=== PATIENT | female | born 1940 | race Caucasian/White ===

== ENCOUNTER 2020-06-11 00:25 | Emergency (ER) | payer BC, MEDICARE ==
[~2020-06-11] VITALS: Ht 160 cm; Wt 63.5 kg
[~2020-06-11 00:25] MED LIST: ASPIR-LOW81 MG PO; CITALOPRAM HBR20 MG PO; CRESTOR10 MG PO; D3 PO; DIAZEPAM5 MG PO; IRON SUPPLEMEN325 MG PO; LISINOPRIL2.5 MG PO; MIDODRINE HCL2.5 MG PO; PRILOSEC OTC20 MG; PRILOSEC20 MG PO; ULTRACET TABLE1 EACH PO; ULTRAM 50MG50 MG PO; VITAMIN B-121000 MCG PO; VITAMIN D-32000 UNIT PO; b12 SL
[2020-06-11] MEDS ORDERED: VALIUM2 MG PO (00:52)
--- NOTE | 2020-06-11 01:03 | NUR ---
Calls made to both home and cell numbers of daughter María, RUSS left.
[2020-06-11 01:07] VITALS: BP 145/64
--- OUTSIDE RECORDS SUMMARY | 2020-06-11 01:12 | XMS REPORT | Summary of Care ---
Author Author [facility] Organization [facility] Address Unknown Phone Unavailable Encounter AMBERLY Barnett(MICHAEL) [id number] Date(s): 11/24/19 - 11/24/19 [facility] [address] [place] [address]- Encounter Diagnosis Accidental fall (Discharge Diagnosis) - 11/24/19 Closed head injury (Discharge Diagnosis) - 11/24/19 Laceration of scalp (Discharge Diagnosis) - 11/24/19 Discharge Disposition: Home or Self Care Attending Physician: Michael Moser MD Vital Signs 1 2 3 Most recent to oldest [Reference Range]: 162.56 cm (11/24/19 9:18 AM) Height 98.9 DegF (11/24/19 2:32 PM) 98.5 DegF (11/24/19 9:18 AM) Temperature Oral [96.4-99.1 DegF] 109/66 mmHg (11/24/19 2:32 PM) 114/77 mmHg (11/24/19 10:15 AM) 107/66 mmHg (11/24/19 9:18 AM) Blood Pressure [90-140/60-90 mmHg] 15 BRMIN (11/24/19 2:32 PM) 23 BRMIN *HI* (11/24/19 10:40 AM) 19 BRMIN (11/24/19 10:15 AM) Respiratory Rate [14-20 BRMIN] 59 bpm *LOW* (11/24/19 9:18 AM) Peripheral Pulse Rate [60-100 bpm] 73.636 kg (11/24/19 9:18 AM) Weight 27.87 m2 (11/24/19 9:18 AM) Body Mass Index Problem List Condition Effective Dates Status Health Status Informan t Aneurysm, 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) HTN Resolved (hypertension)(Confi rmed) Stroke(Confirmed) Resolved Allergies, Adverse Reactions, Alerts Substance Reaction Severity Status Codeine Active Phosphate-Promethazine HCl Medications acetaminophen 500 mg oral tablet 500 mg = 1 tab, PO, Q6H, PRN Pain, not to exceed 4000 mg/day, X 7 day, # 24 tab, 0 Refill(s) Start Date: 11/24/19 Stop Date: 12/01/19 Status: Ordered Results No data available for this section Immunizations No data available for this section Procedures Procedure Date Related Diagnosis Body Site Status Cardiac catheterization Completed Placement of stent Completed Social History Social History Type Response Smoking Status Never smoker; Exposure to T obacco Smoke None; Cigarette Smoking Last 365 Days No; Reg Smoking Cessation Counseli ng No entered on: 11/24/19 Assessment and Plan No data available for this section
--- OUTSIDE RECORDS SUMMARY | 2020-06-11 01:12 | XMS REPORT | Continuity of Care Document ---
Author Author Leland [employer] 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 Information Exchange Unavailable Un available Problems Problem Status Onset Date Classification Date Reported Comments Source FALL Active 02/26/2020 [facility] CLOSED COMMINUTED INTERTROCHANTERIC FX O Active 02/26/2020 [facility] CLOSED COMMINUTED INTERTROCHANTERIC Active 02/26/2020 [facility] INTERTROCHANTERIC FRACTURE Act katey 02/26/2020 [facility] Unspecified fall, initial encounter 11/24/2019 11/26/2019 [facility] Unspecified injury of head, initial encounter 11/24/2019 11/26/2019 [facility] Laceration without foreign body of scalp , initial encounter 11/24/2019 11/26/2019 [facility] RIGHT HIP FRACTURE Active 04/23/2016 [facility] HIP PAIN Active 04/23/2016 [facility] RIGHT HIP FRACTURE. Active 04/23/2016 [facility] Final: Unspecified fracture of unspecifi ed femur, initial encounter for closed fracture 04/29/2016 [facility] Aortic aneurysm (disorder) Res olved Problem [facility] Coronary arteriosclerosis (disorder) Resolved Problem [facility] Hypertensive disorder, systemic arterial (disorder) Resolved Problem 03/25/2020 [facility] Cerebrovascular accident (disorder) Resolved Problem [facility] Acute urinary tract infection (disorder) Active Problem 03/25/2020 [facility] Anemia following acute postoperative blo od loss (disorder) Active Prob melissa 03/25/2020 [facility] Chronic obstructive lung disease (disorder) Active Problem 03/25/2020 [facility] Closed fracture proximal femur, intertro chanteric, comminuted (disorder) Active Prob melissa 03/25/2020 [facility] Falling injury (finding) Active Problem 03/25/2020 [facility] Finding of functional performance and ac tivity (finding) Active Prob melissa 03/25/2020 [facility] Hip pain (finding) Active Problem 03/25/2020 [facility] Impaired cognition (finding) A ctive Problem [facility] Leukocytosis (disorder) Active Problem 03/25/2020 [facility] Displaced intertrochanteric fracture of right femur, initial encounter for closed fracture 03/25/2020 [facility] UNSP FRACTURE OF UNSP FEMUR, INIT ENCNTR Active [facility] DISPLACED INTERTROCHANTERIC FRACTURE OF Active [facility] DISPLACED INTERTROCHANTERIC FRACTURE OF Active [facility] Medications Medication Details Route Status Patient Instructions Ordering Provider Order Date Source citalopram 10 mg oral tablet 4 0 mg = 4 tab, PO, Daily, # 120 tab, 0 Refill(s), Pharmacy: [facility] [id number] Active 03/23/2020 [facility] Furosemide 20 MG Oral Tablet 2 0 mg = 1 tab, PO, Daily, # 30 tab, 0 Refill(s), Pharmacy: [facility] [id number] Active 03/23/2020 [facility] 24 HR Metoprolol Tartrate 25 MG Extended Release Tablet [Toprol] 25 mg = 1 tab, PO, Daily, # 30 tab, 0 Re fill(s), Pharmacy: [facility] [id number] Active 03/23/2020 [facility] Rosuvastatin calcium 20 MG Oral Tablet [Crestor] 20 mg = 1 tab, PO, Bedtime, # 30 tab, 0 Refill(s), Pharmacy: [facility] [id number] Active 03/23/2020 [facility] tramadol hydrochloride 50 MG Oral Tablet 50 mg = 1 tab, PO, Q4H, PRN Pain Score 1-3, X 3 day, # 10 tab, 0 Refill(s), Pharmacy: [facility] [id number] Active 03/23/2020 [facility] cholecalciferol 1000 intl units oral tablet 1,000 IntlUnit = 1 tab, PO, Daily, 0 Refill(s) Active 03/15/2020 [facility] diazepam 5 mg oral tablet 10 m g = 2 tab, PO, BID, PRN as needed for anxiety, 0 Refill(s) Active 03/15/2020 [facility] Acetaminophen 325 MG Oral Tablet 650 mg = 2 tab, PO, Q4H, PRN Pain Score 1-3, 0 Refill(s) Active 03/15/2020 [facility] bisacodyl 10 mg rectal suppository 10 mg = 1 supp, OR, Bedtime, PRN Constipation, 0 Refill(s) Active 03/15/2020 [facility] Calcium Carbonate 500 MG Chewable Tablet 500 mg = 1 tab, PO, BID, 0 Refill(s) Active 03/15/2020 [facility] Docusate Sodium 100 MG Oral Capsule 100 mg = 1 cap, PO, BID, PRN Constipation, 0 Refill(s) Active 03/15/2020 [facility] enoxaparin 40 mg/0.4 mL subcutaneous solution 40 mg = 0.4 mL, SUB-Q, [id number], 0 Refill(s) No Longer Active 03/15/2020 [facility] Furosemide 20 MG Oral Tablet 2 0 mg = 1 tab, PO, Daily, 0 Refill(s) No Longer Active 03/15/2020 [facility] Ipratropium [place] 0.2 MG/ML Inhalant Solution 0.5 mg = 2.5 mL, NEB, RQID, 0 Refill(s) Active 03/15/2020 [facility] melatonin 3 mg oral tablet 3 m g = 1 tab, PO, Bedtime, PRN Insomnia, 0 Refill(s) Active 03/15/2020 [facility] tramadol hydrochloride 50 MG Oral Tablet 50 mg = 1 tab, PO, Q4H, PRN Pain Score 1-3, 0 Refill(s) No Longer Active 03/15/2020 [facility] Sodium Chloride 0.9% IV 500 mL 500 mL, Rate: 50 ml/hr, Infuse over: 10 hr, Route: IV, Dosing Weight 73.352 kg, Total Volume: 500, Start date: 03/14/20 14:22:00 CDT, Duration: 30 day, Stop date: 04/13/20 14:21:00 CDT, 1.83, m2 Inactive 03/14/2020 [facility] Melatonin 3 mg, Route: PO, Bed time, Dosing Weight 73.352, kg, PRN Sleep, Start date: 03/13/20 14:20:00 CDT, Duration: 30 day, Stop date: 04/12/20 14:19:00 CDT Inactive 03/13/2020 [facility] Potassium Chloride 40 mEq, Rou te: PO, Drug form: ERTAB, ONCE, Dosing Weight 73.352, kg, Start date: 03/13/20 14:19:00 CDT, Stop date: 03/13/20 14:19:00 CDT Inactive 03/13/2020 [facility] tiotropium 0.018 MG/ACTUAT Inhalant Powder [Spiriva] 18 microgram, 1 cap, Route: INHALATION, Daily, Dosing Weight 73.352, kg, Start date: 03/13/20 9:00:00 CDT, Duration: 30 day, Stop date: 04/11/20 9:00:00 CDT No Longer Active 03/13/2020 [facility] ipratropium 0.02% inhalation solution Notes: SEE RT DOCUMENTATION (Same as:Atrovent) No Longer Active 03/13/2020 [facility] Furosemide 20 MG Oral Tablet N otes: (Same as: Lasix) May cause GI upset. Give with food or milk. No Longer Active 03/12/2020 [facility] Albuterol 0.833 MG/ML / Ipratropium Brom ryan 0.167 MG/ML Inhalant Solution [DuoNeb] Notes: (Same as: Duoneb) No Longer Active 03/11/2020 [facility] Diazepam Notes: (Same as: Ancelmo um) No Longer Active 03/08/2020 [facility] Docusate Sodium 100 MG Oral Capsule Notes: (Same as: Colace) (Do Not Crush) No Longer Active 03/07/2020 [facility] Miralax Notes: Dissolve in 8 o z of water or juice. (Same as: Miralax) No Longer Active 03/07/2020 [facility] sennosides, LONG-TERM 8.6 MG Oral Tablet Notes: (Same as: Senokot) No Longer Active 03/07/2020 [facility] tramadol hydrochloride 50 MG Oral Tablet Notes: Not to exceed 400mg/day. (Same As: Ultram) No Longer Active 03/04/2020 [facility] Potassium Chloride Notes: ([facility] e as: K-Dur 20) "Do Not Crush" Give with food and full glass of water For patients unable to swallow tablet, dissolve in one half glass of water. Allow about 2 minutes for the tab lets to disintegrate. Stir before giving to prepare slurry and administer. Please exclude Patients with feeding tube less than 14 American (Dobhoff, J-tube etc) and pediatric and patients. No Longer Active 03/03/2020 [facility] potassium chloride 20 mEq oral tablet, e xtended release (KCL) 20 mEq, 1 tab, Route: PO, Drug form: ERT AB, Q12H, Dosing Weight 72.545, kg, PRN Abnormal Lab Result, Start date: 03/03/20 11:55:00 CDT, Duration: 30 day, Stop date: 04/02/20 11:54:00 CDT, 0 No Longer Active 03/03/2020 [facility] Potassium Chloride Notes: ([facility] e as: K-Dur 20) "Do Not Crush" Give with food and full glass of water For patients unable to swallow tablet, dissolve in one half glass of water. Allow about 2 minutes for the tab lets to disintegrate. Stir before giving to prepare slurry and administer. Please exclude Patients with feeding tube less than 14 American (Dobhoff, J-tube etc) and pediatric and patients. Inactive 03/03/2020 [facility] Cholecalciferol Notes: Same as : Vitamin D3 No Longer Active 03/03/2020 [facility] Celexa 40 mg, 4 tab, Route: PO , Drug form: TAB, Daily, Dosing Weight 72.545, kg, Start date: 03/03/20 9:00:00 CDT, Duration: 30 day, Stop date: 04/01/20 9:00:00 CDT, 0 No Longer Active 03/03/2020 [facility] metoprolol extended release No yesenia: (Same as: Toprol XL) Do Not Crush No Longer Active 03/03/2020 [facility] Saline Flush 0.9% Notes: (Same as: BD Posiflush) No Longer Active 03/03/2020 [facility] Acetaminophen Notes: Do not ex ceed 4 gm/day. (Same as: Tylenol) No Longer Active 03/03/2020 [facility] Acetaminophen 325 MG / Hydrocodone Connor trate 5 MG Oral Tablet Notes: (Same as: [place] 325/5) Do not ex ceed 4gm/day of acetaminophen. No Longer Active 03/03/2020 [facility] Ondansetron Notes: (Same as: Z ofran) No Longer Active 03/03/2020 [facility] Docusate Notes: (Same as: Cola ce) (Do Not Crush) No Longer Active 03/03/2020 [facility] Bisacodyl Notes: (Same As: Dul colax, Bisco-Lax) No Longer Active 03/03/2020 [facility] Melatonin Notes: (Same as: Leigh atonin) No Longer Active 03/03/2020 [facility] Saline Flush 0.9% Notes: (Same as: BD Posiflush) No Longer Active 03/03/2020 [facility] Crestor Notes: Same as Crestor No Longer Active 03/03/2020 [facility] Calcium Carbonate Notes: (Same As: [place]) Calcium Carbonate 500 mg = 200 mg elemental calcium Dose = mg calcium carbonate ( mg elemental calcium) No Longer Active 03/02/2020 [facility] Diazepam Notes: (Same as: Ancelmo um) No Longer Active 03/02/2020 [facility] Protonix Notes: Tablet should not be chewed or crushed. (Same as: Protonix) No Longer Active 03/02/2020 [facility] Lovenox Notes: (Same as: Loven ox) No Longer Active 03/02/2020 [facility] Acetaminophen 325 MG / Hydrocodone Connor trate 10 MG Oral Tablet [[place] 10/325] Notes: Do not exceed 4gm/day of acetamin ophen. (Same as: [place] 325/10) Inactive 03/02/2020 [facility] Anoro Ellipta 62.5 mcg-25 mcg inhalation powder 1 puff, INHALER, Daily, # 1 ea, 3 Refill(s) On Hold 03/02/2020 [facility] 24 HR Metoprolol Tartrate 25 MG Extended Release Tablet [Toprol] 25 mg = 1 tab, PO, Daily, 0 Refill(s) On Hold 03/01/2020 [facility] citalopram 10 mg oral tablet 4 0 mg = 4 tab, PO, BID, 0 Refill(s) On Hold 03/01/2020 [facility] pantoprazole 40 mg oral enteric coated tablet 40 mg = 1 tab, PO, Before Breakfast, 0 Refill(s) On Hold 03/01/2020 [facility] Cholecalciferol Notes: Same as : Vitamin D3 No Longer Active 02/28/2020 [facility] Enoxaparin Notes: (Same as: Lo venox) No Longer Active 02/28/2020 [facility] Lovenox 40 mg, Route: SUB-Q, D rug form: INJ, [id number], Dosing Weight 72.545, kg, Start date: 02/28/20 7:00:00 CDT, Duration: 14 day, Stop date: 03/12/20 7:00:00 CDT No Longer Active 02/28/2020 [facility] Calcium Carbonate Notes: 500mg elemental calcium = 1250mg calcium carbonate. Contains 500mg elemental calcium. (Same As: OsCal 500) No Longer Active 02/27/2020 [facility] dexamethasone (ANES) Route: IV , Drug form: INJ, ONCE, Stop date: 02/27/20 12:14:00 CDT Inactive 02/27/2020 [facility] Fentanyl Notes: (Same as: Subl imaze) Preservative free. No Longer Active 02/27/2020 [facility] Flumazenil Notes: (Same as: Ro mazicon) No Longer Active 02/27/2020 [facility] Naloxone Notes: Same as Narcan No Longer Active 02/27/2020 [facility] Ondansetron Notes: (Same as: Susan singh) MEDICATION WASTE Product Size: 4 mg Product Wasted: ___ mg No Longer Active 02/27/2020 [facility] ondansetron (ANES) Route: IV, Drug form: INJ, ONCE, Stop date: 02/27/20 11:19:00 CDT Inactive 02/27/2020 [facility] ceFAZolin (ANES) Route: IV, Dr ug form: INJ, ONCE, Stop date: 02/27/20 11:09:00 CDT Inactive 02/27/2020 [facility] ePHEDrine (ANES) Route: IV, Dr ug form: INJ, ONCE, Stop date: 02/27/20 10:53:00 CDT Inactive 02/27/2020 [facility] midazolam (ANES) Route: IV, Dr ug form: SOLN, ONCE, Stop date: 02/27/20 10:43:00 CDT Inactive 02/27/2020 [facility] lidocaine (ANES) Route: IV, Dr ug form: INJ, ONCE, Stop date: 02/27/20 10:43:00 CDT Inactive 02/27/2020 [facility] fentaNYL (ANES) Route: IV, Jono g form: INJ, ONCE, Stop date: 02/27/20 10:43:00 CDT Inactive 02/27/2020 [facility] glycopyrrolate (ANES) Route: I V, Drug form: INJ, ONCE, Stop date: 02/27/20 10:43:00 CDT Inactive 02/27/2020 [facility] propofol (ANES) Route: IV, Jono g form: INJ, ONCE, Stop date: 02/27/20 10:39:00 CDT Inactive 02/27/2020 [facility] succinylcholine (ANES) Route: IV, Drug form: INJ, ONCE, Stop date: 02/27/20 10:39:00 CDT Inactive 02/27/2020 [facility] Dilaudid Notes: (Same as: Dila udid) No Longer Active 02/27/2020 [facility] Lactated Ringers Injection IV (ANES) 1000 mL Route: IV, Total Volume: 1,000, Start date: 02/27/20 9:57:00 CDT, Stop date: 02/27/20 10:57:00 CDT Inactive 02/27/2020 [facility] Prevacid 30 mg, Route: PO, QAM , Dosing Weight 72.545, kg, Start date: 02/27/20 9:00:00 CDT, Duration: 30 day, Stop date: 03/27/20 9:00:00 CDT No Longer Active 02/27/2020 [facility] 24 HR Metoprolol Tartrate 25 MG Extended Release Tablet [Toprol] Notes: (Same as: Toprol XL) Do Not Crush No Longer Active 02/27/2020 [facility] Vitamin D3 Notes: Same as [place] min D3 No Longer Active 02/27/2020 [facility] Celexa 40 mg, 4 tab, Route: PO , Drug form: TAB, Daily, Dosing Weight 72.545, kg, Start date: 02/27/20 9:00:00 CDT, Duration: 30 day, Stop date: 03/27/20 9:00:00 CDT, 0 No Longer Active 02/27/2020 [facility] Protonix Notes: Tablet should not be chewed or crushed. (Same as: Protonix) No Longer Active 02/27/2020 [facility] Morphine Notes: (Same as:MORPh ine Sulfate) No Longer Active 02/27/2020 [facility] Diazepam Notes: (Same as: Ancelmo um) No Longer Active 02/27/2020 [facility] Ciprofloxacin Notes: Do not re frigerate No Longer Active 02/27/2020 [facility] Crestor Notes: Same as Crestor No Longer Active 02/27/2020 [facility] Morphine Notes: (Same as:MORPh ine Sulfate) No Longer Active 02/26/2020 [facility] Trazodone Notes: (Same As: Oh yrel) Inactive 02/26/2020 [facility] Ancef + sterile water 20 mL No yesenia: (Same As: Ancef, Kefzol) MEDICATION WASTE Product Size: 1000 mg Product Wasted: ___ mg No Longer Active 02/26/2020 [facility] Dextrose 50% Syringe (D50W) 12 .5 gm, 25 mL, Route: IVP, Drug Form: INJ, Dosing Weight 72.727, kg, PRN, PRN Blood Glucose Results, Start date: 02/26/20 16:01:00 CDT, Duration: 30 day, Stop date: 03/27/20 16:00:00 CDT, 0 No Longer Active 02/26/2020 [facility] Glucagon 1 mg, Route: IM, Drug form: PDR/INJ, PRN, Dosing Weight 72.727, kg, PRN Blood Glucose Results, Start date: 02/26/20 16:01:00 CDT, Duration: 30 day, Stop date: 03/27/20 16:00:00 CDT, 0 No Longer Active 02/26/2020 [facility] Docusate Notes: (Same as: Cola ce) (Do Not Crush) No Longer Active 02/26/2020 [facility] Ondansetron Notes: (Same as: Susan singh) MEDICATION WASTE Product Size: 4 mg Product Wasted: ___ mg No Longer Active 02/26/2020 [facility] Acetaminophen Notes: Do not ex ceed 4 gm/day. (Same as: Tylenol) No Longer Active 02/26/2020 [facility] Dilaudid Notes: (Same as: Dila udid) Inactive 02/26/2020 [facility] Saline Flush 0.9% Notes: (Same as: BD Posiflush) No Longer Active 02/26/2020 [facility] Acetaminophen 500 MG Oral Tablet 500 mg = 1 tab, PO, Q6H, PRN Pain, not to exceed 4000 mg/day, X 7 day, # 24 tab, 0 Refill(s) Active 11/24/2019 [facility] Acetaminophen 300 MG / Codeine Phosphate 60 MG Oral Tablet [Tylenol with Codeine #4] 1 - 2 tab, PO, Q4H, PRN Pain, X 2 day, # 40 tab, 0 Refill(s), given to patient No Longer Active 04/26/2016 [facility] 0.3 ML Enoxaparin sodium 100 MG/ML Prefi lled Syringe [Lovenox] 30 mg, SUB-Q, Q12H, X 14 day, # 28 inj, 0 Refill(s) Active 04/26/2016 [facility] Cephalexin 500 MG Oral Capsule [Keflex] 500 mg = 1 cap, PO, QID, X 10 day, # 40 cap, 0 Refill(s) Active 04/26/2016 [facility] metoprolol 25 mg oral tablet, extended release 25 mg = 1 tab, PO, Daily, # 30 tab, 0 Refill(s) Active 04/26/2016 [facility] Miralax Notes: Dissolve in 8 o z of water or juice. (Same as: Miralax) Inactive 04/26/2016 [facility] Lovenox Notes: (Same as: Loven ox) No Longer Active 04/25/2016 [facility] Ancef + sodium chloride 0.9% INJ 100 mL Notes: (Same As: Ancef, Kefzol) Inactive 04/25/2016 [facility] metoprolol extended release No yesenia: (Same as: Toprol XL) Do Not Crush No Longer Active 04/25/2016 [facility] Prevacid 30 mg, Route: PO, QAM , Dosing Weight 72.727, kg, Start date: 04/25/16 9:00:00 CDT, Duration: 30 day, Stop date: 05/24/16 9:00:00 CDT No Longer Active 04/25/2016 [facility] Aspirin 81 MG Enteric Coated Tablet Notes: Do not crush or chew. (Same As: Ecotrin) No Longer Active 04/25/2016 [facility] Vitamin C Notes: (Same as: Vit sinha C) No Longer Active 04/25/2016 [facility] Protonix Notes: Tablet should not be chewed or crushed. (Same as: Protonix) No Longer Active 04/25/2016 [facility] Crestor 20 mg, Route: PO, Drug form: TAB, Bedtime, Dosing Weight 72.727, kg, Start date: 04/24/16 21:00:00 CDT, Duration: 30 day, Stop date: 05/23/16 21:00:00 CDT Inactive 04/25/2016 [facility] Lipitor Notes: (Same as: Lipit or) No Longer Active 04/25/2016 [facility] ePHEDrine (ANES) Route: IV, Dr ug form: INJ, ONCE, Stop date: 04/24/16 17:33:00 CDT Inactive 04/24/2016 [facility] ondansetron (ANES) Route: IV, Drug form: INJ, ONCE, Stop date: 04/24/16 17:28:00 CDT Inactive 04/24/2016 [facility] acetaminophen (ANES) (ANES) Ro tlingit & haida: IV, Drug form: INJ, Start date: 04/24/16 17:27:00 CDT, Stop date: 04/24/16 18:27:00 CDT Inactive 04/24/2016 [facility] midazolam (ANES) Route: IV, Dr ug form: SOLN, ONCE, Stop date: 04/24/16 17:23:00 CDT Inactive 04/24/2016 [facility] fentaNYL (ANES) Route: IV, Jono g form: INJ, ONCE, Stop date: 04/24/16 17:23:00 CDT Inactive 04/24/2016 [facility] lidocaine (ANES) Route: IV, Dr ug form: INJ, ONCE, Stop date: 04/24/16 17:23:00 CDT Inactive 04/24/2016 [facility] propofol (ANES) Route: IV, Jono g form: INJ, ONCE, Stop date: 04/24/16 17:23:00 CDT Inactive 04/24/2016 [facility] ceFAZolin (ANES) (ANES) Route: IV, Drug form: INJ, Start date: 04/24/16 17:12:00 CDT, Stop date: 04/24/16 18:12:00 CDT Inactive 04/24/2016 [facility] Acetaminophen 325 MG / Hydrocodone Connor trate 7.5 MG Oral Tablet [[place] 7.5/325] Notes: Same as [place] 325-7.5mg Do not exceed 4gm/day of acetaminophen. No Longer Active 04/24/2016 [facility] Acetaminophen 325 MG / Hydrocodone Connor trate 7.5 MG Oral Tablet [[place] 7.5/325] Notes: Same as [place] 325-7.5mg Do not exceed 4gm/day of acetaminophen. No Longer Active 04/24/2016 [facility] Diazepam Notes: (Same as: Ancelmo um) No Longer Active 04/24/2016 [facility] LR 1000 mL INJ (ANES) Route: I V, Total Volume: 1,000, Start date: 04/24/16 16:40:00 CDT, Stop date: 04/24/16 17:40:00 CDT Inactive 04/24/2016 [facility] Aspirin 81 MG Enteric Coated Tablet 81 mg = 1 tab, PO, Daily, # 90 tab, 3 Refill(s) Active 04/24/2016 [facility] Potassium Chloride 10 MEQ Extended Release Tablet 10 mEq = 1 tab, PO, Daily, 0 Refill(s) Active 04/24/2016 [facility] Prevacid 30 mg, PO, QAM, # 15 cap, 0 Refill(s) Active 04/24/2016 [facility] Vitamin C 1000 mg oral tablet 1,000 mg = 1 tab, PO, Daily, 0 Refill(s) Active 04/24/2016 [facility] Rosuvastatin calcium 20 MG Oral Tablet [Crestor] 20 mg = 1 tab, PO, Bedtime, 0 Refill(s) Active 04/24/2016 [facility] Vitamin C 0 Refill(s) Active 04/24/2016 [facility] diazepam 10 mg oral tablet 10 mg = 1 tab, PO, BID, 0 Refill(s) Active 04/24/2016 [facility] Vitamin D3 oral tablet 800 Int lUnit = 2 tab, PO, Daily, 0 Refill(s) Active 04/24/2016 [facility] Ancef Notes: Same as: Ancef No Longer Active 04/24/2016 [facility] Saline Flush 0.9% Notes: (Same as: BD Posiflush) No Longer Active 04/24/2016 [facility] Sodium Chloride 0.154 MEQ/ML Injectable Solution 1,000 mL, Rate: 40 ml/hr, Infuse over: 25 hr, Route: IV, Dosing Weight 72.727 kg, Total Volume: 1,000, Start date: 04/23/16 19:33:00 CDT, Stop date: 05/23/16 19:32:00 CDT No Longer Active 04/24/2016 [facility] Ondansetron 4 mg, Route: IVP, Q6H, Dosing Weight 72.727, kg, PRN Nausea & Vomiting, Start date: 04/23/16 19:33:00 CDT, Duration: 30 day, Stop date: 05/23/16 19:32:00 CDT Inactive 04/24/2016 [facility] Morphine 2 mg, Route: IVP, Q4H , Dosing Weight 72.727, kg, PRN Pain Score 7-10, Start date: 04/23/16 19:33:00 CDT, Duration: 30 day, Stop date: 05/23/16 19:32:00 CDT Inactive 04/24/2016 [facility] Enoxaparin Notes: (Same as: Lo venox) No Longer Active 04/23/2016 [facility] Hydralazine Notes: (Same as: A presoline) Push over 5 minutes No Longer Active 04/23/2016 [facility] sodium chloride 0.9% 1000 ml INJ 1,000 mL 1,000 mL, Rate: 90 ml/hr, Infuse over: 11.1 hr, Route: IV, Dosing Weight 72.727 kg, Total Volume: 1,000, Start date: 04/23/16 17:59:00 CDT, Duration: 30 day, Stop date: 05/23/16 17:58:00 CDT Inactive 04/23/2016 [facility] Morphine Notes: (Same as:MORPh ine Sulfate) No Longer Active 04/23/2016 [facility] Docusate Notes: (Same as: Cola ce) (Do Not Crush) No Longer Active 04/23/2016 [facility] Ondansetron Notes: (Same as: Susan singh) MEDICATION WASTE Product Size: 4 mg Product Wasted: ___ mg No Longer Active 04/23/2016 [facility] Acetaminophen 325 MG / Hydrocodone Connor trate 5 MG Oral Tablet Notes: (Same as: [place] 325/5) Do not ex ceed 4gm/day of acetaminophen. No Longer Active 04/23/2016 [facility] Acetaminophen Notes: Do not ex ceed 4 gm/day. (Same as: Tylenol) No Longer Active 04/23/2016 [facility] Morphine 2 mg, Route: IVP, Jono g form: INJ, ONCE, Dosing Weight 72.727, kg, Priority: STAT, Start date: 04/23/16 16:56:00 CDT, Stop date: 04/23/16 16:56:00 CDT Inactiv e 04/23/2016 [facility] Zofran 4 mg, Route: IVP, Drug form: INJ, ONCE, Dosing Weight 72.727, kg, Priority: STAT, Start date: 04/23/16 15:15:00 CDT, Stop date: 04/23/16 15:15:00 CDT Inactiv e 04/23/2016 [facility] Morphine 4 mg, Route: IVP, Jono g form: INJ, ONCE, Dosing Weight 72.727, kg, Priority: STAT, Start date: 04/23/16 15:14:00 CDT, Stop date: 04/23/16 15:14:00 CDT Inactiv e 04/23/2016 [facility] Allergies, Adverse Reactions, Alerts Substance Category Reaction Severity Reaction type Status Date Reported Comments Source Codeine Phosphate-Promethazine HCl Assertion Drug aller gy Active [facility] Immunizations No Data Provided for This Section Results Order Name Results Value Reference Range Date Interpretation Comments Source CHEM PANEL Glucose Lvl 92 70 - 99 03/19/2020 [facility] CHEM PANEL BUN 8 7 - 22 03/19/2020 [facility] CHEM PANEL Creatinine Lvl 1.12 0.50 - 1.40 03/19/2020 [facility] CHEM PANEL Sodium Lvl 139 135 - 145 03/19/2020 [facility] CHEM PANEL Potassium Lvl 3.8 3.5 - 5.1 03/19/2020 [facility] CHEM PANEL Chloride Lvl 97 95 - 109 03/19/2020 [facility] CHEM PANEL CO2 36 24 - 32 03/19/2020 [facility] CHEM PANEL Calcium Lvl 9.0 8.5 - 10.5 03/19/2020 [facility] CHEM PANEL AGAP 9.8 10.0 - 20.0 03/19/2020 [facility] CHEM PANEL eGFR 47 03/19/2020 Result Comment: The eGFR is calculated using the CKD-EPI formula. In most young, healthy individuals the eGFR will be >90 mL/min/1.73m2. The eGFR declines with age. An eGFR of 60-89 may be normal in some populations, particularly the elderly, for whom the CKD-EPI formula has not been extensively validated. Use of the eGFR is not recommended in the following populations:

Individuals with unstable creatinine concentrations, including patients and those with serious co-morbid conditions.

Patients with extremes in muscle mass or diet.

The data above are obtained from the National Kidney Disease Education Program (NKDEP) which additionally recommends that when the eGFR is used in patients with extremes of body mass index for purposes of drug dosing, the eGFR should be multiplied by the estimated BMI. [facility] WBC 4.8 3.7 - 10.4 03/19/[address] [facility] RBC 3.36 4.20 - 5.40 03/19/2020 [facility] HEMATOLOGY Hgb 10.3 12.0 - 16.0 03/19/[address] [facility] Hct 31.2 36.0 - 48.0 03/19/[address] [facility] MCV 92.8 80.0 - 98.0 03/19/[address] [facility] MCH 30.7 27.0 - 31.0 03/19/[address] [facility] MCHC 33.0 32.0 - 36.0 03/19/[address] [facility] RDW 13.4 11.5 - 14.5 03/19/[address] [facility] Platelet 306 133 - 450 03/19/[address] [facility] MPV 7.0 7.4 - 10.4 03/19/2020 [facility] CHEM PANEL Glucose Lvl 88 70 - 99 03/15/2020 [facility] CHEM PANEL BUN 13 7 - 22 03/15/2020 [facility] CHEM PANEL Creatinine Lvl 1.06 0.50 - 1.40 03/15/2020 [facility] CHEM PANEL Sodium Lvl 131 135 - 145 03/15/2020 [facility] CHEM PANEL Potassium Lvl 4.1 3.5 - 5.1 03/15/2020 [facility] CHEM PANEL Chloride Lvl 97 95 - 109 03/15/2020 [facility] CHEM PANEL CO2 27 24 - 32 03/15/2020 [facility] CHEM PANEL Calcium Lvl 8.6 8.5 - 10.5 03/15/2020 [facility] CHEM PANEL AGAP 11.1 10.0 - 20.0 03/15/2020 [facility] CHEM PANEL eGFR 50 03/15/2020 Result Comment: The eGFR is calculated using the CKD-EPI formula. In most young, healthy individuals the eGFR will be >90 mL/min/1.73m2. The eGFR declines with age. An eGFR of 60-89 may be normal in some populations, particularly the elderly, for whom the CKD-EPI formula has not been extensively validated. Use of the eGFR is not recommended in the following populations:

Individuals with unstable creatinine concentrations, including patients and those with serious co-morbid conditions.

Patients with extremes in muscle mass or diet.

The data above are obtained from the National Kidney Disease Education Program (NKDEP) which additionally recommends that when the eGFR is used in patients with extremes of body mass index for purposes of drug dosing, the eGFR should be multiplied by the estimated BMI. [facility] CHEM PANEL Glucose Lvl 95 70 - 99 03/13/2020 [facility] CHEM PANEL BUN 10 7 - 22 03/13/2020 [facility] CHEM PANEL Creatinine Lvl 1.03 0.50 - 1.40 03/13/2020 [facility] CHEM PANEL Sodium Lvl 137 135 - 145 03/13/2020 [facility] CHEM PANEL Potassium Lvl 3.2 3.5 - 5.1 03/13/2020 [facility] CHEM PANEL Chloride Lvl 101 95 - 109 03/13/2020 [facility] CHEM PANEL CO2 31 24 - 32 03/13/2020 [facility] CHEM PANEL Calcium Lvl 8.8 8.5 - 10.5 03/13/2020 [facility] CHEM PANEL AGAP 8.2 10.0 - 20.0 03/13/2020 [facility] CHEM PANEL eGFR 52 03/13/2020 Result Comment: The eGFR is calculated using the CKD-EPI formula. In most young, healthy individuals the eGFR will be >90 mL/min/1.73m2. The eGFR declines with age. An eGFR of 60-89 may be normal in some populations, particularly the elderly, for whom the CKD-EPI formula has not been extensively validated. Use of the eGFR is not recommended in the following populations:

Individuals with unstable creatinine concentrations, including patients and those with serious co-morbid conditions.

Patients with extremes in muscle mass or diet.

The data above are obtained from the National Kidney Disease Education Program (NKDEP) which additionally recommends that when the eGFR is used in patients with extremes of body mass index for purposes of drug dosing, the eGFR should be multiplied by the estimated BMI. [facility] CARDIAC ENZYMES BNP 279 <=100 pg/mL 03/11/2020 [facility] HEMATOLOGY Segs 56.0 45.0 - 75.0 03/11/2020 [facility] HEMATOLOGY Lymphocytes 24.7 20.0 - 40.0 03/11/2020 [facility] HEMATOLOGY Monocytes 12.4 2.0 - 12.0 03/11/2020 [facility] HEMATOLOGY Eosinophils 6.2 0.0 - 4.0 03/11/2020 [facility] HEMATOLOGY Basophils 0.7 0.0 - 1.0 03/11/2020 [facility] HEMATOLOGY Neutrophils # 3.0 1.5 - 8.1 03/11/2020 [facility] HEMATOLOGY Lymphocytes # 1.3 1.0 - 5.5 03/11/2020 [facility] HEMATOLOGY Monocytes # 0.7 0.0 - 0.8 03/11/2020 [facility] HEMATOLOGY Eosinophils # 0.3 0.0 - 0.5 03/11/2020 [facility] HEMATOLOGY WBC 5.4 3.7 - 10.4 03/11/2020 [facility] HEMATOLOGY RBC 3.07 4.20 - 5.40 03/11/2020 [facility] HEMATOLOGY Hgb 9.7 12.0 - 16.0 03/11/2020 [facility] HEMATOLOGY Hct 28.8 36.0 - 48.0 03/11/2020 [facility] HEMATOLOGY MCV 93.7 80.0 - 98.0 03/11/[address] [facility] MCH 31.6 27.0 - 31.0 03/11/[address] [facility] MCHC 33.8 32.0 - 36.0 03/11/2020 [facility] HEMATOLOGY RDW 13.5 11.5 - 14.5 03/11/2020 [facility] HEMATOLOGY Platelet 345 133 - 450 03/11/2020 [facility] HEMATOLOGY MPV 7.2 7.4 - 10.4 03/11/2020 [facility] HEMATOLOGY WBC 7.4 3.7 - 10.4 03/06/2020 [facility] HEMATOLOGY RBC 3.23 4.20 - 5.40 03/06/[address] [facility] Hgb 10.3 12.0 - 16.0 03/06/2020 [facility] HEMATOLOGY Hct 30.1 36.0 - 48.0 03/06/2020 [facility] HEMATOLOGY MCV 93.3 80.0 - 98.0 03/06/[address] [facility] MCH 31.8 27.0 - 31.0 03/06/[address] [facility] MCHC 34.1 32.0 - 36.0 03/06/2020 [facility] HEMATOLOGY RDW 13.7 11.5 - 14.5 03/06/2020 [facility] HEMATOLOGY Platelet 279 133 - 450 03/06/[address] [facility] MPV 6.9 7.4 - 10.4 03/06/2020 [facility] CHEM PANEL Total Protein 5.1 6.4 - 8.4 03/03/2020 [facility] CHEM PANEL Albumin Lvl 2.1 3.5 - 5.0 03/03/2020 [facility] CHEM PANEL ALT 24 0 - 65 03/03/2020 [facility] CHEM PANEL AST 57 0 - 37 03/03/2020 [facility] CHEM PANEL Alk Phos 63 39 - 136 03/03/2020 [facility] CHEM PANEL Bili Total 1.1 0.2 - 1.3 03/03/2020 [facility] CHEM PANEL B/C Ratio 17 6 - 25 03/03/2020 [facility] CHEM PANEL Globulin 3.0 2.7 - 4.2 03/03/2020 [facility] CHEM PANEL A/G Ratio 0.7 0.7 - 1.6 03/03/2020 [facility] HEMATOLOGY Segs 60.3 45.0 - 75.0 03/03/2020 [facility] HEMATOLOGY Lymphocytes 21.5 20.0 - 40.0 03/03/2020 [facility] HEMATOLOGY Monocytes 11.4 2.0 - 12.0 03/03/2020 [facility] HEMATOLOGY Eosinophils 6.4 0.0 - 4.0 03/03/2020 [facility] HEMATOLOGY Basophils 0.4 0.0 - 1.0 03/03/2020 [facility] HEMATOLOGY Neutrophils # 4.8 1.5 - 8.1 03/03/[address] [facility] Lymphocytes # 1.7 1.0 - 5.5 03/03/[address] [facility] Monocytes # 0.9 0.0 - 0.8 03/03/[address] [facility] Eosinophils # 0.5 0.0 - 0.5 03/03/2020 [facility] BLOOD [facility] RESULTS ABO/Rh O POS 03/02/2020 [facility] BLOOD [facility] RESULTS Antibody Scrn Negative (03/02/20 8:26 AM) 03/02/2020 [facility] BLOOD [facility] RESULTS RBC product Product available 4 (03/02/20 8:08 AM) 03/02/2020 Result Comment: 03/02/2020 1 0:08 [id number]
KLS notified Seema 03/02/2020 10:08 [facility] HEMATOLOGY Hgb 8.2 12.0 - 16.0 03/02/2020 [facility] HEMATOLOGY Hct 24.4 36.0 - 48.0 03/02/2020 [facility] IMMUNOLOGY Coronavirus (COVID-19) NA A Not Detected (03/01/20 4:01 PM) Not Detected 03/01/2020 [facility] CHEM PANEL Glucose Lvl 82 70 - 99 03/01/2020 [facility] CHEM PANEL BUN 16 7 - 22 03/01/2020 [facility] CHEM PANEL Creatinine Lvl 1.00 0.50 - 1.40 03/01/2020 [facility] CHEM PANEL Sodium Lvl 133 135 - 145 03/01/2020 [facility] CHEM PANEL Potassium Lvl 3.5 3.5 - 5.1 03/01/2020 [facility] CHEM PANEL Chloride Lvl 99 95 - 109 03/01/2020 [facility] CHEM PANEL CO2 31 24 - 32 03/01/2020 [facility] CHEM PANEL Calcium Lvl 8.3 8.5 - 10.5 03/01/2020 [facility] CHEM PANEL AGAP 6.5 10.0 - 20.0 03/01/2020 [facility] CHEM PANEL eGFR 54 03/01/2020 Result Comment: The eGFR is calculated using the CKD-EPI formula. In most young, healthy individuals the eGFR will be >90 mL/min/1.73m2. The eGFR declines with age. An eGFR of 60-89 may be normal in some populations, particularly the elderly, for whom the CKD-EPI formula has not been extensively validated. Use of the eGFR is not recommended in the following populations:

Individuals with unstable creatinine concentrations, including patients and those with serious co-morbid conditions.

Patients with extremes in muscle mass or diet.

The data above are obtained from the National Kidney Disease Education Program (NKDEP) which additionally recommends that when the eGFR is used in patients with extremes of body mass index for purposes of drug dosing, the eGFR should be multiplied by the estimated BMI. [facility] HEMATOLOGY Segs 63.5 45.0 - 75.0 03/01/2020 [facility] HEMATOLOGY Lymphocytes 19.9 20.0 - 40.0 03/01/2020 [facility] HEMATOLOGY Monocytes 13.2 2.0 - 12.0 03/01/2020 [facility] HEMATOLOGY Eosinophils 3.2 0.0 - 4.0 03/01/2020 [facility] HEMATOLOGY Basophils 0.2 0.0 - 1.0 03/01/2020 [facility] HEMATOLOGY Neutrophils # 4.9 1.5 - 8.1 03/01/2020 [facility] HEMATOLOGY Lymphocytes # 1.5 1.0 - 5.5 03/01/2020 [facility] HEMATOLOGY Monocytes # 1.0 0.0 - 0.8 03/01/2020 [facility] HEMATOLOGY Eosinophils # 0.2 0.0 - 0.5 03/01/2020 [facility] HEMATOLOGY WBC 7.7 3.7 - 10.4 03/01/2020 [facility] HEMATOLOGY RBC 2.48 4.20 - 5.40 03/01/2020 [facility] HEMATOLOGY Hgb 7.9 12.0 - 16.0 03/01/2020 [facility] HEMATOLOGY Hct 23.0 36.0 - 48.0 03/01/2020 [facility] HEMATOLOGY MCV 92.7 80.0 - 98.0 03/01/2020 [facility] HEMATOLOGY MCH 31.8 27.0 - 31.0 03/01/2020 [facility] HEMATOLOGY MCHC 34.3 32.0 - 36.0 03/01/2020 [facility] HEMATOLOGY RDW 14.0 11.5 - 14.5 03/01/2020 [facility] HEMATOLOGY Platelet 202 133 - 450 03/01/2020 [facility] HEMATOLOGY MPV 7.1 7.4 - 10.4 03/01/2020 [facility] CHEM PANEL Glucose Lvl 99 70 - 99 02/29/2020 [facility] CHEM PANEL BUN 18 7 - 22 02/29/2020 [facility] CHEM PANEL Creatinine Lvl 1.17 0.50 - 1.40 02/29/2020 [facility] CHEM PANEL Sodium Lvl 131 135 - 145 02/29/2020 [facility] CHEM PANEL Potassium Lvl 4.2 3.5 - 5.1 02/29/2020 [facility] CHEM PANEL Chloride Lvl 98 95 - 109 02/29/2020 [facility] CHEM PANEL CO2 31 24 - 32 02/29/2020 [facility] CHEM PANEL AGAP 6.2 10.0 - 20.0 02/29/2020 [facility] CHEM PANEL Calcium Lvl 8.8 8.5 - 10.5 02/29/2020 [facility] CHEM PANEL B/C Ratio 15 6 - 25 02/29/2020 [facility] CHEM PANEL Total Protein 5.9 6.4 - 8.4 02/29/2020 [facility] CHEM PANEL Albumin Lvl 2.6 3.5 - 5.0 02/29/2020 [facility] CHEM PANEL Globulin 3.3 2.7 - 4.2 02/29/2020 [facility] CHEM PANEL A/G Ratio 0.8 0.7 - 1.6 02/29/2020 [facility] CHEM PANEL ALT 12 0 - 65 02/29/2020 [facility] CHEM PANEL AST 34 0 - 37 02/29/2020 [facility] CHEM PANEL Alk Phos 65 39 - 136 02/29/2020 [facility] CHEM PANEL Bili Total 0.4 0.2 - 1.3 02/29/2020 [facility] CHEM PANEL eGFR 44 02/29/2020 Result Comment: The eGFR is calculated using the CKD-EPI formula. In most young, healthy individuals the eGFR will be >90 mL/min/1.73m2. The eGFR declines with age. An eGFR of 60-89 may be normal in some populations, particularly the elderly, for whom the CKD-EPI formula has not been extensively validated. Use of the eGFR is not recommended in the following populations:

Individuals with unstable creatinine concentrations, including patients and those with serious co-morbid conditions.

Patients with extremes in muscle mass or diet.

The data above are obtained from the National Kidney Disease Education Program (NKDEP) which additionally recommends that when the eGFR is used in patients with extremes of body mass index for purposes of drug dosing, the eGFR should be multiplied by the estimated BMI. [facility] HEMATOLOGY WBC 12.1 3.7 - 10.4 02/29/[address] [facility] RBC 2.39 4.20 - 5.40 02/29/[address] [facility] Hgb 7.5 12.0 - 16.0 02/29/[address] [facility] Hct 22.5 36.0 - 48.0 02/29/[address] [facility] MCV 94.1 80.0 - 98.0 02/29/[address] [facility] MCH 31.4 27.0 - 31.0 02/29/[address] [facility] MCHC 33.4 32.0 - 36.0 02/29/[address] [facility] RDW 13.7 11.5 - 14.5 02/29/[address] [facility] Platelet 229 133 - 450 02/29/[address] [facility] MPV 7.2 7.4 - 10.4 02/29/[address] [facility] Segs 75.6 45.0 - 75.0 02/29/[address] [facility] Lymphocytes 12.5 20.0 - 40.0 02/29/[address] [facility] Monocytes 11.2 2.0 - 12.0 02/29/[address] [facility] Eosinophils 0.7 0.0 - 4.0 02/29/2020 [facility] HEMATOLOGY Neutrophils # 9.1 1.5 - 8.1 02/29/2020 [facility] HEMATOLOGY Lymphocytes # 1.5 1.0 - 5.5 02/29/2020 [facility] HEMATOLOGY Monocytes # 1.3 0.0 - 0.8 02/29/2020 [facility] HEMATOLOGY Eosinophils # 0.1 0.0 - 0.5 02/29/2020 [facility] BLOOD BANK RESULTS RBC product Product available 5 (02/28/20 3:02 PM) 02/28/2020 Result Comment: 02/28/2020 1 5:34 [id number]
spoke to Jenifer at 02/28/2020 15:34 [facility] CHEM PANEL Glucose Lvl 131 70 - 99 02/28/2020 [facility] CHEM PANEL BUN 14 7 - 22 02/28/2020 [facility] CHEM PANEL Creatinine Lvl 1.07 0.50 - 1.40 02/28/2020 [facility] CHEM PANEL Sodium Lvl 131 135 - 145 02/28/2020 [facility] CHEM PANEL Potassium Lvl 4.2 3.5 - 5.1 02/28/2020 [facility] CHEM PANEL Chloride Lvl 97 95 - 109 02/28/2020 [facility] CHEM PANEL CO2 29 24 - 32 02/28/2020 [facility] CHEM PANEL Calcium Lvl 8.3 8.5 - 10.5 02/28/2020 [facility] CHEM PANEL Total Protein 5.2 6.4 - 8.4 02/28/2020 [facility] CHEM PANEL Albumin Lvl 2.2 3.5 - 5.0 02/28/2020 [facility] CHEM PANEL ALT 9 0 - 65 02/28/2020 [facility] CHEM PANEL AST 20 0 - 37 02/28/2020 [facility] CHEM PANEL Alk Phos 59 39 - 136 02/28/2020 [facility] CHEM PANEL Bili Total 0.2 0.2 - 1.3 02/28/2020 [facility] CHEM PANEL AGAP 9.2 10.0 - 20.0 02/28/2020 [facility] CHEM PANEL B/C Ratio 13 6 - 25 02/28/2020 [facility] CHEM PANEL Globulin 3.0 2.7 - 4.2 02/28/2020 [facility] CHEM PANEL A/G Ratio 0.7 0.7 - 1.6 02/28/2020 [facility] CHEM PANEL eGFR 49 02/28/2020 Result Comment: The eGFR is calculated using the CKD-EPI formula. In most young, healthy individuals the eGFR will be >90 mL/min/1.73m2. The eGFR declines with age. An eGFR of 60-89 may be normal in some populations, particularly the elderly, for whom the CKD-EPI formula has not been extensively validated. Use of the eGFR is not recommended in the following populations:

Individuals with unstable creatinine concentrations, including patients and those with serious co-morbid conditions.

Patients with extremes in muscle mass or diet.

The data above are obtained from the National Kidney Disease Education Program (NKDEP) which additionally recommends that when the eGFR is used in patients with extremes of body mass index for purposes of drug dosing, the eGFR should be multiplied by the estimated BMI. [facility] HEMATOLOGY Segs 87.6 45.0 - 75.0 02/28/[address] [facility] Lymphocytes 5.6 20.0 - 40.0 02/28/[address] [facility] Monocytes 6.8 2.0 - 12.0 02/28/[address] [facility] Neutrophils # 10.6 1.5 - 8.1 02/28/[address] [facility] Lymphocytes # 0.7 1.0 - 5.5 02/28/[address] [facility] Monocytes # 0.8 0.0 - 0.8 02/28/[address] [facility] WBC 12.2 3.7 - 10.4 02/28/[address] [facility] RBC 2.36 4.20 - 5.40 02/28/[address] [facility] MCV 94.4 80.0 - 98.0 02/28/[address] [facility] MCH 31.7 27.0 - 31.0 02/28/[address] [facility] MCHC 33.5 32.0 - 36.0 02/28/[address] [facility] RDW 13.7 11.5 - 14.5 02/28/[address] [facility] Platelet 198 133 - 450 02/28/[address] [facility] MPV 7.4 7.4 - 10.4 02/28/2020 [facility] CHEM PANEL Total Protein 5.8 6.4 - 8.4 02/27/2020 [facility] CHEM PANEL Albumin Lvl 2.8 3.5 - 5.0 02/27/2020 [facility] CHEM PANEL ALT 13 0 - 65 02/27/2020 [facility] CHEM PANEL AST 22 0 - 37 02/27/2020 [facility] CHEM PANEL Alk Phos 83 39 - 136 02/27/2020 [facility] CHEM PANEL Bili Total 0.4 0.2 - 1.3 02/27/2020 [facility] CHEM PANEL B/C Ratio 9 6 - 25 02/27/2020 [facility] CHEM PANEL Globulin 3.0 2.7 - 4.2 02/27/2020 [facility] CHEM PANEL A/G Ratio 0.9 0.7 - 1.6 02/27/2020 [facility] HEMATOLOGY Eosinophils 1.7 0.0 - 4.0 02/27/2020 [facility] HEMATOLOGY Basophils 0.2 0.0 - 1.0 02/27/2020 [facility] HEMATOLOGY Eosinophils # 0.1 0.0 - 0.5 02/27/2020 [facility] URINE AND STOOL UA Color Yellow *NA* (02/26/20 3:10 PM) Yellow 02/26/2020 [facility] URINE AND STOOL UA Turbidity Slight *ABN* (02/26/20 3:10 PM) Clear 02/26/2020 [facility] URINE AND STOOL UA Spec Grav 1.005 <=1.030 02/26/2020 [facility] URINE AND STOOL UA pH 5.0 5.0 - 8.0 02/26/2020 [facility] URINE AND STOOL UA Protein Negative mg/dL Negative mg/dL 02/26/2020 [facility] URINE AND STOOL UA Glucose Negative mg/dL Negative mg/dL 02/26/[address] [facility] URINE AND STOOL UA Ketones Negative mg/dL Negative mg/dL 02/26/2020 [facility] URINE AND STOOL UA Bili Negative *NA* (02/26/20 3:10 PM) Negative 02/26/2020 [facility] URINE AND STOOL UA Blood Small *ABN* (02/26/20 3:10 PM) Negative 02/26/2020 [facility] URINE AND STOOL UA Nitrite Negative (02/26/20 3:10 PM) Negative 02/26/2020 [facility] URINE AND STOOL UA Leuk Est Large *ABN* (02/26/20 3:10 PM) Negative 02/26/2020 [facility] URINE AND STOOL UA Sq Epi Occasional /LPF Few /LPF 02/26/2020 [facility] URINE AND STOOL UA WBC 33 0 - 5 02/26/2020 [facility] URINE AND STOOL UA RBC 2 0 - 2 02/26/2020 [facility] URINE AND STOOL UA Bacteria Few /HPF None Seen /HPF 02/26/2020 [facility] URINE AND STOOL UA Mucus Few /LPF None Seen /LPF 02/26/2020 [facility] URINE AND STOOL UA Hyal Cast 2 0 - 2 02/26/2020 [facility] URINE AND STOOL UA Urobilinogen <=1.0 mg/dL 0.1 - 1.0 02/26/2020 [facility] BLOOD BANK RESULTS ABO/Rh O POS 02/26/2020 [facility] BLOOD BANK RESULTS Antibody Scrn Negative (02/26/20 2:26 PM) 02/26/2020 [facility] CHEM PANEL Lactic Acid Lvl 1.8 0.5 - 2.2 02/26/2020 [facility] CARDIAC ENZYMES Total CK 31 12 - 191 02/26/2020 [facility] CHEM PANEL Lactic Acid Lvl 2.1 0.5 - 2.2 02/26/2020 [facility] HEMATOLOGY PT 13.2 12.0 - 14.7 02/26/2020 [facility] HEMATOLOGY INR 1.00 0.85 - 1.17 02/26/2020 [facility] HEMATOLOGY PTT 31.7 22.9 - 35.8 02/26/2020 [facility] HEMATOLOGY Basophils 0.2 0.0 - 1.0 02/26/2020 [facility] CHEM PANEL Calcium Lvl 7.7 8.5 - 10.5 04/26/2016 [facility] CHEM PANEL CO2 26 24 - 32 04/26/2016 [facility] CHEM PANEL Chloride Lvl 101 95 - 109 04/26/2016 [facility] CHEM PANEL Potassium Lvl 3.9 3.5 - 5.1 04/26/2016 [facility] CHEM PANEL eGFR 54 04/26/2016 Result Comment: The eGFR is calculated using the CKD-EPI formula. In most young, healthy individuals the eGFR will be >90 mL/min/1.73m2. The eGFR declines with age. An eGFR of 60-89 may be normal in some populations, particularly the elderly, for whom the CKD-EPI formula has not been extensively validated. Use of the eGFR is not recommended in the following populations:

Individuals with unstable creatinine concentrations, including patients and those with serious co-morbid conditions.

Patients with extremes in muscle mass or diet.

The data above are obtained from the National Kidney Disease Education Program (NKDEP) which additionally recommends that when the eGFR is used in patients with extremes of body mass index for purposes of drug dosing, the eGFR should be multiplied by the estimated BMI. [facility] CHEM PANEL Glucose Lvl 105 70 - 99 04/26/2016 [facility] CHEM PANEL Sodium Lvl 136 135 - 145 04/26/2016 [facility] CHEM PANEL Creatinine Lvl 1.02 0.50 - 1.40 04/26/2016 [facility] CHEM PANEL BUN 10 7 - 22 04/26/2016 [facility] CHEM PANEL AGAP 12.9 10.0 - 20.0 04/26/2016 [facility] HEMATOLOGY MPV 7.4 7.4 - 10.4 04/26/2016 [facility] HEMATOLOGY Platelet 145 133 - 450 04/26/2016 [facility] HEMATOLOGY RDW 15.2 11.5 - 14.5 04/26/[address] [facility] MCHC 31.9 32.0 - 36.0 04/26/[address] [facility] RBC 2.99 4.20 - 5.40 04/26/[address] [facility] Hgb 8.5 12.0 - 16.0 04/26/2016 [facility] HEMATOLOGY Hct 26.8 36.0 - 48.0 04/26/2016 [facility] HEMATOLOGY MCV 89.5 80.0 - 98.0 04/26/[address] [facility] MCH 28.6 27.0 - 31.0 04/26/2016 [facility] HEMATOLOGY WBC 5.7 3.7 - 10.4 04/26/2016 [facility] HEMATOLOGY Eosinophils # 0.2 0.0 - 0.5 04/26/2016 [facility] HEMATOLOGY Monocytes # 0.5 0.0 - 0.8 04/26/2016 [facility] HEMATOLOGY Lymphocytes # 0.9 1.0 - 5.5 04/26/2016 [facility] HEMATOLOGY Segs-Bands # 4.1 1.5 - 8.1 04/26/2016 [facility] HEMATOLOGY Basophils 0.6 0.0 - 1.0 04/26/2016 [facility] HEMATOLOGY Eosinophils 2.9 0.0 - 4.0 04/26/2016 [facility] HEMATOLOGY Monocytes 9.0 2.0 - 12.0 04/26/2016 [facility] HEMATOLOGY Lymphocytes 15.9 20.0 - 40.0 04/26/2016 [facility] HEMATOLOGY Segs 71.6 45.0 - 75.0 04/26/2016 [facility] HEMATOLOGY Basophils 0.4 0.0 - 1.0 04/25/2016 [facility] HEMATOLOGY Eosinophils # 0.2 0.0 - 0.5 04/25/2016 [facility] HEMATOLOGY Monocytes # 0.5 0.0 - 0.8 04/25/2016 [facility] HEMATOLOGY Lymphocytes # 0.8 1.0 - 5.5 04/25/2016 [facility] HEMATOLOGY Segs-Bands # 5.7 1.5 - 8.1 04/25/2016 [facility] HEMATOLOGY Eosinophils 2.3 0.0 - 4.0 04/25/2016 [facility] HEMATOLOGY Monocytes 6.3 2.0 - 12.0 04/25/[address] [facility] Lymphocytes 11.0 20.0 - 40.0 04/25/[address] [facility] Segs 80.0 45.0 - 75.0 04/25/[address] [facility] MPV 6.8 7.4 - 10.4 04/25/[address] [facility] Platelet 161 133 - 450 04/25/[address] [facility] RDW 15.3 11.5 - 14.5 04/25/[address] [facility] MCH 28.7 27.0 - 31.0 04/25/[address] [facility] MCV 88.5 80.0 - 98.0 04/25/[address] [facility] Hct 29.0 36.0 - 48.0 04/25/[address] [facility] Hgb 9.4 12.0 - 16.0 04/25/[address] [facility] RBC 3.28 4.20 - 5.40 04/25/[address] [facility] MCHC 32.5 32.0 - 36.0 04/25/[address] [facility] WBC 7.2 3.7 - 10.4 04/25/2016 [facility] CHEM PANEL Magnesium Lvl 2.1 1.8 - 2.4 04/24/2016 [facility] CHEM PANEL Phosphorus 3.6 2.5 - 4.5 04/24/2016 [facility] ELECTROLYTES Potassium Lvl 4.6 3.5 - 5.1 04/24/2016 [facility] ELECTROLYTES Sodium Lvl 135 135 - 145 04/24/2016 [facility] ELECTROLYTES Glucose Lvl 97 70 - 99 04/24/2016 [facility] ELECTROLYTES Creatinine Lvl 1.2 8 0.50 - 1.40 04/24/2016 [facility] ELECTROLYTES BUN 7 7 - 22 04/24/2016 [facility] ELECTROLYTES eGFR 41 04/24/2016 Result Comment: The eGFR is calculated using the CKD-EPI formula. In most young, healthy individuals the eGFR will be >90 mL/min/1.73m2. The eGFR declines with age. An eGFR of 60-89 may be normal in some populations, particularly the elderly, for whom the CKD-EPI formula has not been extensively validated. Use of the eGFR is not recommended in the following populations:

Individuals with unstable creatinine concentrations, including patients and those with serious co-morbid conditions.

Patients with extremes in muscle mass or diet.

The data above are obtained from the National Kidney Disease Education Program (NKDEP) which additionally recommends that when the eGFR is used in patients with extremes of body mass index for purposes of drug dosing, the eGFR should be multiplied by the estimated BMI. [facility] ELECTROLYTES Chloride Lvl 98 95 - 109 04/24/2016 [facility] ELECTROLYTES AGAP 13.6 10.0 - 20.0 04/24/2016 [facility] ELECTROLYTES CO2 28 24 - 32 04/24/2016 [facility] ELECTROLYTES Albumin Lvl 2.7 3.5 - 5.0 04/24/2016 [facility] ELECTROLYTES Total Protein 5.9 6.4 - 8.4 04/24/2016 [facility] ELECTROLYTES A/G Ratio 0.8 0.7 - 1.6 04/24/2016 [facility] ELECTROLYTES Globulin 3.2 2.0 - 4.0 04/24/2016 [facility] ELECTROLYTES B/C Ratio 5 6 - 25 04/24/2016 [facility] ELECTROLYTES ALT 13 0 - 65 04/24/2016 [facility] ELECTROLYTES Bili Total 0.4 0.2 - 1.3 04/24/2016 [facility] ELECTROLYTES Alk Phos 80 39 - 136 04/24/2016 [facility] ELECTROLYTES AST 16 0 - 37 04/24/2016 [facility] ELECTROLYTES Calcium Lvl 8.2 8.5 - 10.5 04/24/2016 [facility] HEMATOLOGY Monocytes # 0.4 0.0 - 0.8 04/24/2016 [facility] HEMATOLOGY Eosinophils # 0.1 0.0 - 0.5 04/24/2016 [facility] HEMATOLOGY Basophils # 0.1 0.0 - 0.2 04/24/2016 [facility] HEMATOLOGY Basophils 0.9 0.0 - 1.0 04/24/2016 [facility] HEMATOLOGY Eosinophils 1.7 0.0 - 4.0 04/24/2016 [facility] HEMATOLOGY Lymphocytes # 0.9 1.0 - 5.5 04/24/2016 [facility] HEMATOLOGY Segs-Bands # 5.0 1.5 - 8.1 04/24/2016 [facility] HEMATOLOGY Lymphocytes 13.2 20.0 - 40.0 04/24/2016 [facility] HEMATOLOGY Monocytes 6.2 2.0 - 12.0 04/24/[address] [facility] Segs 78.0 45.0 - 75.0 04/24/[address] [facility] WBC 6.5 3.7 - 10.4 04/24/[address] [facility] MCHC 32.4 32.0 - 36.0 04/24/[address] [facility] Platelet 198 133 - 450 04/24/[address] [facility] RDW 15.1 11.5 - 14.5 04/24/[address] [facility] MPV 6.8 7.4 - 10.4 04/24/[address] [facility] MCV 88.3 80.0 - 98.0 04/24/[address] [facility] Hgb 11.0 12.0 - 16.0 04/24/[address] [facility] RBC 3.84 4.20 - 5.40 04/24/[address] [facility] Hct 34.0 36.0 - 48.0 04/24/[address] [facility] MCH 28.7 27.0 - 31.0 04/24/2016 [facility] HEMATOLOGY PTT 31.0 22.9 - 35.8 04/24/[address] [facility] INR 1.11 0.85 - 1.17 04/24/[address] [facility] PT 14.6 12.0 - 14.7 04/24/2016 [facility] URINE AND STOOL UA Color Ltyellow 04/23/2016 [facility] URINE AND STOOL UA Urobilinogen <=1.0 mg/dL 0.1 - 1.0 04/23/[address] [facility] [address] URINE AND STOOL UA Protein Negative mg/dL Negative mg/dL 04/23/[address] [facility] [address] URINE AND STOOL UA pH 6.0 5.0 - 8.0 04/23/2016 [facility] URINE AND STOOL UA Bili Negative *NA* (04/23/16 5:56 PM) Negative 04/23/2016 [facility] URINE AND STOOL UA Ketones Negative mg/dL Negative mg/dL 04/23/2016 [facility] URINE AND STOOL UA Glucose Negative mg/dL Negative mg/dL 04/23/2016 [facility] URINE AND STOOL UA Nitrite Negative (04/23/16 5:56 PM) Negative 04/23/2016 [facility] URINE AND STOOL UA Blood Moderate *ABN* (04/23/16 5:56 PM) Negative 04/23/2016 [facility] URINE AND STOOL UA Spec Grav 1.004 <=1.030 04/23/2016 [facility] URINE AND STOOL UA Turbidity Clear (04/23/16 5:56 PM) Clear 04/23/2016 [facility] URINE AND STOOL UA RBC 1 0 - 2 04/23/2016 [facility] URINE AND STOOL UA WBC 1 0 - 5 04/23/2016 [facility] URINE AND STOOL UA Sq Epi Occasional /LPF Few /LPF 04/23/2016 [facility] URINE AND STOOL UA Leuk Est Negative (04/23/16 5:56 PM) Negative 04/23/2016 [facility] CHEM PANEL B/C Ratio 5 6 - 25 04/23/2016 [facility] CHEM PANEL AGAP 11.5 10.0 - 20.0 04/23/2016 [facility] CHEM PANEL Globulin 3.4 2.0 - 4.0 04/23/2016 [facility] CHEM PANEL A/G Ratio 0.9 0.7 - 1.6 04/23/2016 [facility] CHEM PANEL eGFR 44 04/23/2016 Result Comment: The eGFR is calculated using the CKD-EPI formula. In most young, healthy individuals the eGFR will be >90 mL/min/1.73m2. The eGFR declines with age. An eGFR of 60-89 may be normal in some populations, particularly the elderly, for whom the CKD-EPI formula has not been extensively validated. Use of the eGFR is not recommended in the following populations:

Individuals with unstable creatinine concentrations, including patients and those with serious co-morbid conditions.

Patients with extremes in muscle mass or diet.

The data above are obtained from the National Kidney Disease Education Program (NKDEP) which additionally recommends that when the eGFR is used in patients with extremes of body mass index for purposes of drug dosing, the eGFR should be multiplied by the estimated BMI. [facility] CHEM PANEL Alk Phos 86 39 - 136 04/23/2016 [facility] CHEM PANEL Bili Total 0.5 0.2 - 1.3 04/23/2016 [facility] CHEM PANEL AST 15 0 - 37 04/23/2016 [facility] CHEM PANEL ALT 15 0 - 65 04/23/2016 [facility] CHEM PANEL Albumin Lvl 3.1 3.5 - 5.0 04/23/2016 [facility] CHEM PANEL Chloride Lvl 93 95 - 109 04/23/2016 [facility] CHEM PANEL CO2 28 24 - 32 04/23/2016 [facility] CHEM PANEL Potassium Lvl 3.5 3.5 - 5.1 04/23/2016 [facility] CHEM PANEL Sodium Lvl 129 135 - 145 04/23/2016 [facility] CHEM PANEL Creatinine Lvl 1.20 0.50 - 1.40 04/23/2016 [facility] CHEM PANEL BUN 6 7 - 22 04/23/2016 [facility] CHEM PANEL Glucose Lvl 94 70 - 99 04/23/2016 [facility] CHEM PANEL Calcium Lvl 8.5 8.5 - 10.5 04/23/2016 [facility] CHEM PANEL Total Protein 6.5 6.4 - 8.4 04/23/2016 [facility] HEMATOLOGY PT 13.8 12.0 - 14.7 04/23/2016 [facility] HEMATOLOGY INR 1.03 0.85 - 1.17 04/23/2016 [facility] HEMATOLOGY PTT 31.8 22.9 - 35.8 04/23/2016 [facility] Pathology Reports No Data Provided for This Section Diagnostic Reports Report Value Date Source Hip 1 view DX PROCEDURE INFORM ATION: Exam: FL Fluoroscopy, Up to 1 Hour Physician Time Exam date and time: 02/27/2020 10:27 AM Age: 79 years old Clinical indication: Injury or trauma; Fall; Follow-up exam; Fracture of pelvis \\T\\ hip; Left; Traumatic fracture; Additional info: Orif L hip/st 1020; Et 1050; Ft 0:40; Cak 8.72 mgy; Or 10; Oec 4; J elliott TECHNIQUE: Imaging protocol: Fluoroscopy , up to 1 hour physician or other qualified health client care specialist time. This radiologist did not supervise this procedure. Exam supervised by facility personnel. Report for radiation dosage reporting and documentation only. COMPARISON: PELVIS AP DX 02/26/2020 12:44 PM FINDINGS: Procedural imaging: Fluoroscopic assistance was provided. Fluoroscopy time: 39.6 seconds Number of fluoro spot images: 8 Reference Air Kerma: 8.72 mGy. Notes: Fluoroscopy supervised by facility personnel. Radiologist was not present during the procedure. Intraoperative review of these images was performed by the operating physician. Please refer to the procedure report for further details. IMPRESSION: Intraoperative fluoroscopy assistance as above. Eder Cortez MD On 02/27/2020 16:49:12; [id number] 02/27/2020 [facility] Brain wo contrast CT Radiation Dose CTDIVOL = 0 (mGy): DLP = 1025.05 (mGy-cm) PROCEDURE INFORMATION: Exam: CT Head Without Contrast Exam date and time: 02/26/2020 1:40 PM Age: 79 years old Clinical indication: Injury or trauma; Fall; Additional info: /pain post fall. PT fell from toilet, she slipped off and fell onto her buttocks. Fall was @ 0730 this am and was found around 11am. PT C/O L hip pain, shortened and lateral rotation noted. Denied hitting head, no thinners. HX copd bgl 117 fentanyl 100mcg and zofron 4mg TECHNIQUE: Imaging protocol: Computed tomography of the head without contrast. Total DLP: 1025.05 mGy-cm Radiation optimization: All CT scans at this facility use at least one of these dose optimization techniques: automated exposure control; mA and/or kV adjustment per patient size (includes targeted exams where dose is matched to clinical indication); or iterative reconstruction. COMPARISON: BRAIN WO CONTRAST CT 11/24/2019 10:36 AM FINDINGS: Brain: There is mild atrophy. There are mild white matter hypodensities. No acute infarct or intracranial hemorrhage is present. Ventricles: Normal. No ventriculomegaly. Bones/joints: Unremarkable. No acute fracture. Sinuses: There is an air-fluid level in the left sphenoid sinus. Mastoid air cells: Visualized mastoid air cells are well aerated. Soft tissues: Unremarkable. Vasculature: Distal internal carotid arterial calcifications are present. IMPRESSION: 1. No acute intracranial abnormality. 2. Mild atrophy and mild chronic microva scular ischemic changes. 3. Nonspecific left sphenoid sinus air-f luid level. Brock Bradley MD On 02/26/2020 14:29:33; [id number] 02/26/2020 [facility] Spine cervical wo contrast CT Radiation Dose CTDIVOL = 0 (mGy): DLP = 477.4 (mGy-cm) PROCEDURE INFORMATION: Exam: CT Cervical Spine Without Contrast Exam date and time: 02/26/2020 1:40 PM Age: 79 years old Clinical indication: Injury or trauma; Fall; Additional info: /pain post fall. PT fell from toilet, she slipped off and fell onto her buttocks. Fall was @ 0730 this am and was found around 11am. PT C/O L hip pain, shortened and lateral rotation noted. Denied hitting head, no thinners. HX copd bgl 117 fentanyl 100mcg and zofran 4mg TECHNIQUE: Imaging protocol: Computed tomography images of the cervical spine without contrast. Total DLP: 477.4 mGy-cm Radiation optimization: All CT scans at this facility use at least one of these dose optimization techniques: automated exposure control; mA and/or kV adjustment per patient size (includes targeted exams where dose is matched to clinical indication); or iterative reconstruction. COMPARISON: SPINE CERVICAL WO CONTRAST CT (ER) 11/24/2019 10:36 AM FINDINGS: Vertebrae: There is no fracture. No malalignment. Straightening of the cervical spine is present. C2-C3: Left lateral osteophytes result in mild left neural foraminal narrowing. No right neural foraminal narrowing or spinal canal stenosis is present. C3-C4: Moderate left lateral osteophytes are present. There is moderate left neural foraminal narrowing. No right neural foraminal narrowing or spinal canal stenosis. C4-C5: Moderate left lateral osteophytes results in moderate left neural foraminal narrowing. No right neural foraminal narrowing or spinal canal stenosis. C5-C6: Disc space narrowing is present with osteophytes resulting in severe bilateral neural foraminal narrowing and mild spinal canal stenosis. C6-C7: Disc space narrowing and osteophytes are present. There is moderate left and mild right neural foraminal narrowing and mild spinal canal stenosis. C7-T1: No disc herniation. No spinal canal stenosis. No neural foraminal narrowing. Soft tissues: Unremarkable. Vasculature: Previous left carotid endarterectomy is been performed. Mild bilateral carotid bulb calcifications are present. Lungs: Lung apices are normal. IMPRESSION: 1. No fracture or dislocation involving cervical spine. 2. Straightening of cervical spine may b e related to patient positioning or muscle spasm. 3. Severe bilateral neural foraminal jose rowing at C5-C6. 4. Moderate left neural foraminal narrow ing at C3-C4, C4-C5, and C6-C7. Brock Bradley MD On 02/26/2020 14:48:00; [id number] 02/26/2020 [facility] Pelvis AP DX PROCEDURE INFORMA TION: Exam: XR Pelvis Exam date and time: 02/26/2020 12:44 PM Age: 79 years old Clinical indication: Injury or trauma; Fall; Additional info: /pain post fall TECHNIQUE: Imaging protocol: XR pelvis. Views: 1 or 2 view. COMPARISON: None. FINDINGS: Bones/joints: There is comminuted left femur intertrochanteric fracture with secondary coxa vara angulation and mild marginal displacement of fracture fragments. The left femoral head remains well seated in the acetabulum with mild underlying degenerative changes. Status post fixation of right proximal femur with 3 partially cannulated femoral neck screws in place, which appear intact. Mild degenerative changes present in the right hip. The sacroiliac joints and pubic symphysis are unremarkable. Soft tissues: Surgical clips are present overlying the left inguinal region. Vasculature: Bilateral iliac vascular stents partially visualized in the abdomen. Notes: If there is further clinical concern, may consider evaluation with CT or MRI. IMPRESSION: 1. Comminuted left femur intertrochanter ic fracture. 2. Status post fixation of right femoral neck. Eder Cortez MD On 02/26/2020 13:39:25; [id number] 02/26/2020 [facility] Chest 1view DX PROCEDURE INFOR MATION: Exam: XR Chest, 1 View Exam date and time: 02/26/2020 12:42 PM Age: 79 years old Clinical indication: Injury or trauma; Fall; Additional info: /pain post fall TECHNIQUE: Imaging protocol: XR of the chest Views: 1 view. Frontal view COMPARISON: None. FINDINGS: Lungs: Clear without infiltrate or consolidation. Pleural space: No pleural effusion or pneumothorax. Heart/Mediastinum: Within normal limits. Vasculature: Atherosclerotic calcifications are present in the aorta. Bones/joints: No acute osseous abnormality identified. IMPRESSION: No acute radiographic abnormality in the chest. Eder Cortez MD On 02/26/2020 13:37:08; [id number] 02/26/2020 [facility] Brain wo contrast CT Radiation Dose CTDIVOL = 0 (mGy): DLP = 982.82 (mGy-cm) PROCEDURE INFORMATION: Exam: CT Head Without Contrast Exam date and time: 11/24/2019 10:36 AM Age: 79 years old Clinical indication: Injury or trauma; Fall; Initial encounter; Laceration; Without loss of consciousness; Without residual foreign body; Scalp; Injury date: 11/24/2019; Additional info: /fall, head injury TECHNIQUE: Imaging protocol: Computed tomography of the head without contrast. Total DLP: 982.82 mGy-cm Radiation optimization: All CT scans at this facility use at least one of these dose optimization techniques: automated exposure control; mA and/or kV adjustment per patient size (includes targeted exams where dose is matched to clinical indication); or iterative reconstruction. COMPARISON: BRAIN WO CONTRAST CT 04/23/2016 5:12 PM FINDINGS: Brain: There is generalized diffuse atrophy. There are mild periventricular white matter low densities without mass effect. Ventricles: Unremarkable.No ventriculomegaly. Bones/joints: Unremarkable. No acute fracture. Sinuses: Left sphenoid sinus polyps or mucous retention cyst. No fluid levels. Mastoid air cells: Visualized mastoid air cells are well aerated. Soft tissues: Unremarkable. Vasculature: There are vascular atherosclerotic calcifications carotid siphons. IMPRESSION: Chronic changes as described above. No acute intracranial process. Ezequiel Browne MD On 11/24/2019 11:01:23; [id number] 11/24/2019 [facility] Spine cervical wo contrast CT (ER) Radiation Dose CTDIVOL = 0 (mGy): DLP = 656.4 (mGy-cm) PROCEDURE INFORMATION: Exam: CT Cervical Spine Without Contrast Exam date and time: 11/24/2019 10:36 AM Age: 79 years old Clinical indication: Injury or trauma; Fall; Initial encounter; Injury date: 11/24/2019; Additional info: /fall, neck pain TECHNIQUE: Imaging protocol: Computed tomography images of the cervical spine without contrast. Total DLP: 656.4 mGy-cm Radiation optimization: All CT scans at this facility use at least one of these dose optimization techniques: automated exposure control; mA and/or kV adjustment per patient size (includes targeted exams where dose is matched to clinical indication); or iterative reconstruction. COMPARISON: No relevant prior studies available. FINDINGS: Vertebrae: No acute fracture or subluxation. Normal alignment. Discs/Spinal canal/Neural foramina: Mild disc space narrowing with small posterior disc osteophytes at C5-C6 and C6-C7. No significant spinal canal stenosis. Soft tissues: No prevertebral soft tissue swelling. Lungs: The lung apices are clear. IMPRESSION: No acute cervical spine abnormalities. Kellee Avila MD On 11/24/2019 11:07:10; [id number] 11/24/2019 [facility] Hip 2/3 views uni w pelvis DX PROCEDURE INFORMATION: Exam: XR Right Hip with Pelvis when Performed Exam date and time: 11/24/2019 10:12 AM Age: 79 years old Clinical indication: /fall TECHNIQUE: Imaging protocol: XR Right hip with pelvis when performed. Views: 2 or 3 views. AP 1 view pelvis with 2 views hip COMPARISON: CR HIP 2-3 VIEWS UNI DX, RIGHT 04/23/2016 3:47 PM CR PELVIS AP DX 04/23/2016 3:46 PM FINDINGS: Frontal image of the pelvis demonstrates 3 cannulated screws at the right femoral neck. No acute fracture or dislocation is apparent. Mild degenerative changes are demonstrated at each hip. Aortoiliac stent graft noted incidentally. No focal bone lesion. IMPRESSION: No acute finding. Kobe Zapien MD On 11/24/2019 11:11:33; [id number] 11/24/2019 [facility] Chest 1view DX PROCEDURE INFOR MATION: Exam: XR Chest, 1 View Exam date and time: 11/24/2019 10:12 AM Age: 79 years old Clinical indication: /fall TECHNIQUE: Imaging protocol: XR of the chest Views: 1 view. COMPARISON: CR CHEST 1VIEW DX 04/23/2016 3:45 PM FINDINGS: Lungs: Mild decreased lung volumes. No consolidation. Pleural space: Unremarkable. No pleural effusion. No pneumothorax. Heart/Mediastinum: Heart size is within normal limits. Vasculature is unremarkable. Bones/joints: Unremarkable. IMPRESSION: No acute cardiopulmonary findings. Delvin De La Paz MD On 11/24/2019 11:06:57; [id number] 11/24/2019 [facility] Hip 2/3 views uni DX Patient N blanca: MANFRED WALKER : 1940; Age: 75 years y/o Female MR: [id number] Study: 5 spot images of the right hip dated 04/24/2016. Clinical Indication: Right Hip Pinning; 1 minute and 17 seconds fluoro time/14.77 mGy/OEC 9900+ 3/OR 3 Comparison: 04/23/2016 The spot views limit evaluation of bony detail. The spot views show placement of 3 screws across a right subcapital femur fracture. Bones are in near anatomic alignment on the views provided. SL: [id number]- 04/24/2016 [facility] Brain wo contrast CT Study: Br ain wo contrast CT Clinical Indication: Headache status post fall Comparison: None TECHNIQUE: Multiple axial CT images of the brain were acquired without the administration of intravenous contrast. Coronal and sagittal reconstructions were obtained. CT radiation dose DLP: 1278.92 mGy-cm FINDINGS: Age-related involutional changes of the brain parenchyma are seen. Mild chronic microvascular ischemic changes are identified. No acute intracranial hemorrhage, mass effect, midline shift, or hydrocephalus is seen. There are no extra-axial fluid collections. The visualized paranasal sinuses and mastoid air cells are well aerated. IMPRESSION: No acute intracranial abnormality. SL: [id number] 04/23/2016 [facility] Knee series 3 views DX Study: Knee series 3 views DX Age Female 75 years old Clinical Indication: Pain and swelling; Comparison: None FINDINGS: A set of 3 views for the right knee exam show normal alignment without fractures or dislocations. The medial and lateral tibiofemoral compartments and patellofemoral compartment are unremarkable. There is no knee region soft tissue swelling. There are no joint bodies. There is no joint effusion. There are no radiopaque foreign bodies. IMPRESSION: 1. No fractures or dislocation of the ri ght knee. SL: MARCIO- 04/23/2016 [facility] Elbow 2 views DX : ; Age: 75 years y/o Female MR: [id number] Study: Elbow 2 views DX 04/23/2016 3:14 PM CDT Clinical Indication: Pain Post Trauma; Comparison: None TECHNIQUE: 3 Views of the right elbow FINDINGS: No fracture, malalignment, or other acute osseous abnormality is seen. No joint effusion is identified. Posterior elbow soft tissue swelling and laceration is seen. No radio opaque foreign bodies are seen in the soft tissues. IMPRESSION: No acute fracture or malalignment seen. SL: [id number] 04/23/2016 [facility] Pelvis AP DX : 1940; A ge: 75 years y/o Female MR: [id number] Study: Pelvis AP DX, Hip 2/3 views uni DX 04/23/2016 3:13 PM CDT Clinical Indication: Pain, Trauma; Comparison: None TECHNIQUE: AP view of the pelvis. AP and crosstable lateral view of the right hip. FINDINGS: There is foreshortening of the right femoral neck with linear sclerosis along the right mid femoral neck. Right hip joint maintains normal alignment. Bones are diffusely osteopenic. Aortobiiliac stent graft is partially imaged. Vascular calcifications are identified. Bilateral groin surgical purvi are seen. IMPRESSION: Nondisplaced fracture of the right mid femoral neck. SL: [id number] 04/23/2016 [facility] Chest 1view DX : 1940; Age: 75 years y/o Female MR: [id number] Study: Chest 1view DX 04/23/2016 3:15 PM CDT Clinical Indication: Pain Post Trauma; Comparison: Chest x-ray 04/29/2012. FINDINGS: Bilateral lungs are clear. No pneumothorax or pleural effusion is seen. Cardiomediastinal contours are unchanged. Aortic calcifications are identified. Chronic fracture of the right humeral neck is seen. No acute fracture is identified. Part of an aortic stent graft is identified. Abdominal vascular calcifications are noted. IMPRESSION: 1. No acute intrathoracic abnormality. SL: [id number] 04/23/2016 [facility] Hip 2/3 views uni DX : 06/19; Age: 75 years y/o Female MR: [id number] Study: Pelvis AP DX, Hip 2/3 views uni DX 04/23/2016 3:13 PM CDT Clinical Indication: Pain, Trauma; Comparison: None TECHNIQUE: AP view of the pelvis. AP and crosstable lateral view of the right hip. FINDINGS: There is foreshortening of the right femoral neck with linear sclerosis along the right mid femoral neck. Right hip joint maintains normal alignment. Bones are diffusely osteopenic. Aortobiiliac stent graft is partially imaged. Vascular calcifications are identified. Bilateral groin surgical purvi are seen. IMPRESSION: Nondisplaced fracture of the right mid femoral neck. SL: [id number] 04/23/2016 [facility] Consultation Notes No Data Provided for This Section Discharge Summaries No Data Provided for This Section History and Physicals No Data Provided for This Section Vital Signs Vital Sign Value Date Comments Source Temperature Oral (F) 98.4 F 03/23/2020 [facility] Heart Rate 64 03/23/2020 [facility] Respitory Rate 16 03/23/2020 [facility] Systolic (mm Hg) 161 03/23/2020 [facility] Diastolic (mm Hg) 64 03/23/2020 [facility] Respitory Rate 16 03/23/2020 [facility] Temperature Oral (F) 98.4 F 03/23/2020 [facility] Heart Rate 60 03/23/2020 [facility] Respitory Rate 16 03/23/2020 [facility] Systolic (mm Hg) 144 03/23/2020 [facility] Diastolic (mm Hg) 60 03/23/2020 [facility] Systolic (mm Hg) 147 03/22/2020 [facility] Diastolic (mm Hg) 53 03/22/2020 [facility] Temperature Oral (F) 98.1 F 03/22/2020 [facility] Heart Rate 62 03/22/2020 [facility] Height 160.2 cm 03/12/2020 [facility] Weight 73.352 03/12/2020 [facility] BMI Calculated 28.58 03/12/2020 [facility] Height 160.02 cm 03/05/2020 [facility] Weight 71.2 03/05/2020 [facility] BMI Calculated 27.81 03/05/2020 [facility] Height 160.02 cm 03/03/2020 [facility] Weight 72.545 03/03/2020 [facility] BMI Calculated 28.33 03/03/2020 [facility] Respitory Rate 16 03/03/2020 [facility] Temperature Oral (F) 99.0 F 03/03/2020 [facility] Heart Rate 70 03/03/2020 [facility] Respitory Rate 18 03/03/2020 [facility] Systolic (mm Hg) 140 03/03/2020 [facility] Diastolic (mm Hg) 50 03/03/2020 [facility] Temperature Oral (F) 97.7 F 03/02/2020 [facility] Heart Rate 63 03/02/2020 [facility] Respitory Rate 18 03/02/2020 [facility] Systolic (mm Hg) 112 03/02/2020 [facility] Diastolic (mm Hg) 50 03/02/2020 [facility] Temperature Oral (F) 98.5 F 03/02/2020 [facility] Heart Rate 82 03/02/2020 [facility] Systolic (mm Hg) 120 03/02/2020 [facility] Diastolic (mm Hg) 61 03/02/2020 [facility] Height 160.02 cm 02/26/2020 [facility] Weight 72.545 02/26/2020 [facility] BMI Calculated 28.33 02/26/2020 [facility] Height 162.56 cm 02/26/2020 [facility] BMI Calculated 27.52 02/26/2020 [facility] Weight 72.727 02/26/2020 [facility] Systolic (mm Hg) 109 11/24/2019 [facility] Diastolic (mm Hg) 66 11/24/2019 [facility] Respitory Rate 15 11/24/2019 [facility] Temperature Oral (F) 98.9 F 11/24/2019 [facility] Respitory Rate 23 11/24/2019 [facility] Respitory Rate 19 11/24/2019 [facility] Systolic (mm Hg) 114 11/24/2019 [facility] Diastolic (mm Hg) 77 11/24/2019 [facility] Systolic (mm Hg) 107 11/24/2019 [facility] Diastolic (mm Hg) 66 11/24/2019 [facility] Heart Rate 59 11/24/2019 [facility] Temperature Oral (F) 98.5 F 11/24/2019 [facility] Height 162.56 cm 11/24/2019 [facility] BMI Calculated 27.87 11/24/2019 [facility] Weight 73.636 11/24/2019 [facility] Heart Rate 67 04/26/2016 [facility] Temperature Oral (F) 98.3 F 04/26/2016 [facility] Respitory Rate 18 04/26/2016 [facility] Systolic (mm Hg) 118 04/26/2016 [facility] Diastolic (mm Hg) 71 04/26/2016 [facility] Systolic (mm Hg) 116 04/26/2016 [facility] Diastolic (mm Hg) 69 04/26/2016 [facility] Respitory Rate 16 04/26/2016 [facility] Temperature Oral (F) 98.4 F 04/26/2016 [facility] Heart Rate 70 04/26/2016 [facility] Systolic (mm Hg) 101 04/26/2016 [facility] Diastolic (mm Hg) 58 04/26/2016 [facility] Temperature Oral (F) 97.9 F 04/26/2016 [facility] Heart Rate 63 04/26/2016 [facility] Respitory Rate 16 04/26/2016 [facility] Weight 72.727 04/23/2016 [facility] Height 160.02 cm 04/23/2016 [facility] BMI Calculated 28.4 04/23/2016 [facility] Encounters Location Location Details Encounter Type Encounter Number Reason For Visit Attending Provider ADM Date DC Date Status Source [facility] Inpatient [id number] Alejandro Kumar 04/23/2016 04/26/2016 [facility] Emergency [id number] Michael Moser 11/24/2019 11/24/2019 [facility] Inpatient [id number] Vibha Murphy 02/26/2020 03/03/[address] [facility] Rehabilitation Inpatient Rehab [id number] Justo Dallas Jr 03/03/2020 03/23/2020 [facility] Procedures Procedure Code Date Perfomer Comments Source Cardiac catheterization 209109 [facility] Placement of stent [id number] [facility] Assessment and Plan Assessment and Plan Date Source Extracted from:Title: Clinical Document Author: Justo Hollins MD Date: 03/23/20 PATIENT NAME: MANFRED WALKER ATTENDING PHYSICIAN: JUSTO DALLAS DATE OF ADMISSION: 03/02/2020 DATE OF DISCHARGE: *_*_* ADMITTING AND DISCHARGE DIAGNOSES: 1. Acute traumatic left hip intertrocha nteric femur fracture. 2. Status post left hip IM nailing. 3. Acute postoperative left hip pain. 4. Acute postoperative blood loss anemi a. 5. Dementia. 6. Anxiety. 7. Insomnia. 8. Constipation. 9. Altered mobility, ADLs, IADLs, weakn ess. HOSPITAL COURSE: This is a 79-year-old lady who previously lived at home, very sedentary, but able to do bathing, dressing, grooming and basic mobilization. She presented to [facility] after having a mechanical fall at home with an associated acute traumatic left hip intertrochanteric femur fracture. Dr. Hester performed a left hip ORIF. There were no major intraoperative complications. Postoperatively, she had some anemia and some confusion decline in functional mobility and self-care. She was recommended for acute intensive inpatient rehabilitation and is admitted to [facility] rehabilitation unit on 03/02. REHABILITATION HOSPITAL COURSE: She participated in acute intensive inpatient rehabilitation program 3 hours of therapy per day, physical therapy and occupational therapy. She has made fair progress in a reasonable time, goals were to discharge to home. Despite being at a supervision level with her functional mobility she is still requiring approximately min assist with her occupational therapy skills. Family indicated that they would not be able to provide that support and have requested a halfway center. Medically, she has done well during the stay. Her hemodynamics have stabilized. She was initially having some hypotension. She has also had fluctuations in her cognition with fatigue. She is on chronic Valium that was made p.r.n. and she has not really required it. throughout the hospital stay. We will work with ice and positioning, range of motion, and stretching. We have worked with pain control with Tylenol with tramadol for severe breakthrough pain. We have continued Celexa. We will try to work on sl eep/wake cycle optimization. She continues with functional incontinence with decreased initiation. We will try to establish a timed voiding program. Overall, she has met all medical criteria for the next level of care. She is recommended that the functional criteria to discharge to a person assistance level at supervision. Attempt was made to place into SNF, but that was unable to be completed, and in the interim patient is now supervision in all domains. She is recommended to return home. Of note, Patient's daughter has been aloof during the process. 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 Family now agreeing to come and get her. Patient otherwise indicates she feels safe at home. DISCHARGE PHYSICAL EXAMINATION: Vitals and Temp: Vitals Tmp(F) Pulse BP RR SpO2 FIO2 03/23 07:48 98.4 64 161/64 1 6 --- --- 03/23 06:47 ---- --- ----- 1 6 97 --- 03/22 20:05 98.4 60 144/60 1 6 98 --- 03/22 19:09 ---- --- ----- 1 6 100 --- 03/22 15:46 ---- --- 147/53 -- --- --- 24 Hr Tmax: 98.4F (36.89c) at 03/23 07:4 8 Vital Signs are the last 5 in the past 48 hours. GENERAL: A heavy-set, no apparent distress, seen in her room. PSYCHIATRIC: She is alert, cooperative, pleasant. Very superficial thought processes. HEENT: Pupils equal, round, reactive to light. Extraocular muscles intact. Moist mucous membranes. CARDIOVASCULAR: 2+ bilateral upper extremity pulses. Regular rate and rhythm. All extremities warm and well-perfused. PULMONARY: Respirations unlabored. No evidence for dyspnea at the sentence and paragraph level. ABDOMEN: Doughy, nontender, nondistended. GENITOURINARY: No Kirby. SKIN: No other breakdown or rashes. Hip incision clean, dry, intact. NEUROMUSCULOSKELETAL: Cranial nerves II-XII are intact. Strength is 4+/5 in the bilateral upper extremities and bilateral lower extremities. No hypertonicity or clonus. Hip incision is clean, dry and intact. Ambulation is observed to be mildly antalgic somewhat tearful, but does respond to coaxing and cueing to the need for potential. DISCHARGE CONDITION: Fair. DISCHARGE LOCATION: Home with family. DISCHARGE LIMITATIONS: No climbing. No driving, heavy lifting. Weightbearing as tolerated. DISCHARGE MEDICATIONS: See home medication reconciliation sheet. DISCHARGE FOLLOWUP: 1. Primary care provider within [address] Dimitri Hester orthopedic surgery 3 weeks. 3. retirement facility physical th erapy and occupational therapy. Nursing has provided discharge instructions and provided education on the future rehabilitation planning, care, fall risk reduction, and follow up plan as above. Greater than 45 minutes of clinical time was spent in clinical care coordination education, medication reconciliation, followup care, coordination, discussion with all involved team members. Team conference also held on the day of discharge. Extracted from:Title: Clinical Document Author: Justo Hollins MD Date: 03/22/20 PHYSICAL MEDICINE AND REHABILITATION FOLLOWUP CHIEF COMPLAINT AND IDENTIFICATION: A 79-year-old lady being seen for ongoing rehabilitation needs after having an acute traumatic left hip intertrochanteric femur fracture with left hip IM nail. INTERVAL EVENTS AND SUBJECTIVE: All interval events reviewed. Tolerating therapy well. No new fevers, chills, nausea, vomiting, chest pain, palpitations, headaches, or dizziness. No new focal strength or sensation changes. No new bowel or bladder complaints. PHYSICAL EXAMINATION: Vitals and Temp: Vitals Tmp(F) Pulse BP RR SpO2 FIO2 03/22 07:02 97.6 59 110/48 - - 98 --- 03/21 20:38 98.4 59 128/53 - - 98 --- 03/21 18:40 ---- --- ----- 1 6 96 --- 03/21 16:10 98.6 54 127/50 1 6 98 --- 03/21 08:14 ---- --- ----- 1 6 97 --- 24 Hr Tmax: 98.6F (37.00c) at 03/21 16:1 0 Vital Signs are the last 5 in the past 48 hours. GENERAL: Thin lady in no apparent distress, sitting in her room. PSYCHIATRIC: Alert, oriented, appropriate, pleasant and cooperative. HEENT: Pupils equal, round, reactive to light. Extraocular muscles intact. Moist mucous membranes. CARDIOVASCULAR: 2+ bilateral upper extremity pulses. Regular rate and rhythm. All extremities warm and well-perfused. PULMONARY: Respirations unlabored, no dyspnea. ABDOMEN: Doughy, nontender, nondistended. GENITOURINARY: No Kibry. SKIN: No other breakdown or rashes. NEUROMUSCULOSKELETAL: Cranial nerves II-XII are intact. Strength unbreakable in bilateral upper extremities and right lower extremity. Left lower extremity hip flexion 4/5, knee extension 4/5, ankle dorsiflexion, greater toe extension unbreakable. Some pain limitations of the left leg. No hypertonicity or clonus. Labs (Last four charted values) WBC 4.8 (MARCH 19) 5.4 (MARCH 11) 7.4 (MAR 06) 8.0 (MAR 03) Hgb L 10.3 (MARCH 19) L 9.7 (MARCH 11) L 10.3 (MAR 06) L 10.7 (MAR 03) Hct L 31.2 (MARCH 19) L 28.8 (MARCH 11) L 30.1 (MAR 06) L 31.1 (MAR 03) Plt 306 (MARCH 19) 345 (MARCH 11) 279 (MAR 06) 198 (MAR 03) Na 139 (MARCH 19) L 131 (MARCH 15) 137 (MARCH 13) L 132 (MARCH 11) K 3.8 (MARCH 19) 4.1 (MARCH 15) L 3.2 (MARCH 13) 3.7 (MARCH 11) CO2 H 36 (MARCH 19) 27 (MARCH 15) 31 (MARCH 13) 31 (MARCH 11) Cl 97 (MARCH 19) 97 (MARCH 15) 101 (MARCH 13) 96 (MARCH 11) Cr 1.12 (MARCH 19) 1.06 (MARCH 15) 1.03 (MARCH 13) 1.09 (MARCH 11) BUN 8 (MARCH 19) 13 (MARCH 15) 10 (MARCH 13) 14 (MARCH 11) Glucose Random 92 (MARCH 19) 88 (MARCH 15) 95 (MARCH 13) 86 (MARCH 11) Ca 9.0 (MARCH 19) 8.6 (MARCH 15) 8.8 (MARCH 13) 9.3 (MARCH 11) DIAGNOSTIC IMAGING: On 02/27, transthoracic echocardiogram had ejection fraction 60% to 65%, no major valvular abnormalities. ASSESSMENT AND PLAN: A 79-year-old lady with: 1. Acute traumatic left hip intertrocha nteric femur fracture status post left hip intramedullary nailing: Dr. Dimitri Hester operating surgeon. Weightbearing as tolerated. Continue postoperative medical risk reduction. Continue rehabilitation therapies as below. DVT prophylaxis is with the Lovenox. 2. Acute postoperative left hip pain we ll controlled. Work with ice, positioning, range of motion and stretching. Try to minimize the escalation of narcotics. Recommend scheduling Tylenol and making tramadol available for severe breakthrough pain. 3. Acute postoperative blood loss anemi a: She is status post 4 units transfusion during the acute care. H&H is now stable; repeat is stable. No evidence for orthostasis. Continue to monitor hemodynamics. Work on nutrition fluid optimization. 4. Constipation: -Continue program with docusate and nii a. Will also use Miralax. 5. INsomnia: -Counseling provided. Melatonin availab le. -Encouraging sleep hygeine. -Discussed expectation of only 3-4 hours of sustained sleep per night, ok for short nap during daytime. Avoid long periods of time in bed. -Improving. 6. Rehabilitation for deficits in mobi lity, ADLs, IADLs, weakness, incoordination and imbalance to the above: She continues to meet the acute intensive inpatient rehabilitation criteria. Will continue physical therapy and occupational therapy to progress mobility, ADLs, IADLs, identification of adaptive equipment and caregiver training. -All interval therapy notes reviewed. -Tolerating therapy well. -sup to sit SBA, sit to stand SBA,transf ers w/ RW SBA, gait x 200ft with RW SBA. kinetorn x 15 min at 70 cps Patient with SBA performed functional mobility / transfers to regular chair at sink . Patient stood with SBA to wash hair . Assist with hose rinsing . Patient completed dryer with examining chair assembler and combing . -tolerating therapy. -Awaiting SNF as family declines to prov ryan supervision at home. -May no longer even meet criteria for SN F. -Discussed multiple times with case mgmt . -If SNF not approved then will be going home. F/U: SNF ELOS: when SNF found. -Continue PT and OT. -SNF pending. Continue program. Extracted from:Title: Clinical Document Author: Luis Noriega MD Date: 03/03/20 [facility] H&P Note Admit Date: 03.02.20 Reason for admit/diagnosis: deficits in gait, mobility, self-care including ADLs, toileting, grooming due to acute left hip fracture status post left IM nail. Post op anemia Etiological diagnosis: Orthopedic fracture HPI: Patient is a pleasant 79-year-old female living with her daughter and using a rolling walker for ambulation who presents to [facility] with a slip and fall off the toilet. She was found to have acute left hip fracture status post left IM nail with Dr. Hester of orthopedics. She is weightbearing as tolerated with weightbearing restrictions. Postop anemia requiring 2 units of packed red blood cells on 02/28/2020 and 03/02/20. She has tolerated p.o. diet and continent of bowel bladder. Evaluation for acute rehab needs. All rehab notes reviewed: Patient with acute PT and OT needs. Has functional deficits in gait, mobility, transfers, range of motion, toileting and grooming. Significant functional deficits in bathing and ADLs. Patient has no acute cognitive or swallow deficits noted. After discussion with all involved team members, pt was deemed to be an excellent acute intensive inpatient rehabilitation candidate. Pt was continued to be followed, insurance preauthorization was obtained, and was admitted this afternoon after preapproval. A 48 hour preadmission screen has been completed with no interval changes. Premorbid Function: Modified independent with rolling walker use within the home and independent with ADLs. Lives with her daughter. Review of systems: Patient seen and examined with no acute lightheadedness, dizziness or blurry vision. Pt had no chest pain or palpitations. Pt. has no shortness of breath or dyspnea on exertion. Pt. has no fever, night sweats or chills. Pt. has no nausea, vomiting or abdominal pain. PMHx: COPD, hypertension, aortic aneurysm and previous CVA PSurgicalHx: Cardiac catheterization, stent placement Social Hx: Does not drink, smoke or do illegal substances. Lives with her daughter with 1 step to enter the home. Uses a rolling walker and cane for ambulation. Otherwise independent with ADLs. Allergies: Codeine, phosphate, promethazine Family Hx: Reviewed and noncontributory Meds: See EMR, reviewed PE: Vitals Tmp(F) Pulse BP RR SpO2 FIO2 02/27 16:42 98.0 79 141/49 1 8 100 --- 02/27 14:57 ---- --- ----- - - 100 2.0L/m 02/27 11:24 98.1 76 122/50 1 8 99 --- 02/27 08:03 98.5 82 121/88 1 8 99 --- 02/27 07:44 ---- --- ----- 1 8 98 2.0L/m 24 Hr Tmax: 98.5F (36.94c) at 02/27 08:0 3 Vital Signs are the last 5 in the past 48 hours. GENERAL: no apparent distress, awake and appropriate for condition. PSYCHIATRIC: appropriate, normal affect HEENT: Pupils equal, round, reactive to light. Extraocular muscles intact. Moist mucous membranes. CARDIOVASCULAR: 2+ bilateral upper extremity pulses. Regular rate, all extremities, warm, well-perfused PULMONARY: Respirations unlabored without conversational dyspnea at the sentence or the paragraph level, no abnomal breathing noted ABDOMEN: Doughy, nontender, nondistended SKIN: No breakdowns seen in the arms or feet. No other breakdown. Age appropriate skin NEUROMUSCULOSKELETAL: Cranial nerves II-XII are intact. strength and sensation age appropriate to bilateral upper extremities and right lower extremity. Left lower extremity hip flexion, knee extension impaired secondary to acute pain. Surgical site clean dry and intact with dressing in place. Dorsiflexion plantarflexion of the bilateral lower extremities intact with strength and sensation intact. LABS: Labs (Last four charted values) WBC 8.0 (MAR 03) Hgb L 10.7 (MAR 03) Hct L 31.1 (MAR 03) Plt 198 (MAR 03) Na L 131 (MAR 03) K L 3.3 (MAR 03) CO2 29 (MAR 03) Cl 97 (MAR 03) Cr 1.07 (MAR 03) BUN 18 (MAR 03) Glucose Random H 106 (MAR 03) Ca L 8.2 (MAR 03) RADIOLOGY: All radiology imaging reviewed in electronic medical record. Detailed information regarding each image have been already documented in EMR; please see detailed imaging section in EMR for detailed information Imaging Studies (last 36 hours) Hip 1 view DX 02/27/2020 16:49 Impression: Intraoperative fluoroscopy assistance as above. No OT current status documented PT Current Status PT Treatment Recommendations Patient is a 79-year-old female living with her daughter and using a rolling walker for ambulation who presents to [facility] s/p fall off the toilet. She was found to have acute left hip fracture status post left IM nail and is weightbearing as tolerated.On eval, pt presents with L LE post op pain and weakness, fragile skin with multiple abrasions and skin tears, decrease standing balance and decrease functional endurance which limits her ability to perform bed mobility, transfers, wc mobility and gait. Pt is a moderate complexity case considering her personal factors, medical complexity and outcome measures indicating pt is a high risk for falls. Pt will benefit from inpatient rehab to progress independence and reduce the burden of care for safe d/c home w/ family support. Anticipate pt will need intermittent supvn at home. Recommending a RW to safely access her home and the community. Due to significant functional change, anticipate pt will need OP PT once d/c home. Per formed: 03/03/20 13:30 Mobility Functional Abilities Roll Left and Right: Setup or clean-up assist-05 Sit to Lying: Partial/Mod assist-03 Lying to Sitting on Side of Bed: Substantial/Max assist-02 Sit to Stand: Partial/Mod assist-03 Chair,Bed to Chair Transfer: Partial/Mod assist-03 Car Transfer: -Medical/Safety- Walk 10 Feet: Supervision or touching assist-04 Walk 50 Feet with Two Turns: -Medical/- Walk 150 Feet: -Medical/Safety- Walking 10 Feet Uneven Surfaces: -/Safety- 1 Step (Curb): -Medical/Safety Picking Up Object: -Medical/Safety- Patient Use Wheelchair,Scooter: Yes Wheel 50 Feet with Two Turns: Supervision or touching assist-04 Wheel 150 feet: Supervision or touching assist-04 Type Wheelchair,Scooter Use 50ft: Manual wheelchair Type Wheelchair,Scooter Use 150ft: Manual wheelchair No BRASSIERE 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 Postop anemia requiring blood products. PLAN: 1. Rehab Plan- PT/OT to see patient arthur canchola in hospital. irrigation worker, therapeutic case manager and Medical/Rehab/Pain/Consulting team following. -Functional goals to be achieved during intensive rehab program: -Safely mobilize with least restrictive device. -Safely perform ADLs/IADLs with the use of equipment as necessary. Obtain appropriate DME -Be modified independent for cognitive s trategies to advance rehab program, manage medications, and follow recommended medical care. -Status post ORIF of the left hip with l eft IM nail for left hip fracture. Dr. Hester is treating physician. Continue with precautions. Sutures out in 2 weeks. All rehab notes reviewed: Patient with acute PT and OT needs. Has functional deficits in gait, mobility, transfers, range of motion, toileting and grooming. Significant functional deficits in bathing and ADLs No cognitive or swallow deficits needed at this time. No speech/pathology needs - post op anemia requiring 4 units- H/H stable, repeat Friday -low Na and K- replete PRN, stable and r epeat labs Friday 2. Pain- We will continue to use multimo dixie approach to pain management. We will continue to use conservative measures and keep opioid use for severe pain. - First Line- Tylenol 500-1000 milligram s 3 times daily as needed for [id number] pain (1-3)- unless contraindicated. - Ice/Heat PRN - Early mobilization Program - tylenol 3 PRN. 3. Skin- We will monitor for skin breakd own at all pressure points. Will do an initial evaluation and get a wound care consult for any patients who are deemed to have poor wound or skin healing. - encourage PO intake and good nutrition al support - zinc oxide PRN to areas of erythema or early skin breakdown 4. DVT prophylaxis- - SCDs if appropriate - Lovenox subcu 5. F/E/N- encourage PO intake if applica ble, monitor lytes PRN, prealbumin PRN, Zofran PRN. - nutrition to do baseline evaluation as needed. 6. Medical Care- History of COPD, hypertension and cardiac cath with stent placement. Medicine is following and should not interfere with her acute rehab needs. 7. Post Admission Physician Evaluation: Documentation Reviewed: I have reviewed the Preadmission Screen. Functional status documented at preadmission: I agree with the patient's current functional status as documented in the preadmission screening. Risk for complications: I agree with the risk for clinical complications documented in the preadmission screening. Medical conditions: The patient's medical conditions can be managed in the rehab hospital. The plan of treatment is documented above in the history and physical. Patient participation in therapy: The patient can participate in, and will benefit from an intense therapy program at least 3 hours per day / 5 days per week. Therapies/services include: Physical therapy, Occupational therapy, Rehabilitation Nursing, Psychology, Case Management, Pharmacist, and Tank House Supervisor. FUNCTIONAL HISTORY: Modified Independent ADLs, mobility, community ambulation with assistive device. IMPAIRMENTS: Gait abnormality Balance deficits Decreased strength Decreased endurance ACTIVITY LIMITATIONS: Mobility Gait Transfers Self-care/personal hygiene Toileting Bathing Dressing PARTICIPATION RESTRICTIONS: Numerous. Below list is not exhaustive. Patient was able to perform various tasks prior to injury/illness. Now is limited secondary to deficits with regard to performing the following tasks safely: Attendance of episcopal/sikh activities Participation in family activities Participation in recreational activities Unassisted ambulation/mobility Unassisted self-care tasks such as bathing and dressing Medication management referral management liaison Cooking Cleaning REHAB PROGNOSIS: Good ESTIMATED LENGTH OF STAY: 10 days DISPOSITION: Goal is to get this patient home with family support, however availability of support to be investigated at all times. Many suport decisions are made prior to arrival in acute hospital without having full detailed communication with family and friends about functional limitations. Patient may need halfway facility placement prior to discharge home but the goal is always to try and get back to home setting. OTHER MD'S INVOLVED IN CARE: 03/23/2020 [facility] Extracted from:Title: Progress Note Author: Vibha Murphy MD Date: 03/01/20 79-year-old female with significant past medical history of aortic aneurysm, CAD, hypertension, questionable atrial fibrillationlooks like not on blood thinners needs to be clarified presented to the hospital after sustaining a mechanical falland been diagnosed with comminuted left femur intertrochanteric fracture Assessment- -Delirium - tele sitter, improving -positive urinalysis withprobable UTI completed Abx -benign essential hypertension -Leukocytosis likely reactive - probable coronary artery disease -History of aortic aneurysms -Closedcomminuted intertrochanteric fracture of left femur s/p ORIF #3 -Acute anemiawith mild blood losssecondary to fracture and surgerybaseline H&H8.5-9.5 s/p BT improving Plan - -status post 2 units of blood transfusion H&H improving -Discontinued ciprofloxacin and completed course of acute cystitis and UTI -s/p ORIF POD#3 -Dr. Aguilar from orthopedic following the patient -Patient is clinically doing better although there is delirium overnight we will continue to monitor closely -Continue her home medications -Spoke to charge nurseno approval of rehab as of now -Patient might needPM&R placementwill continue to follow-up onPT/OT recommendations. -Dr. Noriega from [facility] evaluated the patient and accepted Dischargetoday if accepted torehabilitation unit. ] DVT prophylaxis- loevnox resumed, f/u H and H closely CODE STATUS-full code d.w daughter plan of care Accidental fall from commode or toilet(W18.11XA) Acute pain of left hip(M25.552) Chronic obstructive pulmonary disease (COPD)(J44.9) Closed comminuted intertrochanteric fracture of left femur(S72.142A) Extracted from:Title: Clinical Document Author: Luis Noriega MD Date: 02/28/20 [facility] Consult Note Referring Physician: Dimitri Hester Consulted Note done by: Luis Noriega MD Reason for consult: deficits in gait, mobility, self-care including ADLs, toileting, grooming due to acute left hip fracture status post left IM nail. Etiological diagnosis: Orthopedic fracture HPI: Patient is a pleasant 79-year-old female living with her daughter and using a rolling walker for ambulation who presents to [facility] with a slip and fall off the toilet. She was found to have acute left hip fracture status post left IM nail with Dr. Hester of orthopedics. She is weightbearing as tolerated with weightbearing restrictions. Postop anemia requiring 2 units of packed red blood cells on 02/28/2020. She has tolerated p.o. diet and continent of bowel bladder. Evaluation for acute rehab needs. All rehab notes reviewed: Patient with acute PT and OT needs. Has functional deficits in gait, mobility, transfers, range of motion, toileting and grooming. Significant functional deficits in bathing and ADLs Patient has no acute cognitive or swallow deficits noted. Premorbid Function: Modified independent with rolling walker use within the home and independent with ADLs. Lives with her daughter. Review of systems: Patient seen and examined with no acute lightheadedness, dizziness or blurry vision. Pt had no chest pain or palpitations. Pt. has no shortness of breath or dyspnea on exertion. Pt. has no fever, night sweats or chills. Pt. has no nausea, vomiting or abdominal pain. PMHx: COPD, hypertension, aortic aneurysm and previous CVA PSurgicalHx: Cardiac catheterization, stent placement Social Hx: Does not drink, smoke or do illegal substances. Lives with her daughter with 1 step to enter the home. Uses a rolling walker and cane for ambulation. Otherwise independent with ADLs. Allergies: Codeine, phosphate, promethazine Family Hx: Reviewed and noncontributory Meds: See EMR, reviewed PE: Vitals Tmp(F) Pulse BP RR SpO2 FIO2 02/27 16:42 98.0 79 141/49 1 8 100 --- 02/27 14:57 ---- --- ----- - - 100 2.0L/m 02/27 11:24 98.1 76 122/50 1 8 99 --- 02/27 08:03 98.5 82 121/88 1 8 99 --- 02/27 07:44 ---- --- ----- 1 8 98 2.0L/m 24 Hr Tmax: 98.5F (36.94c) at 02/27 08:0 3 Vital Signs are the last 5 in the past 48 hours. GENERAL: no apparent distress, awake and appropriate for condition. PSYCHIATRIC: appropriate, normal affect HEENT: Pupils equal, round, reactive to light. Extraocular muscles intact. Moist mucous membranes. CARDIOVASCULAR: 2+ bilateral upper extremity pulses. Regular rate, all extremities, warm, well-perfused PULMONARY: Respirations unlabored without conversational dyspnea at the sentence or the paragraph level, no abnomal breathing noted ABDOMEN: Doughy, nontender, nondistended SKIN: No breakdowns seen in the arms or feet. No other breakdown. Age appropriate skin NEUROMUSCULOSKELETAL: Cranial nerves II-XII are intact. strength and sensation age appropriate to bilateral upper extremities and right lower extremity. Left lower extremity hip flexion, knee extension impaired secondary to acute pain. Surgical site clean dry and intact with dressing in place. Dorsiflexion plantarflexion of the bilateral lower extremities intact with strength and sensation intact. LABS: Labs (Last four charted values) WBC H 12.2 (FEB 27) 8.1 (FEB 26) H 16.9 (FEB 25) Hgb L 7.5 (FEB 27) L 10.2 (FEB 26) L 11.1 (FEB 25) Hct L 22.2 (FEB 27) L 30.9 (FEB 26) L 34.2 (FEB 25) Plt 198 (FEB 27) 234 (FEB 26) 287 (FEB 25) Na L 131 (FEB 27) 135 (FEB 26) 136 (FEB 25) K 4.2 (FEB 27) 4.2 (FEB 26) 3.9 (FEB 25) CO2 29 (FEB 27) 29 (FEB 26) 24 (FEB 25) Cl 97 (FEB 27) 102 (FEB 26) 104 (FEB 25) Cr 1.07 (FEB 27) 1.22 (FEB 26) 1.13 (FEB 25) BUN 14 (FEB 27) 11 (FEB 26) 12 (FEB 25) Glucose Random H 131 (FEB 27) H 108 (FEB 26) H 132 (FEB 25) Ca L 8.3 (FEB 27) 8.8 (FEB 26) 8.6 (FEB 25) PT 13.2 (FEB 25) INR 1.00 (FEB 25) PTT 31.7 (FEB 25) Total CK 31 (FEB 25) RADIOLOGY: All radiology imaging reviewed in electronic medical record. Detailed information regarding each image have been already documented in EMR; please see detailed imaging section in EMR for detailed information Imaging Studies (last 36 hours) Hip 1 view DX 02/27/2020 16:49 Impression: Intraoperative fluoroscopy assistance as above. ASSESSMENT: Functional deficits in gait, ADLs, self-care, grooming and toileting due to acute left hip fracture status post left IM nail. Postop anemia requiring blood products PLAN: 1. Rehab Plan- PT/OT to see patient arthur e in hospital. irrigation worker, therapeutic case manager and Medical/Rehab/Pain/Consulting team following. -Functional goals to be achieved during intensive rehab program: -Safely mobilize with least restrictive device. -Safely perform ADLs/IADLs with the use of equipment as necessary. Obtain appropriate DME -Be modified independent for cognitive s trategies to advance rehab program, manage medications, and follow recommended medical care. -Status post ORIF of the left hip with l eft IM nail for left hip fracture. Dr. Hester is treating physician. Continue with precautions. Sutures out in 2 weeks. All rehab notes reviewed: Patient with acute PT and OT needs. Has functional deficits in gait, mobility, transfers, range of motion, toileting and grooming. Significant functional deficits in bathing and ADLs No cognitive or swallow deficits needed at this time. No speech/pathology needs. 2. Pain- We will continue to use multimo dixie approach to pain management. We will continue to use conservative measures and keep opioid use for severe pain. - First Line- Tylenol 500-1000 milligram s 3 times daily as needed for [id number] pain (1-3)- unless contraindicated. - Ice/Heat PRN - Early mobilization Program 3. Skin- We will monitor for skin breakd own at all pressure points. Will do an initial evaluation and get a wound care consult for any patients who are deemed to have poor wound or skin healing. - encourage PO intake and good nutrition al support - zinc oxide PRN to areas of erythema or early skin breakdown 4. DVT prophylaxis- - SCDs if appropriate -Lovenox subcu 5. F/E/N- encourage PO intake if applica ble, monitor lytes PRN, prealbumin PRN, Zofran PRN. - nutrition to do baseline evaluation as needed. 6. Medical Care- History of COPD, hypertension and cardiac cath with stent placement. Medicine is following and should not interfere with her acute rehab needs. 7. Dispo: Rehabilitation for deficits in mobility, ADLs, IADLs, weakness, incoordination and imbalance secondary to the above deficits: Patient meets all trauma and rehabilitation criteria. Patient has physical therapy and occupational therapy needs. Patient is medically stable but has ongoing complex medical needs as described above. Patient is at high risk for possbile cardiopulmonary decompensation, weakness, skin breakdown, DVTs, PEs, altered wound healing, infections, need for transfusions, hardware failure, etc. Rehabilitation physician will follow for the interdisciplinary care coordination and medical optimization as it pertains to rehabilitation and pain. Trauma service is developing pre and post surgical plan of care in regards to acute traumatic needs. Nursing will perform bowel, bladder and skin care, follow through the rehabilitation plan of care, education, more routine nursing duties. Social work will help to ensure safe and timely discharge to community living environment. Dispo: Recommendation for acute rehab with PT and OT needs. Currently receiving 2 units of packed red blood cells with resolving hypertension. Have made recommendation to case management and social workers with goal to be within the rehab unit in the next 24 to 48 hours. Thanks and will follow. Extracted from:Title: History and Physical Author: Vibha Murphy MD Date: 02/26/20 79-year-old female with significant past medical history of aortic aneurysm, CAD, hypertension, questionable atrial fibrillationlooks like not on blood thinners needs to be clarified presented to the hospital after sustaining a mechanical falland been diagnosed with comminuted left femur intertrochanteric fracture Assessment- -positive urinalysis withprobable UTI -benign essential hypertension -Leukocytosis likely reactive - probable coronary artery disease -History of aortic aneurysms -Closedcomminuted intertrochanteric frac ture of left femur Plan - -We will start on p.o. Keflex -Resume home medications -MonitorH&H and WBC count closely -Cardiology Dr. Lombardo have been consulted and notified about preop cardiac clearance -Due to comorbidities and current issues patient looks like high riskfor current surgery -Plan for or tomorrow morning -N.p.o. after midnight -Dr. Aguilar from orthopedic following the patient -Anesthesiologist gave nerve block -EKG 12-lead showed normal sinus rhythmw ith no significant abnormalities -Patient postoperatively might needPMNR placementwill continue to follow-up onPT/OT recommendations. DVT prophylaxis-SCDs CODE STATUS-full code I will try to get in touch with the daughter to discussplan of care and get more information about patient medical history andany blood thinner usage d/w daugter who confirmed only blood thinner patient takes is aspirin 81 mg daily, no history of atrial fibrillation as per daughter also cardiology consult changed to Dr Miramontes - Inpatient Addendum by Vibha Murphy MD on 02/26/2020 18:56 CDT Patient takesValium 10 mg twice a DAY FOR PANIC ATTACKSsince AND Crystal requested to continue. 03/03/2020 [facility] Plan of Care No Data Provided for This Section Social History Social History Date Source Social History TypeResponse Smoking Status Never smoker; Type: Cigarettes; Exposure to Tobacco Smoke None; Cigarette Smoking Last 365 Days No; Reg Smoking Cessation Counseling No entered on: 03/03/20 03/03/2020 [facility] Family History No Data Provided for This Section Advance Directives No Data Provided for This Section Functional Status No Data Provided for This Section
--- OUTSIDE RECORDS SUMMARY | 2020-06-11 01:12 | XMS REPORT | Summary of Care ---
Author Author [facility] Organization [facility] Address Unknown Phone Unavailable Encounter AMBERLY Barnett(MICHAEL) [id number] Date(s): 03/02/20 - 03/23/20 [facility] [address] [place] [address]- [phone] Encounter Diagnosis Displaced intertrochanteric fracture of right femur, initial encounter for close d fracture (Final) - Discharge Disposition: Home or Self Care Attending Physician: Glynn Hollins MD Admitting Physician: Glynn Hollins MD Vital Signs 1 2 3 Most recent to oldest [Reference Range]: 160.2 cm (03/12/20 6:22 AM) 160.02 cm (03/05/20 6:24 AM) 160.02 cm (03/02/20 11:18 PM) Height 98.4 DegF (03/23/20 7:48 AM) 98.4 DegF (03/22/20 8:05 PM) 98.1 DegF (03/22/20 3:25 PM) Temperature Oral [96.4-99.1 DegF] 161/64 mmHg *HI* (03/23/20 7:48 AM) 144/60 mmHg *HI* (03/22/20 8:05 PM) 147/53 mmHg *HI* (03/22/20 3:46 PM) Blood Pressure [90-140/60-90 mmHg] 16 BRMIN (03/23/20 7:48 AM) 16 BRMIN (03/23/20 6:47 AM) 16 BRMIN (03/22/20 8:05 PM) Respiratory Rate [14-20 BRMIN] 64 bpm (03/23/20 7:48 AM) 60 bpm (03/22/20 8:05 PM) 62 bpm (03/22/20 3:25 PM) Peripheral Pulse Rate [60-100 bpm] 73.352 kg (03/12/20 6:22 AM) 71.2 kg (03/05/20 6:24 AM) 72.545 kg (03/02/20 11:18 PM) Weight 28.58 m2 (03/12/20 6:22 AM) 27.81 m2 (03/05/20 6:24 AM) 28.33 m2 (03/02/20 11:18 PM) Body Mass Index Problem List Condition Effective Dates Status Health Status Informan t Acute UTI(Confirmed) Active Postoperative anemia Active due to acute blood loss(Confirmed) Aneurysm, 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) Chronic obstructive Active pulmonary disease(Confirmed) Closed comminuted Active intertrochanteric fracture of left femur(Confirmed) Fall with Active injury(Confirmed) Impaired mobility Active and activities of daily living(Confirmed) Acute postoperative Active pain of left hip(Confirmed) HTN Resolved (hypertension)(Confi rmed) Cognitive Active deficits(Confirmed) Leukocytosis(Confirm Active ed) Stroke(Confirmed) Resolved Allergies, Adverse Reactions, Alerts Substance Reaction Severity Status Codeine Active Phosphate-Promethazine HCl Medications acetaminophen 650 mg, 2 tab, Route: PO, Drug form: TAB, Q4H, Dosing Weight 72.545, kg, PRN Tameka n Score 1-3, Start date: 03/02/20 23:13:00 CDT, Duration: 30 day, Stop date: 23:12:00 CDT, 0 Notes: Do not exceed 4 gm/day. (Same as: Tylenol) Start Date: 03/02/20 Stop Date: 03/23/20 Status: Discontinued acetaminophen 325 mg oral tablet. 650 mg = 2 tab, PO, Q4H, PRN Pain Score 1-3, 0 Refill(s) Start Date: 03/15/20 Status: Ordered acetaminophen-hydrocodone 325 mg-5 mg oral tablet 1 tab, Route: PO, Drug Form: TAB, Dosing Weight 72.545, kg, Q4H, PRN Pain Score 4-6, Start date: 03/02/20 23:13:00 CDT, Duration: 30 day, Stop date: 04/01/20 23 :12:00 CDT, 0 Notes: (Same as: [place] 325/5) Do not exceed 4gm/day of acetaminophen. Start Date: 03/02/20 Stop Date: 03/03/20 Status: Discontinued acetaminophen-hydrocodone 325 mg-5 mg oral tablet 2 tab, Route: PO, Drug Form: TAB, Dosing Weight 72.545, kg, Q4H, PRN Pain Score 7-10, Start date: 03/02/20 23:13:00 CDT, Duration: 30 day, Stop date: 04/01/20 2 3:12:00 CDT, 0 Notes: (Same as: [place] 325/5) Do not exceed 4gm/day of acetaminophen. Start Date: 03/02/20 Stop Date: 03/03/20 Status: Discontinued bisacodyl 10 mg, 1 supp, Route: RI, Drug form: SUPP, Bedtime, Dosing Weight 72.545, kg, RI N Constipation, Start date: 03/02/20 23:13:00 CDT, Duration: 30 day, Stop date: 04/01/20 23:12:00 CDT, 0 Notes: (Same As: Dulcolax, Bisco-Lax) Start Date: 03/02/20 Stop Date: 03/23/20 Status: Discontinued bisacodyl 10 mg rectal suppository 10 mg = 1 supp, RI, Bedtime, PRN Constipation, 0 Refill(s) Start Date: 03/15/20 Status: Ordered calcium carbonate 500 mg, 1 tab, Route: PO, Drug form: CHEWTAB, BID, Dosing Weight 72.545, kg, Sta rt date: 03/02/20 17:00:00 CDT, Duration: 30 day, Stop date: 04/01/20 9:00:00 CD T, 0 Notes: (Same As: Tums)Calcium Carbonate 500 mg = 200 mg elemental calcium Dose = mg calcium carbonate ( mg elemental calcium) Start Date: 03/02/20 Stop Date: 03/23/20 Status: Discontinued calcium carbonate 500 mg (200 mg elemental calcium) oral tablet 500 mg = 1 tab, PO, BID, 0 Refill(s) Start Date: 03/15/20 Status: Ordered CeleXA 40 mg, 4 tab, Route: PO, Drug form: TAB, Daily, Dosing Weight 72.545, kg, Start date: 03/03/20 9:00:00 CDT, Duration: 30 day, Stop date: 04/01/20 9:00:00 CDT, 0 Start Date: 03/03/20 Stop Date: 03/23/20 Status: Discontinued cholecalciferol 1,000 IntlUnit, 1 tab, Route: PO, Drug form: TAB, Daily, Dosing Weight 72.545, k g, Start date: 03/03/20 9:00:00 CDT, Duration: 30 day, Stop date: 04/01/20 9:00: 00 CDT, 0 Notes: Same as : Vitamin D3 Start Date: 03/03/20 Stop Date: 03/23/20 Status: Discontinued cholecalciferol 1000 intl units oral tablet 1,000 IntlUnit = 1 tab, PO, Daily, 0 Refill(s) Start Date: 03/15/20 Status: Ordered citalopram 10 mg oral tablet 40 mg = 4 tab, PO, Daily, # 120 tab, 0 Refill(s), Pharmacy: [facility] [id number] Start Date: 03/23/20 Stop Date: 04/22/20 Status: Ordered Crestor 20 mg, 1 tab, Route: PO, Drug form: TAB, Bedtime, Dosing Weight 72.545, kg, Star t date: 03/02/20 21:00:00 CDT, Duration: 30 day, Stop date: 03/31/20 21:00:00 CD T, 0 Notes: Same as Crestor Start Date: 03/02/20 Stop Date: 03/23/20 Status: Discontinued Crestor 20 mg oral tablet 20 mg = 1 tab, PO, Bedtime, # 30 tab, 0 Refill(s), Pharmacy: [facility] [id number] Start Date: 03/23/20 Stop Date: 04/22/20 Status: Ordered diazepam 10 mg, 2 tab, Route: PO, Drug form: TAB, BID, Dosing Weight 72.545, kg, Start da te: 03/02/20 17:00:00 CDT, Duration: 30 day, Stop date: 04/01/20 9:00:00 CDT, 0 Notes: (Same as: Valium) Start Date: 03/02/20 Stop Date: 03/08/20 Status: Discontinued diazepam 10 mg, 2 tab, Route: PO, Drug form: TAB, BID, Dosing Weight 72.545, kg, PRN as n eeded for anxiety, Start date: 03/08/20 14:27:00 CDT, Duration: 30 day, Stop keyana e: 04/07/20 14:26:00 CDT, 0 Notes: (Same as: Valium) Start Date: 03/08/20 Stop Date: 03/23/20 Status: Discontinued diazepam 5 mg oral tablet 10 mg = 2 tab, PO, BID, PRN as needed for anxiety, 0 Refill(s) Start Date: 03/15/20 Status: Ordered docusate 100 mg, 1 cap, Route: PO, Drug form: CAP, BID, Dosing Weight 72.545, kg, PRN Con stipation, Start date: 03/02/20 23:13:00 CDT, Duration: 30 day, Stop date: 04/01 23:12:00 CDT, 0 Notes: (Same as: Colace) (Do Not Crush) Start Date: 03/02/20 Stop Date: 03/07/20 Status: Discontinued docusate sodium 100 mg oral capsule 100 mg = 1 cap, PO, BID, PRN Constipation, 0 Refill(s) Start Date: 03/15/20 Status: Ordered docusate sodium 100 mg oral capsule 100 mg, 1 cap, Route: PO, Drug form: CAP, BID, Dosing Weight 71.2, kg, PRN Const ipation, Start date: 03/07/20 14:37:00 CDT, Duration: 30 day, Stop date: 0 14:36:00 CDT, 0 Notes: (Same as: Colace) (Do Not Crush) Start Date: 03/07/20 Stop Date: 03/23/20 Status: Discontinued DuoNeb inhalation solution 3 ml, Route: NEB, Drug Form: SOLN, Dosing Weight 71.2, kg, PRN, PRN Respiratory Pathway, Start date: 03/11/20 16:38:00 CDT, Duration: 30 day, Stop date: 0 16:37:00 CDT, 0 Notes: (Same as: Duoneb) Start Date: 03/11/20 Stop Date: 03/23/20 Status: Discontinued enoxaparin 40 mg/0.4 mL subcutaneous solution 40 mg = 0.4 mL, SUB-Q, [id number], 0 Refill(s) Start Date: 03/15/20 Stop Date: 03/23/20 Status: Discontinued furosemide 20 mg oral tablet 20 mg = 1 tab, PO, Daily, 0 Refill(s) Start Date: 03/15/20 Stop Date: 03/23/20 Status: Deleted furosemide 20 mg oral tablet 20 mg = 1 tab, PO, Daily, # 30 tab, 0 Refill(s), Pharmacy: [facility] [id number] Start Date: 03/23/20 Stop Date: 04/22/20 Status: Ordered furosemide 20 mg oral tablet 20 mg, 1 tab, Route: PO, Drug form: TAB, Daily, Dosing Weight 73.352, kg, Priori ty: NOW, Start date: 03/12/20 15:23:00 CDT, Duration: 30 day, Stop date: 0 9:00:00 CDT, 0 Notes: (Same as: Lasix) May cause GI upset. Give with food or milk. Start Date: 03/12/20 Stop Date: 03/23/20 Status: Discontinued ipratropium 0.02% inhalation solution 0.5 mg = 2.5 mL, NEB, RQID, 0 Refill(s) Start Date: 03/15/20 Status: Ordered ipratropium 0.02% inhalation solution 0.5 mg, 2.5 mL, Route: NEB, Drug form: SOLN, RQID, Start date: 03/13/20 7:00:00 CDT, Duration: 30 day, Stop date: 04/11/20 19:00:00 CDT, 0 Notes: SEE RT DOCUMENTATION(Same as:Atrovent) Start Date: 03/13/20 Stop Date: 03/23/20 Status: Discontinued Lovenox 40 mg, 0.4 mL, Route: SUB-Q, Drug form: INJ, [id number], Dosing Weight 72.545, kg, Start date: 03/02/20 12:00:00 CDT, Duration: 30 day, Stop date: 03/31/20 12:00: 00 CDT, 0 Notes: (Same as: Lovenox) Start Date: 03/02/20 Stop Date: 03/23/20 Status: Discontinued melatonin 3 mg, 1 tab, Route: PO, Drug form: TAB, Bedtime, Dosing Weight 72.545, kg, PRN I nsomnia, Start date: 03/02/20 23:13:00 CDT, Duration: 30 day, Stop date: 0 23:12:00 CDT, 0 Notes: (Same as: Melatonin) Start Date: 03/02/20 Stop Date: 03/23/20 Status: Discontinued melatonin 3 mg, Route: PO, Bedtime, Dosing Weight 73.352, kg, PRN Sleep, Start date: 03/13 14:20:00 CDT, Duration: 30 day, Stop date: 04/12/20 14:19:00 CDT Start Date: 03/13/20 Stop Date: 03/13/20 Status: Deleted melatonin 3 mg oral tablet 3 mg = 1 tab, PO, Bedtime, PRN Insomnia, 0 Refill(s) Start Date: 03/15/20 Status: Ordered metoprolol extended release 25 mg, 1 tab, Route: PO, Drug form: ERTAB, Daily, Start date: 03/03/20 9:00:00 C DT, Duration: 30 day, Stop date: 04/01/20 9:00:00 CDT, 0 Notes: (Same as: Toprol XL) Do Not Crush Start Date: 03/03/20 Stop Date: 03/23/20 Status: Discontinued MiraLax 17 gm, 1 pkt, Route: PO, Drug form: PWDR, BID, Dosing Weight 71.2, kg, PRN Const ipation, Start date: 03/07/20 14:37:00 CDT, Duration: 30 day, Stop date: 0 14:36:00 CDT, 0 Notes: Dissolve in 8 oz of water or juice.(Same as: Miralax) Start Date: 03/07/20 Stop Date: 03/23/20 Status: Discontinued ondansetron 4 mg, 1 tab, Route: PO, Drug form: TAB, Q8H, Dosing Weight 72.545, kg, PRN Nause a & Vomiting, Start date: 03/02/20 23:13:00 CDT, Duration: 30 day, Stop date: 04/01/20 23:12:00 CDT, 0 Notes: (Same as: Jean) Start Date: 03/02/20 Stop Date: 03/23/20 Status: Discontinued potassium chloride 40 mEq, Route: PO, Drug form: ERTAB, ONCE, Dosing Weight 73.352, kg, Start date: 03/13/20 14:19:00 CDT, Stop date: 03/13/20 14:19:00 CDT Start Date: 03/13/20 Stop Date: 03/13/20 Status: Discontinued potassium chloride 40 mEq, 2 tab, Route: PO, Drug form: ERTAB, ONCE, Dosing Weight 72.545, kg, Prio rity: NOW, Start date: 03/03/20 10:23:00 CDT, Stop date: 03/03/20 10:23:00 CDT, 0 Notes: (Same as: K-)"Do Not Crush" Give with food and full glass of water For patients unable to swallow tablet, dissolve in one half glass of water. Allo w about 2 minutes for the tablets to disintegrate. Stir before giving to prepare slurry and administer.Please exclude Patients with feeding tube less than 14 Jamaican (Dobhoff, J-tube etc) and pediatric and patients. Start Date: 03/03/20 Stop Date: 03/03/20 Status: Completed potassium chloride 40 mEq, 2 tab, Route: PO, Drug form: ERTAB, PRN, Dosing Weight 72.545, kg, PRN A bnormal Lab Result, Electrolyte replacement, Start date: 03/03/20 15:20:00 CDT, Duration: 30 day, Stop date: 04/02/20 15:19:00 CDT, 0 Notes: (Same as: K-)"Do Not Crush" Give with food and full glass of water For patients unable to swallow tablet, dissolve in one half glass of water. Allo w about 2 minutes for the tablets to disintegrate. Stir before giving to prepare slurry and administer.Please exclude Patients with feeding tube less than 14 Jamaican (Dobhoff, J-tube etc) and pediatric and patients. Start Date: 03/03/20 Stop Date: 03/23/20 Status: Discontinued potassium chloride 20 mEq oral tablet, extended release (KCL) 20 mEq, 1 tab, Route: PO, Drug form: ERTAB, Q12H, Dosing Weight 72.545, kg, PRN Abnormal Lab Result, Start date: 03/03/20 11:55:00 CDT, Duration: 30 day, Stop d ate: 04/02/20 11:54:00 CDT, 0 Start Date: 03/03/20 Stop Date: 03/23/20 Status: Discontinued Protonix 40 mg, 1 tab, Route: PO, Drug form: ECTAB, Before Dinner, Dosing Weight 72.545, kg, Start date: 03/02/20 16:30:00 CDT, Duration: 30 day, Stop date: 03/31/20 16: 30:00 CDT, 0 Notes: Tablet should not be chewed or crushed.(Same as: Protonix) Start Date: 03/02/20 Stop Date: 03/23/20 Status: Discontinued Saline Flush 0.9% 10 ml, Route: IVP, Drug Form: INJ, Dosing Weight 72.545, kg, Q12H, Start date: 0 03/03/20 9:00:00 CDT, Duration: 30 day, Stop date: 04/01/20 21:00:00 CDT, 0 Notes: (Same as: BD Posiflush) Start Date: 03/03/20 Stop Date: 03/06/20 Status: Discontinued Saline Flush 0.9% 10 ml, Route: IVP, Drug Form: INJ, Dosing Weight 72.545, kg, PRN, PRN Line Flush , Start date: 03/02/20 23:13:00 CDT, Duration: 30 day, Stop date: 04/01/20 23:12 :00 CDT, 0 Notes: (Same as: BD Posiflush) Start Date: 03/02/20 Stop Date: 03/23/20 Status: Discontinued senna 8.6 mg oral tablet 17.2 mg, 2 tab, Route: PO, Drug Form: TAB, Dosing Weight 71.2, kg, Bedtime, PRN Constipation, Start date: 03/07/20 14:37:00 CDT, Duration: 30 day, Stop date: 14:36:00 CDT, 0 Notes: (Same as: Senokot) Start Date: 03/07/20 Stop Date: 03/23/20 Status: Discontinued Sodium Chloride 0.9% IV 500 mL 500 mL, Rate: 50 ml/hr, Infuse over: 10 hr, Route: IV, Dosing Weight 73.352 kg, Total Volume: 500, Start date: 03/14/20 14:22:00 CDT, Duration: 30 day, Stop keyana e: 04/13/20 14:21:00 CDT, 1.83, m2 Start Date: 03/14/20 Stop Date: 03/14/20 Status: Discontinued Spiriva 18 mcg inhalation capsule 18 microgram, 1 cap, Route: INHALATION, Daily, Dosing Weight 73.352, kg, Start d ate: 03/13/20 9:00:00 CDT, Duration: 30 day, Stop date: 04/11/20 9:00:00 CDT Start Date: 03/13/20 Stop Date: 03/12/20 Status: Deleted Toprol-XL 25 mg oral tablet, extended release 25 mg = 1 tab, PO, Daily, # 30 tab, 0 Refill(s), Pharmacy: [facility] [id number] Start Date: 03/23/20 Stop Date: 04/22/20 Status: Ordered tramadol 50 mg oral tablet 50 mg = 1 tab, PO, Q4H, PRN Pain Score 1-3, 0 Refill(s) Start Date: 03/15/20 Stop Date: 03/23/20 Status: Deleted tramadol 50 mg oral tablet 50 mg, 1 tab, Route: PO, Drug form: TAB, Q4H, Dosing Weight 72.545, kg, PRN Pain Score 1-3, Start date: 03/03/20 21:23:00 CDT, Duration: 30 day, Stop date: 03/11 02/27 21:22:00 CDT, 0 Notes: Not to exceed 400mg/day. (Same As: Ultram) Start Date: 03/03/20 Stop Date: 03/23/20 Status: Discontinued tramadol 50 mg oral tablet 50 mg = 1 tab, PO, Q4H, PRN Pain Score 1-3, X 3 day, # 10 tab, 0 Refill(s), Phar mima: [facility] [id number] Start Date: 03/23/20 Stop Date: 03/26/20 Status: Ordered Results 1 2 3 Most recent to oldest [Reference Range]: 3.0 K/CMM (03/11/20 5:31 AM) 4.8 K/CMM (03/03/20 4:23 AM) Neutrophils # [1.5-8.1 K/CMM] 1.3 K/CMM (03/11/20 5:31 AM) 1.7 K/CMM (03/03/20 4:23 AM) Lymphocytes # [1.0-5.5 K/CMM] 0.7 K/CMM (03/11/20 5:31 AM) 0.9 K/CMM *HI* (03/03/20 4:23 AM) Monocytes # [0.0-0.8 K/CMM] 0.3 K/CMM (03/11/20 5:31 AM) 0.5 K/CMM (03/03/20 4:23 AM) Eosinophils # [0.0-0.5 K/CMM] 279 pg/mL *HI* (03/11/20 6:30 AM) BNP [<=100 pg/mL] 47 mL/min/1.73m2 1 *NA* (03/19/20 4:19 AM) 50 mL/min/1.73m2 2 *NA* (03/15/20 5:11 AM) 52 mL/min/1.73m2 3 *NA* (03/13/20 6:34 AM) eGFR 0.7 (03/03/20 4:23 AM) A/G Ratio [0.7-1.6] 2.1 g/dL *LOW* (03/03/20 4:23 AM) Albumin Lvl [3.5-5.0 g/dL] 63 unit/L (03/03/20 4:23 AM) Alk Phos [39-136 unit/L] 24 unit/L (03/03/20 4:23 AM) ALT [0-65 unit/L] 9.8 mEq/L *LOW* (03/19/20 4:19 AM) 11.1 mEq/L (03/15/20 5:11 AM) 8.2 mEq/L *LOW* (03/13/20 6:34 AM) AGAP [10.0-20.0 mEq/L] 57 unit/L *HI* (03/03/20 4:23 AM) AST [0-37 unit/L] 17 (03/03/20 4:23 AM) B/C Ratio [6-25] 0.7 % (03/11/20 5:31 AM) 0.4 % (03/03/20 4:23 AM) Basophils [0.0-1.0 %] 8 mg/dL (03/19/20 4:19 AM) 13 mg/dL (03/15/20 5:11 AM) 10 mg/dL (03/13/20 6:34 AM) BUN [7-22 mg/dL] 9.0 mg/dL (03/19/20 4:19 AM) 8.6 mg/dL (03/15/20 5:11 AM) 8.8 mg/dL (03/13/20 6:34 AM) Calcium Lvl [8.5-10.5 mg/dL] 97 mEq/L (03/19/20 4:19 AM) 97 mEq/L (03/15/20 5:11 AM) 101 mEq/L (03/13/20 6:34 AM) Chloride Lvl [95-109 mEq/L] 36 mEq/L *HI* (03/19/20 4:19 AM) 27 mEq/L (03/15/20 5:11 AM) 31 mEq/L (03/13/20 6:34 AM) CO2 [24-32 mEq/L] 1.12 mg/dL (03/19/20 4:19 AM) 1.06 mg/dL (03/15/20 5:11 AM) 1.03 mg/dL (03/13/20 6:34 AM) Creatinine Lvl [0.50-1.40 mg/dL] 6.2 % *HI* (03/11/20 5:31 AM) 6.4 % *HI* (03/03/20 4:23 AM) Eosinophils [0.0-4.0 %] 3.0 g/dL (03/03/20 4:23 AM) Globulin [2.7-4.2 g/dL] 92 mg/dL (03/19/20 4:19 AM) 88 mg/dL (03/15/20 5:11 AM) 95 mg/dL (03/13/20 6:34 AM) Glucose Lvl [70-99 mg/dL] 31.2 % *LOW* (03/19/20 4:19 AM) 28.8 % *LOW* (03/11/20:31 AM) 30.1 % *LOW* (03/06/20 5:09 AM) Hct [36.0-48.0 %] 10.3 g/dL *LOW* (03/19/20:19 AM) 9.7 g/dL *LOW* (03/11/20: AM) 10.3 g/dL *LOW* (03/06/20 5:09 AM) Hgb [12.0-16.0 g/dL] 3.8 mEq/L (03/19/20:19 AM) 4.1 mEq/L (03/15/20 5:11 AM) 3.2 mEq/L *LOW* (03/13/20 6:34 AM) Potassium Lvl [3.5-5.1 mEq/L] 24.7 % (03/11/20: AM) 21.5 % (03/03/20 4:23 AM) Lymphocytes [20.0-40.0 %] 30.7 pg (03/19/20:19 AM) 31.6 pg *HI* (03/11/20: AM) 31.8 pg *HI* (03/06/20 5:09 AM) MCH [27.0-31.0 pg] 33.0 g/dL (03/19/20:19 AM) 33.8 g/dL (03/11/20:31 AM) 34.1 g/dL (03/06/20 5:09 AM) MCHC [32.0-36.0 g/dL] 92.8 fL (03/19/20:19 AM) 93.7 fL (03/11/20:31 AM) 93.3 fL (03/06/20 5:09 AM) MCV [80.0-98.0 fL] 12.4 % *HI* (03/11/20: AM) 11.4 % (03/03/20 4:23 AM) Monocytes [2.0-12.0 %] 7.0 fL *LOW* (03/19/20:19 AM) 7.2 fL *LOW* (03/11/20 5:31 AM) 6.9 fL *LOW* (03/06/20 5:09 AM) MPV [7.4-10.4 fL] 139 mEq/L (03/19/20 4:19 AM) 131 mEq/L *LOW* (03/15/20 5:11 AM) 137 mEq/L (03/13/20 6:34 AM) Sodium Lvl [135-145 mEq/L] 306 K/CMM (03/19/20 4:19 AM) 345 K/CMM (03/11/20 5:31 AM) 279 K/CMM (03/06/20 5:09 AM) Platelet [133-450 K/CMM] 56.0 % (03/11/20 5:31 AM) 60.3 % (03/03/20 4:23 AM) Segs [45.0-75.0 %] 5.1 g/dL *LOW* (03/03/20 4:23 AM) Total Protein [6.4-8.4 g/dL] 3.36 M/CMM *LOW* (03/19/20:19 AM) 3.07 M/CMM *LOW* (03/11/20 5:31 AM) 3.23 M/CMM *LOW* (03/06/20 5:09 AM) RBC [4.20-5.40 M/CMM] 13.4 % (03/19/20 4:19 AM) 13.5 % (03/11/20 5:31 AM) 13.7 % (03/06/20 5:09 AM) RDW [11.5-14.5 %] 1.1 mg/dL (03/03/20 4:23 AM) Bili Total [0.2-1.3 mg/dL] 4.8 K/CMM (03/19/20 4:19 AM) 5.4 K/CMM (03/11/20 5:31 AM) 7.4 K/CMM (03/06/20 5:09 AM) WBC [3.7-10.4 K/CMM] 1Result Comment: The eGFR is calculated using the [...] from the National Kidney Disease Education Program ( NKDEP) which additionally recommends that when the eGFR is used in patients with extremes of body mass index for purposes of drug dosing, the eGFR should be mul tiplied by the estimated BMI. 2Result Comment: The eGFR is calculated using the [...] from the National Kidney Disease Education Program ( NKDEP) which additionally recommends that when the eGFR is used in patients with extremes of body mass index for purposes of drug dosing, the eGFR should be mul tiplied by the estimated BMI. 3Result Comment: The eGFR is calculated using the [...] from the National Kidney Disease Education Program ( NKDEP) which additionally recommends that when the eGFR is used in patients with extremes of body mass index for purposes of drug dosing, the eGFR should be mul tiplied by the estimated BMI. Immunizations No data available for this section Procedures Procedure Date Related Diagnosis Body Site Status Cardiac catheterization Completed Placement of stent Completed Social History Social History Type Response Smoking Status Never smoker; Type: Cigaret yesenia; Exposure to Tobacco Smoke None; Cigarette Smoking Last 365 Days No; Reg Smoking C essation Counseling No entered on: 03/03/20 Assessment and Plan Extracted from: Title: Clinical Document Author: Glynn Hollins MD Date: 03/23/20 PATIENT NAME: MANFRED WALKER ATTENDING PHYSICIAN: GLYNN DALLAS DATE OF ADMISSION: 03/02/2020 DATE OF [...] grooming and basic mobilization. She presented to [facility] after having a mechanical fall at home with an associated acute traumatic left hip intertrochanteric femur fracture. Dr. Hester performed a left hip ORIF. There were no major intraoperative complications. Postoperatively, she had some anemia and some confusion decline in functional mobility and self-care. She was recommended for acute intensive inpatient rehabilitation and is admitted to [facility] rehabilitation unit on 03/02. REHABILITATION HOSPITAL COURSE: [...] provide that support and have requested a care home center. Medically, she has done well during [...] Celexa. We will try to work on sleep/wake cycle optimization. She continues with functional incontinence [...] would happen if she did not come orange picker the patient. Family now agreeing to come and get her. Patient otherwise indicates she feels safe at home. DISCHARGE PHYSICAL EXAMINATION: Vitals and Temp: VitalsTmp(F)[id number] 03/23 07:[id number]------ 03/23 06:47 1697--- 03/22 20:[id number]--- 03/22 19:09 53723--- 03/22 15:46-------147/53-------- 24 Hr Tmax: 98.4F (36.89c) at 03/23 07:4 8Vital Signs are the last 5 in the [...] Dimitri Hester orthopedic surgery 3 weeks. 3. [facility] facility physical th erapy and occupational therapy. [...] held on the day of discharge. Extracted from: Title: Clinical Document Author: Glynn Hollins MD Date: 03/22/20 PHYSICAL MEDICINE AND [...] bladder complaints. PHYSICAL EXAMINATION: Vitals and Temp: VitalsTmp(F)[id number] 03/22 07:[id number]/48--98--- 03/21 20:[id number]/53--98--- 03/21 18:40 1696--- 03/21 16:[id number]--- 03/21 08:14 1697--- 24 Hr Tmax: 98.6F (37.00c) at 03/21 16:1 0Vital Signs are the last 5 in the [...] dyspnea. ABDOMEN: Doughy, nontender, nondistended. GENITOURINARY: No Kirby. SKIN: No other breakdown or rashes. NEUROMUSCULOSKELETAL: Cranial nerves II-XII are intact. Strength unbreakable in bilateral upper extremities and right lower extremity. Left lower extremity hip flexion 4/5, knee extension 4/5, ankle dorsiflexion, greater toe extension unbreakable. Some pain limitations of the left leg. No hypertonicity or clonus. Labs (Last four charted values) WBC 4.8(MARCH 19)5.4(MARCH 11)7.4(MAR 06)8.0(MAR 03) Hgb L 10.3(MARCH 19)L 9.7(MARCH 11)L 10.3(MAR 06)L 10.7(MAR 03) Hct L 31.2(MARCH 19)L 28.8(MARCH 11)L 30.1(MAR 06)L 31.1(MAR 03) Plt 306(MARCH 19)345(MARCH 11)279(MAR 06)198(MAR 03) Na 139(MARCH 19)L 131(MARCH 15)137(MARCH 13)L 132(MARCH 11) K 3.8(MARCH 19)4.1(MARCH 15)L 3.2(MARCH 13)3.7(MARCH 11) CO2 H 36(MARCH 19)27(MARCH 15)31(MARCH 13)31(MARCH 11) Cl 97(MARCH 19)97(MARCH 15)101(MARCH 13)96(MARCH 11) Cr 1.12(MARCH 19)1.06(MARCH 15)1.03(MARCH 13)1.09(MARCH 11) BUN 8(MARCH 19)13(MARCH 15)10(MARCH 13)14(MARCH 11) Glucose Random 92(MARCH 19)88(MARCH 15)95(MARCH 13)86(MARCH 11) Ca 9.0(MARCH 19)8.6(MARCH 15)8.8(MARCH 13)9.3(MARCH 11) DIAGNOSTIC IMAGING: On 02/27, transthoracic echocardiogram [...] hose rinsing . Patient completed dryer with english division chair and combing . -tolerating therapy. -Awaiting SNF as family declines to prov ryan supervision at home. -May no longer even meet criteria for SN F. -Discussed multiple times with case mgmt . -If SNF not approved then will be going home. F/U: SNF ELOS: when SNF found. -Continue PT and OT. -SNF pending. Continue program. Extracted from: Title: Clinical Document Author: Luis Noriega MD ate: 03/03/20 PM&R H&P Note Admit Date: 03.02.20 Reason for admit/diagnosis: deficits in gait, mobility, self-care including ADLs, toileting, grooming due to acute left hip fracture status post left IM nail. Post op anemia Etiological diagnosis: Orthopedic fracture HPI: Patient is a pleasant 79-year-old female living with her daughter and using a rolling walker for ambulation who presents to [facility] with a slip and fall off the [...] and noncontributory Meds: See EMR, reviewed PE: VitalsTmp(F)[id number] 02/27 [id number]--- 02/27 14:57 100 2.0L/m 02/27 11:[id number]--- 02/27 08:[id number]--- 02/27 07:44 1898 2.0L/m 24 Hr Tmax: 98.5F (36.94c) at 02/27 08:0 3Vital Signs are the last 5 in the [...] LABS: Labs (Last four charted values) WBC 8.0(MAR 03) Hgb L 10.7(MAR 03) Hct L 31.1(MAR 03) Plt 198(MAR 03) Na L 131(MAR 03) K L 3.3(MAR 03) CO2 29(MAR 03) Cl 97(MAR 03) Cr 1.07(MAR 03) BUN 18(MAR 03) Glucose Random H 106(MAR 03) Ca L 8.2(MAR 03) RADIOLOGY: All radiology imaging reviewed in [...] rolling walker for ambulation who presents to [facility] s/p fall off the toilet. She was [...] to Chair Transfer: Partial/Mod assist-03 Car Transfer: NA-Medical/Safety- Walk 10 Feet: Supervision or touching assist-04 Walk 50 Feet with Two Turns: NA-Medical/Safety- Walk 150 Feet: -Medical/Safety-88 Walking 10 Feet Uneven Surfaces: NA-Medical/Safety- 1 Step (Curb): -Medical/Safety-88 Picking Up Object: [facility] Patient Use Wheelchair,Scooter: Yes Wheel 50 Feet with Two Turns: Supervision or touching assist-04 Wheel 150 feet: Supervision or touching assist-04 Type Wheelchair,Scooter Use 50ft: Manual wheelchair Type Wheelchair,Scooter Use 150ft: Manual wheelchair No 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 Postop anemia requiring blood products. PLAN: 1. Rehab Plan- PT/OT to see patient arthur canchola in hospital. 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 -Functional goals to [...] s 3 times daily as needed for [id number] pain (1-3)- unless contraindicated. - Ice/Heat PRN [...] Rehabilitation Nursing, Psychology, Case Management, Pharmacist, and Sales Development Specialist. FUNCTIONAL HISTORY: Modified Independent ADLs, mobility, community [...] performing the following tasks safely: Attendance of latter day/orthodoxy activities Participation in family activities Participation in recreational activities Unassisted ambulation/mobility Unassisted self-care tasks such as bathing and dressing Medication management medical management trainer Cooking Cleaning REHAB PROGNOSIS: Good ESTIMATED LENGTH OF STAY: 10 days DISPOSITION: Goal is to get this patient home with family support, however availability of support to be investigated at all times. Many suport decisions are made prior to arrival in acute hospital without having full detailed communication with family and friends about functional limitations. Patient may need care home facility placement prior to discharge home but the goal is always to try and get back to home setting. OTHER MD'S INVOLVED IN CARE: GLEN
--- OUTSIDE RECORDS SUMMARY | 2020-06-11 01:12 | XMS REPORT | Summary of Care ---
Author Author [facility] Organization [facility] Address Unknown Phone Unavailable Encounter AMBERLY Barnett(MICHAEL) [id number] Date(s): 02/26/20 - 03/02/20 [facility] [address] [place] [address]- [phone] Discharge Disposition: DC/DISC TO REHAB Attending Physician: Vibha Murphy MD Admitting Physician: Vibha Murphy MD Vital Signs 1 2 3 Most recent to oldest [Reference Range]: 160.02 cm (02/26/20 4:56 PM) 162.56 cm (02/26/20 12:15 PM) Height 99.0 DegF (03/02/20 8:15 PM) 97.7 DegF (03/02/20 11:33 AM) 98.5 DegF (03/02/20 7:39 AM) Temperature Oral [96.4-99.1 DegF] 140/50 mmHg (03/02/20 8:15 PM) 112/50 mmHg (03/02/20 11:33 AM) 120/61 mmHg (03/02/20 7:39 AM) Blood Pressure [90-140/60-90 mmHg] 16 BRMIN (03/02/20 8:58 PM) 18 BRMIN (03/02/20 8:15 PM) 18 BRMIN (03/02/20 11:33 AM) Respiratory Rate [14-20 BRMIN] 70 bpm (03/02/20 8:15 PM) 63 bpm (03/02/20 11:33 AM) 82 bpm (03/02/20 7:39 AM) Peripheral Pulse Rate [60-100 bpm] 72.545 kg (02/26/20 4:56 PM) 72.727 kg (02/26/20 12:15 PM) Weight 28.33 m2 (02/26/20 4:56 PM) 27.52 m2 (02/26/20 12:15 PM) Body Mass Index Problem List Condition [...] 2 tab, Route: PO, Drug form: TAB, Q6H, Dosing Weight 72.727, kg, PRN Tameka n 1-3/Temp > 100.4 F, Start date: 02/26/20 16:01:00 CDT, Duration: 30 day, Stop date: 03/27/20 16:00:00 CDT, 0 Notes: Do not exceed 4 gm/day. (Same as: Tylenol) Start Date: 02/26/20 Stop Date: 03/02/20 Status: Discontinued Ancef + sterile water 20 mL 2 gm, Route: IV, [id number], Dosing Weight 72.727, kg, Priority: NOW, Start date: 16:51:00 CDT, Stop date: 02/28/20 17:00:00 CDT, ABX Indication: Surgical Prophylaxis, 0 Notes: (Same As: Ancef, Kefzol) MEDICATION WASTE Product Size: 1000 mgP roduct Wasted: ___ mg Start Date: 02/26/20 Stop Date: 02/28/20 Status: Completed ANES fentaNYL 25 microgram, 0.5 mL, Route: IVP, Drug form: INJ, Q5Min, Dosing Weight 72.545, k g, PRN Pain Score 4-6, Priority: Routine, Start date: 02/27/20 11:30:00 CDT, Dur ation: 4 doses or times, Stop date: 02/28/20 0:00:00 CDT, 0 Notes: (Same as: Sublimaze) Preservative free. Start Date: 02/27/20 Stop Date: 02/28/20 Status: Completed ANES flumazenil 0.2 mg, 2 mL, Route: IVP, Drug form: INJ, PRN, Dosing Weight 72.545, kg, PRN Kiel zodiazepine Reversal, Initial dose, Start date: 02/27/20 11:30:00 CDT, Stop date : 02/28/20 0:00:00 CDT, 0 Notes: (Same as: Romazicon) Start Date: 02/27/20 Stop Date: 02/28/20 Status: Completed ANES naloxone 0.4 mg, 1 mL, Route: IVP, Drug form: INJ, Q2MIN, Dosing Weight 72.545, kg, PRN N arcotic Reversal, Start date: 02/27/20 11:30:00 CDT, Duration: 8 doses or times, Stop date: 02/28/20 0:00:00 CDT, 0 Notes: Same as Narcan Start Date: 02/27/20 Stop Date: 02/28/20 Status: Completed ANES ondansetron 4 mg, 2 mL, Route: IVP, Drug form: INJ, ONCE, Dosing Weight 72.545, kg, PRN Naus ea & Vomiting, Start date: 02/27/20 11:30:00 CDT, 0 Notes: (Same as: Zofran) MEDICATION WASTE Product Size: 4 mgProduct Was navneet: ___ mg Start Date: 02/27/20 Stop Date: 03/02/20 Status: Discontinued Anoro Ellipta 62.5 mcg-25 mcg inhalation powder 1 puff, INHALER, Daily, # 1 ea, 3 Refill(s) Start Date: 03/02/20 Status: Suspended calcium carbonate 500 mg, 1 tab, Route: PO, Drug form: TAB, BID, Dosing Weight 72.545, kg, Start d ate: 02/27/20 17:00:00 CDT, Duration: 30 day, Stop date: 03/28/20 9:00:00 CDT, 0 Notes: 500mg elemental calcium = 1250mg calcium carbonate. Contains 500mg eleme ntal calcium. (Same As: OsCal 500) Start Date: 02/27/20 Stop Date: 03/02/20 Status: Discontinued ceFAZolin (ANES) Route: IV, Drug form: INJ, ONCE, Stop date: 02/27/20 11:09:00 CDT Start Date: 02/27/20 Stop Date: 02/27/20 Status: Completed CeleXA 40 mg, 4 tab, Route: PO, Drug form: TAB, Daily, Dosing Weight 72.545, kg, Start date: 02/27/20 9:00:00 CDT, Duration: 30 day, Stop date: 03/27/20 9:00:00 CDT, 0 Start Date: 02/27/20 Stop Date: 03/02/20 Status: Discontinued cholecalciferol 1,000 IntlUnit, 1 tab, Route: PO, Drug form: TAB, Daily, Dosing Weight 72.545, k g, Start date: 02/28/20 9:00:00 CDT, Duration: 30 day, Stop date: 03/28/20 9:00: 00 CDT, 0 Notes: Same as : Vitamin D3 Start Date: 02/28/20 Stop Date: 03/02/20 Status: Discontinued ciprofloxacin 400 mg, 200 mL, Route: IVPB, Drug form: INJ, [id number], Dosing Weight 72.545, kg, Start date: 02/26/20 22:00:00 CDT, Duration: 5 day, Stop date: 03/02/20 22:00:00 CDT, ABX Indication: Urinary Tract Infection, 0 Notes: Do not refrigerate Start Date: 02/26/20 Stop Date: 03/01/20 Status: Discontinued citalopram 10 mg oral tablet 40 mg = 4 tab, PO, BID, 0 Refill(s) Start Date: 03/01/20 Status: Suspended Crestor 20 mg, 1 tab, Route: PO, Drug form: TAB, Bedtime, Dosing Weight 72.545, kg, Star t date: 02/26/20 21:00:00 CDT, Duration: 30 day, Stop date: 03/26/20 21:00:00 CD T, 0 Notes: Same as Crestor Start Date: 02/26/20 Stop Date: 03/02/20 Status: Discontinued dexamethasone (ANES) Route: IV, Drug form: INJ, ONCE, Stop date: 02/27/20 12:14:00 CDT Start Date: 02/27/20 Stop Date: 02/27/20 Status: Completed Dextrose 50% Syringe (D50W) 12.5 gm, 25 mL, Route: IVP, Drug Form: INJ, Dosing Weight 72.727, kg, PRN, PRN B lood Glucose Results, Start date: 02/26/20 16:01:00 CDT, Duration: 30 day, Stop date: 03/27/20 16:00:00 CDT, 0 Start Date: 02/26/20 Stop Date: 03/02/20 Status: Discontinued Dextrose 50% Syringe (D50W) 25 gm, 50 mL, Route: IVP, Drug Form: INJ, Dosing Weight 72.727, kg, PRN, PRN Blo od Glucose Results, Start date: 02/26/20 16:01:00 CDT, Duration: 30 day, Stop da te: 03/27/20 16:00:00 CDT, 0 Start Date: 02/26/20 Stop Date: 03/02/20 Status: Discontinued diazepam 10 mg, 2 tab, Route: PO, Drug form: TAB, BID, Dosing Weight 72.545, kg, Priority : NOW, Start date: 02/27/20 0:48:00 CDT, Duration: 30 day, Stop date: 03/27/20 1 7:00:00 CDT, 0 Notes: (Same as: Valium) Start Date: 02/27/20 Stop Date: 03/02/20 Status: Discontinued Dilaudid 1 mg, 1 mL, Route: IVP, Drug form: SOLN, Q4H, Dosing Weight 72.545, kg, PRN Pain Score 7-10, Start date: 02/27/20 10:05:00 CDT, Duration: 30 day, Stop date: 10:04:00 CDT, 0 Notes: (Same as: Dilaudid) Start Date: 02/27/20 Stop Date: 03/02/20 Status: Discontinued Dilaudid 0.5 mg, 0.5 mL, Route: IVP, Drug form: SOLN, ONCE, Dosing Weight 72.727, kg, Ave ority: STAT, Start date: 02/26/20 12:43:00 CDT, Stop date: 02/26/20 12:43:00 CDT , 0 Notes: (Same as: Dilaudid) Start Date: 02/26/20 Stop Date: 02/26/20 Status: Completed docusate 100 mg, 1 cap, Route: PO, Drug form: CAP, BID, Dosing Weight 72.727, kg, PRN as needed for constipation, Start date: 02/26/20 16:01:00 CDT, Duration: 30 day, St op date: 03/27/20 16:00:00 CDT, 0 Notes: (Same as: Colace) (Do Not Crush) Start Date: 02/26/20 Stop Date: 03/02/20 Status: Discontinued enoxaparin 40 mg, 0.4 mL, Route: SUB-Q, Drug form: INJ, [id number], Dosing Weight 72.545, kg, Start date: 02/28/20 7:00:00 CDT, Duration: 30 day, Stop date: 03/28/20 13:00:00 CDT, 0 Notes: (Same as: Lovenox) Start Date: 02/28/20 Stop Date: 03/02/20 Status: Discontinued ePHEDrine (ANES) Route: IV, Drug form: INJ, ONCE, Stop date: 02/27/20 10:53:00 CDT Start Date: 02/27/20 Stop Date: 02/27/20 Status: Completed fentaNYL (ANES) Route: IV, Drug form: INJ, ONCE, Stop date: 02/27/20 10:43:00 CDT Start Date: 02/27/20 Stop Date: 02/27/20 Status: Completed glucagon 1 mg, Route: IM, Drug form: PDR/INJ, PRN, Dosing Weight 72.727, kg, PRN Blood Gl ucose Results, Start date: 02/26/20 16:01:00 CDT, Duration: 30 day, Stop date: 0 03/27/20 16:00:00 CDT, 0 Start Date: 02/26/20 Stop Date: 03/02/20 Status: Discontinued glycopyrrolate (ANES) Route: IV, Drug form: INJ, ONCE, Stop date: 02/27/20 10:43:00 CDT Start Date: 02/27/20 Stop Date: 02/27/20 Status: Completed Lactated Ringers Injection IV (ANES) 1000 mL Route: IV, Total Volume: 1,000, Start date: 02/27/20 9:57:00 CDT, Stop date: 10:57:00 CDT Start Date: 02/27/20 Stop Date: 02/27/20 Status: Completed lidocaine (ANES) Route: IV, Drug form: INJ, ONCE, Stop date: 02/27/20 10:43:00 CDT Start Date: 02/27/20 Stop Date: 02/27/20 Status: Completed Lovenox 40 mg, Route: SUB-Q, Drug form: INJ, [id number], Dosing Weight 72.545, kg, Start d ate: 02/28/20 7:00:00 CDT, Duration: 14 day, Stop date: 03/12/20 7:00:00 CDT Start Date: 02/28/20 Stop Date: 02/27/20 Status: Deleted midazolam (ANES) Route: IV, Drug form: SOLN, ONCE, Stop date: 02/27/20 10:43:00 CDT Start Date: 02/27/20 Stop Date: 02/27/20 Status: Completed morphine Sulfate 2 mg, 1 mL, Route: IVP, Drug form: INJ, Q4H, Dosing Weight 72.545, kg, PRN Pain Score 7-10, Start date: 02/27/20 2:09:00 CDT, Duration: 30 day, Stop date: 03/28 2:08:00 CDT, 0 Notes: (Same as:MORPhine Sulfate) Start Date: 02/27/20 Stop Date: 03/01/20 Status: Discontinued morphine Sulfate 0.5 mg, 0.25 mL, Route: IVP, Drug form: INJ, Q4H, Dosing Weight 72.545, kg, PRN Pain Score 7-10, Start date: 02/26/20 18:55:00 CDT, Duration: 7 day, Stop date: 03/04/20 18:54:00 CDT, 0 Notes: (Same as:MORPhine Sulfate) Start Date: 02/26/20 Stop Date: 02/27/20 Status: Discontinued [place] 10/325 oral tablet 1 tab, Route: PO, Drug Form: TAB, Dosing Weight 72.545, kg, Q4H, PRN Pain Score 1-3, Start date: 03/02/20 9:31:00 CDT, Duration: 30 day, Stop date: 04/01/20 9:3 0:00 CDT, 0 Notes: Do not exceed 4gm/day of acetaminophen. (Same as: [place] 325/10) Start Date: 03/02/20 Stop Date: 03/02/20 Status: Discontinued [place] 10/325 oral tablet 2 tab, Route: PO, Drug Form: TAB, Dosing Weight 72.545, kg, Q4H, PRN Pain Score 4-6, Start date: 03/02/20 9:31:00 CDT, Duration: 30 day, Stop date: 04/01/20 9:3 0:00 CDT, 0 Notes: Do not exceed 4gm/day of acetaminophen. (Same as: [place] 325/10) Start Date: 03/02/20 Stop Date: 03/02/20 Status: Discontinued ondansetron 4 mg, 2 mL, Route: IVP, Drug form: INJ, Q8H, Dosing Weight 72.727, kg, PRN Nause a & Vomiting, Start date: 02/26/20 16:01:00 CDT, Duration: 30 day, Stop date: 03/27/20 16:00:00 CDT, 0 Notes: (Same as: Jean) MEDICATION WASTE Product Size: 4 mgProduct Was navneet: ___ mg Start Date: 02/26/20 Stop Date: 03/02/20 Status: Discontinued ondansetron (ANES) Route: IV, Drug form: INJ, ONCE, Stop date: 02/27/20 11:19:00 CDT Start Date: 02/27/20 Stop Date: 02/27/20 Status: Completed pantoprazole 40 mg oral enteric coated tablet 40 mg = 1 tab, PO, Before Breakfast, 0 Refill(s) Start Date: 03/01/20 Status: Suspended Prevacid 30 mg, Route: PO, QAM, Dosing Weight 72.545, kg, Start date: 02/27/20 9:00:00 CD T, Duration: 30 day, Stop date: 03/27/20 9:00:00 CDT Start Date: 02/27/20 Stop Date: 02/26/20 Status: Deleted propofol (ANES) Route: IV, Drug form: INJ, ONCE, Stop date: 02/27/20 10:39:00 CDT Start Date: 02/27/20 Stop Date: 02/27/20 Status: Completed Protonix 40 mg, 1 tab, Route: PO, Drug form: ECTAB, Before Breakfast, Start date: 0 7:30:00 CDT, Duration: 30 day, Stop date: 03/27/20 7:30:00 CDT, 0 Notes: Tablet should not be chewed or crushed.(Same as: Protonix) Start Date: 02/27/20 Stop Date: 03/02/20 Status: Discontinued Saline Flush 0.9% 10 mL, Route: IVP, Drug Form: INJ, Dosing Weight 72.727, kg, PRN, PRN Line Flush , Start date: 02/26/20 12:30:00 CDT, Duration: 30 day, Stop date: 03/27/20 12:29 :00 CDT, 0 Notes: (Same as: BD Posiflush) Start Date: 02/26/20 Stop Date: 03/02/20 Status: Discontinued succinylcholine (ANES) Route: IV, Drug form: INJ, ONCE, Stop date: 02/27/20 10:39:00 CDT Start Date: 02/27/20 Stop Date: 02/27/20 Status: Completed Toprol-XL 25 mg oral tablet, extended release 25 mg, 1 tab, Route: PO, Drug form: ERTAB, Daily, Start date: 02/27/20 9:00:00 C DT, Duration: 30 day, Stop date: 03/27/20 9:00:00 CDT, 0 Notes: (Same as: Toprol XL) Do Not Crush Start Date: 02/27/20 Stop Date: 03/02/20 Status: Discontinued Toprol-XL 25 mg oral tablet, extended release 25 mg = 1 tab, PO, Daily, 0 Refill(s) Start Date: 03/01/20 Status: Suspended trazodone 25 mg, 0.5 tab, Route: PO, Drug form: TAB, Bedtime, Dosing Weight 72.545, kg, FL N Sleep, Start date: 02/26/20 18:35:00 CDT, Duration: 30 day, Stop date: 0 18:34:00 CDT, .., 0 Notes: (Same As: Naren) Start Date: 02/26/20 Stop Date: 02/26/20 Status: Discontinued Vitamin D3 800 IntlUnit, 2 tab, Route: PO, Drug form: TAB, Daily, Dosing Weight 72.545, kg, Start date: 02/27/20 9:00:00 CDT, Duration: 30 day, Stop date: 03/27/20 9:00:00 CDT, 0 Notes: Same as Vitamin D3 Start Date: 02/27/20 Stop Date: 02/28/20 Status: Discontinued Results 1 2 3 Most recent to oldest [Reference Range]: 4.9 K/CMM (03/01/20 4:01 AM) 9.1 K/CMM *HI* (02/29/20 4:04 AM) 10.6 K/CMM *HI* (02/28/20 5:40 AM) Neutrophils # [1.5-8.1 K/CMM] 1.5 K/CMM (03/01/20 4:01 AM) 1.5 K/CMM (02/29/20 4:04 AM) 0.7 K/CMM *LOW* (02/28/20 5:40 AM) Lymphocytes # [1.0-5.5 K/CMM] 1.0 K/CMM *HI* (03/01/20 4:01 AM) 1.3 K/CMM *HI* (02/29/20 4:04 AM) 0.8 K/CMM (02/28/20 5:40 AM) Monocytes # [0.0-0.8 K/CMM] 0.2 K/CMM (03/01/20 4:01 AM) 0.1 K/CMM (02/29/20 4:04 AM) 0.1 K/CMM (02/27/20 5:47 AM) Eosinophils # [0.0-0.5 K/CMM] 54 mL/min/1.73m2 1 *NA* (03/01/20 4:01 AM) 44 mL/min/1.73m2 2 *NA* (02/29/20 4:04 AM) 49 mL/min/1.73m2 3 *NA* (02/28/20 5:40 AM) eGFR Product available 4 (03/02/20 8:08 AM) Product available 5 (02/28/20 3:02 PM) RBC product O POS *Unknown* (03/02/20 8:26 AM) O POS *Unknown* (02/26/20 2:26 PM) ABO/Rh 0.8 (02/29/20 4:04 AM) 0.7 (02/28/20 5:40 AM) 0.9 (02/27/20 5:47 AM) A/G Ratio [0.7-1.6] Negative (03/02/20 8:26 AM) Negative (02/26/20 2:26 PM) Antibody Scrn 2.6 g/dL *LOW* (02/29/20 4:04 AM) 2.2 g/dL *LOW* (02/28/20 5:40 AM) 2.8 g/dL *LOW* (02/27/20 5:47 AM) Albumin Lvl [3.5-5.0 g/dL] 65 unit/L (02/29/20 4:04 AM) 59 unit/L (02/28/20 5:40 AM) 83 unit/L (02/27/20 5:47 AM) Alk Phos [39-136 unit/L] 12 unit/L (02/29/20 4:04 AM) 9 unit/L (02/28/20 5:40 AM) 13 unit/L (02/27/20 5:47 AM) ALT [0-65 unit/L] 6.5 mEq/L *LOW* (03/01/20 4:01 AM) 6.2 mEq/L *LOW* (02/29/20 4:04 AM) 9.2 mEq/L *LOW* (02/28/20 5:40 AM) AGAP [10.0-20.0 mEq/L] 34 unit/L (02/29/20 4:04 AM) 20 unit/L (02/28/20 5:40 AM) 22 unit/L (02/27/20 5:47 AM) AST [0-37 unit/L] 15 (02/29/20 4:04 AM) 13 (02/28/20 5:40 AM) 9 (02/27/20 5:47 AM) B/C Ratio [6-25] 0.2 % (03/01/20 4:01 AM) 0.2 % (02/27/20 5:47 AM) 0.2 % (02/26/20 12:39 PM) Basophils [0.0-1.0 %] 16 mg/dL (03/01/20 4:01 AM) 18 mg/dL (02/29/20 4:04 AM) 14 mg/dL (02/28/20 5:40 AM) BUN [7-22 mg/dL] 8.3 mg/dL *LOW* (03/01/20 4:01 AM) 8.8 mg/dL (02/29/20 4:04 AM) 8.3 mg/dL *LOW* (02/28/20 5:40 AM) Calcium Lvl [8.5-10.5 mg/dL] 31 unit/L (02/26/20 12:39 PM) Total CK [12-191 unit/L] 99 mEq/L (03/01/20 4:01 AM) 98 mEq/L (02/29/20 4:04 AM) 97 mEq/L (02/28/20 5:40 AM) Chloride Lvl [95-109 mEq/L] 31 mEq/L (03/01/20 4:01 AM) 31 mEq/L (02/29/20 4:04 AM) 29 mEq/L (02/28/20 5:40 AM) CO2 [24-32 mEq/L] 1.00 mg/dL (03/01/20 4:01 AM) 1.17 mg/dL (02/29/20 4:04 AM) 1.07 mg/dL (02/28/20 5:40 AM) Creatinine Lvl [0.50-1.40 mg/dL] 3.2 % (03/01/20 4:01 AM) 0.7 % (02/29/20 4:04 AM) 1.7 % (02/27/20 5:47 AM) Eosinophils [0.0-4.0 %] 3.3 g/dL (02/29/20 4:04 AM) 3.0 g/dL (02/28/20 5:40 AM) 3.0 g/dL (02/27/20 5:47 AM) Globulin [2.7-4.2 g/dL] 82 mg/dL (03/01/20 4:01 AM) 99 mg/dL (02/29/20 4:04 AM) 131 mg/dL *HI* (02/28/20 5:40 AM) Glucose Lvl [70-99 mg/dL] 24.4 % *LOW* (03/02/20 4:42 AM) 23.0 % *LOW* (03/01/20 4:01 AM) 22.5 % *LOW* (02/29/20 4:04 AM) Hct [36.0-48.0 %] 8.2 g/dL *LOW* (03/02/20 4:42 AM) 7.9 g/dL *LOW* (03/01/20 4:01 AM) 7.5 g/dL *LOW* (02/29/20 4:04 AM) Hgb [12.0-16.0 g/dL] 1.00 (02/26/20 12:39 PM) INR [0.85-1.17] 3.5 mEq/L (03/01/20 4:01 AM) 4.2 mEq/L (02/29/20 4:04 AM) 4.2 mEq/L (02/28/20 5:40 AM) Potassium Lvl [3.5-5.1 mEq/L] 1.8 mMol/L (02/26/20 1:12 PM) 2.1 mMol/L (02/26/20 12:39 PM) Lactic Acid Lvl [0.5-2.2 mMol/L] 19.9 % *LOW* (03/01/20 4:01 AM) 12.5 % *LOW* (02/29/20 4:04 AM) 5.6 % *LOW* (02/28/20 5:40 AM) Lymphocytes [20.0-40.0 %] 31.8 pg *HI* (03/01/20 4:01 AM) 31.4 pg *HI* (02/29/20 4:04 AM) 31.7 pg *HI* (02/28/20 5:40 AM) MCH [27.0-31.0 pg] 34.3 g/dL (03/01/20 4:01 AM) 33.4 g/dL (02/29/20 4:04 AM) 33.5 g/dL (02/28/20 5:40 AM) MCHC [32.0-36.0 g/dL] 92.7 fL (03/01/20 4:01 AM) 94.1 fL (02/29/20 4:04 AM) 94.4 fL (02/28/20 5:40 AM) MCV [80.0-98.0 fL] 13.2 % *HI* (03/01/20 4:01 AM) 11.2 % (02/29/20 4:04 AM) 6.8 % (02/28/20 5:40 AM) Monocytes [2.0-12.0 %] 7.1 fL *LOW* (03/01/20 4:01 AM) 7.2 fL *LOW* (02/29/20 4:04 AM) 7.4 fL (02/28/20 5:40 AM) MPV [7.4-10.4 fL] 133 mEq/L *LOW* (03/01/20 4:01 AM) 131 mEq/L *LOW* (02/29/20 4:04 AM) 131 mEq/L *LOW* (02/28/20 5:40 AM) Sodium Lvl [135-145 mEq/L] 202 K/CMM (03/01/20 4:01 AM) 229 K/CMM (02/29/20 4:04 AM) 198 K/CMM (02/28/20 5:40 AM) Platelet [133-450 K/CMM] 63.5 % (03/01/20 4:01 AM) 75.6 % *HI* (02/29/20 4:04 AM) 87.6 % *HI* (02/28/20 5:40 AM) Segs [45.0-75.0 %] 5.9 g/dL *LOW* (02/29/20 4:04 AM) 5.2 g/dL *LOW* (02/28/20 5:40 AM) 5.8 g/dL *LOW* (02/27/20 5:47 AM) Total Protein [6.4-8.4 g/dL] 13.2 seconds (02/26/20 12:39 PM) PT [12.0-14.7 seconds] 31.7 seconds (02/26/20 12:39 PM) PTT [22.9-35.8 seconds] Not Detected (03/01/20 4:01 PM) Coronavirus (COVID-19) JADIEL [Not Detected] 2.48 M/CMM *LOW* (03/01/20 4:01 AM) 2.39 M/CMM *LOW* (02/29/20 4:04 AM) 2.36 M/CMM *LOW* (02/28/20 5:40 AM) RBC [4.20-5.40 M/CMM] 14.0 % (03/01/20 4:01 AM) 13.7 % (02/29/20 4:04 AM) 13.7 % (02/28/20 5:40 AM) RDW [11.5-14.5 %] 0.4 mg/dL (02/29/20 4:04 AM) 0.2 mg/dL (02/28/20 5:40 AM) 0.4 mg/dL (02/27/20 5:47 AM) Bili Total [0.2-1.3 mg/dL] Few /HPF *NA* (02/26/20 3:10 PM) UA Bacteria [None Seen /HPF] Negative *NA* (02/26/20 3:10 PM) UA Bili [Negative] Small *ABN* (02/26/20 3:10 PM) UA Blood [Negative] Yellow *NA* (02/26/20 3:10 PM) UA Color [Yellow] Negative mg/dL *NA* (02/26/20 3:10 PM) UA Glucose [Negative mg/dL] 2 /LPF (02/26/20 3:10 PM) UA Hyal Cast [0-2 /LPF] Negative mg/dL *NA* (02/26/20 3:10 PM) UA Ketones [Negative mg/dL] Large *ABN* (02/26/20 3:10 PM) UA Leuk Est [Negative] Few /LPF *NA* (02/26/20 3:10 PM) UA Mucus [None Seen /LPF] Negative (02/26/20 3:10 PM) UA Nitrite [Negative] 5.0 (02/26/20 3:10 PM) UA pH [5.0-8.0] Negative mg/dL (02/26/20 3:10 PM) UA Protein [Negative mg/dL] 2 /HPF (02/26/20 3:10 PM) UA RBC [0-2 /HPF] 1.005 (02/26/20 3:10 PM) UA Spec Grav [<=1.030] Occasional /LPF *NA* (02/26/20 3:10 PM) UA Sq Epi [Few /LPF] Slight *ABN* (02/26/20 3:10 PM) UA Turbidity [Clear] <=1.0 mg/dL *NA* (02/26/20 3:10 PM) UA Urobilinogen [0.1-1.0 mg/dL] 33 /HPF *HI* (02/26/20 3:10 PM) UA WBC [0-5 /HPF] 7.7 K/CMM (03/01/20 4:01 AM) 12.1 K/CMM *HI* (02/29/20 4:04 AM) 12.2 K/CMM *HI* (02/28/20 5:40 AM) WBC [3.7-10.4 K/CMM] 1Result Comment: The [...] be mul tiplied by the estimated BMI. 4Result Comment: 03/02/2020 10:08 [id number] [facility] notified Seema 03/02/2020 10:08 5Result Comment: 02/28/2020 15:34 [id number] spoke to Jenifer at 02/28/2020 15:34 Immunizations No data available for this section Procedures Procedure Date Related Diagnosis Body Site Status Cardiac catheterization Completed Placement of stent Completed Social History Social History Type Response Smoking Status Never smoker; Type: Cigaret yesenia; Exposure to Tobacco Smoke None; Cigarette Smoking Last 365 Days No; Reg Smoking C essation Counseling No entered on: 03/03/20 Assessment and Plan Extracted from: Title: Progress Note Author: Vibha Murphy MD Date: 03/01/20 79-year-old female with signific ant past medical history of aortic aneurysm, CAD, [...] comminuted intertrochanteric fracture of left femur(S72.142A) Extracted from: Title: Clinical Document Author: Luis Noriega MD ate: 02/28/20 PM&R Consult Note Referring Physician: Dimitri [...] and noncontributory Meds: See EMR, reviewed PE: VitalsTmp(F)[id number] 02/27 16:[id number]--- 02/27 14:57 100 2.0L/m 02/27 11:[id number]--- 02/27 08:[id number]--- 02/27 07:44 1898 2.0L/m 24 Hr Tmax: [...] Labs (Last four charted values) WBC H 12.2(FEB 27)8.1(FEB 26)H 16.9(FEB 25) Hgb L 7.5(FEB 27)L 10.2(FEB 26)L 11.1(FEB 25) Hct L 22.2(FEB 27)L 30.9(FEB 26)L 34.2(FEB 25) Plt 198(FEB 27)234(FEB 26)287(FEB 25) Na L 131(FEB 27)135(FEB 26)136(FEB 25) K 4.2(FEB 27)4.2(FEB 26)3.9(FEB 25) CO2 29(FEB 27)29(FEB 26)24(FEB 25) Cl 97(FEB 27)102(FEB 26)104(FEB 25) Cr 1.07(FEB 27)1.22(FEB 26)1.13(FEB 25) BUN 14(FEB 27)11(FEB 26)12(FEB 25) Glucose Random H 131(FEB 27)H 108(FEB 26)H 132(FEB 25) Ca L 8.3(FEB 27)8.8(FEB 26)8.6(FEB 25) PT 13.2(FEB 25) INR 1.00(FEB 25) PTT 31.7(FEB 25) Total CK 31(FEB 25) RADIOLOGY: All radiology imaging reviewed in [...] to see patient arthur canchola in hospital. 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 -Functional goals to [...] s 3 times daily as needed for cnzo-ae-crytvxfu pain (1-3)- unless contraindicated. - Ice/Heat PRN [...] 48 hours. Thanks and will follow. Extracted from: Title: History and Physical Author: Vibha Murphy MD [...] disease -History of aortic aneurysms -Closedcomminuted intertrochanteric fr acture of left femur Plan - -We will [...] nerve block -EKG 12-lead showed normal sinus rhythm with no significant abnormalities -Patient postoperatively might needPMN R placementwill continue to follow-up onPT/OT recommendations. DVT [...] to Dr Miramontes - Inpatient Addendum by Patient takesValium 10 mg twice a DAY FOR PANIC ATTACKSsince AND Katherine Rojas requested to Vibha garcia MD on 02/26/2020 18:56 CDT
--- OUTSIDE RECORDS SUMMARY | 2020-06-11 01:13 | XMS REPORT | Continuity of Care Document ---
Author Author [facility] Organization [facility] Address 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 Name Role Phone Brock Tirado Jr Attphys Vibha Murphy Attphys Marleny Moser Attphys Eric Kumar Attphys Brock Tirado Jr Admphys Vibha Murphy Admphys Eric Kumar Admphys Problems Condition Name Condition Details Condition Category Status Onset Date Resolution Date Last Treatment Date Treating Clinician Comments Source FALL FALL Active 02/26/2020 [facility] Diagnosis Active 2020-02-26 00:00:00 2020-02-26 14:43:00 Leland Prado CLOSED COMMINUTED INTERTROCHANTERIC FX O CLOSED COMMINUTED INTERTROCHANTERIC FX O Active 02/26/2020 [facility] Diagnosis Active 2020-02-26 00:00:00 2020-03-07 21:51:00 Leland Prado CLOSED COMMINUTED INTERTROCHANTERIC CLOSED COMMINUTED INTERTROCHANTERIC Active 02/26/2020 [facility] Diagnosis Ac tive 2020-02-26 00:00:00 2020-03-02 13:00:00 M emosherlyal Johna INTERTROCHANTERIC FRACTURE INT ERTROCHANTERIC FRACTURE Active 02/26/2020 [facility] Diagnosis Active 2020-02-26 00:00:00 2020-03-30 21:49:00 Leland Prado RIGHT HIP FRACTURE RIGH T HIP FRACTURE Active 04/23/2016 [facility] Diagnosis Active 2016-04-23 00:00:00 2016-04-26 09:59:00 Leland Prado HIP PAIN HIP PAIN Active 04/23/2016 [facility] Active 2016-04-23 00:00:00 2016-04-23 18:14:00 Leland Prado Final: Unspecified fracture of unspecifi ed femur, initial encounter for closed fracture Final: Unspecifi ed fracture of unspecified femur, initial encounter for closed fracture 04/29/2016 [facility] Problem 2016-04-29 01:44:25 Leland Prado Displaced intertrochanteric fracture of right femur, initial encounter for closed fracture Displaced intert rochanteric fracture of right femur, initial encounter for closed fracture 03/25/2020 [facility] Problem 2020-03-25 21:48:42 Leland Prado Aortic aneurysm (disorder) Aor tic aneurysm (disorder) Resolved Problem 03/25/2020 [facility] Resolved 2020-03-25 21:48:42 Leland Prado Coronary arteriosclerosis (disorder) Coronary arteriosclerosis (disorder) Resolved Problem 03/25/2020 [facility] Resolved 2020-03-25 21:48:42 Clare Prado Hypertensive disorder, systemic arterial (disorder) Hypertensive disorder, systemic arterial (disorder) Resolved Problem 03/25/2020 [facility] Resolved 2020-03-25 21:48:42 Leland Prado Cerebrovascular accident (disorder) Cerebrovascular accident (disorder) Resolved Problem 03/25/2020 [facility] Resolved 2020-03-25 21:48:42 Leland Prado Acute urinary tract infection (disorder) Acute urinary tract infection (disorder) Active Problem 03/25/2020 [facility] Active 2020-03-25 21:48:42 Leland Prado Anemia following acute postoperative blood loss (disor alberto) Anemia following acute postoperative blood loss (disorder) Active Problem 03/25/2020 [facility] Active 2020-03-25 21:48:42 Leland Prado Chronic obstructive lung disease (disorder) Chronic obstructive lung disease (disorder) Active Problem 03/25/2020 [facility] Active 2020-03-25 21:48:42 Leland Prado Closed fracture proximal femur, intertrochanteric, com minuted (disorder) Closed fracture proximal femur, intertrochanteric, comminuted (disorder) Active Problem 03/25/2020 [facility] Active 2020-03-25 21:48:42 Leland Prado Falling injury (finding) Fall ing injury (finding) Active Problem 03/25/2020 [facility] Active 2020-03-25 21:48:4 2 Leland Prado Finding of functional performance and activity (findin g) Finding of functional performance and activity (finding) Active Problem 03/25/2020 [facility] Active 2020-03-25 21:48:42 Leland Prado Hip pain (finding) Hip pain (finding) Active Problem 03/25/2020 [facility] Active 2020-03-25 21:48:42 Leland Prado Impaired cognition (finding) I mpaired cognition (finding) Active Problem 03/25/2020 [facility] Active 2020-03-25 21:48:42 Leland Prado Leukocytosis (disorder) Leuk ocytosis (disorder) Active Problem 03/25/2020 [facility] Active 2020-03-25 21:48:4 2 Leland Prado UNSP FRACTURE OF UNSP FEMUR, INIT ENCNTR UNSP FRACTURE OF UNSP FEMUR, INIT ENCNTR Active [facility] Active 2016-04-26 09:59:00 Leland Prado DISPLACED INTERTROCHANTERIC FRACTURE OF DISPLACED INTERTROCHANTERIC FRACTURE OF Active [facility] Active 2020-03-30 21:49:00 Leland Prado Unspecified fall, initial encounter Unspecified fall, initial encounter 11/24/2019 11/26/2019 [facility] Problem 2019-11-24 18:00:00 2019-11-26 23:01:45 2019-11-26 23:01:45 M emocarlos eduardo Prado Unspecified injury of head, initial encounter Unspecified injury of head, initial encounter 11/24/2019 11/26/2019 [facility] Problem 2019-11-24 18:00:00 2019-11-26 23:01:45 2019-11-26 23:01:45 Leland Prado Laceration without foreign body of scalp, initial enco unter Laceration without foreign body of scalp, initial encounter 11/24/2019 11/26/2019 [facility] Problem 2019-11-24 18:00:00 2019-11-26 23:01:4 5 2019-11-26 23:01:45 Leland Prado Allergies, Adverse Reactions, Alerts Allergy Name Allergy Type Status Severity Reaction(s) Onset Date Inacti ve Date Treating Clinician Comments Source Codeine Phosphate-Promethazine HCl Codeine Phosphate-Promethazine H Cl Active Leland Doherty n Social History Smoking Status Start Date Stop Date Source Social History Leland Prado Medications Ordered Medication Name Filled Medication Name Start Date Stop Da te Current Medication? Ordering Clinician Indication Dosage Frequency Signature (SIG) Comments Components Source citalopram 10 mg oral tablet 2020-03-23 14:16:00 Yes 40 mg = 4 tab, PO, Daily, # 120 tab, 0 Refill(s), Pharmacy: [address] Furosemide 20 MG Oral Tablet 2020-03-23 14:16:00 Yes 20 mg = 1 tab, PO, Daily, # 30 tab, 0 Refill(s), Pharmacy: [address] 24 HR Metoprolol Tartrate 25 MG Extended Release Tablet [Top rol] 2020-03-23 14:16:00 Yes 25 mg = 1 tab, PO, Daily, # 30 tab, 0 Refill(s), Pharmacy: [address] Rosuvastatin calcium 20 MG Oral Tablet [Crestor] 2020-03-23 14:16:00 Yes 20 mg = 1 tab, PO, B edtime, # 30 tab, 0 Refill(s), Pharmacy: [address] tramadol hydrochloride 50 MG Oral Tablet 2020-03-23 14:16:00 Yes 50 mg = 1 tab, PO, Q4H, PRN Pain Score 1-3, X 3 day, # 10 tab, 0 Refill(s), Pharmacy: [address] cholecalciferol 1000 intl units oral tablet 2020-03-15 16:02:00 Yes 1,000 IntlUnit = 1 tab, PO, Daily, 0 Refill(s) [facility] diazepam 5 mg oral tablet 2020-03-15 16:02:00 Yes 10 mg = 2 tab, PO, BID, PRN as needed for anxiety, 0 Refill(s) [facility] Acetaminophen 325 MG Oral Tablet 2020-03-15 16:02:00 Yes 650 mg = 2 tab, PO, Q4H, PRN Pain Score 1-3, 0 Refill(s) [facility] bisacodyl 10 mg rectal suppository 2020-03-15 16:02:00 Yes 10 mg = 1 supp, [place], Bedtime, PRN Constipation, 0 Refill(s) [facility] Calcium Carbonate 500 MG Chewable Tablet 2020-03-15 16:02:00 Yes 500 mg = 1 tab, PO, BID, 0 Refill(s) Memori al Johan Docusate Sodium 100 MG Oral Capsule 2020-03-15 16:02:00 Yes 100 mg = 1 cap, PO, BID, PRN Constipation, 0 Refill(s) Leland Prado enoxaparin 40 mg/0.4 mL subcutaneous solution 2020-03-15 16:02:0 0 No 40 mg = 0.4 mL, SUB-Q, [id number], 0 Refill(s) Leland Prado Furosemide 20 MG Oral Tablet 2020-03-15 16:02:00 No 20 mg = 1 tab, PO, Daily, 0 Refill(s) Leland Prado Ipratropium Brinnon 0.2 MG/ML Inhalant Solution 2020-03-15 16:02 :00 Yes 0.5 mg = 2.5 mL, NEB, RQID, 0 Refill(s) eLland Prado melatonin 3 mg oral tablet 2020-03-15 16:02:00 Yes 3 mg = 1 tab, PO, Bedtime, PRN Insomnia, 0 Refill(s) Jose Prado tramadol hydrochloride 50 MG Oral Tablet 2020-03-15 16:02:00 No 50 mg = 1 tab, PO, Q4H, PRN Pain Score 1-3, 0 Refill(s) Leland Prado Sodium Chloride 0.9% IV 500 mL 2020-03-14 19:22:00 No 500 mL, Rate: 50 ml/hr, Infuse over: 10 hr, Route: IV, Dosing Weight 73.352 kg, Total Volume: 500, Start date: 03/14/20 14:22:00 CDT, Duration: 30 day, Stop date: 04/13/20 14:21:00 CDT, 1.83, m2 [facility] Melatonin 2020-03-13 19:20:00 No 3 mg, Route: PO, Bedtime, Dosing Weight 73.352, kg, PRN Sleep, Start date: 03/13/20 14:20:00 CDT, Duration: 30 day, Stop date: 04/12/20 14:19:00 CDT Nm melissa Prado Potassium Chloride 2020-03-13 19:19:00 No 40 mEq, Route: PO, Drug form: ERTAB, ONCE, Dosing Weight 73.352, kg, Start date: 03/13/20 14:19:00 CDT, Stop date: 03/13/20 14:19:00 CDT More Prado tiotropium 0.018 MG/ACTUAT Inhalant Powder [Spiriva] 03-13 14:00:00 No 18 microgram, 1 cap, Route: INHALATION, Daily, Dosing Weight 73.352, kg, Start date: 03/13/20 9:00:00 CDT, Duration: 30 day, Stop date: 04/11/20 9:00:00 CDT Leland Maguireann ipratropium 0.02% inhalation solution 2020-03-13 12:00:00 N o Notes: SEE RT DOCUMENTATION (Same as:Atrovent) Leland Maguireann Furosemide 20 MG Oral Tablet 2020-03-12 20:23:00 No Notes: (Same as: Lasix) May cause GI upset. Give with food or milk. Leland Prado Albuterol 0.833 MG/ML / Ipratropium Brom ryan 0.167 MG/ML Inhalant Solution [DuoNeb] 2020-03-11 21:38:00 No Notes: (S blanca as: Duoneb) Leland Johan Diazepam 2020-03-08 19:27:00 No Notes: (Aidan e as: Valium) [facility] Docusate Sodium 100 MG Oral Capsule 2020-03-07 19:37:00 No Notes: (Same as: Colace) (Do Not Crush) More Prado Miralax 2020-03-07 19:37:00 No Notes: Dissolve in 8 oz of water or juice. (Same as: Miralax) Leland Delia nn sennosides, MCFP 8.6 MG Oral Tablet 2020-03-07 19:37:00 No Notes: (Same as: Senokot) [facility] tramadol hydrochloride 50 MG Oral Tablet 2020-03-04 02:23:00 No Notes: Not to exceed 400mg/day. (Same As: Ultram) [facility] Potassium Chloride 2020-03-03 20:20:00 No Notes: (Same as: K-Dur 20) "Do Not Crush" Give with food and full glass of water For patients unable to swallow tablet, dissolve in one half glass of water. Allow about 2 minutes for the tablets to disintegrate. Stir before giving to prepare slurry and administer. Please exclude Patient s with feeding tube less than 14 [place] (Magda, J-tube etc) and pediatric and patients. [facility] potassium chloride 20 mEq oral tablet, extended release (KCL ) 2020-03-03 16:55:00 No 20 mEq, 1 tab, Route: PO, Drug form: ERTAB, Q12H, Dosing Weight 72.545, kg, PRN Abnormal Lab Result, Start date: 03/03/20 11:55:00 CDT, Duration: 30 day, Stop date: 04/02/20 11:54:00 CDT, 0 [facility] Potassium Chloride 2020-03-03 15:23:00 No Notes: (Same as: K-Dur 20) "Do Not Crush" Give with food and full glass of water For patients unable to swallow tablet, dissolve in one half glass of water. Allow about 2 minutes for the tablets to disintegrate. Stir before giving to prepare slurry and administer. Please exclude Patient s with feeding tube less than 14 [place] (Dobhoff, J-tube etc) and pediatric and patients. [facility] Cholecalciferol 2020-03-03 14:00:00 No Notes: Same as : Vitamin D3 [facility] Celexa 2020-03-03 14:00:00 No 40 mg, 4 tab, Route: PO, Drug form: TAB, Daily, Dosing Weight 72.545, kg, Start date: 03/03/20 9:00:00 CDT, Duration: 30 day, Stop date: 04/01/20 9:00:00 CDT, 0 [facility] metoprolol extended release 2020-03-03 14:00:00 No Notes: (Same as: Toprol XL) Do Not Crush [facility] Saline Flush 0.9% 2020-03-03 14:00:00 No Notes: (Same as: BD Posiflush) [facility] Acetaminophen 2020-03-03 04:13:00 No Notes: Do not exceed 4 gm/day. (Same as: Tylenol) [facility] Acetaminophen 325 MG / Hydrocodone Bitartrate 5 MG Oral Tabl et 2020-03-03 04:13:00 No Notes: (Sa me as: [place] 325/5) Do not exceed 4gm/day of acetaminophen. [facility] Ondansetron 2020-03-03 04:13:00 No Notes: ( Same as: Zofran) [facility] Docusate 2020-03-03 04:13:00 No Notes: (Same as: Colace) (Do Not Crush) [facility] Bisacodyl 2020-03-03 04:13:00 No Notes: (Same As: Dulcolax, Bisco-Lax) [facility] Melatonin 2020-03-03 04:13:00 No Notes: (Sa me as: Melatonin) [facility] Saline Flush 0.9% 2020-03-03 04:13:00 No Notes: (Same as: BD Posiflush) [facility] Crestor 2020-03-03 02:00:00 No Notes: Same as Crestor [facility] Calcium Carbonate 2020-03-02 22:00:00 No Notes: (Same As: Tums) Calcium Carbonate 500 mg = 200 mg elemental calcium Dose = mg calcium carbonate ( mg elemental calcium) [facility] Diazepam 2020-03-02 22:00:00 No Notes: (Aidan e as: Valium) [facility] Protonix 2020-03-02 21:30:00 No Notes: Tablet should not be chewed or crushed. (Same as: Protonix) [facility] Lovenox 2020-03-02 17:00:00 No Notes: (Same as: Lovenox) [facility] Acetaminophen 325 MG / Hydrocodone Bitartrate 10 MG Or al Tablet [[place] 10/325] 2020-03-02 14:31:00 No Note s: Do not exceed 4gm/day of acetaminophen. (Same as: [place] 325/10) [facility] Anoro Ellipta 62.5 mcg-25 mcg inhalation powder 2020-03-02 05:05 :00 Yes 1 puff, INHALER, Daily, # 1 ea, 3 Refill(s) [facility] 24 HR Metoprolol Tartrate 25 MG Extended Release Tablet [Top rol] 2020-03-01 19:18:00 Yes 25 mg = 1 tab, PO, Daily, 0 R efill(s) [facility] citalopram 10 mg oral tablet 2020-03-01 19:18:00 Yes 40 mg = 4 tab, PO, BID, 0 Refill(s) [facility] pantoprazole 40 mg oral enteric coated tablet 2020-03-01 19:18:0 0 Yes 40 mg = 1 tab, PO, Before Breakfast, 0 Refill(s) [facility] Cholecalciferol 2020-02-28 14:00:00 No Notes: Same as : Vitamin D3 [facility] Enoxaparin 2020-02-28 12:00:00 No Notes: (S blanca as: Lovenox) [facility] Lovenox 2020-02-28 12:00:00 No 40 mg, Route: SUB-Q, Drug form: INJ, [id number], Dosing Weight 72.545, kg, Start date: 02/28/20 7:00:00 CDT, Duration: 14 day, Stop date: 03/12/20 7:00:00 CDT [facility] Calcium Carbonate 2020-02-27 22:00:00 No Notes: 500mg elemental calcium = 1250mg calcium carbonate. Contains 500mg elemental calcium. (Same As: OsCal 500) [facility] dexamethasone (BABATUNDES) 2020-02-27 17:14:00 No Route: IV, Drug form: INJ, ONCE, Stop date: 02/27/20 12:14:00 CDT [facility] Fentanyl 2020-02-27 16:30:00 No Notes: (Same as: Sublimaze) Preservative free. [facility] Flumazenil 2020-02-27 16:30:00 No Notes: (S blanca as: Romazicon) [facility] Naloxone 2020-02-27 16:30:00 No Notes: Same as Narcan [facility] Ondansetron 2020-02-27 16:30:00 No Notes: (Same as: Zofran) MEDICATION WASTE Product Size: 4 mg Product Wasted: ___ mg [facility] ondansetron (BABATUNDES) 2020-02-27 16:19:00 No Route: IV, Drug form: INJ, ONCE, Stop date: 02/27/20 11:19:00 CDT [facility] ceFAZolin (BABATUNDES) 2020-02-27 16:09:00 No Route: IV, Drug form: INJ, ONCE, Stop date: 02/27/20 11:09:00 CDT conor Johan ePHEDrine (BABATUNDES) 2020-02-27 15:53:00 No Route: IV, Drug form: INJ, ONCE, Stop date: 02/27/20 10:53:00 CDT [facility] midazolam ([facility]) 2020-02-27 15:43:00 No Route: IV, Drug form: SOLN, ONCE, Stop date: 02/27/20 10:43:00 CDT [facility] lidocaine ([facility]) 2020-02-27 15:43:00 No Route: IV, Drug form: INJ, ONCE, Stop date: 02/27/20 10:43:00 CDT [facility] fentaNYL ([facility]) 2020-02-27 15:43:00 No Route: IV, Drug form: INJ, ONCE, Stop date: 02/27/20 10:43:00 CDT [facility] glycopyrrolate ([facility]) 2020-02-27 15:43:00 No Route: IV, Drug form: INJ, ONCE, Stop date: 02/27/20 10:43:00 CDT [facility] propofol ([facility]) 2020-02-27 15:39:00 No Route: IV, Drug form: INJ, ONCE, Stop date: 02/27/20 10:39:00 CDT [facility] succinylcholine ([facility]) 2020-02-27 15:39:00 No Route: IV, Drug form: INJ, ONCE, Stop date: 02/27/20 10:39:00 CDT [facility] Dilaudid 2020-02-27 15:05:00 No Notes: (Aidan e as: Dilaudid) [facility] Lactated Ringers Injection IV ([facility]) 1000 mL 2020-02-27 14:57:00 No Route: IV, Total Volume: 1,000, Start date: 02/27/20 9:57:00 CDT, Stop date: 02/27/20 10:57:00 CDT [facility] Prevacid 2020-02-27 14:00:00 No 30 mg, Route: PO, QAM, Dosing Weight 72.545, kg, Start date: 02/27/20 9:00:00 CDT, Duration: 30 day, Stop date: 03/27/20 9:00:00 CDT [facility] 24 HR Metoprolol Tartrate 25 MG Extended Release Tablet [Top rol] 2020-02-27 14:00:00 No Notes: (Same as: Toprol XL) D o Not Crush [facility] Vitamin D3 2020-02-27 14:00:00 No Notes: Sa me as Vitamin D3 [facility] Celexa 2020-02-27 14:00:00 No 40 mg, 4 tab, Route: PO, Drug form: TAB, Daily, Dosing Weight 72.545, kg, Start date: 02/27/20 9:00:00 CDT, Duration: 30 day, Stop date: 03/27/20 9:00:00 CDT, 0 [facility] Protonix 2020-02-27 12:30:00 No Notes: Tablet should not be chewed or crushed. (Same as: Protonix) [facility] Morphine 2020-02-27 07:09:00 No Not es: (Same as:MORPhine Sulfate) [facility] Diazepam 2020-02-27 05:48:00 No Notes: (Aidan e as: Valium) [facility] Ciprofloxacin 2020-02-27 03:00:00 No Notes: Do not refrigerate [facility] Crestor 2020-02-27 02:00:00 No Notes: Same as Crestor [facility] Morphine 2020-02-26 23:55:00 No Not es: (Same as:MORPhine Sulfate) [facility] Trazodone 2020-02-26 23:35:00 No Notes: ( me As: Desyrel) [facility] Ancef + sterile water 20 mL 2020-02-26 21:51:00 No Notes: (Same As: Ancef, Kefzol) MEDICATION WASTE Product Size: 1000 mg Product Wasted: ___ mg [facility] Dextrose 50% Syringe (D50W) 2020-02-26 21:01:00 No 12.5 gm, 25 mL, Route: IVP, Drug Form: INJ, Dosing Weight 72.727, kg, PRN, PRN Blood Glucose Results, Start date: 02/26/20 16:01:00 CDT, Duration: 30 day, Stop date: 03/27/20 16:00:00 CDT, 0 [facility] n Glucagon 2020-02-26 21:01:00 No 1 mg, Route: IM, Drug form: PDR/INJ, PRN, Dosing Weight 72.727, kg, PRN Blood Glucose Results, Start date: 02/26/20 16:01:00 CDT, Duration: 30 day, Stop date: 03/27/20 16:00:00 CDT, 0 Leland Johan Docusate 2020-02-26 21:01:00 No Notes: (Same as: Colace) (Do Not Crush) Leland Prado Ondansetron 2020-02-26 21:01:00 No Notes: (Same as: Zofran) MEDICATION WASTE Product Size: 4 mg Product Wasted: ___ mg Leland Prado Acetaminophen 2020-02-26 21:01:00 No Notes: Do not exceed 4 gm/day. (Same as: Tylenol) Leland Prado Dilaudid 2020-02-26 17:43:00 No Notes: (Aidan e as: Dilaudid) Leland Prado Saline Flush 0.9% 2020-02-26 17:30:00 No Notes: (Same as: BD Posiflush) Leland Prado Acetaminophen 500 MG Oral Tablet 2019-11-24 17:36:00 Yes 500 mg = 1 tab, PO, Q6H, PRN Pain, not to exceed 4000 mg/day, X 7 day, # 24 tab, 0 Refill(s) Leland Prado Acetaminophen 300 MG / Codeine Phosphate 60 MG Oral Tablet [Tylenol with Codeine #4] 2016-04-26 18:45:00 No 1 - 2 tab, PO, Q4H, PRN Pain, X 2 day, # 40 tab, 0 Refill(s), given to patient Me melissa Prado 0.3 ML Enoxaparin sodium 100 MG/ML Prefilled Syringe [Loveno x] 2016-04-26 17:47:00 Yes 30 mg, SUB-Q, Q12H, X 14 day, # 28 inj, 0 Refill(s) Leland Prado Cephalexin 500 MG Oral Capsule [Keflex] 2016-04-26 17:47:00 Yes 500 mg = 1 cap, PO, QID, X 10 day, # 40 cap, 0 Refill(s) Leland Prado metoprolol 25 mg oral tablet, extended release 2016-04-26 17:42: 00 Yes 25 mg = 1 tab, PO, Daily, # 30 tab, 0 Refill(s) Leland Prado Miralax 2016-04-26 16:39:00 No Notes: Dissolve in 8 oz of water or juice. (Same as: Miralax) Leland Lin nn Lovenox 2016-04-25 21:00:00 No Notes: (Same as: Lovenox) Leland Prado Ancef + sodium chloride 0.9% INJ 100 mL 2016-04-25 17:00:00 No Notes: (Same As: Ancef, Kefzol) Leland Prado metoprolol extended release 2016-04-25 14:00:00 No Notes: (Same as: Toprol XL) Do Not Crush Leland Prado Prevacid 2016-04-25 14:00:00 No 30 mg, Route: PO, QAM, Dosing Weight 72.727, kg, Start date: 04/25/16 9:00:00 CDT, Duration: 30 day, Stop date: 05/24/16 9:00:00 CDT Leland Prado Aspirin 81 MG Enteric Coated Tablet 2016-04-25 14:00:00 No Notes: Do not crush or chew. (Same As: Ecotrin) Wendy mitchellmafalguni Prado Vitamin C 2016-04-25 14:00:00 No Notes: (Sa me as: Vitamin C) Leland Prado Protonix 2016-04-25 14:00:00 No Notes: Tablet should not be chewed or crushed. (Same as: Protonix) Leland Prado Crestor 2016-04-25 02:00:00 No 20 mg, Route: PO, Drug form: TAB, Bedtime, Dosing Weight 72.727, kg, Start date: 04/24/16 21:00:00 CDT, Duration: 30 day, Stop date: 05/23/16 21:00:00 CDT [facility] Lipitor 2016-04-25 02:00:00 No Notes: (Same as: Lipitor) Leland Prado ePHEDrine (ANES) 2016-04-24 22:33:00 No Route: IV, Drug form: INJ, ONCE, Stop date: 04/24/16 17:33:00 CDT Wendy Prado ondansetron (ANES) 2016-04-24 22:28:00 No Route: IV, Drug form: INJ, ONCE, Stop date: 04/24/16 17:28:00 CDT [facility] acetaminophen (ANES) (ANES) 2016-04-24 22:27:00 No Route: IV, Drug form: INJ, Start date: 04/24/16 17:27:00 CDT, Stop date: 04/24/16 18:27:00 CDT [facility] midazolam (ANES) 2016-04-24 22:23:00 No Route: IV, Drug form: SOLN, ONCE, Stop date: 04/24/16 17:23:00 [facility]entaNYL (ANES) 2016-04-24 22:23:00 No Route: IV, Drug form: INJ, ONCE, Stop date: 04/24/16 17:23:00 CDT [facility] ([facility] 2016-04-24 22:23:00 No Route: IV, Drug form: INJ, ONCE, Stop date: 04/24/16 17:23:00 CDT [facility] propofol (ANES) 2016-04-24 22:23:00 No Route: IV, Drug form: INJ, ONCE, Stop date: 04/24/16 17:23:00 CDT [facility] ceFAZolin ([facility]) (ANES) 2016-04-24 22:12:00 No Route: IV, Drug form: INJ, Start date: 04/24/16 17:12:00 CDT, Stop date: 04/24/16 18:12:00 CDT [facility] Acetaminophen 325 MG / Hydrocodone Connor trate 7.5 MG Oral Tablet [[place] 7.5/325] 2016-04-24 22:11:00 No Notes: Same as [place] 325-7.5mg Do not exceed 4gm/day of acetaminophen. Memoria l Johan Acetaminophen 325 MG / Hydrocodone Connor trate 7.5 MG Oral Tablet [[place] 7.5/325] 2016-04-24 22:10:00 No Notes: Same as [place] 325-7.5mg Do not exceed 4gm/day of acetaminophen. Memoria l [place] Diazepam 2016-04-24 22:00:00 No Notes: (Aidan e as: Valium) [facility] LR 1000 mL INJ (ANES) 2016-04-24 21:40:00 No Route: IV, Total Volume: 1,000, Start date: 04/24/16 16:40:00 CDT, Stop date: 04/24/16 17:40:00 CDT Leland Maguireann Aspirin 81 MG Enteric Coated Tablet 2016-04-24 02:32:00 Yes 81 mg = 1 tab, PO, Daily, # 90 tab, 3 Refill(s) Leland Maguireann Potassium Chloride 10 MEQ Extended Release Tablet 2016-04-24 02:32:00 Yes 10 mEq = 1 tab, PO, Daily, 0 Refill(s) Leland Prado Prevacid 2016-04-24 02:32:00 Yes 30 mg, PO, QAM, # 15 cap, 0 Refill(s) [facility] Maguireann Vitamin C 1000 mg oral tablet 2016-04-24 02:32:00 Yes 1,000 mg = 1 tab, PO, Daily, 0 Refill(s) Leland mabry Rosuvastatin calcium 20 MG Oral Tablet [Crestor] 2016-04-24 02:32:00 Yes 20 mg = 1 tab, PO, Bedtime, 0 Refill(s) [facility] Vitamin C 2016-04-24 02:32:00 Yes 0 Refill(s ) Leland Maguireann diazepam 10 mg oral tablet 2016-04-24 02:32:00 Yes 10 mg = 1 tab, PO, BID, 0 Refill(s) [facility] Vitamin D3 oral tablet 2016-04-24 02:32:00 Yes 800 IntlUnit = 2 tab, PO, Daily, 0 Refill(s) Leland Prado Ancef 2016-04-24 02:00:00 No Notes: Same as : Madiha [facility] Saline Flush 0.9% 2016-04-24 00:33:00 No Notes: (Same as: BD Posiflush) [facility] Sodium Chloride 0.154 MEQ/ML Injectable Solution 2016-04-24 00:3 3:00 No 1,000 mL, Rate: 40 ml/hr, In fuse over: 25 hr, Route: IV, Dosing Weight 72.727 kg, Total Volume: 1,000, Start date: 04/23/16 19:33:00 CDT, Stop date: 05/23/16 19:32:00 CDT Leland Johan Ondansetron 2016-04-24 00:33:00 No 4 mg, Route: IVP, Q6H, Dosing Weight 72.727, kg, PRN Nausea & Vomiting, Start date: 04/23/16 19:33:00 CDT, Duration: 30 day, Stop date: 05/23/16 19:32:00 CDT [facility] Morphine 2016-04-24 00:33:00 No 2 mg, Route: IVP, Q4H, Dosing Weight 72.727, kg, PRN Pain Score 7-10, Start date: 04/23/16 19:33:00 CDT, Duration: 30 day, Stop date: 05/23/16 19:32:00 CDT [facility] Enoxaparin 2016-04-23 23:00:00 No Notes: (S blanca as: Lovenox) [facility] Hydralazine 2016-04-23 22:59:00 No Notes: (Same as: Apresoline) Push over 5 minutes [facility] sodium chloride 0.9% 1000 ml INJ 1,000 mL 2016-04-23 22:59:00 No 1,000 mL, Rate: 90 ml/hr, Infuse over: 11.1 hr, Route: IV, Dosing Weight 72.727 kg, Total Volume: 1,000, Start date: 04/23/16 17:59:00 CDT, Duration: 30 day, Stop date: 05/23/16 17:58:00 CDT [facility] Morphine 2016-04-23 22:58:00 No Not es: (Same as:MORPhine Sulfate) [facility] Docusate 2016-04-23 22:58:00 No Notes: (Same as: Colace) (Do Not Crush) [facility] Ondansetron 2016-04-23 22:58:00 No Notes: (Same as: Zofran) MEDICATION WASTE Product Size: 4 mg Product Wasted: ___ mg [facility] Acetaminophen 325 MG / Hydrocodone Bitartrate 5 MG Oral Tabl et 2016-04-23 22:58:00 No Notes: (Sa me as: [place] 325/5) Do not exceed 4gm/day of acetaminophen. [facility] Acetaminophen 2016-04-23 22:58:00 No Notes: Do not exceed 4 gm/day. (Same as: Tylenol) [facility] Morphine 2016-04-23 21:56:00 No 2 mg, Route: IVP, Drug form: INJ, ONCE, Dosing Weight 72.727, kg, Priority: STAT, Start date: 04/23/16 16:56:00 CDT, Stop date: 04/23/16 16:56:00 CDT Me melissa Mendezfran 2016-04-23 20:15:00 No 4 mg, Route: IVP, Drug form: INJ, ONCE, Dosing Weight 72.727, kg, Priority: STAT, Start date: 04/23/16 15:15:00 CDT, Stop date: 04/23/16 15:15:00 CDT Nm melissa Prado Morphine 2016-04-23 20:14:00 No 4 mg, Route: IVP, Drug form: INJ, ONCE, Dosing Weight 72.727, kg, Priority: STAT, Start date: 04/23/16 15:14:00 CDT, Stop date: 04/23/16 15:14:00 CDT Me melissa Prado Vital Signs Vital Name Observation Time Observation Value Comments Source Temperature Oral (F) 2020-03-23 12:48:00 98.4 F [facility] Heart Rate 2020-03-23 12:48:00 [facility] Respitory Rate 2020-03-23 12:48:00 [facility] Systolic (mm Hg) 2020-03-23 12:48:00 [facility] Diastolic (mm Hg) 2020-03-23 12:48:00 [facility] [place] Respitory Rate 2020-03-23 11:47:00 [facility] Temperature Oral (F) 2020-03-23 01:05:00 98.4 F [facility] Heart Rate 2020-03-23 01:05:00 [facility] Respitory Rate 2020-03-23 01:05:00 [facility] Systolic (mm Hg) 2020-03-23 01:05:00 [facility] [place] Diastolic (mm Hg) 2020-03-23 01:05:00 [facility] [place] Systolic (mm Hg) 2020-03-22 20:46:00 [facility] [place] Diastolic (mm Hg) 2020-03-22 20:46:00 [facility] Temperature Oral (F) 2020-03-22 20:25:00 98.1 F [facility] Heart Rate 2020-03-22 20:25:00 [facility] Height 2020-03-12 11:22:00 160.2 cm [facility] Weight 2020-03-12 11:22:00 [facility] BMI Calculated 2020-03-12 11:22:00 [facility] Height 2020-03-05 11:24:00 160.02 cm [facility] Weight 2020-03-05 11:24:00 [facility] BMI Calculated 2020-03-05 11:24:00 [facility] Height 2020-03-03 04:18:00 160.02 cm [facility] Weight 2020-03-03 04:18:00 [facility] BMI Calculated 2020-03-03 04:18:00 [facility] Respitory Rate 2020-03-03 01:58:00 [facility] Temperature Oral (F) 2020-03-03 01:15:00 99.0 F [facility] Heart Rate 2020-03-03 01:15:00 [facility] Respitory Rate 2020-03-03 01:15:00 [facility] Systolic (mm Hg) 2020-03-03 01:15:00 [facility] Diastolic (mm Hg) 2020-03-03 01:15:00 [facility] [place] Temperature Oral (F) 2020-03-02 16:33:00 97.7 F [facility] Heart Rate 2020-03-02 16:33:00 [facility] Respitory Rate 2020-03-02 16:33:00 [facility] Systolic (mm Hg) 2020-03-02 16:33:00 [facility] [place] Diastolic (mm Hg) 2020-03-02 16:33:00 [facility] [place] Temperature Oral (F) 2020-03-02 12:39:00 98.5 F [facility] Heart Rate 2020-03-02 12:39:00 [facility] Systolic (mm Hg) 2020-03-02 12:39:00 [facility] [place] Diastolic (mm Hg) 2020-03-02 12:39:00 [facility] [place] Height 2020-02-26 21:56:00 160.02 cm [facility] Weight 2020-02-26 21:56:00 [facility] BMI Calculated 2020-02-26 21:56:00 [facility] Height 2020-02-26 17:15:00 162.56 cm [facility] BMI Calculated 2020-02-26 17:15:00 [facility] Weight 2020-02-26 17:15:00 [facility] Systolic (mm Hg) 2019-11-24 20:32:00 [facility] [place] Diastolic (mm Hg) 2019-11-24 20:32:00 [facility] [place] Respitory Rate 2019-11-24 20:32:00 [facility] Temperature Oral (F) 2019-11-24 20:32:00 98.9 F [facility] Respitory Rate 2019-11-24 16:40:00 [facility] Respitory Rate 2019-11-24 16:15:00 [facility] Systolic (mm Hg) 2019-11-24 16:15:00 [facility] [place] Diastolic (mm Hg) 2019-11-24 16:15:00 [facility] Systolic (mm Hg) 2019-11-24 15:18:00 [facility] [place] Diastolic (mm Hg) 2019-11-24 15:18:00 [facility] Heart Rate 2019-11-24 15:18:00 [facility] Temperature Oral (F) 2019-11-24 15:18:00 98.5 F [facility] Height 2019-11-24 15:18:00 162.56 cm [facility] BMI Calculated 2019-11-24 15:18:00 [facility] Weight 2019-11-24 15:18:00 [facility] Heart Rate 2016-04-26 17:00:00 [facility] Temperature Oral (F) 2016-04-26 17:00:00 98.3 F [facility] Respitory Rate 2016-04-26 17:00:00 [facility] Systolic (mm Hg) 2016-04-26 17:00:00 [facility] [place] Diastolic (mm Hg) 2016-04-26 17:00:00 [facility] Systolic (mm Hg) 2016-04-26 13:00:00 [facility] [place] Diastolic (mm Hg) 2016-04-26 13:00:00 [facility] [place] Respitory Rate 2016-04-26 13:00:00 [facility] Temperature Oral (F) 2016-04-26 13:00:00 98.4 F [facility] Heart Rate 2016-04-26 13:00:00 [facility] Systolic (mm Hg) 2016-04-26 09:49:00 Jose carlos eduardo [facility] Diastolic (mm Hg) 2016-04-26 09:49:00 [facility] [place] Temperature Oral (F) 2016-04-26 09:49:00 97.9 F [facility] Heart Rate 2016-04-26 09:49:00 [facility] Respitory Rate 2016-04-26 09:49:00 [facility] Weight 2016-04-23 19:38:00 [facility] Height 2016-04-23 19:38:00 160.02 cm [facility] BMI Calculated 2016-04-23 19:38:00 [facility] Procedures Procedure Date / Time Performed Performing Clinician Sour e Cardiac catheterization [facility] Placement of stent [facility] En[facility] Start Date/Time End Date/Time Encounter Type Admission Type [facility] Care Department Encounter ID Source 2020-03-02 22:06:00 Inpatient [facility] MED [id number] 2020-03-02 22:06:00 2020-03-23 14:40:00 Outpatient Glynn Tirado [facility] [id number] 2020-02-26 12:14:09 2020-03-02 21:47:00 Outpatient Vibha Orellana [facility] [id number] 2020-02-26 15:51:00 2020-02-26 12:14:00 Inpatient E [facility] MED [id number] 2019-11-24 09:16:39 2019-11-24 14:37:00 Outpatient Kanwal Moser MH[facility] [id number] 2019-11-24 09:16:00 2019-11-24 09:16:00 Emergency E [id number] 2016-04-23 14:34:00 2016-04-26 15:30:00 Outpatient Alejandro Kumar [facility] [id number] Results Test Description Test Time Test Comments Results Result Comments Source CHEM PANEL 2020-03-19 09:19:00 92 [facility] CHEM PANEL 2020-03-19 09:19:00 8 [facility] CHEM PANEL 2020-03-19 09:19:00 1.12 [facility] CHEM PANEL 2020-03-19 09:19:00 139 [facility] CHEM PANEL 2020-03-19 09:19:00 3.8 [facility] CHEM PANEL 2020-03-19 09:19:00 97 [facility] CHEM PANEL 2020-03-19 09:19:00 36 [facility] CHEM PANEL 2020-03-19 09:19:00 9.0 [facility] CHEM PANEL 2020-03-19 09:19:00 9.8 [facility] CHEM PANEL 2020-03-19 09:19:00 47 [facility] HEMATOLOGY 2020-03-19 09:19:00 4.8 [facility] HEMATOLOGY 2020-03-19 09:19:00 3.36 [facility] HEMATOLOGY 2020-03-19 09:19:00 10.3 [facility] HEMATOLOGY 2020-03-19 09:19:00 31.2 [facility] HEMATOLOGY 2020-03-19 09:19:00 92.8 [facility] HEMATOLOGY 2020-03-19 09:19:00 Test Item MCH (test code = MCH) 30.7 pg 27.0-31.0 [facility] CmuafwbBZDCZHTHWK3551-99-32 09:19:0033.0[facility]annHEMATOLOGY 2020-03-19 09:19:0013.4[facility] ItagiciUJPGWBHQSN4447-62-93 09:19:37995Rlsnvwga QfhadpzNJZOEVSAEH2786-84-14 09:19:007.0[facility] HermannCHEM LLQRA1569-25-25 10:11:0088[facility]annCHEM FIAPK9431-13-02 10:11:0013[facility] HermannCHEM XVEUX0253-48-50 10:11:001.06[facility] HermannCHEM FBFAV3031-27-64 10:11:26567 [facility]annCHE[facility] AMIQP7401-73-86 10:11:004.1[facility] HermannCHEM PANEL 2020-03-15 10:11:0097[facility]annCHEM KTSFL6150-22-80 10:11:0027[facility]annCHEM YEFMN3264-18-25 10:11:008.6[facility] HermannCHEM ITPNO2966-95-19 10:11:0011.1[facility] HermannCHEM NJDXG6490-54-99 10:11:0050[facility] HermannCHEM KKJKZ1953-75-07 11:34:0095[facility]annCHEM DKXWF5053-92-02 11:34:0010 [facility]annCHEM XANHD2225-86-50 11:34:001.03[facility] HermannCHEM PANEL 2020-03-13 11:34:65587Plonbldi HermannCHEM SGMNB3313-47-59 11:34:003.2[facility] HermannCHEM MIKYY7095-85-24 11:34:59429Dfslthuj HermannCHEM FMSSQ7372-13-22 11:34:0031[facility]annCHEM ZXSFN3680-52-59 11:34:008.8[facility] HermannCHEM TMEPY1436-23-55 11:34:008.2[facility] HermannCHEM KYPBC6033-48-91 11:34:0052 [facility] HermannCARDIAC XKKPSYI1713-55-14 11:30:83554Anmlhlke HermannHEMATOLOGY 2020-03-11 10:31:0056.0[facility] SrnzevmOPBZPBQLDD0646-38-70 10:31:0024.7[facility] WpzmovzELCJSQMOQY6157-78-58 10:31:0012.4[facility] OpyujdvORAFTPMSNR1264-14-64 10:31:006.2[facility] VphfasiWZJADUIYOL8719-95-19 10:31:000.7[facility] WWHOTGHNLH0343-38-80 10:31:003.0[facility] GejgbziDOVDQCWSKV4820-75-09 10:31:001.3 [facility] VgabeazZORCNPXEKL4906-71-94 10:31:000.7[facility] HermannHEMATOLOGY 2020-03-11 10:31:000.3[facility] YpcxqahWDPHHCBVAY6059-79-82 10:31:005.4[facility] WtwmyobDXUSXYCFMV5134-76-74 10:31:003.07[facility] KxsoewqEBLQUGKUKX0880-26-16 10:31:009.7[facility] EvpsfxdSYJMIGLRVU2201-38-80 10:31:0028.8[facility] XQNWECRRVM6408-85-00 10:31:0093.7[facility] KjsgzyxUKYLCPEOTV2844-97-03 10:31:00* Test Item Value Reference Range Interpretation Comments MCH (test code = MCH) 31.6 pg 27.0-31.0 [facility] RkkjwkgASTIHADSLB8804-53-32 10:31:0033.8[facility] HermannHEMATOLOGY 2020-03-11 10:31:0013.5[facility] DpromrkLHYRPCOINQ7152-34-16 10:31:47324Kjbfyjcm JxdsahcHWSORABIKT3639-76-77 10:31:007.2[facility] LdaqtwnVRAWSDRTAR6934-05-61 10:09:007.4[facility] KupfvzoGAPDJYQJUX0272-88-55 10:09:003.23[facility] ZOROMPAPVL7150-82-67 10:09:0010.3[facility] SasbxzdNIVGSXYROW3248-45-47 10:09:00 30.1[facility] IukmikwYWRJMNTAST3853-73-23 10:09:0093.3[facility] HermannHEMATOLOGY 2020-03-06 10:09:00* Test Item Value Reference Range Interpretation Comments MCH (test code = MCH) 31.8 pg 27.0-31.0 [facility] PxzonigRNGMMOYTTK2085-31-47 10:09:0034.1[facility] HermannHEMATOLOGY 2020-03-06 10:09:0013.7[facility] ErvyrwzMMBCEZZQZO5923-05-13 10:09:43886Eylprgja GhefrhwGOWNHUBRXW3406-00-02 10:09:006.9[facility] HermannCHEM SMFCC0613-10-62 09:23:005.1[facility]annCHEM YNHBF2358-06-26 09:23:002.1[facility] HermannCHEM ANWJV8801-70-80 09:23:0024[facility]annCHEM YCBPY2593-06-92 09:23:0057 [facility]annCHEM CNDRV3784-43-53 09:23:0063[facility]annCHEM PANEL 2020-03-03 09:23:001.1[facility]annCHEM VPCST0894-93-46 09:23:00* Test Item Value Reference Range Interpretation Comments B/C Ratio (test code = B/C Ratio) 17 1 6-25 [facility]annCHEM TTQYX3511-40-57 09:23:003.0[facility] HermannCHEM PANEL 2020-03-03 09:23:00* Test Item Value Reference Range Interpretation Comments A/G Ratio (test code = A/G Ratio) 0.7 1 0.7-1.6 [facility] TkfbmtgEGIVRPIDVQ0193-78-59 09:23:0060.3[facility] HermannHEMATOLOGY 2020-03-03 09:23:0021.5[facility] CfgxygzIQRCMYGOYK7727-05-29 09:23:0011.4[facility] NwpudzaGGBVQLOQND2822-90-63 09:23:006.4[facility] CsxvcebLMBAJSYFQG5496-73-51 09:23:000.4[facility] DvjnqstFSJJKWUPGO6546-05-36 09:23:004.8[facility] LKLNKPIZMN2669-31-87 09:23:001.7[facility] TlagmrcKEGKORDSCR9340-61-32 09:23:000.9 [facility] VtwrwqwRRVRLITROB8870-72-31 09:23:000.5[facility] HermannBLOOD BANK HOAIBKX8519-21-67 13:26:00Negative (03/02/20 8:26 AM)[facility]annBL[facility]OD BANK NGHDSEZ3450-68-72 13:08:00Product available 4(03/02/20 8:08 AM)[facility] NNAUJDGOJI4742-43-89 09:42:008.2[facility] OkxjstsWIYXGOTEMJ0036-86-15 09:42:00 24.4[facility] XvrtzhzZYYAJHPTTI1414-34-26 21:01:00Not Detected (03/01/20 4:01 PM) [facility]annCHEM LKBOW0352-27-73 09:01:0082[facility]annCHEM PANEL 2020-03-01 09:01:0016[facility] HermannCHEM WHXII1247-87-61 09:01:001.00[facility]annCHEM CUSTV7802-09-32 09:01:04094Vsxuemtc HermannCHEM XYWEG2337-08-63 09:01:003.5[facility] HermannCHEM VHSFC3281-06-82 09:01:0099[facility] HermannCHEM LAMEI3770-23-24 09:01:0031[facility]annCHEM CDGSI7032-92-15 09:01:008.3 [facility]annCHEM LAHJO3844-53-52 09:01:006.5[facility]annCHEM PANEL 2020-03-01 09:01:0054[facility] FcilbjoQYAJQAUEGI8081-07-50 09:01:0063.5[facility] LmsqbgiRXMTUTQUYL0281-77-48 09:01:0019.9[facility] NbferzaMIUNLJOTMX9274-13-05 09:01:0013.2[facility] RkpudvlYMOUSPKWZM4136-08-84 09:01:003.2[facility] SJFNOOETHU0938-64-52 09:01:000.2[facility] IkjhtuzBSAHKLGIFK8151-89-46 09:01:004.9 [facility] NukksljGCHTBPIYSF7604-99-39 09:01:001.5[facility] HermannHEMATOLOGY 2020-03-01 09:01:001.0[facility] FfvsynvDJUTTRAUUA7501-22-16 09:01:000.2[facility] OgngsbbYQZGAXAIIW2229-16-19 09:01:007.7[facility] UzawrqyDYXYJCRBHG5325-39-80 09:01:002.48[facility] GbguwujBXDGOZPJYQ6381-36-49 09:01:007.9[facility] UKAHQWSXUN2279-11-52 09:01:0023.0[facility] KpgpjzcCISDLTTJRO5517-50-61 09:01:00 92.7[facility] HiemubzBQQWKPKHAZ9763-67-99 09:01:00* Test Item Value Reference Range Interpretation Comments MCH (test code = MCH) 31.8 pg 27.0-31.0 [facility] EgmmpyyWYIEAPFDHH1061-99-66 09:01:0034.3[facility] HermannHEMATOLOGY 2020-03-01 09:01:0014.0[facility] BqantlmRKAHJQUQCL5298-62-47 09:01:65033Ublidqkj XzjkdnsIGWZVTIILQ0663-63-26 09:01:007.1[facility] HermannCHEM CFGND8698-12-15 09:04:0099[facility] HermannCHEM BXZRI9003-90-70 09:04:0018[facility] HermannCHEM WZOBC4134-20-81 09:04:001.17[facility] HermannCHEM BZYDF5640-80-99 09:04:25034 [facility]annCHEM OHQCU6007-51-66 09:04:004.2[facility] HermannCHEM PANEL 2020-02-29 09:04:0098[facility] HermannCHEM XLAGI4494-05-57 09:04:0031[facility] HermannCHEM LUZHV6468-22-72 09:04:006.2[facility] HermannCHEM INDWA7978-35-53 09:04:008.8[facility] HermannCHEM QQERY1901-04-08 09:04:00* Test Item Value Reference Range Interpretation Comments B/C Ratio (test code = B/C Ratio) 15 1 6-25 [facility]annCHEM BKKDC4091-12-92 09:04:005.9[facility] HermannCHEM PANEL 2020-02-29 09:04:002.6[facility] HermannCHEM HOYUI8180-64-44 09:04:003.3[facility]annCHEM KBKME0228-47-01 09:04:00* Test Item Value Reference Range Interpretation Comments A/G Ratio (test code = A/G Ratio) 0.8 1 0.7-1.6 [facility]annCHEM EUZZX8247-90-30 09:04:0012[facility] HermannCHEM PANEL 2020-02-29 09:04:0034[facility] HermannCHEM SUYVM3008-06-27 09:04:0065[facility]annCHEM UHHFF9199-99-88 09:04:000.4[facility]annCHEM MCXJQ8370-19-25 09:04:0044[facility] VkyzpdhJBKCDSMVFL3484-75-96 09:04:0012.1[facility] UMFHNTIRUU3615-99-31 09:04:002.39[facility] JtvkegnAKVZILWTVK2239-96-89 09:04:00 7.5[facility] XkmqnmdADSFXEWRKD5264-29-08 09:04:0022.5[facility] HermannHEMATOLOGY 2020-02-29 09:04:0094.1[facility] VpyfsfpJMBVJOLFVK8996-90-61 09:04:00* Test Item Value Reference Range Interpretation Comments MCH (test code = MCH) 31.4 pg 27.0-31.0 [facility] OoagtwyMFPWTRSHCG5162-51-78 09:04:0033.4[facility] HermannHEMATOLOGY 2020-02-29 09:04:0013.7[facility] RstnvwlMFGRTXLDOR6188-67-17 09:04:54702Txgblffw UdtikjgJPTWCNAKBF4452-79-06 09:04:007.2[facility] KhxxknrXMHUWNBAAH0507-00-79 09:04:0075.6[facility] GpgsfusHNPKXMHNVZ5660-21-57 09:04:0012.5[facility] FNYOUZOIHW2261-45-85 09:04:0011.2[facility] DfktesnMYQGWYZCKL2521-81-62 09:04:00 0.7[facility] FukfooqWCCTKUWXFX6383-79-48 09:04:009.1[facility] HermannHEMATOLOGY 2020-02-29 09:04:001.5[facility] XjkepiiBONQPHESMI6149-88-08 09:04:001.3[facility] JvjwfueWZULGNCZRW3250-85-73 09:04:000.1[facility]annBLOOD BANK RESULTS 2020-02-28 20:02:00Product available 5(02/28/20 3:02 PM)[facility]annCHEM WYXWG7027-11-00 10:40:84423Corhbomt HermannCHEM VBNZY1932-73-93 10:40:0014 [facility]annCHEM INHFF1745-57-22 10:40:001.07[facility] HermannCHEM PANEL 2020-02-28 10:40:69296Lkdqslkl HermannCHEM CRZYU4220-66-85 10:40:004.2[facility] HermannCHEM VDNNC3536-35-93 10:40:0097[facility]annCHEM PUFCO0995-77-60 10:40:0029[facility]annCHEM GHGVI1880-01-04 10:40:008.3[facility]annCHEM TRLYQ3775-34-02 10:40:005.2[facility]annCHEM SFTMX5819-40-72 10:40:002.2 [facility]annCHEM LLVOE6294-42-81 10:40:009[facility]annCHEM PANEL 2020-02-28 10:40:0020[facility] HermannCHEM URLKC8725-83-51 10:40:0059[facility]annCHEM YJZFZ5474-11-31 10:40:000.2[facility]annCHEM LZKXJ4130-26-40 10:40:009.2[facility]annCHEM TMDRW6590-30-23 10:40:00* Test Item Value Reference Range Interpretation Comments B/C Ratio (test code = B/C Ratio) 13 1 6-25 [facility]annCHEM TMJHL3058-95-24 10:40:003.0[facility] HermannCHEM PANEL 2020-02-28 10:40:00* Test Item Value Reference Range Interpretation Comments A/G Ratio (test code = A/G Ratio) 0.7 1 0.7-1.6 [facility]annCHEM HEPNX3892-90-04 10:40:0049[facility] HermannHEMATOLOGY 2020-02-28 10:40:0087.6[facility] EitorvhVTNYKDHULS0123-62-86 10:40:005.6[facility] AyuolkgVFHIDJWLTW8605-21-84 10:40:006.8[facility] AfwmytaBKRJOENFTM6427-60-14 10:40:0010.6[facility] JtasxppLMSAYZPFLP5111-49-44 10:40:000.7[facility] XGLVAVLHCF3437-88-75 10:40:000.8[facility] IcayeleXRUSYFTACR5343-84-53 10:40:00 12.2[facility] AabhfzkJXGJVZEVZK3043-70-76 10:40:002.36[facility] HermannHEMATOLOGY 2020-02-28 10:40:0094.4[facility] JuwqsqsENAASDRCGC3734-94-36 10:40:00* Test Item Value Reference Range Interpretation Comments MCH (test code = MCH) 31.7 pg 27.0-31.0 [facility] CouccfvJZRYZFQCWM1877-07-20 10:40:0033.5[facility] HermannHEMATOLOGY 2020-02-28 10:40:0013.7[facility] VuvxwboGTLYSCWEJM4064-41-45 10:40:15949Hpbyemkc SwczwdmDDOPQTPAUR6871-23-81 10:40:007.4[facility] HermannCHEM ILWHI6986-54-89 10:47:005.8[facility] HermannCHEM YQJDC7846-95-83 10:47:002.8[facility] HermannCHEM CSQKC2827-22-20 10:47:0013[facility] HermannCHEM KRVWM0383-44-73 10:47:0022 [facility]annCHEM ERIST1197-44-11 10:47:0083[facility] HermannCHEM PANEL 2020-02-27 10:47:000.4[facility] HermannCHEM GWYQU2157-58-86 10:47:00* Test Item Value Reference Range Interpretation Comments B/C Ratio (test code = B/C Ratio) 9 1 6-25 [facility]annCHEM XOWXE3799-48-86 10:47:003.0[facility] HermannCHEM PANEL 2020-02-27 10:47:00* Test Item Value Reference Range Interpretation Comments A/G Ratio (test code = A/G Ratio) 0.9 1 0.7-1.6 [facility] CcbnaybSYEKJVVSFQ6424-67-99 10:47:001.7[facility]annHEMATOLOGY 2020-02-27 10:47:000.2[facility] NidoewnSWWFBBLRRE1591-24-71 10:47:000.1[facility]UR[facility] AND CXNTT0930-83-81 20:10:00Yellow *NA*(02/26/20 3:10 PM)[facility] KZKZN1488-48-55 20:10:00Slight *ABN*(02/26/20 3:10 PM)[facility] VIPXH9116-03-11 20:10:00* Test Item Value Reference Range Interpretation Comments UA Spec Grav (test code = UA Spec Grav) 1.005 1 [facility] [id number] 20:10:00* Test Item Value Reference Range Interpretation Comments UA pH (test code = UA pH) 5.0 1 5.0-8.0 [facility] [id number] 20:10:00Negative *NA*(02/26/20 3:10 PM) [facility] GZFCJ3556-36-03 20:10:00Small *ABN*(02/26/20 3:10 PM) [facility] MKTFB9017-54-89 20:10:00Negative (02/26/20 3:10 PM) [facility] EFXEF0528-44-44 20:10:00Large *ABN*(02/26/20 3:10 PM) [facility] TLTXE9799-98-36 20:10:0033[facility] FPXMX3451-05-03 20:10:002[facility] CJFDC6691-63-85 20:10:002 [facility]annBLOOD BANK XKGYOQO5333-48-63 19:26:00Negative (02/26/20 2:26 PM) [facility]annCHEM BIMXD5905-56-50 18:12:001.8[facility]annCARDIAC ENZYMES 2020-02-26 17:39:0031[facility]annCHEM KXOLS1142-29-30 17:39:002.1[facility] TbnhtmrFKYPZMLULT6244-81-25 17:39:00* Test Item Value Reference Range Interpretation Comments PT (test code = PT) 13.2 s 12.0-14.7 [facility] ZjjadtaOAUHTOIJNQ4102-46-95 17:39:00* Test Item Value Reference Range Interpretation Comments INR (test code = INR) 1.00 1 0.85-1.17 [facility] VcaonwhEMYDHQTPTW4331-51-31 17:39:00* Test Item Value Reference Range Interpretation Comments PTT (test code = PTT) 31.7 s 22.9-35.8 [facility] NurtidnUFVXRPGLHS6635-24-67 17:39:000.2[facility] HermannCHEM PANEL 2016-04-26 10:17:007.7[facility]annCHEM ZJALF9641-84-76 10:17:0026[facility]annCHEM JUQFE2733-08-64 10:17:94042Bshtjtzx HermannCHEM PKYCB3807-80-98 10:17:003.9[facility]annCHEM DWQPK0448-21-78 10:17:0054[facility]annCHEM WXAUP9747-09-81 10:17:59154Qeyxnrms HermannCHEM CLOUJ2941-75-63 10:17:31058 [facility]annCHE[facility] ZSGCD2724-13-89 10:17:001.02[facility]annCHEM PANEL 2016-04-26 10:17:0010[facility]annCHEM OBETQ6069-44-99 10:17:0012.9[facility] QymvahkOGUNCAVGCG0306-03-00 10:17:007.4[facility] QnjsqkfXFZSIVDNUK9621-50-62 10:17:22002Zhdnsoeb FovjskzVEELXBZWHY8769-31-47 10:17:0015.2[facility] SDHFSKPAZI4422-85-63 10:17:0031.9[facility] XsltaunOUZXPNIPOO7325-64-23 10:17:00 2.99[facility] LbqrfukFBWIZNAPOD5601-05-77 10:17:008.5[facility]annHEMATOLOGY 2016-04-26 10:17:0026.8[facility] WcodzjnMXWNFNPWPQ2792-27-98 10:17:0089.5[facility] DjhwbpyCUJTBELCKH5228-58-61 10:17:00* Test Item Value Reference Range Interpretation Comments MCH (test code = MCH) 28.6 pg 27.0-31.0 [facility] VaeodleXBRQPXATVJ7424-68-65 10:17:005.7[facility]annHEMATOLOGY 2016-04-26 10:17:000.2[facility] PsnpkrtTYTSTWIFDW5132-24-73 10:17:000.5[facility] OjwmzhoKBPBSZZSZO8450-60-79 10:17:000.9[facility] NmziyakRWRWFUKFRU3613-81-45 10:17:004.1[facility] DeurfhdSKVRYGZITW9288-55-91 10:17:000.6[facility] QUNDXYIWZV7477-88-25 10:17:002.9[facility] PnvxmedDQBTCSTZKO3213-46-16 10:17:009.0 [facility] YjuunblLWCZQITGQU2468-49-07 10:17:0015.9[facility]annHEMATOLOGY 2016-04-26 10:17:0071.6[facility] IbgpdpxEEBNRMYKLW8039-54-94 11:52:000.4[facility] XbvpeoiTFRLOZPRCO9326-81-39 11:52:000.2[facility] BmvnahvPLHSZBJRGK4270-96-60 11:52:000.5[facility] IpzjbdeYYAPQVILSQ6854-00-06 11:52:000.8[facility] PNLJNNVUXO4938-39-90 11:52:005.7[facility] RcczzneCRUCTSMYSG6693-06-93 11:52:002.3 [facility] OlxcgnsPHRCGTHUPE5424-27-78 11:52:006.3[facility]annHEMATOLOGY 2016-04-25 11:52:0011.0[facility] LqsgnuiDFIXOEMQWM9598-98-01 11:52:0080.0[facility] GdlaalfSOZMXLOGRH8058-66-04 11:52:006.8[facility] XwzpobuDVICJAAKYO6100-62-38 11:52:92452Xdzjjnwo HrcdbqpCJJGJVXWLW4958-86-96 11:52:0015.3[facility] WJKSTAPWJJ9012-10-71 11:52:00* Test Item Value Reference Range Interpretation Comments MCH (test code = MCH) 28.7 pg 27.0-31.0 [facility] PenfznxIELMDKSHSM9072-92-59 11:52:0088.5[facility]annHEMATOLOGY 2016-04-25 11:52:0029.0[facility] ZkqtoiwUTGKRDDRDR3763-62-39 11:52:009.4[facility] XqbdhggNFDRLRMSTN1231-96-01 11:52:003.28[facility] GxrgdwxDJXPOKZDJL2421-37-45 11:52:0032.5[facility] NhcnpouYOQHZPRFJJ5958-58-42 11:52:007.2[facility] HermannCHEM DBDWD0886-86-06 12:00:002.1[facility] HermannCHEM YFBRT8741-02-36 12:00:003.6 [facility] HogwiqoRPOLMCVMESOU8830-09-19 12:00:004.6[facility] HermannELECTROLYTES 2016-04-24 12:00:40809Oitocrwm CmbugxwJPDEVSRDZTYS7339-52-23 12:00:0097[facility] IeowdusFBLGRPBBVOLW9009-34-84 12:00:001.28[facility] LktzcueXLGUGBNAYOOG3200-35-58 12:00:007[facility] QugqmjxBQFLYDBPWQMP2769-09-44 12:00:0041[facility] JMFKXMJTMQOT3707-59-41 12:00:0098[facility] LnnyydeNBTKGPIPQRVL7768-97-63 12:00:00 13.6[facility] UgkgqroDFMMXVWCKZJE4753-01-70 12:00:0028[facility] WSSYCOZYHEDS7818-54-84 12:00:002.7[facility] GspwamqOVMCANTECREW4023-01-58 12:00:005.9[facility] WefodhfWJGSGNRLOMMY7381-48-32 12:00:000.8[facility] ZQMHKAJGUDQE7648-16-05 12:00:003.2[facility] PuxwkeuSVOESGJQZUCM9535-60-52 12:00:005[facility] PvbufzfBPOMUKZOOHAN8282-81-04 12:00:0013[facility] OSHXZGLAMCON6829-05-14 12:00:000.4[facility] NyditvtRRBDPIRUYERZ2004-95-74 12:00:0080[facility] KaekckcVKJCNIEPEIFN5867-99-18 12:00:0016[facility] SUNHQGRGOYXC8007-43-30 12:00:008.2[facility] WhsazxbZGGQGVQWAR8389-89-51 12:00:00 0.4[facility] TmdopnpBSWTLFTPRF0439-96-55 12:00:000.1[facility] HermannHEMATOLOGY 2016-04-24 12:00:000.1[facility] EsshmrgZSGUQHNRME8051-72-71 12:00:000.9[facility] LvavqcsBGVWYONOBW1983-93-05 12:00:001.7[facility] ZnhftecFIPNAWPIQT7866-59-63 12:00:000.9[facility] TyemcaqNMYLKIXEZI2823-25-52 12:00:005.0[facility] HZPTMUDMCU5369-82-93 12:00:0013.2[facility] CbfqjguAOZTQNFUYO8851-11-95 12:00:00 6.2[facility] YytpevjHANWCWJBHF6097-44-80 12:00:0078.0[facility] HermannHEMATOLOGY 2016-04-24 12:00:006.5[facility] GpreejcALLFNKFCPP5884-57-50 12:00:0032.4[facility] FgtthalOHZEXTRKHA4705-75-25 12:00:27907Gzghflrc RjakmbiHPVAPZLUTR8109-89-48 12:00:0015.1[facility] XvaylpoPYVCXZDCIN0135-58-15 12:00:006.8[facility] XGWWNOQBEQ6015-95-39 12:00:0088.3[facility] GktuqqsLSSOJOXJIX6524-53-48 12:00:00 11.0[facility] QarsnswGSKQBPLQGD6774-36-76 12:00:003.84[facility] HermannHEMATOLOGY 2016-04-24 12:00:0034.0[facility] IwbnurjRAALGYZNWA8339-50-56 12:00:00* Test Item Value Reference Range Interpretation Comments MCH (test code = MCH) 28.7 pg 27.0-31.0 [facility] XetxfdzBKMTAPFBDD1381-97-25 12:00:00* Test Item Value Reference Range Interpretation Comments PTT (test code = PTT) 31.0 s 22.9-35.8 [facility] KiueaakMUPPCXOBIO0638-16-06 12:00:001.11[facility] HermannHEMATOLOGY 2016-04-24 12:00:00* Test Item Value Reference Range Interpretation Comments PT (test code = PT) 14.6 s 12.0-14.7 [facility]UR[facility] AND BTICD5649-48-78 22:56:006.0[facility] AND PEQGU9125-41-14 22:56:00Negative *NA*(04/23/16 5:56 PM)[facility] QKXLQ4844-14-49 22:56:00Negative (04/23/16 5:56 PM)[facility] IDJBV2885-10-43 22:56:00Moderate *ABN*(04/23/16 5:56 PM)[facility] RQZEY0212-01-06 22:56:001.004[facility] AND LGFQZ7767-92-19 22:56:00 Clear (04/23/16 5:56 PM)[facility] GFUFT1141-73-87 22:56:001 [facility] AND EQTKR9069-07-50 22:56:001[facility] AND NELYH1623-65-10 22:56:00Negative (04/23/16 5:56 PM)[facility]annCHEM PANEL 2016-04-23 20:36:005[facility] HermannCHEM CZNQT3108-40-60 20:36:0011.5[facility] HermannCHEM KUNXA5114-80-62 20:36:003.4[facility] HermannCHEM PYZEY5408-41-93 20:36:000.9[facility] HermannCHEM TWHDQ1331-41-26 20:36:0044[facility] HermannCHEM HRGVD3541-85-86 20:36:0086[facility]annCHEM TFJYR2823-48-61 20:36:000.5 [facility]annCHEM PJQYI4982-74-92 20:36:0015[facility] HermannCHEM PANEL 2016-04-23 20:36:0015[facility] HermannCHEM XVQQX5313-01-65 20:36:003.1[facility]annCHEM IKBZQ0754-12-52 20:36:0093[facility] HermannCHEM MDYVV4280-28-08 20:36:0028[facility] HermannCHEM VFCVQ8541-22-92 20:36:003.5[facility] HermannCHEM QOJYR6074-27-44 20:36:71508Qxpdksqj HermannCHEM SBUFA4389-59-50 20:36:001.20 [facility] HermannCHEM XQOKW1684-02-72 20:36:006[facility] HermannCHEM PANEL 2016-04-23 20:36:0094[facility] HermannCHEM SLWMM4262-19-19 20:36:008.5[facility] HermannCHE[facility] UMUSJ7717-04-18 20:36:006.5[facility]WswglatYPNOYKOXQF9195-23-08 20:36:00* Test Item Value Reference Range Interpretation Comments PT (test code = PT) 13.8 s 12.0-14.7 [facility]MT3906[facility]-02 [facility]001.03[facility] 2016-04-23 20:36:00* Test Item Value Reference Range Interpretation Comments PTT (test code = PTT) 31.8 s 22.9-35.8 [facility]
--- OUTSIDE RECORDS SUMMARY | 2020-06-11 01:13 | XMS REPORT | Summary of Care ---
Author Author [facility] Organization [facility] Address Unknown Phone Unavailable Encounter AMBERLY Barnett(MICHAEL) [id number] Date(s): 04/23/16 - 04/26/16 [facility] [address] [place] [address]- [phone] Final: Unspecified fracture of unspecified femur, initial encounter for closed f racture Discharge Disposition: Halfway Facility Attending Physician: Alejandro Kumar DO Admitting Physician: Alejandro Kumar DO Vital Signs 1 2 3 Most recent to oldest [Reference Range]: 160.02 cm (04/23/16 2:38 PM) Height 98.3 DegF (04/26/16 12:00 PM) 98.4 DegF (04/26/16 8:00 AM) 97.9 DegF (04/26/16 4:49 AM) Temperature Oral [96.4-99.1 DegF] 118/71 mmHg (04/26/16 12:00 PM) 116/69 mmHg (04/26/16 8:00 AM) 101/58 mmHg (04/26/16 4:49 AM) Blood Pressure [90-140/60-90 mmHg] 18 BRMIN (04/26/16 12:00 PM) 16 BRMIN (04/26/16 8:00 AM) 16 BRMIN (04/26/16 4:49 AM) Respiratory Rate [14-20 BRMIN] 67 bpm (04/26/16 12:00 PM) 70 bpm (04/26/16 8:00 AM) 63 bpm (04/26/16 4:49 AM) Peripheral Pulse Rate [60-100 bpm] 72.727 kg (04/23/16 2:38 PM) Weight 28.4 m2 (04/23/16 2:38 PM) Body Mass Index Problem List Condition Effective Dates Status Health Status Informan t Aneurysm, 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 (Same as: Tylenol) Start Date: 04/23/16 Stop Date: 04/26/16 Status: Discontinued acetaminophen (ANES) (ANES) Route: IV, Drug form: INJ, Start date: 04/24/16 17:27:00 CDT, Stop date: 6 18:27:00 CDT Start Date: 04/24/16 Stop Date: 04/24/16 Status: Completed acetaminophen-hydrocodone 325 mg-5 mg oral tablet 1 tab, Route: PO, Drug Form: TAB, Dosing Weight 72.727, kg, Q4H, PRN Pain Score 4-6, Start date: 04/23/16 17:58:00 CDT, Duration: 30 day, Stop date: 05/23/16 17 :57:00 CDT Notes: (Same as: [place] 325/5) Do not exceed 4gm/day of acetaminophen. Start Date: 04/23/16 Stop Date: 04/26/16 Status: Discontinued Ancef 2 gm, 100 mL, Route: IVPB, Drug form: INJ, ABXQ8H, Dosing Weight 72.727, kg, Sta rt date: 04/23/16 21:00:00 CDT, Duration: 1 day, Stop date: 04/24/16 13:00:00 CD T Notes: Same as: Ancef Start Date: 04/23/16 Stop Date: 04/24/16 Status: Completed Ancef + sodium chloride 0.9% INJ 100 mL 1.5 gm, Route: IV, ABXQ8H, Dosing Weight 72.727, kg, Start date: 04/25/16 12:00: 00 CDT, Duration: 1 doses or times, Stop date: 04/25/16 12:00:00 CDT Notes: (Same As: Ken Cleary) Start Date: 04/25/16 Stop Date: 04/25/16 Status: Completed aspirin 81 mg tablet, enteric coated 81 mg = 1 tab, PO, Daily, # 90 tab, 3 Refill(s) Start Date: 04/23/16 Status: Ordered aspirin 81 mg tablet, enteric coated 81 mg, 1 tab, Route: PO, Drug form: ECTAB, Daily, Dosing Weight 72.727, kg, Star t date: 04/25/16 9:00:00 CDT, Duration: 30 day, Stop date: 05/24/16 9:00:00 CDT Notes: Do not crush or chew.(Same As: Ecotrin) Start Date: 04/25/16 Stop Date: 04/26/16 Status: Discontinued ceFAZolin (ANES) (ANES) Route: IV, Drug form: INJ, Start date: 04/24/16 17:12:00 CDT, Stop date: 6 18:12:00 CDT Start Date: 04/24/16 Stop Date: 04/24/16 Status: Completed Crestor 20 mg, Route: PO, Drug form: TAB, Bedtime, Dosing Weight 72.727, kg, Start date: 04/24/16 21:00:00 CDT, Duration: 30 day, Stop date: 05/23/16 21:00:00 CDT Start Date: 04/24/16 Stop Date: 04/24/16 Status: Deleted Crestor 20 mg oral tablet 20 mg = 1 tab, PO, Bedtime, 0 Refill(s) Start Date: 04/23/16 Status: Ordered diazepam 10 mg, 2 tab, Route: PO, Drug form: TAB, BID, Dosing Weight 72.727, kg, Start da te: 04/24/16 17:00:00 CDT, Duration: 30 day, Stop date: 05/24/16 9:00:00 CDT Notes: (Same as: Valium) Start Date: 04/24/16 Stop Date: 04/26/16 Status: Discontinued diazepam 10 mg oral tablet 10 mg = 1 tab, PO, BID, 0 Refill(s) Start Date: 04/23/16 Status: Ordered docusate 100 mg, 1 cap, Route: PO, Drug form: CAP, BID, Dosing Weight 72.727, kg, PRN Con stipation, Start date: 04/23/16 17:58:00 CDT, Duration: 30 day, Stop date: 05/23 17:57:00 CDT Notes: (Same as: Colace) (Do Not Crush) Start Date: 04/23/16 Stop Date: 04/26/16 Status: Discontinued enoxaparin 40 mg, 0.4 mL, Route: SUB-Q, Drug form: INJ, [id number], Dosing Weight 72.727, kg, Start date: 04/23/16 18:00:00 CDT, Duration: 30 day, Stop date: 05/22/16 18:00: 00 CDT Notes: (Same as: Lovenox) Start Date: 04/23/16 Stop Date: 04/26/16 Status: Discontinued ePHEDrine (ANES) Route: IV, Drug form: INJ, ONCE, Stop date: 04/24/16 17:33:00 CDT Start Date: 04/24/16 Stop Date: 04/24/16 Status: Completed fentaNYL (ANES) Route: IV, Drug form: INJ, ONCE, Stop date: 04/24/16 17:23:00 CDT Start Date: 04/24/16 Stop Date: 04/24/16 Status: Completed hydrALAZINE 10 mg, 0.5 mL, Route: IV, Drug form: INJ, Q6H, Dosing Weight 72.727, kg, PRN Harini vated BP, Start date: 04/23/16 17:59:00 CDT, Duration: 30 day, Stop date: 17:58:00 CDT Notes: (Same as: Apresoline)Push over 5 minutes Start Date: 04/23/16 Stop Date: 04/26/16 Status: Discontinued Keflex 500 mg oral capsule 500 mg = 1 cap, PO, QID, X 10 day, # 40 cap, 0 Refill(s) Start Date: 04/26/16 Stop Date: 05/06/16 Status: Ordered lidocaine (ANES) Route: IV, Drug form: INJ, ONCE, Stop date: 04/24/16 17:23:00 CDT Start Date: 04/24/16 Stop Date: 04/24/16 Status: Completed Lipitor 40 mg, 1 tab, Route: PO, Drug form: TAB, Bedtime, Start date: 04/24/16 21:00:00 CDT, Duration: 30 day, Stop date: 05/23/16 21:00:00 CDT Notes: (Same as: Lipitor) Start Date: 04/24/16 Stop Date: 04/26/16 Status: Discontinued Lovenox 40 mg, 0.4 mL, Route: SUB-Q, Drug form: INJ, [id number], Dosing Weight 72.727, kg, Start date: 04/25/16 16:00:00 CDT, Duration: 30 day, Stop date: 05/24/16 16:00: 00 CDT Notes: (Same as: Lovenox) Start Date: 04/25/16 Stop Date: 04/26/16 Status: Discontinued Lovenox 30 mg/0.3 mL subcutaneous solution 30 mg, SUB-Q, Q12H, X 14 day, # 28 inj, 0 Refill(s) Start Date: 04/26/16 Stop Date: 05/10/16 Status: Ordered LR 1000 mL INJ (ANES) Route: IV, Total Volume: 1,000, Start date: 04/24/16 16:40:00 CDT, Stop date: 17:40:00 CDT Start Date: 04/24/16 Stop Date: 04/24/16 Status: Completed metoprolol 25 mg oral tablet, extended release 25 mg = 1 tab, PO, Daily, # 30 tab, 0 Refill(s) Start Date: 04/26/16 Status: Ordered metoprolol extended release 25 mg, 1 tab, Route: PO, Drug form: ERTAB, Daily, Start date: 04/25/16 9:00:00 C DT, Duration: 30 day, Stop date: 05/24/16 9:00:00 CDT Notes: (Same as: Toprol XL) Do Not Crush Start Date: 04/25/16 Stop Date: 04/26/16 Status: Discontinued midazolam (ANES) Route: IV, Drug form: SOLN, ONCE, Stop date: 04/24/16 17:23:00 CDT Start Date: 04/24/16 Stop Date: 04/24/16 Status: Completed MiraLax 17 gm, 1 pkt, Route: PO, Drug form: PWDR, ONCE, Dosing Weight 72.727, kg, Start date: 04/26/16 11:39:00 CDT, Duration: 1 doses or times, Stop date: 04/26/16 11: 39:00 CDT Notes: Dissolve in 8 oz of water or juice.(Same as: Miralax) Start Date: 04/26/16 Stop Date: 04/26/16 Status: Completed morphine Sulfate 2 mg, 1 mL, Route: IVP, Drug form: INJ, Q4H, Dosing Weight 72.727, kg, PRN Pain Score 7-10, Start date: 04/23/16 17:58:00 CDT, Duration: 30 day, Stop date: 05/10 02/23 17:57:00 CDT Notes: (Same as:MORPhine Sulfate) Start Date: 04/23/16 Stop Date: 04/26/16 Status: Discontinued morphine Sulfate 2 mg, Route: IVP, Drug form: INJ, ONCE, Dosing Weight 72.727, kg, Priority: STAT , Start date: 04/23/16 16:56:00 CDT, Stop date: 04/23/16 16:56:00 CDT Start Date: 04/23/16 Stop Date: 04/23/16 Status: Completed morphine Sulfate 4 mg, Route: IVP, Drug form: INJ, ONCE, Dosing Weight 72.727, kg, Priority: STAT , Start date: 04/23/16 15:14:00 CDT, Stop date: 04/23/16 15:14:00 CDT Start Date: 04/23/16 Stop Date: 04/23/16 Status: Completed morphine Sulfate 2 mg, Route: IVP, Q4H, Dosing Weight 72.727, kg, PRN Pain Score 7-10, Start date : 04/23/16 19:33:00 CDT, Duration: 30 day, Stop date: 05/23/16 19:32:00 CDT Start Date: 04/23/16 Stop Date: 04/23/16 Status: Deleted [place] 7.5/325 oral tablet 2 tab, Route: PO, Drug Form: TAB, Dosing Weight 72.727, kg, Q4H, PRN Pain Score 7-10, Start date: 04/24/16 17:11:00 CDT, Duration: 2 day, Stop date: 04/26/16 17 :10:00 CDT Notes: Same as [place] 325-7.5mg Do not exceed 4gm/day of acetaminophen. Start Date: 04/24/16 Stop Date: 04/26/16 Status: Completed [place] 7.5/325 oral tablet 1 tab, Route: PO, Drug Form: TAB, Dosing Weight 72.727, kg, Q4H, PRN Pain Score 4-6, Start date: 04/24/16 17:10:00 CDT, Duration: 2 day, Stop date: 04/26/16 17: 09:00 CDT Notes: Same as [place] 325-7.5mg Do not exceed 4gm/day of acetaminophen. Start Date: 04/24/16 Stop Date: 04/26/16 Status: Completed ondansetron 4 mg, 2 mL, Route: IVP, Drug form: INJ, Q6H, Dosing Weight 72.727, kg, PRN Nause a & Vomiting, Start date: 04/23/16 17:58:00 CDT, Duration: 30 day, Stop date: 05/23/16 17:57:00 CDT Notes: (Same as: Jean) MEDICATION WASTE Product Size: 4 mgProduct Was navneet: ___ mg Start Date: 04/23/16 Stop Date: 04/26/16 Status: Discontinued ondansetron 4 mg, Route: IVP, Q6H, Dosing Weight 72.727, kg, PRN Nausea & Vomiting, Start date: 04/23/16 19:33:00 CDT, Duration: 30 day, Stop date: 05/23/16 19:32:00 CDT Start Date: 04/23/16 Stop Date: 04/23/16 Status: Deleted ondansetron (ANES) Route: IV, Drug form: INJ, ONCE, Stop date: 04/24/16 17:28:00 CDT Start Date: 04/24/16 Stop Date: 04/24/16 Status: Completed potassium chloride 10 mEq oral tablet, extended release 10 mEq = 1 tab, PO, Daily, 0 Refill(s) Start Date: 04/23/16 Status: Ordered Prevacid 30 mg, Route: PO, QAM, Dosing Weight 72.727, kg, Start date: 04/25/16 9:00:00 CD T, Duration: 30 day, Stop date: 05/24/16 9:00:00 CDT Start Date: 04/25/16 Stop Date: 04/24/16 Status: Deleted Prevacid 30 mg, PO, QAM, # 15 cap, 0 Refill(s) Start Date: 04/23/16 Stop Date: 05/08/16 Status: Ordered propofol (ANES) Route: IV, Drug form: INJ, ONCE, Stop date: 04/24/16 17:23:00 CDT Start Date: 04/24/16 Stop Date: 04/24/16 Status: Completed Protonix 40 mg, 1 tab, Route: PO, Drug form: ECTAB, Daily, Start date: 04/25/16 9:00:00 C DT, Duration: 30 day, Stop date: 05/24/16 9:00:00 CDT Notes: Tablet should not be chewed or crushed.(Same as: Protonix) Start Date: 04/25/16 Stop Date: 04/26/16 Status: Discontinued Saline Flush 0.9% 10 ml, Route: IVP, Drug Form: INJ, Dosing Weight 72.727, kg, PRN, PRN Line Flush , Start date: 04/23/16 19:33:00 CDT, Duration: 30 day, Stop date: 05/23/16 19:32 :00 CDT Notes: (Same as: BD Posiflush) Start Date: 04/23/16 Stop Date: 04/26/16 Status: Discontinued sodium chloride 0.9% 1000 ml INJ 1,000 mL 1,000 mL, Rate: 90 ml/hr, Infuse over: 11.1 hr, Route: IV, Dosing Weight 72.727 kg, Total Volume: 1,000, Start date: 04/23/16 17:59:00 CDT, Duration: 30 day, St op date: 05/23/16 17:58:00 CDT Start Date: 04/23/16 Stop Date: 04/23/16 Status: Discontinued sodium chloride 0.9% 1000 ml INJ 1,000 mL 1,000 mL, Rate: 40 ml/hr, Infuse over: 25 hr, Route: IV, Dosing Weight 72.727 kg , Total Volume: 1,000, Start date: 04/23/16 19:33:00 CDT, Stop date: 05/23/16 19 :32:00 CDT Start Date: 04/23/16 Stop Date: 04/26/16 Status: Discontinued Tylenol with Codeine #4 oral tablet 1 - 2 tab, PO, Q4H, PRN Pain, X 2 day, # 40 tab, 0 Refill(s), given to patient Start Date: 04/26/16 Stop Date: 04/28/16 Status: Completed Vitamin C 1,000 mg, 2 tab, Route: PO, Drug form: TAB, Daily, Dosing Weight 72.727, kg, Sta rt date: 04/25/16 9:00:00 CDT, Duration: 30 day, Stop date: 05/24/16 9:00:00 CDT Notes: (Same as: Vitamin C) Start Date: 04/25/16 Stop Date: 04/26/16 Status: Discontinued Vitamin C 0 Refill(s) Start Date: 04/23/16 Status: Ordered Vitamin C 1000 mg oral tablet 1,000 mg = 1 tab, PO, Daily, 0 Refill(s) Start Date: 04/23/16 Status: Ordered Vitamin D3 oral tablet 800 IntlUnit = 2 tab, PO, Daily, 0 Refill(s) Start Date: 04/23/16 Status: Ordered Zofran 4 mg, Route: IVP, Drug form: INJ, ONCE, Dosing Weight 72.727, kg, Priority: STAT , Start date: 04/23/16 15:15:00 CDT, Stop date: 04/23/16 15:15:00 CDT Start Date: 04/23/16 Stop Date: 04/23/16 Status: Completed Results ELECTROLYTES 1 2 3 Most recent to oldest [Reference Range]: 136 mEq/L (04/26/16 5:17 AM) 135 mEq/L (04/24/16 7:00 AM) 129 mEq/L *LOW* (04/23/16 3:36 PM) Sodium Lvl [135-145 mEq/L] 3.9 mEq/L (04/26/16 5:17 AM) 4.6 mEq/L (04/24/16 7:00 AM) 3.5 mEq/L (04/23/16 3:36 PM) Potassium Lvl [3.5-5.1 mEq/L] 101 mEq/L (04/26/16 5:17 AM) 98 mEq/L (04/24/16 7:00 AM) 93 mEq/L *LOW* (04/23/16 3:36 PM) Chloride Lvl [95-109 mEq/L] 26 mEq/L (04/26/16 5:17 AM) 28 mEq/L (04/24/16 7:00 AM) 28 mEq/L (04/23/16 3:36 PM) CO2 [24-32 mEq/L] 12.9 mEq/L (04/26/16 5:17 AM) 13.6 mEq/L (04/24/16 7:00 AM) 11.5 mEq/L (04/23/16 3:36 PM) AGAP [10.0-20.0 mEq/L] CHEM PANEL 1 2 3 Most recent to oldest [Reference Range]: 1.02 mg/dL (04/26/16 5:17 AM) 1.28 mg/dL (04/24/16 7:00 AM) 1.20 mg/dL (04/23/16 3:36 PM) Creatinine Lvl [0.50-1.40 mg/dL] 54 mL/min/1.73m2 1 *NA* (04/26/16 5:17 AM) 41 mL/min/1.73m2 2 *NA* (04/24/16 7:00 AM) 44 mL/min/1.73m2 3 *NA* (04/23/16 3:36 PM) eGFR 10 mg/dL (04/26/16 5:17 AM) 7 mg/dL (04/24/16 7:00 AM) 6 mg/dL *LOW* (04/23/16 3:36 PM) BUN [7-22 mg/dL] 5 *LOW* (04/24/16 7:00 AM) 5 *LOW* (04/23/16 3:36 PM) B/C Ratio [6-25] 105 mg/dL *HI* (04/26/16 5:17 AM) 97 mg/dL (04/24/16 7:00 AM) 94 mg/dL (04/23/16 3:36 PM) Glucose Lvl [70-99 mg/dL] 5.9 g/dL *LOW* (04/24/16 7:00 AM) 6.5 g/dL (04/23/16 3:36 PM) Total Protein [6.4-8.4 g/dL] 2.7 g/dL *LOW* (04/24/16 7:00 AM) 3.1 g/dL *LOW* (04/23/16 3:36 PM) Albumin Lvl [3.5-5.0 g/dL] 3.2 g/dL (04/24/16 7:00 AM) 3.4 g/dL (04/23/16 3:36 PM) Globulin [2.0-4.0 g/dL] 0.8 (04/24/16 7:00 AM) 0.9 (04/23/16 3:36 PM) A/G Ratio [0.7-1.6] 7.7 mg/dL *LOW* (04/26/16 5:17 AM) 8.2 mg/dL *LOW* (04/24/16 7:00 AM) 8.5 mg/dL (04/23/16 3:36 PM) Calcium Lvl [8.5-10.5 mg/dL] 3.6 mg/dL (04/24/16 7:00 AM) Phosphorus [2.5-4.5 mg/dL] 2.1 mg/dL (04/24/16 7:00 AM) Magnesium Lvl [1.8-2.4 mg/dL] 13 unit/L (04/24/16 7:00 AM) 15 unit/L (04/23/16 3:36 PM) ALT [0-65 unit/L] 16 unit/L (04/24/16 7:00 AM) 15 unit/L (04/23/16 3:36 PM) AST [0-37 unit/L] 80 unit/L (04/24/16 7:00 AM) 86 unit/L (04/23/16 3:36 PM) Alk Phos [39-136 unit/L] 0.4 mg/dL (04/24/16 7:00 AM) 0.5 mg/dL (04/23/16 3:36 PM) Bili Total [0.2-1.3 mg/dL] 1Result Comment: The eGFR is calculated using [...] be mul tiplied by the estimated BMI. URINE AND STOOL 1 2 3 Most recent to oldest [Reference Range]: Clear (04/23/16 5:56 PM) UA Turbidity [Clear] Ltyellow *NA* (04/23/16 5:56 PM) UA Color 6.0 (04/23/16 5:56 PM) UA pH [5.0-8.0] 1.004 (04/23/16 5:56 PM) UA Spec Grav [<=1.030] Negative mg/dL *NA* (04/23/16 5:56 PM) UA Glucose [Negative mg/dL] Moderate *ABN* (04/23/16 5:56 PM) UA Blood [Negative] Negative mg/dL *NA* (04/23/16 5:56 PM) UA Ketones [Negative mg/dL] Negative mg/dL (04/23/16 5:56 PM) UA Protein [Negative mg/dL] <=1.0 mg/dL *NA* (04/23/16 5:56 PM) UA Urobilinogen [0.1-1.0 mg/dL] Negative *NA* (04/23/16 5:56 PM) UA Bili [Negative] Negative (04/23/16 5:56 PM) UA Leuk Est [Negative] Negative (04/23/16 5:56 PM) UA Nitrite [Negative] 1 /HPF (04/23/16 5:56 PM) UA WBC [0-5 /HPF] 1 /HPF (04/23/16 5:56 PM) UA RBC [0-2 /HPF] Occasional /LPF *NA* (04/23/16 5:56 PM) UA Sq Epi [Few /LPF] HEMATOLOGY 1 2 3 Most recent to oldest [Reference Range]: 5.7 K/CMM (04/26/16 5:17 AM) 7.2 K/CMM (04/25/16 6:52 AM) 6.5 K/CMM (04/24/16 7:00 AM) WBC [3.7-10.4 K/CMM] 2.99 M/CMM *LOW* (04/26/16 5:17 AM) 3.28 M/CMM *LOW* (04/25/16 6:52 AM) 3.84 M/CMM *LOW* (04/24/16 7:00 AM) RBC [4.20-5.40 M/CMM] 8.5 g/dL *LOW* (04/26/16 5:17 AM) 9.4 g/dL *LOW* (04/25/16 6:52 AM) 11.0 g/dL *LOW* (04/24/16 7:00 AM) Hgb [12.0-16.0 g/dL] 26.8 % *LOW* (04/26/16 5:17 AM) 29.0 % *LOW* (04/25/16 6:52 AM) 34.0 % *LOW* (04/24/16 7:00 AM) Hct [36.0-48.0 %] 89.5 fL (04/26/16 5:17 AM) 88.5 fL (04/25/16 6:52 AM) 88.3 fL (04/24/16 7:00 AM) MCV [80.0-98.0 fL] 28.6 pg (04/26/16 5:17 AM) 28.7 pg (04/25/16 6:52 AM) 28.7 pg (04/24/16 7:00 AM) MCH [27.0-31.0 pg] 31.9 g/dL *LOW* (04/26/16 5:17 AM) 32.5 g/dL (04/25/16 6:52 AM) 32.4 g/dL (04/24/16 7:00 AM) MCHC [32.0-36.0 g/dL] 15.2 % *HI* (04/26/16 5:17 AM) 15.3 % *HI* (04/25/16 6:52 AM) 15.1 % *HI* (04/24/16 7:00 AM) RDW [11.5-14.5 %] 145 K/CMM (04/26/16 5:17 AM) 161 K/CMM (04/25/16 6:52 AM) 198 K/CMM (04/24/16 7:00 AM) Platelet [133-450 K/CMM] 7.4 fL (04/26/16 5:17 AM) 6.8 fL *LOW* (04/25/16 6:52 AM) 6.8 fL *LOW* (04/24/16 7:00 AM) MPV [7.4-10.4 fL] 71.6 % (04/26/16 5:17 AM) 80.0 % *HI* (04/25/16 6:52 AM) 78.0 % *HI* (04/24/16 7:00 AM) Segs [45.0-75.0 %] 15.9 % *LOW* (04/26/16 5:17 AM) 11.0 % *LOW* (04/25/16 6:52 AM) 13.2 % *LOW* (04/24/16 7:00 AM) Lymphocytes [20.0-40.0 %] 9.0 % (04/26/16 5:17 AM) 6.3 % (04/25/16 6:52 AM) 6.2 % (04/24/16 7:00 AM) Monocytes [2.0-12.0 %] 2.9 % (04/26/16 5:17 AM) 2.3 % (04/25/16 6:52 AM) 1.7 % (04/24/16 7:00 AM) Eosinophils [0.0-4.0 %] 0.6 % (04/26/16 5:17 AM) 0.4 % (04/25/16 6:52 AM) 0.9 % (04/24/16 7:00 AM) Basophils [0.0-1.0 %] 4.1 K/CMM (04/26/16 5:17 AM) 5.7 K/CMM (04/25/16 6:52 AM) 5.0 K/CMM (04/24/16 7:00 AM) Segs-Bands # [1.5-8.1 K/CMM] 0.9 K/CMM *LOW* (04/26/16 5:17 AM) 0.8 K/CMM *LOW* (04/25/16 6:52 AM) 0.9 K/CMM *LOW* (6/15/16 7:00 AM) Lymphocytes # [1.0-5.5 K/CMM] 0.5 K/CMM (04/26/16 5:17 AM) 0.5 K/CMM (04/25/16 6:52 AM) 0.4 K/CMM (04/24/16 7:00 AM) Monocytes # [0.0-0.8 K/CMM] 0.2 K/CMM (04/26/16 5:17 AM) 0.2 K/CMM (04/25/16 6:52 AM) 0.1 K/CMM (04/24/16 7:00 AM) Eosinophils # [0.0-0.5 K/CMM] 0.1 K/CMM (04/24/16 7:00 AM) Basophils # [0.0-0.2 K/CMM] 14.6 seconds (04/24/16 7:00 AM) 13.8 seconds (04/23/16 3:36 PM) PT [12.0-14.7 seconds] 1.11 (04/24/16 7:00 AM) 1.03 (04/23/16 3:36 PM) INR [0.85-1.17] 31.0 seconds (04/24/16 7:00 AM) 31.8 seconds (04/23/16 3:36 PM) PTT [22.9-35.8 seconds] Immunizations No data available for this section Procedures Procedure Date Related Diagnosis Body Site Cardiac catheterization Placement of stent Social History Social History Type Response Smoking Status Never smoker; Type: Cigaret yesenia; Exposure to Tobacco Smoke None; Cigarette Smoking Last 365 Days No; Reg Smoking C essation Counseling No Assessment and Plan No data available for this section
--- NOTE | 2020-06-11 01:23 | NUR ---
[facility] called to transport pt to home. Pt verbalized understanding. Prescription given for valium. Voicemail left for daughter.
--- NOTE | 2020-06-11 01:31 | Emergency Department Note ---
History of Present Illnes History of Present Illness Chief Complaint: Back Pain History of Present Illness This is a 79 year old female arrived to the ED requesting valium after her pills ran out, states she has chronic back pain with no trauma and has been on valium since 1986. 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 Any updates have been documented here. Past Medical History Recent Fever: No Clinical Suspicion of Infectio: No New/Unexplained Change in Ment: No Other Medical History: Hyperlipidemia Depression GERD Anxiety Past Surgical History: Hip Replacement Other Surgery: L. CEA, stent in aorta s/p AA. R. HIP Social History Smoking Cessation: Never Smoker Counseling Performed: Yes Alcohol Use: None Any Illegal Drug Use: No Physically hurt or threatened: No Other Last Tetanus: UTD Any Pre-Existing Lines (PICC,: No Review of Systems Review of Systems Constitutional: Reports no symptoms EENTM: Reports no symptoms Cardiovascular: Reports no symptoms Respiratory: Reports no symptoms Gastrointestinal: Reports no symptoms Genitourinary: Reports no symptoms Musculoskeletal: Reports as per HPI, Reports back pain Integumentary: Reports no symptoms Neurological: Reports no symptoms Psychological: Reports no symptoms Endocrine: Reports no symptoms Hematological/Lymphatic: Reports no symptoms Physical Exam Related Data Allergies: Coded Allergies: codeine (Verified Allergy, Unknown, Hypotension, 09/10/16) Triage Vital Signs Vital Signs Date Time Temp Pulse Resp B/P (MAP) Pulse Ox O2 Delivery O2 Flow Rate FiO2 06/11/20 00:34 98.8 74 18 157/63 98 Room Air Vital signs reviewed: Yes Physical Exam CONSTITUTIONAL Constitutional: Present well-developed, Present well-nourished HENT HENT: Present normocephalic, Present atraumatic, Present oropharynx clear/moist, Present nose normal HENT L/R: Present left ext ear normal, Present right ext ear normal EYES Eyes: Reports PERRL, Reports conjunctivae normal NECK Neck: Present ROM normal PULMONARY Pulmonary: Present effort normal, Present breath sounds normal CARDIOVASCULAR Cardiovascular: Present regular rhythm, Present heart sounds normal, Present capillary refill normal, Present normal rate GASTROINTESTINAL Abdominal: Present soft, Present nontender, Present bowel sounds normal GENITOURINARY Genitourinary: Present exam deferred SKIN Skin: Present warm, Present dry MUSCULOSKELETAL Musculoskeletal: Present ROM normal NEUROLOGICAL Neurological: Present alert, Present oriented x 3, Present no gross motor or sensory deficits PSYCHOLOGICAL Psychological: Present mood/affect normal, Present judgement normal Assessment & Plan Medical Decision Making MDM 79-year-old female arrived to the ED with chronic back pain. Patient requesting Valium prescription. Patient discharged home with Valium and instructed to follow up with outpatient PCP. Assessment & Plan Final Impression: (1) Back pain Depart Disposition: HOME, SELF-CARE Last Vital Signs Date Time Temp Pulse Resp B/P (MAP) Pulse Ox O2 Delivery O2 Flow Rate FiO2 06/11/20 00:34 98.8 74 18 157/63 98 Room Air Home Meds Active Scripts Diazepam (VALIUM) 2 Mg Tablet, 2 MG PO Q6H PRN for MUSCLE SPASMS, #20 0 Refills Prov:ANGEL HOUSTON, DO 06/11/20 Reported Medications Ferrous Sulfate (IRON SUPPLEMENT) 325 Mg Tablet, 28 MG PO 04/23/17 [D3] No Conflict Check, 2000 U PO 04/23/17 [b12] No Conflict Check, 3000 MCG SL 04/23/17 Omeprazole Magnesium (PRILOSEC OTC) 20 Mg Tablet.dr, DAILY 04/23/17 Midodrine Hcl (MIDODRINE HCL) 2.5 Mg Tablet, 10 MG PO TID, TAB 09/10/16 Tramadol Hcl/Acetaminophen (ULTRACET TABLET) 1 Each Tablet, 1 TAB PO Q4HR PRN for PAIN 07/09/16 Tramadol Hcl* (ULTRAM 50MG*) 50 Mg Tab, 50 MG PO Q6H PRN for PAIN, TAB 07/06/16 Aspirin (ASPIR-LOW) 81 Mg Tablet.dr, 81 MG PO DAILY 07/06/16 Cholecalciferol (Vitamin D3) (VITAMIN D-3) 2,000 Unit Capsule, 2000 INTLU PO DAILY 07/06/16 Cyanocobalamin (VITAMIN B-12) 1,000 Mcg Tab, 1000 MCG PO DAILY, TAB 07/06/16 Rosuvastatin Calcium (CRESTOR) 10 Mg Tab, 20 MG PO DAILY THERAPEUTICALLY SUBSTITUTED WITH SIMVASTATIN 40MG 07/06/16 Citalopram Hydrobromide (CITALOPRAM HBR) 20 Mg Tablet, 40 MG PO DAILY, TAB 07/06/16 Diazepam (DIAZEPAM) 5 Mg Tablet, 10 MG PO TID PRN for ANXIETY, #30 TAB 07/06/16 ANGEL HOUSTON DO Jun 11, 2020 01:31
--- NOTE | 2020-06-11 02:32 | NUR ---
ELISEO Archer notified of multiple attempts to contact patient's daughter. [facility] still onroute to transport pt to home.
--- NOTE | 2020-06-11 03:35 | NUR ---
Recieved call from Myrna with [facility] to report that patient's daughter reported to them that pt was needing to be admitted to the hospital for psychiatric evaluation and has been bedbound. Pt ambulated to restroom with RN with walker during ER visit without difficulty. Pt did not exhibit any signs of psychiatric issues during ER visit. Called back to pt's home and daughter answered, but hung on this RN. Patient did report that daughter was taking her valium.
== END 2020-06-11 02:44 | disposition home or self-care (01) ==
LOC: ER 00:32
DX: M54.5 Low back pain (principal); G89.29 Other chronic pain; E78.5 Hyperlipidemia, unspecified; F41.9 Anxiety disorder, unspecified; K21.9 Gastro-esophageal reflux disease without esophagitis
CPT/HCPCS: 99283

== ENCOUNTER 2020-06-18 17:18 | Inpatient (IN) | payer MEDICARE, OTHER ==
[~2020-06-18] VITALS: Ht 162.6 cm; Wt 72.2 kg
[~2020-06-18 17:18] MED LIST changes: +VALIUM2 MG PO
--- OUTSIDE RECORDS SUMMARY | 2020-06-18 17:35 | XMS REPORT | Continuity of Care Document ---
Author Author Leland NoblivityMANFRED [employer] Address Unknown Phone Unavailable Care Team Providers Care Inspector Timers Name Role Phone [employer] Unavailable Un available Problems Problem Status Onset Date Classification Date Reported Comments Source FALL Active 02/26/2020 [facility] CLOSED COMMINUTED INTERTROCHANTERIC FX O Active 02/26/2020 [facility] CLOSED COMMINUTED INTERTROCHANTERIC Active 02/26/2020 [facility] INTERTROCHANTERIC FRACTURE Act katey 02/26/2020 [facility] Unspecified fall, initial encounter 11/24/2019 11/26/2019 [facility] Unspecified injury of head, initial encounter 11/24/2019 11/26/2019 [facility] Laceration without foreign body of scalp , initial encounter 11/24/2019 11/26/2019 [facility] RIGHT HIP FRACTURE Active 04/23/2016 [facility] HIP PAIN Active 04/23/2016 [facility] RIGHT HIP FRACTURE. Active 04/23/2016 [facility] Final: Unspecified fracture of unspecifi ed femur, initial encounter for closed fracture 04/29/2016 [facility] Aortic aneurysm (disorder) Res olved Problem [facility] Coronary arteriosclerosis (disorder) Resolved Problem [facility] Hypertensive disorder, systemic arterial (disorder) Resolved Problem 03/25/2020 [facility] Cerebrovascular accident (disorder) Resolved Problem [facility] Acute urinary tract infection (disorder) Active Problem 03/25/2020 [facility] Anemia following acute postoperative blo od loss (disorder) Active Prob melissa 03/25/2020 [facility] Chronic obstructive lung disease (disorder) Active Problem 03/25/2020 [facility] Closed fracture proximal femur, intertro chanteric, comminuted (disorder) Active Prob melissa 03/25/2020 [facility] Falling injury (finding) Active Problem 03/25/2020 [facility] Finding of functional performance and ac tivity (finding) Active Prob melissa 03/25/2020 [facility] Hip pain (finding) Active Problem 03/25/2020 [facility] Impaired cognition (finding) A ctive Problem [facility] Leukocytosis (disorder) Active Problem 03/25/2020 [facility] Displaced intertrochanteric fracture of right femur, initial encounter for closed fracture 03/25/2020 [facility] UNSP FRACTURE OF UNSP FEMUR, INIT ENCNTR Active [facility] DISPLACED INTERTROCHANTERIC FRACTURE OF Active [facility] DISPLACED INTERTROCHANTERIC FRACTURE OF Active [facility] Medications Medication Details Route Status Patient Instructions Ordering Provider Order Date Source citalopram 10 mg oral tablet 4 0 mg = 4 tab, PO, Daily, # 120 tab, 0 Refill(s), Pharmacy: [facility] [facility] [id number] Active 03/23/2020 [facility] Furosemide 20 MG Oral Tablet 2 0 mg = 1 tab, PO, Daily, # 30 tab, 0 Refill(s), Pharmacy: [place] [id number] Active 03/23/2020 [facility] 24 HR Metoprolol Tartrate 25 MG Extended Release Tablet [Toprol] 25 mg = 1 tab, PO, Daily, # 30 tab, 0 Re fill(s), Pharmacy: [place] [id number] Active 03/23/2020 [facility] Rosuvastatin calcium 20 MG Oral Tablet [Crestor] 20 mg = 1 tab, PO, Bedtime, # 30 tab, 0 Refill(s), Pharmacy: [place] [address] Active 03/23/2020 [facility] tramadol hydrochloride 50 MG Oral Tablet 50 mg = 1 tab, PO, Q4H, PRN Pain Score 1-3, X 3 day, # 10 tab, 0 Refill(s), Pharmacy: [place] [address] Active 03/23/2020 [facility] cholecalciferol 1000 intl units oral tablet 1,000 IntlUnit = 1 tab, PO, Daily, 0 Refill(s) Active 03/15/2020 [facility] diazepam 5 mg oral tablet 10 m g = 2 tab, PO, BID, PRN as needed for anxiety, 0 Refill(s) Active 03/15/2020 [facility] Acetaminophen 325 MG Oral Tablet 650 mg = 2 tab, PO, Q4H, PRN Pain Score 1-3, 0 Refill(s) Active 03/15/2020 [facility] bisacodyl 10 mg rectal suppository 10 mg = 1 supp, SD, Bedtime, PRN Constipation, 0 Refill(s) Active 03/15/2020 [facility] Calcium Carbonate 500 MG Chewable Tablet 500 mg = 1 tab, PO, BID, 0 Refill(s) Active 03/15/2020 [facility] Docusate Sodium 100 MG Oral Capsule 100 mg = 1 cap, PO, BID, PRN Constipation, 0 Refill(s) Active 03/15/2020 [facility] enoxaparin 40 mg/0.4 mL subcutaneous solution 40 mg = 0.4 mL, SUB-Q, [id number], 0 Refill(s) No Longer Active 03/15/2020 [facility] Furosemide 20 MG Oral Tablet 2 0 mg = 1 tab, PO, Daily, 0 Refill(s) No Longer Active 03/15/2020 [facility] Ipratropium [place] 0.2 MG/ML Inhalant Solution 0.5 mg = 2.5 mL, NEB, RQID, 0 Refill(s) Active 03/15/2020 [facility] melatonin 3 mg oral tablet 3 m g = 1 tab, PO, Bedtime, PRN Insomnia, 0 Refill(s) Active 03/15/2020 [facility] tramadol hydrochloride 50 MG Oral Tablet 50 mg = 1 tab, PO, Q4H, PRN Pain Score 1-3, 0 Refill(s) No Longer Active 03/15/2020 [facility] Sodium Chloride 0.9% IV 500 mL 500 mL, Rate: 50 ml/hr, Infuse over: 10 hr, Route: IV, Dosing Weight 73.352 kg, Total Volume: 500, Start date: 03/14/20 14:22:00 CDT, Duration: 30 day, Stop date: 04/13/20 14:21:00 CDT, 1.83, m2 Inactive 03/14/2020 [facility] Melatonin 3 mg, Route: PO, Bed time, Dosing Weight 73.352, kg, PRN Sleep, Start date: 03/13/20 14:20:00 CDT, Duration: 30 day, Stop date: 04/12/20 14:19:00 CDT Inactive 03/13/2020 [facility] Potassium Chloride 40 mEq, Rou te: PO, Drug form: ERTAB, ONCE, Dosing Weight 73.352, kg, Start date: 03/13/20 14:19:00 CDT, Stop date: 03/13/20 14:19:00 CDT Inactive 03/13/2020 [facility] tiotropium 0.018 MG/ACTUAT Inhalant Powder [Spiriva] 18 microgram, 1 cap, Route: INHALATION, Daily, Dosing Weight 73.352, kg, Start date: 03/13/20 9:00:00 CDT, Duration: 30 day, Stop date: 04/11/20 9:00:00 CDT No Longer Active 03/13/2020 [facility] ipratropium 0.02% inhalation solution Notes: SEE RT DOCUMENTATION (Same as:Atrovent) No Longer Active 03/13/2020 [facility] Furosemide 20 MG Oral Tablet N otes: (Same as: Lasix) May cause GI upset. Give with food or milk. No Longer Active 03/12/2020 [facility] Albuterol 0.833 MG/ML / Ipratropium Brom ryan 0.167 MG/ML Inhalant Solution [DuoNeb] Notes: (Same as: Duoneb) No Longer Active 03/11/2020 [facility] Diazepam Notes: (Same as: Ancelmo um) No Longer Active 03/08/2020 [facility] Docusate Sodium 100 MG Oral Capsule Notes: (Same as: Colace) (Do Not Crush) No Longer Active 03/07/2020 [facility] Miralax Notes: Dissolve in 8 o z of water or juice. (Same as: Miralax) No Longer Active 03/07/2020 [facility] sennosides, MCFP 8.6 MG Oral Tablet Notes: (Same as: Senokot) No Longer Active 03/07/2020 [facility] tramadol hydrochloride 50 MG Oral Tablet Notes: Not to exceed 400mg/day. (Same As: Ultram) No Longer Active 03/04/2020 [facility] Potassium Chloride Notes: ([facility] e as: K-Dur 20) "Do Not Crush" Give with food and full glass of water For patients unable to swallow tablet, dissolve in one half glass of water. Allow about 2 minutes for the tab lets to disintegrate. Stir before giving to prepare slurry and administer. Please exclude Patients with feeding tube less than 14 [address] (Dobhoff, J-tube etc) and pediatric and patients. No Longer Active 03/03/2020 [facility] potassium chloride 20 mEq oral tablet, e xtended release (KCL) 20 mEq, 1 tab, Route: PO, Drug form: ERT AB, Q12H, Dosing Weight 72.545, kg, PRN Abnormal Lab Result, Start date: 03/03/20 11:55:00 CDT, Duration: 30 day, Stop date: 04/02/20 11:54:00 CDT, 0 No Longer Active 03/03/2020 [facility] Potassium Chloride Notes: ([facility] e as: K-Dur 20) "Do Not Crush" Give with food and full glass of water For patients unable to swallow tablet, dissolve in one half glass of water. Allow about 2 minutes for the tab lets to disintegrate. Stir before giving to prepare slurry and administer. Please exclude Patients with feeding tube less than 14 [place] (Dobhoff, J-tube etc) and pediatric and patients. Inactive 03/03/2020 [facility] Cholecalciferol Notes: Same as : Vitamin D3 No Longer Active 03/03/2020 [facility] Celexa 40 mg, 4 tab, Route: PO , Drug form: TAB, Daily, Dosing Weight 72.545, kg, Start date: 03/03/20 9:00:00 CDT, Duration: 30 day, Stop date: 04/01/20 9:00:00 CDT, 0 No Longer Active 03/03/2020 [facility] metoprolol extended release No yesenia: (Same as: Toprol XL) Do Not Crush No Longer Active 03/03/2020 [facility] Saline Flush 0.9% Notes: (Same as: BD Posiflush) No Longer Active 03/03/2020 [facility] Acetaminophen Notes: Do not ex ceed 4 gm/day. (Same as: Tylenol) No Longer Active 03/03/2020 [facility] Acetaminophen 325 MG / Hydrocodone Connor trate 5 MG Oral Tablet Notes: (Same as: [place] 325/5) Do not ex ceed 4gm/day of acetaminophen. No Longer Active 03/03/2020 [facility] Ondansetron Notes: (Same as: Z ofran) No Longer Active 03/03/2020 [facility] Docusate Notes: (Same as: Cola ce) (Do Not Crush) No Longer Active 03/03/2020 [facility] Bisacodyl Notes: (Same As: Dul colax, Bisco-Lax) No Longer Active 03/03/2020 [facility] Melatonin Notes: (Same as: Leigh atonin) No Longer Active 03/03/2020 [facility] Saline Flush 0.9% Notes: (Same as: BD Posiflush) No Longer Active 03/03/2020 [facility] Crestor Notes: Same as Crestor No Longer Active 03/03/2020 [facility] Calcium Carbonate Notes: (Same As: Tumj[place]is) Calcium Carbonate 500 mg = 200 mg elemental calcium Dose = mg calcium carbonate ( mg elemental calcium) No Longer Active 03/02/2020 [facility] Diazepam Notes: (Same as: Ancelmo um) No Longer Active 03/02/2020 [facility] Protonix Notes: Tablet should not be chewed or crushed. (Same as: Protonix) No Longer Active 03/02/2020 [facility] Lovenox Notes: (Same as: Loven ox) No Longer Active 03/02/2020 [facility] Acetaminophen 325 MG / Hydrocodone Connor trate 10 MG Oral Tablet [[place] 10/325] Notes: Do not exceed 4gm/day of acetamin ophen. (Same as: [place] 325/10) Inactive 03/02/2020 [facility] Anoro Ellipta 62.5 mcg-25 mcg inhalation powder 1 puff, INHALER, Daily, # 1 ea, 3 Refill(s) On Hold 03/02/2020 [facility] 24 HR Metoprolol Tartrate 25 MG Extended Release Tablet [Toprol] 25 mg = 1 tab, PO, Daily, 0 Refill(s) On Hold 03/01/2020 [facility] citalopram 10 mg oral tablet 4 0 mg = 4 tab, PO, BID, 0 Refill(s) On Hold 03/01/2020 [facility] pantoprazole 40 mg oral enteric coated tablet 40 mg = 1 tab, PO, Before Breakfast, 0 Refill(s) On Hold 03/01/2020 [facility] Cholecalciferol Notes: Same as : Vitamin D3 No Longer Active 02/28/2020 [facility] Enoxaparin Notes: (Same as: Lo venox) No Longer Active 02/28/2020 [facility] Lovenox 40 mg, Route: SUB-Q, D rug form: INJ, [id number], Dosing Weight 72.545, kg, Start date: 02/28/20 7:00:00 CDT, Duration: 14 day, Stop date: 03/12/20 7:00:00 CDT No Longer Active 02/28/2020 [facility] Calcium Carbonate Notes: 500mg elemental calcium = 1250mg calcium carbonate. Contains 500mg elemental calcium. (Same As: OsCal 500) No Longer Active 02/27/2020 [facility] dexamethasone (ANES) Route: IV , Drug form: INJ, ONCE, Stop date: 02/27/20 12:14:00 CDT Inactive 02/27/2020 [facility] Fentanyl Notes: (Same as: Subl imaze) Preservative free. No Longer Active 02/27/2020 [facility] Flumazenil Notes: (Same as: Ro mazicon) No Longer Active 02/27/2020 [facility] Naloxone Notes: Same as Narcan No Longer Active 02/27/2020 [facility] Ondansetron Notes: (Same as: Susan singh) MEDICATION WASTE Product Size: 4 mg Product Wasted: ___ mg No Longer Active 02/27/2020 [facility] ondansetron (ANES) Route: IV, Drug form: INJ, ONCE, Stop date: 02/27/20 11:19:00 CDT Inactive 02/27/2020 [facility] ceFAZolin (ANES) Route: IV, Dr ug form: INJ, ONCE, Stop date: 02/27/20 11:09:00 CDT Inactive 02/27/2020 [facility] ePHEDrine (ANES) Route: IV, Dr ug form: INJ, ONCE, Stop date: 02/27/20 10:53:00 CDT Inactive 02/27/2020 [facility] midazolam (ANES) Route: IV, Dr ug form: SOLN, ONCE, Stop date: 02/27/20 10:43:00 CDT Inactive 02/27/2020 [facility] lidocaine (ANES) Route: IV, Dr ug form: INJ, ONCE, Stop date: 02/27/20 10:43:00 CDT Inactive 02/27/2020 [facility] fentaNYL (ANES) Route: IV, Jono g form: INJ, ONCE, Stop date: 02/27/20 10:43:00 CDT Inactive 02/27/2020 [facility] glycopyrrolate (ANES) Route: I V, Drug form: INJ, ONCE, Stop date: 02/27/20 10:43:00 CDT Inactive 02/27/2020 [facility] propofol (ANES) Route: IV, Jono g form: INJ, ONCE, Stop date: 02/27/20 10:39:00 CDT Inactive 02/27/2020 [facility] succinylcholine (ANES) Route: IV, Drug form: INJ, ONCE, Stop date: 02/27/20 10:39:00 CDT Inactive 02/27/2020 [facility] Dilaudid Notes: (Same as: Dila udid) No Longer Active 02/27/2020 [facility] Lactated Ringers Injection IV (ANES) 1000 mL Route: IV, Total Volume: 1,000, Start date: 02/27/20 9:57:00 CDT, Stop date: 02/27/20 10:57:00 CDT Inactive 02/27/2020 [facility] Prevacid 30 mg, Route: PO, QAM , Dosing Weight 72.545, kg, Start date: 02/27/20 9:00:00 CDT, Duration: 30 day, Stop date: 03/27/20 9:00:00 CDT No Longer Active 02/27/2020 [facility] 24 HR Metoprolol Tartrate 25 MG Extended Release Tablet [Toprol] Notes: (Same as: Toprol XL) Do Not Crush No Longer Active 02/27/2020 [facility] Vitamin D3 Notes: Same as [place] min D3 No Longer Active 02/27/2020 [facility] Celexa 40 mg, 4 tab, Route: PO , Drug form: TAB, Daily, Dosing Weight 72.545, kg, Start date: 02/27/20 9:00:00 CDT, Duration: 30 day, Stop date: 03/27/20 9:00:00 CDT, 0 No Longer Active 02/27/2020 [facility] Protonix Notes: Tablet should not be chewed or crushed. (Same as: Protonix) No Longer Active 02/27/2020 [facility] Morphine Notes: (Same as:MORPh ine Sulfate) No Longer Active 02/27/2020 [facility] Diazepam Notes: (Same as: Ancelmo um) No Longer Active 02/27/2020 [facility] Ciprofloxacin Notes: Do not re frigerate No Longer Active 02/27/2020 [facility] Crestor Notes: Same as Crestor No Longer Active 02/27/2020 [facility] Morphine Notes: (Same as:MORPh ine Sulfate) No Longer Active 02/26/2020 [facility] Trazodone Notes: (Same As: Oh yrel) Inactive 02/26/2020 [facility] Ancef + sterile water 20 mL No yesenia: (Same As: Ancef, Kefzol) MEDICATION WASTE Product Size: 1000 mg Product Wasted: ___ mg No Longer Active 02/26/2020 [facility] Dextrose 50% Syringe (D50W) 12 .5 gm, 25 mL, Route: IVP, Drug Form: INJ, Dosing Weight 72.727, kg, PRN, PRN Blood Glucose Results, Start date: 02/26/20 16:01:00 CDT, Duration: 30 day, Stop date: 03/27/20 16:00:00 CDT, 0 No Longer Active 02/26/2020 [facility] Glucagon 1 mg, Route: IM, Drug form: PDR/INJ, PRN, Dosing Weight 72.727, kg, PRN Blood Glucose Results, Start date: 02/26/20 16:01:00 CDT, Duration: 30 day, Stop date: 03/27/20 16:00:00 CDT, 0 No Longer Active 02/26/2020 [facility] Docusate Notes: (Same as: Cola ce) (Do Not Crush) No Longer Active 02/26/2020 [facility] Ondansetron Notes: (Same as: Susan singh) MEDICATION WASTE Product Size: 4 mg Product Wasted: ___ mg No Longer Active 02/26/2020 [facility] Acetaminophen Notes: Do not ex ceed 4 gm/day. (Same as: Tylenol) No Longer Active 02/26/2020 [facility] Dilaudid Notes: (Same as: Dila udid) Inactive 02/26/2020 [facility] Saline Flush 0.9% Notes: (Same as: BD Posiflush) No Longer Active 02/26/2020 [facility] Acetaminophen 500 MG Oral Tablet 500 mg = 1 tab, PO, Q6H, PRN Pain, not to exceed 4000 mg/day, X 7 day, # 24 tab, 0 Refill(s) Active 11/24/2019 [facility] Acetaminophen 300 MG / Codeine Phosphate 60 MG Oral Tablet [Tylenol with Codeine #4] 1 - 2 tab, PO, Q4H, PRN Pain, X 2 day, # 40 tab, 0 Refill(s), given to patient No Longer Active 04/26/2016 [facility] 0.3 ML Enoxaparin sodium 100 MG/ML Prefi lled Syringe [Lovenox] 30 mg, SUB-Q, Q12H, X 14 day, # 28 inj, 0 Refill(s) Active 04/26/2016 [facility] Cephalexin 500 MG Oral Capsule [Keflex] 500 mg = 1 cap, PO, QID, X 10 day, # 40 cap, 0 Refill(s) Active 04/26/2016 [facility] metoprolol 25 mg oral tablet, extended release 25 mg = 1 tab, PO, Daily, # 30 tab, 0 Refill(s) Active 04/26/2016 [facility] Miralax Notes: Dissolve in 8 o z of water or juice. (Same as: Miralax) Inactive 04/26/2016 [facility] Lovenox Notes: (Same as: Loven ox) No Longer Active 04/25/2016 [facility] Ancef + sodium chloride 0.9% INJ 100 mL Notes: (Same As: Ancef, Kefzol) Inactive 04/25/2016 [facility] metoprolol extended release No yesenia: (Same as: Toprol XL) Do Not Crush No Longer Active 04/25/2016 [facility] Prevacid 30 mg, Route: PO, QAM , Dosing Weight 72.727, kg, Start date: 04/25/16 9:00:00 CDT, Duration: 30 day, Stop date: 05/24/16 9:00:00 CDT No Longer Active 04/25/2016 [facility] Aspirin 81 MG Enteric Coated Tablet Notes: Do not crush or chew. (Same As: Ecotrin) No Longer Active 04/25/2016 [facility] Vitamin C Notes: (Same as: Vit sinha C) No Longer Active 04/25/2016 [facility] Protonix Notes: Tablet should not be chewed or crushed. (Same as: Protonix) No Longer Active 04/25/2016 [facility] Crestor 20 mg, Route: PO, Drug form: TAB, Bedtime, Dosing Weight 72.727, kg, Start date: 04/24/16 21:00:00 CDT, Duration: 30 day, Stop date: 05/23/16 21:00:00 CDT Inactive 04/25/2016 [facility] Lipitor Notes: (Same as: Lipit or) No Longer Active 04/25/2016 [facility] ePHEDrine (ANES) Route: IV, Dr ug form: INJ, ONCE, Stop date: 04/24/16 17:33:00 CDT Inactive 04/24/2016 [facility] ondansetron (ANES) Route: IV, Drug form: INJ, ONCE, Stop date: 04/24/16 17:28:00 CDT Inactive 04/24/2016 [facility] acetaminophen (ANES) (ANES) [place]: IV, Drug form: INJ, Start date: 04/24/16 17:27:00 CDT, Stop date: 04/24/16 18:27:00 CDT Inactive 04/24/2016 [facility] midazolam (ANES) Route: IV, Dr ug form: SOLN, ONCE, Stop date: 04/24/16 17:23:00 CDT Inactive 04/24/2016 [facility] fentaNYL (ANES) Route: IV, Jono g form: INJ, ONCE, Stop date: 04/24/16 17:23:00 CDT Inactive 04/24/2016 [facility] lidocaine (ANES) Route: IV, Dr ug form: INJ, ONCE, Stop date: 04/24/16 17:23:00 CDT Inactive 04/24/2016 [facility] propofol (ANES) Route: IV, Jono g form: INJ, ONCE, Stop date: 04/24/16 17:23:00 CDT Inactive 04/24/2016 [facility] ceFAZolin (ANES) (ANES) Route: IV, Drug form: INJ, Start date: 04/24/16 17:12:00 CDT, Stop date: 04/24/16 18:12:00 CDT Inactive 04/24/2016 [facility] Acetaminophen 325 MG / Hydrocodone Connor trate 7.5 MG Oral Tablet [[place] 7.5/325] Notes: Same as [place] 325-7.5mg Do not exceed 4gm/day of acetaminophen. No Longer Active 04/24/2016 [facility] Acetaminophen 325 MG / Hydrocodone Connor trate 7.5 MG Oral Tablet [[place] 7.5/325] Notes: Same as [place] 325-7.5mg Do not exceed 4gm/day of acetaminophen. No Longer Active 04/24/2016 [facility] Diazepam Notes: (Same as: Ancelmo um) No Longer Active 04/24/2016 [facility] LR 1000 mL INJ (ANES) Route: I V, Total Volume: 1,000, Start date: 04/24/16 16:40:00 CDT, Stop date: 04/24/16 17:40:00 CDT Inactive 04/24/2016 [facility] Aspirin 81 MG Enteric Coated Tablet 81 mg = 1 tab, PO, Daily, # 90 tab, 3 Refill(s) Active 04/24/2016 [facility] Potassium Chloride 10 MEQ Extended Release Tablet 10 mEq = 1 tab, PO, Daily, 0 Refill(s) Active 04/24/2016 [facility] Prevacid 30 mg, PO, QAM, # 15 cap, 0 Refill(s) Active 04/24/2016 [facility] Vitamin C 1000 mg oral tablet 1,000 mg = 1 tab, PO, Daily, 0 Refill(s) Active 04/24/2016 [facility] Rosuvastatin calcium 20 MG Oral Tablet [Crestor] 20 mg = 1 tab, PO, Bedtime, 0 Refill(s) Active 04/24/2016 [facility] Vitamin C 0 Refill(s) Active 04/24/2016 [facility] diazepam 10 mg oral tablet 10 mg = 1 tab, PO, BID, 0 Refill(s) Active 04/24/2016 [facility] Vitamin D3 oral tablet 800 Int lUnit = 2 tab, PO, Daily, 0 Refill(s) Active 04/24/2016 [facility] Ancef Notes: Same as: Ancef No Longer Active 04/24/2016 [facility] Saline Flush 0.9% Notes: (Same as: BD Posiflush) No Longer Active 04/24/2016 [facility] Sodium Chloride 0.154 MEQ/ML Injectable Solution 1,000 mL, Rate: 40 ml/hr, Infuse over: 25 hr, Route: IV, Dosing Weight 72.727 kg, Total Volume: 1,000, Start date: 04/23/16 19:33:00 CDT, Stop date: 05/23/16 19:32:00 CDT No Longer Active 04/24/2016 [facility] Ondansetron 4 mg, Route: IVP, Q6H, Dosing Weight 72.727, kg, PRN Nausea & Vomiting, Start date: 04/23/16 19:33:00 CDT, Duration: 30 day, Stop date: 05/23/16 19:32:00 CDT Inactive 04/24/2016 [facility] Morphine 2 mg, Route: IVP, Q4H , Dosing Weight 72.727, kg, PRN Pain Score 7-10, Start date: 04/23/16 19:33:00 CDT, Duration: 30 day, Stop date: 05/23/16 19:32:00 CDT Inactive 04/24/2016 [facility] Enoxaparin Notes: (Same as: Lo venox) No Longer Active 04/23/2016 [facility] Hydralazine Notes: (Same as: A presoline) Push over 5 minutes No Longer Active 04/23/2016 [facility] sodium chloride 0.9% 1000 ml INJ 1,000 mL 1,000 mL, Rate: 90 ml/hr, Infuse over: 11.1 hr, Route: IV, Dosing Weight 72.727 kg, Total Volume: 1,000, Start date: 04/23/16 17:59:00 CDT, Duration: 30 day, Stop date: 05/23/16 17:58:00 CDT Inactive 04/23/2016 [facility] Morphine Notes: (Same as:MORPh ine Sulfate) No Longer Active 04/23/2016 [facility] Docusate Notes: (Same as: Cola ce) (Do Not Crush) No Longer Active 04/23/2016 [facility] Ondansetron Notes: (Same as: Susan singh) MEDICATION WASTE Product Size: 4 mg Product Wasted: ___ mg No Longer Active 04/23/2016 [facility] Acetaminophen 325 MG / Hydrocodone Connor trate 5 MG Oral Tablet Notes: (Same as: Banning 325/5) Do not ex ceed 4gm/day of acetaminophen. No Longer Active 04/23/2016 [facility] Acetaminophen Notes: Do not ex ceed 4 gm/day. (Same as: Tylenol) No Longer Active 04/23/2016 [facility] Morphine 2 mg, Route: IVP, Jono g form: INJ, ONCE, Dosing Weight 72.727, kg, Priority: STAT, Start date: 04/23/16 16:56:00 CDT, Stop date: 04/23/16 16:56:00 CDT Inactiv e 04/23/2016 [facility] Zofran 4 mg, Route: IVP, Drug form: INJ, ONCE, Dosing Weight 72.727, kg, Priority: STAT, Start date: 04/23/16 15:15:00 CDT, Stop date: 04/23/16 15:15:00 CDT Inactiv e 04/23/2016 [facility] Morphine 4 mg, Route: IVP, Jono g form: INJ, ONCE, Dosing Weight 72.727, kg, Priority: STAT, Start date: 04/23/16 15:14:00 CDT, Stop date: 04/23/16 15:14:00 CDT Inactiv e 04/23/2016 [facility] Allergies, Adverse Reactions, Alerts Substance Category Reaction Severity Reaction type Status Date Reported Comments Source Codeine Phosphate-Promethazine HCl Assertion Drug aller gy Active [facility] Immunizations No Data Provided for This Section Results Order Name Results Value Reference Range Date Interpretation Comments Source CHEM PANEL Glucose Lvl 92 70 - 99 03/19/2020 [facility] CHEM PANEL BUN 8 7 - 22 03/19/2020 [facility] CHEM PANEL Creatinine Lvl 1.12 0.50 - 1.40 03/19/2020 [facility] CHEM PANEL Sodium Lvl 139 135 - 145 03/19/2020 [facility] CHEM PANEL Potassium Lvl 3.8 3.5 - 5.1 03/19/2020 [facility] CHEM PANEL Chloride Lvl 97 95 - 109 03/19/2020 [facility] CHEM PANEL CO2 36 24 - 32 03/19/2020 [facility] CHEM PANEL Calcium Lvl 9.0 8.5 - 10.5 03/19/2020 [facility] [facility] CHEM PANEL AGAP 9.8 10.0 - 20.0 03/19/2020 [facility] CHEM PANEL eGFR 47 03/19/2020 Result [...] should be multiplied by the estimated BMI. [facility] WBC 4.8 3.7 - 10.4 03/19/2020 [facility] RBC 3.36 4.20 - 5.40 03/19/2020 [facility] HEMATOLOGY Hgb 10.3 12.0 - 16.0 03/19/2020 [facility] Hct 31.2 36.0 - 48.0 03/19/2020 [facility] MCV 92.8 80.0 - 98.0 03/19/2020 [facility] MCH 30.7 27.0 - 31.0 03/19/2020 [facility] MCHC 33.0 32.0 - 36.0 03/19/2020 [facility] RDW 13.4 11.5 - 14.5 03/19/2020 [facility] Platelet 306 133 - 450 03/19/2020 [facility] MPV 7.0 7.4 - 10.4 03/19/2020 [facility] CHEM PANEL Glucose Lvl 88 70 - 99 03/15/2020 [facility] CHEM PANEL BUN 13 7 - 22 03/15/2020 [facility] CHEM PANEL Creatinine Lvl 1.06 0.50 - 1.40 03/15/2020 [facility] CHEM PANEL Sodium Lvl 131 135 - 145 03/15/2020 [facility] CHEM PANEL Potassium Lvl 4.1 3.5 - 5.1 03/15/2020 [facility] CHEM PANEL Chloride Lvl 97 95 - 109 03/15/2020 [facility] CHEM PANEL CO2 27 24 - 32 03/15/2020 [facility] CHEM PANEL Calcium Lvl 8.6 8.5 - 10.5 03/15/2020 [facility] CHEM PANEL AGAP 11.1 10.0 - 20.0 03/15/2020 [facility] CHEM PANEL eGFR 50 03/15/2020 Result [...] should be multiplied by the estimated BMI. [facility] CHEM PANEL Glucose Lvl 95 70 - 99 03/13/2020 [facility] CHEM PANEL BUN 10 7 - 22 03/13/2020 [facility] CHEM PANEL Creatinine Lvl 1.03 0.50 - 1.40 03/13/2020 [facility] CHEM PANEL Sodium Lvl 137 135 - 145 03/13/2020 [facility] CHEM PANEL Potassium Lvl 3.2 3.5 - 5.1 03/13/2020 [facility] CHEM PANEL Chloride Lvl 101 95 - 109 03/13/2020 [facility] CHEM PANEL CO2 31 24 - 32 03/13/2020 [facility] CHEM PANEL Calcium Lvl 8.8 8.5 - 10.5 03/13/2020 [facility] CHEM PANEL AGAP 8.2 10.0 - 20.0 03/13/2020 [facility] CHEM PANEL eGFR 52 03/13/2020 Result [...] should be multiplied by the estimated BMI. [facility] CARDIAC ENZYMES BNP 279 <=100 pg/mL 03/11/2020 [facility] HEMATOLOGY Segs 56.0 45.0 - 75.0 03/11/2020 [facility] HEMATOLOGY Lymphocytes 24.7 20.0 - 40.0 03/11/2020 [facility] HEMATOLOGY Monocytes 12.4 2.0 - 12.0 03/11/2020 [facility] HEMATOLOGY Eosinophils 6.2 0.0 - 4.0 03/11/2020 [facility] HEMATOLOGY Basophils 0.7 0.0 - 1.0 03/11/2020 [facility] HEMATOLOGY Neutrophils # 3.0 1.5 - 8.1 03/11/2020 [facility] HEMATOLOGY Lymphocytes # 1.3 1.0 - 5.5 03/11/2020 [facility] HEMATOLOGY Monocytes # 0.7 0.0 - 0.8 03/11/2020 [facility] HEMATOLOGY Eosinophils # 0.3 0.0 - 0.5 03/11/2020 [facility] HEMATOLOGY WBC 5.4 3.7 - 10.4 03/11/2020 [facility] HEMATOLOGY RBC 3.07 4.20 - 5.40 03/11/2020 [facility] HEMATOLOGY Hgb 9.7 12.0 - 16.0 03/11/2020 [facility] HEMATOLOGY Hct 28.8 36.0 - 48.0 03/11/2020 [facility] HEMATOLOGY MCV 93.7 80.0 - 98.0 03/11/2020 [facility] MCH 31.6 27.0 - 31.0 03/11/2020 [facility] MCHC 33.8 32.0 - 36.0 03/11/2020 [facility] HEMATOLOGY RDW 13.5 11.5 - 14.5 03/11/2020 [facility] HEMATOLOGY Platelet 345 133 - 450 03/11/2020 [facility] HEMATOLOGY MPV 7.2 7.4 - 10.4 03/11/2020 [facility] HEMATOLOGY WBC 7.4 3.7 - 10.4 03/06/2020 [facility] HEMATOLOGY RBC 3.23 4.20 - 5.40 03/06/2020 [facility] Hgb 10.3 12.0 - 16.0 03/06/2020 [facility] HEMATOLOGY Hct 30.1 36.0 - 48.0 03/06/2020 [facility] HEMATOLOGY MCV 93.3 80.0 - 98.0 03/06/2020 [facility] MCH 31.8 27.0 - 31.0 03/06/2020 [facility] MCHC 34.1 32.0 - 36.0 03/06/2020 [facility] HEMATOLOGY RDW 13.7 11.5 - 14.5 03/06/2020 [facility] HEMATOLOGY Platelet 279 133 - 450 03/06/2020 [facility] MPV 6.9 7.4 - 10.4 03/06/2020 [facility] CHEM PANEL Total Protein 5.1 6.4 - 8.4 03/03/2020 [facility] CHEM PANEL Albumin Lvl 2.1 3.5 - 5.0 03/03/2020 [facility] CHEM PANEL ALT 24 0 - 65 03/03/2020 [facility] CHEM PANEL AST 57 0 - 37 03/03/2020 [facility] CHEM PANEL Alk Phos 63 39 - 136 03/03/2020 [facility] CHEM PANEL Bili Total 1.1 0.2 - 1.3 03/03/2020 [facility] CHEM PANEL B/C Ratio 17 6 - 25 03/03/2020 [facility] CHEM PANEL Globulin 3.0 2.7 - 4.2 03/03/2020 [facility] CHEM PANEL A/G Ratio 0.7 0.7 - 1.6 03/03/2020 [facility] HEMATOLOGY Segs 60.3 45.0 - 75.0 03/03/2020 [facility] HEMATOLOGY Lymphocytes 21.5 20.0 - 40.0 03/03/2020 [facility] HEMATOLOGY Monocytes 11.4 2.0 - 12.0 03/03/2020 [facility] HEMATOLOGY Eosinophils 6.4 0.0 - 4.0 03/03/2020 [facility] HEMATOLOGY Basophils 0.4 0.0 - 1.0 03/03/2020 [facility] HEMATOLOGY Neutrophils # 4.8 1.5 - 8.1 03/03/2020 [facility] Lymphocytes # 1.7 1.0 - 5.5 03/03/2020 [facility] Monocytes # 0.9 0.0 - 0.8 03/03/2020 [facility] Eosinophils # 0.5 0.0 - 0.5 03/03/2020 [facility] BLOOD [facility] RESULTS ABO/Rh O POS 03/02/2020 [facility] BLOOD [facility] RESULTS Antibody Scrn Negative (03/02/20 8:26 AM) 03/02/2020 [facility] BLOOD [facility] RESULTS RBC product Product available 4 (03/02/20 8:08 AM) 03/02/2020 Result Comment: 03/02/2020 1 0:08 [id number]
KLS notified Seema 03/02/2020 10:08 [facility] HEMATOLOGY Hgb 8.2 12.0 - 16.0 03/02/2020 [facility] HEMATOLOGY Hct 24.4 36.0 - 48.0 03/02/2020 [facility] IMMUNOLOGY Coronavirus (COVID-19) NA A Not Detected (03/01/20 4:01 PM) Not Detected 03/01/2020 [facility] CHEM PANEL Glucose Lvl 82 70 - 99 03/01/2020 [facility] CHEM PANEL BUN 16 7 - 22 03/01/2020 [facility] CHEM PANEL Creatinine Lvl 1.00 0.50 - 1.40 03/01/2020 [facility] CHEM PANEL Sodium Lvl 133 135 - 145 03/01/2020 [facility] CHEM PANEL Potassium Lvl 3.5 3.5 - 5.1 03/01/2020 [facility] CHEM PANEL Chloride Lvl 99 95 - 109 03/01/2020 [facility] CHEM PANEL CO2 31 24 - 32 03/01/2020 [facility] CHEM PANEL Calcium Lvl 8.3 8.5 - 10.5 03/01/2020 [facility] CHEM PANEL AGAP 6.5 10.0 - 20.0 03/01/2020 [facility] CHEM PANEL eGFR 54 03/01/2020 Result [...] should be multiplied by the estimated BMI. [facility] HEMATOLOGY Segs 63.5 45.0 - 75.0 03/01/2020 [facility] HEMATOLOGY Lymphocytes 19.9 20.0 - 40.0 03/01/2020 [facility] HEMATOLOGY Monocytes 13.2 2.0 - 12.0 03/01/2020 [facility] HEMATOLOGY Eosinophils 3.2 0.0 - 4.0 03/01/2020 [facility] HEMATOLOGY Basophils 0.2 0.0 - 1.0 03/01/2020 [facility] HEMATOLOGY Neutrophils # 4.9 1.5 - 8.1 03/01/2020 [facility] HEMATOLOGY Lymphocytes # 1.5 1.0 - 5.5 03/01/2020 [facility] HEMATOLOGY Monocytes # 1.0 0.0 - 0.8 03/01/2020 [facility] HEMATOLOGY Eosinophils # 0.2 0.0 - 0.5 03/01/2020 [facility] HEMATOLOGY WBC 7.7 3.7 - 10.4 03/01/2020 [facility] HEMATOLOGY RBC 2.48 4.20 - 5.40 03/01/2020 [facility] HEMATOLOGY Hgb 7.9 12.0 - 16.0 03/01/2020 [facility] HEMATOLOGY Hct 23.0 36.0 - 48.0 03/01/2020 [facility] HEMATOLOGY MCV 92.7 80.0 - 98.0 03/01/2020 [facility] HEMATOLOGY MCH 31.8 27.0 - 31.0 03/01/2020 [facility] HEMATOLOGY MCHC 34.3 32.0 - 36.0 03/01/2020 [facility] HEMATOLOGY RDW 14.0 11.5 - 14.5 03/01/2020 [facility] HEMATOLOGY Platelet 202 133 - 450 03/01/2020 [facility] HEMATOLOGY MPV 7.1 7.4 - 10.4 [...] PANEL AST 34 0 - 37 02/29/2020 [facility] CHEM PANEL Alk Phos 65 39 - 136 02/29/2020 [facility] CHEM PANEL Bili Total 0.4 0.2 - 1.3 02/29/2020 [facility] CHEM PANEL eGFR 44 02/29/2020 Result [...] should be multiplied by the estimated BMI. [facility] HEMATOLOGY WBC 12.1 3.7 - 10.4 02/29/2020 [facility] RBC 2.39 4.20 - 5.40 02/29/2020 [facility] Hgb 7.5 12.0 - 16.0 02/29/2020 [facility] Hct 22.5 36.0 - 48.0 02/29/2020 [facility] MCV 94.1 80.0 - 98.0 02/29/2020 [facility] MCH 31.4 27.0 - 31.0 02/29/2020 [facility] MCHC 33.4 32.0 - 36.0 02/29/2020 [facility] RDW 13.7 11.5 - 14.5 02/29/2020 [facility] Platelet 229 133 - 450 02/29/2020 [facility] MPV 7.2 7.4 - 10.4 02/29/2020 [facility] Segs 75.6 45.0 - 75.0 02/29/2020 [facility] Lymphocytes 12.5 20.0 - 40.0 02/29/2020 [facility] Monocytes 11.2 2.0 - 12.0 02/29/2020 [facility] Eosinophils 0.7 0.0 - 4.0 02/29/2020 [facility] HEMATOLOGY Neutrophils # 9.1 1.5 - 8.1 02/29/2020 [facility] HEMATOLOGY Lymphocytes # 1.5 1.0 - 5.5 02/29/2020 [facility] HEMATOLOGY Monocytes # 1.3 0.0 - 0.8 02/29/2020 [facility] HEMATOLOGY Eosinophils # 0.1 0.0 - 0.5 02/29/2020 [facility] BLOOD BANK RESULTS RBC product Product available 5 (02/28/20 3:02 PM) 02/28/2020 Result Comment: 02/28/2020 1 5:34 [id number]
spoke to Jenifer at 02/28/2020 15:34 [facility] CHEM PANEL Glucose Lvl 131 70 - 99 02/28/2020 [facility] CHEM PANEL BUN 14 7 - 22 02/28/2020 [facility] CHEM PANEL Creatinine Lvl 1.07 0.50 - 1.40 02/28/2020 [facility] CHEM PANEL Sodium Lvl 131 135 - 145 02/28/2020 [facility] CHEM PANEL Potassium Lvl 4.2 3.5 - 5.1 02/28/2020 [facility] CHEM PANEL Chloride Lvl 97 95 - 109 02/28/2020 [facility] CHEM PANEL CO2 29 24 - 32 02/28/2020 [facility] CHEM PANEL Calcium Lvl 8.3 8.5 - 10.5 02/28/2020 [facility] CHEM PANEL Total Protein 5.2 6.4 - 8.4 02/28/2020 [facility] CHEM PANEL Albumin Lvl 2.2 3.5 - 5.0 02/28/2020 [facility] CHEM PANEL ALT 9 0 - 65 02/28/2020 [facility] CHEM PANEL AST 20 0 - 37 02/28/2020 [facility] CHEM PANEL Alk Phos 59 39 - 136 02/28/2020 [facility] CHEM PANEL Bili Total 0.2 0.2 - 1.3 02/28/2020 [facility] CHEM PANEL AGAP 9.2 10.0 - 20.0 02/28/2020 [facility] CHEM PANEL B/C Ratio 13 6 - 25 02/28/2020 [facility] CHEM PANEL Globulin 3.0 2.7 - 4.2 02/28/2020 [facility] CHEM PANEL A/G Ratio 0.7 0.7 - 1.6 02/28/2020 [facility] CHEM PANEL eGFR 49 02/28/2020 Result [...] should be multiplied by the estimated BMI. [facility] HEMATOLOGY Segs 87.6 45.0 - 75.0 02/28/2020 [facility] Lymphocytes 5.6 20.0 - 40.0 02/28/2020 [facility] Monocytes 6.8 2.0 - 12.0 02/28/2020 [facility] Neutrophils # 10.6 1.5 - 8.1 02/28/2020 [facility] Lymphocytes # 0.7 1.0 - 5.5 02/28/2020 [facility] Monocytes # 0.8 0.0 - 0.8 02/28/2020 [facility] WBC 12.2 3.7 - 10.4 02/28/2020 [facility] RBC 2.36 4.20 - 5.40 02/28/2020 [facility] MCV 94.4 80.0 - 98.0 02/28/2020 [facility] MCH 31.7 27.0 - 31.0 02/28/2020 [facility] MCHC 33.5 32.0 - 36.0 02/28/2020 [facility] RDW 13.7 11.5 - 14.5 02/28/2020 [facility] Platelet 198 133 - 450 02/28/2020 [facility] MPV 7.4 7.4 - 10.4 02/28/2020 [facility] CHEM PANEL Total Protein 5.8 6.4 - 8.4 02/27/2020 [facility] CHEM PANEL Albumin Lvl 2.8 3.5 - 5.0 02/27/2020 [facility] CHEM PANEL ALT 13 0 - 65 02/27/2020 [facility] CHEM PANEL AST 22 0 - 37 02/27/2020 [facility] CHEM PANEL Alk Phos 83 39 - 136 02/27/2020 [facility] CHEM PANEL Bili Total 0.4 0.2 - 1.3 02/27/2020 [facility] CHEM PANEL B/C Ratio 9 6 - 25 02/27/2020 [facility] CHEM PANEL Globulin 3.0 2.7 - 4.2 02/27/2020 [facility] CHEM PANEL A/G Ratio 0.9 0.7 - 1.6 02/27/2020 [facility] HEMATOLOGY Eosinophils 1.7 0.0 - 4.0 02/27/2020 [facility] HEMATOLOGY Basophils 0.2 0.0 - 1.0 02/27/2020 [facility] HEMATOLOGY Eosinophils # 0.1 0.0 - 0.5 02/27/2020 [facility] URINE AND STOOL UA Color Yellow *NA* (02/26/20 3:10 PM) Yellow 02/26/2020 [facility] URINE AND STOOL UA Turbidity Slight *ABN* (02/26/20 3:10 PM) Clear 02/26/2020 [facility] URINE AND STOOL UA Spec Grav 1.005 <=1.030 02/26/2020 [facility] URINE AND STOOL UA pH 5.0 5.0 - 8.0 02/26/2020 [facility] URINE AND STOOL UA Protein Negative mg/dL Negative mg/dL 02/26/2020 [facility] URINE AND STOOL UA Glucose Negative mg/dL Negative mg/dL 02/26/[address] [facility] [address] URINE AND STOOL UA Ketones Negative mg/dL Negative mg/dL 02/26/2020 [facility] URINE AND STOOL UA Bili Negative *NA* (02/26/20 3:10 PM) Negative 02/26/2020 [facility] URINE AND STOOL UA Blood Small *ABN* (02/26/20 3:10 PM) Negative 02/26/2020 [facility] URINE AND STOOL UA Nitrite Negative (02/26/20 3:10 PM) Negative 02/26/2020 [facility] URINE AND STOOL UA Leuk Est Large *ABN* (02/26/20 3:10 PM) Negative 02/26/2020 [facility] URINE AND STOOL UA Sq Epi Occasional /LPF Few /LPF 02/26/2020 [facility] URINE AND STOOL UA WBC 33 0 - 5 02/26/2020 [facility] URINE AND STOOL UA RBC 2 0 - 2 02/26/2020 [facility] URINE AND STOOL UA Bacteria Few /HPF None Seen /HPF 02/26/2020 [facility] URINE AND STOOL UA Mucus Few /LPF None Seen /LPF 02/26/2020 [facility] URINE AND STOOL UA Hyal Cast 2 0 - 2 02/26/2020 [facility] URINE AND STOOL UA Urobilinogen <=1.0 mg/dL 0.1 - 1.0 02/26/2020 [facility] BLOOD BANK RESULTS ABO/Rh O POS 02/26/2020 [facility] BLOOD BANK RESULTS Antibody Scrn Negative (02/26/20 2:26 PM) 02/26/2020 [facility] CHEM PANEL Lactic Acid Lvl 1.8 0.5 - 2.2 02/26/2020 [facility] CARDIAC ENZYMES Total CK 31 12 - 191 02/26/2020 [facility] CHEM PANEL Lactic Acid Lvl 2.1 0.5 - 2.2 02/26/2020 [facility] HEMATOLOGY PT 13.2 12.0 - 14.7 02/26/2020 [facility] HEMATOLOGY INR 1.00 0.85 - 1.17 02/26/2020 [facility] HEMATOLOGY PTT 31.7 22.9 - 35.8 02/26/2020 [facility] HEMATOLOGY Basophils 0.2 0.0 - 1.0 02/26/2020 [facility] CHEM PANEL Calcium Lvl 7.7 8.5 - 10.5 04/26/2016 [facility] CHEM PANEL CO2 26 24 - 32 04/26/2016 [facility] CHEM PANEL Chloride Lvl 101 95 - 109 04/26/2016 [facility] CHEM PANEL Potassium Lvl 3.9 3.5 - 5.1 04/26/2016 [facility] CHEM PANEL eGFR 54 04/26/2016 Result [...] should be multiplied by the estimated BMI. [facility] CHEM PANEL Glucose Lvl 105 70 - 99 04/26/2016 [facility] CHEM PANEL Sodium Lvl 136 135 - 145 04/26/2016 [facility] CHEM PANEL Creatinine Lvl 1.02 0.50 - 1.40 04/26/2016 [facility] CHEM PANEL BUN 10 7 - 22 04/26/2016 [facility] CHEM PANEL AGAP 12.9 10.0 - 20.0 04/26/2016 [facility] HEMATOLOGY MPV 7.4 7.4 - 10.4 04/26/2016 [facility] HEMATOLOGY Platelet 145 133 - 450 04/26/2016 [facility] HEMATOLOGY RDW 15.2 11.5 - 14.5 04/26/2016 [facility] MCHC 31.9 32.0 - 36.0 04/26/2016 [facility] RBC 2.99 4.20 - 5.40 04/26/2016 [facility] Hgb 8.5 12.0 - 16.0 04/26/2016 [facility] HEMATOLOGY Hct 26.8 36.0 - 48.0 04/26/2016 [facility] HEMATOLOGY MCV 89.5 80.0 - 98.0 04/26/2016 [facility] MCH 28.6 27.0 - 31.0 04/26/2016 [facility] HEMATOLOGY WBC 5.7 3.7 - 10.4 04/26/2016 [facility] HEMATOLOGY Eosinophils # 0.2 0.0 - 0.5 04/26/2016 [facility] HEMATOLOGY Monocytes # 0.5 0.0 - 0.8 04/26/2016 [facility] HEMATOLOGY Lymphocytes # 0.9 1.0 - 5.5 04/26/2016 [facility] HEMATOLOGY Segs-Bands # 4.1 1.5 - 8.1 04/26/2016 [facility] HEMATOLOGY Basophils 0.6 0.0 - 1.0 04/26/2016 [facility] HEMATOLOGY Eosinophils 2.9 0.0 - 4.0 04/26/2016 [facility] HEMATOLOGY Monocytes 9.0 2.0 - 12.0 04/26/2016 [facility] HEMATOLOGY Lymphocytes 15.9 20.0 - 40.0 04/26/2016 [facility] HEMATOLOGY Segs 71.6 45.0 - 75.0 04/26/2016 [facility] HEMATOLOGY Basophils 0.4 0.0 - 1.0 04/25/2016 [facility] HEMATOLOGY Eosinophils # 0.2 0.0 - 0.5 04/25/2016 [facility] HEMATOLOGY Monocytes # 0.5 0.0 - 0.8 04/25/2016 [facility] HEMATOLOGY Lymphocytes # 0.8 1.0 - 5.5 04/25/2016 [facility] HEMATOLOGY Segs-Bands # 5.7 1.5 - 8.1 04/25/2016 [facility] HEMATOLOGY Eosinophils 2.3 0.0 - 4.0 04/25/2016 [facility] HEMATOLOGY Monocytes 6.3 2.0 - 12.0 04/25/2016 [facility] Lymphocytes 11.0 20.0 - 40.0 04/25/2016 [facility] Segs 80.0 45.0 - 75.0 04/25/2016 [facility] MPV 6.8 7.4 - 10.4 04/25/2016 [facility] Platelet 161 133 - 450 04/25/2016 [facility] RDW 15.3 11.5 - 14.5 04/25/2016 [facility] MCH 28.7 27.0 - 31.0 04/25/2016 [facility] MCV 88.5 80.0 - 98.0 04/25/2016 [facility] Hct 29.0 36.0 - 48.0 04/25/2016 [facility] Hgb 9.4 12.0 - 16.0 04/25/2016 [facility] RBC 3.28 4.20 - 5.40 04/25/2016 [facility] MCHC 32.5 32.0 - 36.0 04/25/2016 [facility] WBC 7.2 3.7 - 10.4 04/25/2016 [facility] CHEM PANEL Magnesium Lvl 2.1 1.8 - 2.4 04/24/2016 [facility] CHEM PANEL Phosphorus 3.6 2.5 - 4.5 04/24/2016 [facility] ELECTROLYTES Potassium Lvl 4.6 3.5 - 5.1 04/24/2016 [facility] ELECTROLYTES Sodium Lvl 135 135 - 145 04/24/2016 [facility] ELECTROLYTES Glucose Lvl 97 70 - 99 04/24/2016 [facility] ELECTROLYTES Creatinine Lvl 1.2 8 0.50 - 1.40 04/24/2016 [facility] ELECTROLYTES BUN 7 7 - 22 04/24/2016 [facility] ELECTROLYTES eGFR 41 04/24/2016 Result Comment: [...] should be multiplied by the estimated BMI. [facility] ELECTROLYTES Chloride Lvl 98 95 - 109 04/24/2016 [facility] ELECTROLYTES AGAP 13.6 10.0 - 20.0 04/24/2016 [facility] ELECTROLYTES CO2 28 24 - 32 04/24/2016 [facility] ELECTROLYTES Albumin Lvl 2.7 3.5 - 5.0 04/24/2016 [facility] ELECTROLYTES Total Protein 5.9 6.4 - 8.4 04/24/2016 [facility] ELECTROLYTES A/G Ratio 0.8 0.7 - 1.6 04/24/2016 [facility] ELECTROLYTES Globulin 3.2 2.0 - 4.0 04/24/2016 [facility] ELECTROLYTES B/C Ratio 5 6 - 25 04/24/2016 [facility] ELECTROLYTES ALT 13 0 - 65 04/24/2016 [facility] ELECTROLYTES Bili Total 0.4 0.2 - 1.3 04/24/2016 [facility] ELECTROLYTES Alk Phos 80 39 - 136 04/24/2016 [facility] ELECTROLYTES AST 16 0 - 37 04/24/2016 [facility] ELECTROLYTES Calcium Lvl 8.2 8.5 - 10.5 04/24/2016 [facility] HEMATOLOGY Monocytes # 0.4 0.0 - 0.8 04/24/2016 [facility] HEMATOLOGY Eosinophils # 0.1 0.0 - 0.5 04/24/2016 [facility] HEMATOLOGY Basophils # 0.1 0.0 - 0.2 04/24/2016 [facility] HEMATOLOGY Basophils 0.9 0.0 - 1.0 04/24/2016 [facility] HEMATOLOGY Eosinophils 1.7 0.0 - 4.0 04/24/2016 [facility] HEMATOLOGY Lymphocytes # 0.9 1.0 - 5.5 04/24/2016 [facility] HEMATOLOGY Segs-Bands # 5.0 1.5 - 8.1 04/24/2016 [facility] HEMATOLOGY Lymphocytes 13.2 20.0 - 40.0 04/24/2016 [facility] HEMATOLOGY Monocytes 6.2 2.0 - 12.0 04/24/2016 [facility] Segs 78.0 45.0 - 75.0 04/24/2016 [facility] WBC 6.5 3.7 - 10.4 04/24/2016 [facility] MCHC 32.4 32.0 - 36.0 04/24/2016 [facility] Platelet 198 133 - 450 04/24/2016 [facility] RDW 15.1 11.5 - 14.5 04/24/2016 [facility] MPV 6.8 7.4 - 10.4 04/24/2016 [facility] MCV 88.3 80.0 - 98.0 04/24/2016 [facility] Hgb 11.0 12.0 - 16.0 04/24/2016 [facility] RBC 3.84 4.20 - 5.40 04/24/2016 [facility] Hct 34.0 36.0 - 48.0 04/24/2016 [facility] MCH 28.7 27.0 - 31.0 04/24/2016 [facility] HEMATOLOGY PTT 31.0 22.9 - 35.8 04/24/2016 [facility] INR 1.11 0.85 - 1.17 04/24/2016 [facility] PT 14.6 12.0 - 14.7 04/24/2016 [facility] URINE AND STOOL UA Color Ltyellow 04/23/2016 [facility] URINE AND STOOL UA Urobilinogen <=1.0 mg/dL 0.1 - 1.0 04/23/[address] [facility] [address] URINE AND STOOL UA Protein Negative mg/dL Negative mg/dL 04/23/[address] [facility] [address] URINE AND STOOL UA pH 6.0 5.0 - 8.0 04/23/2016 [facility] URINE AND STOOL UA Bili Negative *NA* (04/23/16 5:56 PM) Negative 04/23/2016 [facility] URINE AND STOOL UA Ketones Negative mg/dL Negative mg/dL 04/23/2016 [facility] URINE AND STOOL UA Glucose Negative mg/dL Negative mg/dL 04/23/2016 [facility] URINE AND STOOL UA Nitrite Negative (04/23/16 5:56 PM) Negative 04/23/2016 [facility] URINE AND STOOL UA Blood Moderate *ABN* (04/23/16 5:56 PM) Negative 04/23/2016 [facility] URINE AND STOOL UA Spec Grav 1.004 <=1.030 04/23/2016 [facility] URINE AND STOOL UA Turbidity Clear (04/23/16 5:56 PM) Clear 04/23/2016 [facility] URINE AND STOOL UA RBC 1 0 - 2 04/23/2016 [facility] URINE AND STOOL UA WBC 1 0 - 5 04/23/2016 [facility] URINE AND STOOL UA Sq Epi Occasional /LPF Few /LPF 04/23/2016 [facility] URINE AND STOOL UA Leuk Est Negative (04/23/16 5:56 PM) Negative 04/23/2016 [facility] CHEM PANEL B/C Ratio 5 6 - 25 04/23/2016 [facility] CHEM PANEL AGAP 11.5 10.0 - 20.0 04/23/2016 [facility] CHEM PANEL Globulin 3.4 2.0 - 4.0 04/23/2016 [facility] CHEM PANEL A/G Ratio 0.9 0.7 - 1.6 04/23/2016 [facility] CHEM PANEL eGFR 44 04/23/2016 Result [...] should be multiplied by the estimated BMI. [facility] CHEM PANEL Alk Phos 86 39 - 136 04/23/2016 [facility] CHEM PANEL Bili Total 0.5 0.2 - 1.3 04/23/2016 [facility] CHEM PANEL AST 15 0 - 37 04/23/2016 [facility] CHEM PANEL ALT 15 0 - 65 04/23/2016 [facility] CHEM PANEL Albumin Lvl 3.1 3.5 - 5.0 04/23/2016 [facility] CHEM PANEL Chloride Lvl 93 95 - 109 04/23/2016 [facility] CHEM PANEL CO2 28 24 - 32 04/23/2016 [facility] CHEM PANEL Potassium Lvl 3.5 3.5 - 5.1 04/23/2016 [facility] CHEM PANEL Sodium Lvl 129 135 - 145 04/23/2016 [facility] CHEM PANEL Creatinine Lvl 1.20 0.50 - 1.40 04/23/2016 [facility] CHEM PANEL BUN 6 7 - 22 04/23/2016 [facility] CHEM PANEL Glucose Lvl 94 70 - 99 04/23/2016 [facility] CHEM PANEL Calcium Lvl 8.5 8.5 - 10.5 04/23/2016 [facility] CHEM PANEL Total Protein 6.5 6.4 - 8.4 04/23/2016 [facility] HEMATOLOGY PT 13.8 12.0 - 14.7 04/23/2016 [facility] HEMATOLOGY INR 1.03 0.85 - 1.17 04/23/2016 [facility] HEMATOLOGY PTT 31.8 22.9 - 35.8 04/23/2016 [facility] Pathology Reports No Data Provided for [...] 1 hour physician or 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 This radiologist did not supervise this [...] above. Eder Cortez MD On 02/27/2020 16:49:12; [id number] 02/27/2020 [facility] Brain wo contrast CT Radiation Dose [...] level. Brock Bradley MD On 02/26/2020 14:29:33; [id number] 02/26/2020 [facility] Spine cervical wo contrast CT Radiation [...] C6-C7. Brock Bradley MD On 02/26/2020 14:48:00; [id number] 02/26/2020 [facility] Pelvis AP DX PROCEDURE INFORMA TION: [...] neck. Eder Cortez MD On 02/26/2020 13:39:25; [id number] 02/26/2020 [facility] Chest 1view DX PROCEDURE INFOR MATION: [...] chest. Eder Cortez MD On 02/26/2020 13:37:08; [id number] 02/26/2020 [facility] Brain wo contrast CT Radiation Dose [...] process. Ezequiel Browne MD On 11/24/2019 11:01:23; [id number] 11/24/2019 [facility] Spine cervical wo contrast CT (ER) [...] Avila MD On 11/24/2019 11:07:10; [id number] 11/24/2019 [facility] Hip 2/3 views uni w pelvis [...] finding. Kobe Zapien MD On 11/24/2019 11:11:33; [id number] 11/24/2019 [facility] Chest 1view DX PROCEDURE INFOR MATION: [...] Paz MD On 11/24/2019 11:06:57; [id number] 11/24/2019 [facility] Hip 2/3 views uni DX Patient N blanca: MANFRED WALKER : 1940; Age: 75 years y/o Female MR: [id number] Study: 5 spot images of the right hip dated 04/24/2016. Clinical Indication: Right Hip Pinning; 1 minute and 17 seconds fluoro time/14.77 mGy/OEC 9900+ 3/OR 3 Comparison: 04/23/2016 The spot views limit evaluation of bony detail. The spot views show placement of 3 screws across a right subcapital femur fracture. Bones are in near anatomic alignment on the views provided. SL: CSODERSKARY- 04/24/2016 [facility] Brain wo contrast CT Study: Br [...] aerated. IMPRESSION: No acute intracranial abnormality. SL: [id number] 04/23/2016 [facility] Knee series 3 views DX Study: [...] the ri ght knee. SL: MARCIO- 04/23/2016 [facility] Elbow 2 views DX : ; Age: 75 years y/o Female MR: [id number] Study: Elbow 2 views DX 04/23/2016 3:14 [...] No acute fracture or malalignment seen. SL: [id number] 04/23/2016 [facility] Pelvis AP DX : 1940; A ge: 75 years y/o Female MR: [id number] Study: Pelvis AP DX, Hip 2/3 views [...] of the right mid femoral neck. SL: [id number] 04/23/2016 [facility] Chest 1view DX : 1940; Age: 75 years y/o Female MR: [id number] Study: Chest 1view DX 04/23/2016 3:15 PM [...] IMPRESSION: 1. No acute intrathoracic abnormality. SL: [id number] 04/23/2016 [facility] Hip 2/3 views uni DX : 06/19; Age: 75 years y/o Female MR: [id number] Study: Pelvis AP DX, Hip 2/3 views [...] of the right mid femoral neck. SL: [id number] 04/23/2016 [facility] Consultation Notes No Data Provided for [...] 03/22/2020 [facility] Diastolic (mm Hg) 53 03/22/2020 [facility] Temperature Oral (F) 98.1 F 03/22/2020 [facility] Heart Rate 62 03/22/2020 [facility] Height 160.2 cm 03/12/2020 [facility] Weight 73.352 03/12/2020 [facility] BMI Calculated 28.58 03/12/2020 [facility] Height 160.02 cm 03/05/2020 [facility] Weight 71.2 03/05/2020 [facility] BMI Calculated 27.81 03/05/2020 [facility] Height 160.02 cm 03/03/2020 [facility] Weight 72.545 03/03/2020 [facility] BMI Calculated 28.33 03/03/2020 [facility] Respitory Rate 16 03/03/2020 [facility] Temperature Oral (F) 99.0 F 03/03/2020 [facility] Heart Rate 70 03/03/2020 [facility] Respitory Rate 18 03/03/2020 [facility] Systolic (mm Hg) 140 03/03/2020 [facility] Diastolic (mm Hg) 50 03/03/2020 [facility] Temperature Oral (F) 97.7 F 03/02/2020 [...] 66 11/24/2019 [facility] Respitory Rate 15 11/24/2019 [facility] Temperature Oral (F) 98.9 F 11/24/2019 [facility] Respitory Rate 23 11/24/2019 [facility] Respitory Rate 19 11/24/2019 [facility] Systolic (mm Hg) 114 11/24/2019 [facility] Diastolic (mm Hg) 77 11/24/2019 [facility] Systolic (mm Hg) 107 11/24/2019 [facility] Diastolic (mm Hg) 66 11/24/2019 [facility] Heart Rate 59 11/24/2019 [facility] Temperature Oral (F) 98.5 F 11/24/2019 [facility] Height 162.56 cm 11/24/2019 [facility] BMI Calculated 27.87 11/24/2019 [facility] Weight 73.636 11/24/2019 [facility] Heart Rate 67 04/26/2016 [facility] Temperature Oral (F) 98.3 F 04/26/2016 [facility] Respitory Rate 18 04/26/2016 [facility] Systolic (mm Hg) 118 04/26/2016 [facility] Diastolic (mm Hg) 71 04/26/2016 [facility] Systolic (mm Hg) 116 04/26/2016 [facility] Diastolic (mm Hg) 69 04/26/2016 [facility] Respitory Rate 16 04/26/2016 [facility] Temperature Oral (F) 98.4 F 04/26/2016 [facility] Heart Rate 70 04/26/2016 [facility] Systolic (mm Hg) 101 04/26/2016 [facility] Diastolic (mm Hg) 58 04/26/2016 [facility] Temperature Oral (F) 97.9 F 04/26/2016 [facility] Heart Rate 63 04/26/2016 [facility] Respitory Rate 16 04/26/2016 [facility] Weight 72.727 04/23/2016 [facility] Height 160.02 cm 04/23/2016 [facility] BMI Calculated 28.4 04/23/2016 [facility] Encounters Location Location Details Encounter Type Encounter Number Reason For Visit Attending Provider ADM Date DC Date Status Source [facility] Inpatient [id number] Alejandro Kumar 04/23/2016 04/26/2016 [facility] Emergency [id number] Michael Moser 11/24/2019 11/24/2019 [facility] Inpatient [id number] Vibha Murphy 02/26/2020 03/03/2020 [facility] [id number] Justo Dallas Jr 03/03/2020 03/23/2020 [facility] Procedures Procedure Code Date Perfomer Comments Source Cardiac catheterization [id number] [facility] Placement of stent [id number] [facility] Assessment and Plan Assessment and Plan [...] grooming and basic mobilization. She presented to [facility] after having a mechanical fall at home with an associated acute traumatic left hip intertrochanteric femur fracture. Dr. Hester performed a left hip ORIF. There were no major intraoperative complications. Postoperatively, she had some anemia and some confusion decline in functional mobility and self-care. She was recommended for acute intensive inpatient rehabilitation and is admitted to [facility] rehabilitation unit on 03/02. REHABILITATION HOSPITAL COURSE: [...] provide that support and have requested a [facility] center. 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 Family now agreeing to come [...] Dimitri Hester orthopedic surgery 3 weeks. 3. [facility] facility physical th erapy and occupational therapy. [...] hose rinsing . Patient completed dryer with chair trimmer and combing . -tolerating therapy. -Awaiting SNF [...] rolling walker for ambulation who presents to [facility] with a slip and fall off the [...] rolling walker for ambulation who presents to [facility] s/p fall off the toilet. 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 Postop anemia requiring blood products. PLAN: 1. Rehab Plan- PT/OT to see patient arthur canchola in hospital. garnett room worker, returned case inspector and Medical/Rehab/Pain/Consulting team following. -Functional goals to [...] s 3 times daily as needed for bocu-kt-floyhbkg pain (1-3)- unless contraindicated. - Ice/Heat PRN [...] Rehabilitation Nursing, Psychology, Case Management, Pharmacist, and Plumbing Inspector. FUNCTIONAL HISTORY: Modified Independent ADLs, mobility, community [...] performing the following tasks safely: Attendance of pentecostal/latter-day activities Participation in family activities Participation in recreational activities Unassisted ambulation/mobility Unassisted self-care tasks such as bathing and dressing Medication management director records management Cooking Cleaning REHAB PROGNOSIS: Good ESTIMATED LENGTH OF STAY: 10 days DISPOSITION: Goal is to get this patient home with family support, however availability of support to be investigated at all times. Many suport decisions are made prior to arrival in acute hospital without having full detailed communication with family and friends about functional limitations. Patient may need mcc facility placement prior to discharge home but the goal is always to try and get back to home setting. OTHER MD'S INVOLVED IN CARE: 03/23/2020 [facility] Extracted from:Title: Progress Note Author: Vibha [...] rolling walker for ambulation who presents to [facility] with a slip and fall off the [...] to see patient arthur e in hospital. garnett room worker, returned case inspector and Medical/Rehab/Pain/Consulting team following. -Functional goals to [...] s 3 times daily as needed for kdgi-aj-umjebegf pain (1-3)- unless contraindicated. - Ice/Heat PRN [...] ATTACKSsince AND Crystal requested to continue. 03/03/2020 [facility] Plan of Care No Data Provided for This Section Social History Social History Date Source Social History TypeResponse Smoking Status Never smoker; Type: Cigarettes; Exposure to Tobacco Smoke None; Cigarette Smoking Last 365 Days No; Reg Smoking Cessation Counseling No entered on: 03/03/20 03/03/2020 [facility] Family History No Data Provided for This Section Advance Directives No Data Provided for This Section Functional Status No Data Provided for This Section
--- OUTSIDE RECORDS SUMMARY | 2020-06-18 17:36 | XMS REPORT | Continuity of Care Document ---
Author Author [facility] Organization [facility] Address [address] [place] [address] Phone Unavailable Care Team Providers Care Manager Athletics Name Role Phone Brock Tirado Jr Attphys Vibha Murphy Attphys Marleny Moser Attphys Eric Kumar Attphys Brock Tirado Jr Admphys Vibha Murphy Admphys Eric Kumar Admphys Problems Condition Name Condition Details Condition Category Status Onset Date Resolution Date Last Treatment Date Treating Clinician Comments Source FALL FALL Active 02/26/2020 [facility] Diagnosis Active 2020-02-26 00:00:00 2020-02-26 14:43:00 Leland Prado CLOSED COMMINUTED INTERTROCHANTERIC FX O CLOSED COMMINUTED INTERTROCHANTERIC FX O Active 02/26/2020 [facility] Diagnosis Active 2020-02-26 00:00:00 2020-03-07 21:51:00 Leland Prado CLOSED COMMINUTED INTERTROCHANTERIC CLOSED COMMINUTED INTERTROCHANTERIC Active 02/26/2020 [facility] Diagnosis Ac tive 2020-02-26 00:00:00 2020-03-02 13:00:00 M emosherlyal Johan INTERTROCHANTERIC FRACTURE INT ERTROCHANTERIC FRACTURE Active 02/26/2020 [facility] Diagnosis Active 2020-02-26 00:00:00 2020-03-30 21:49:00 Leland Prado RIGHT HIP FRACTURE RIGH T HIP FRACTURE Active 04/23/2016 [facility] Diagnosis Active 2016-04-23 00:00:00 2016-04-26 09:59:00 Leland [...] HCl Codeine Phosphate-Promethazine H Cl Active Leland Dohrety n Social History Smoking Status Start Date Stop Date Source Social History Leland Prado Medications Ordered Medication Name Filled Medication Name Start Date Stop Da te Current Medication? Ordering Clinician Indication Dosage Frequency Signature (SIG) Comments Components Source citalopram 10 mg oral tablet 2020-03-23 14:16:00 Yes 40 mg = 4 tab, PO, Daily, # 120 tab, 0 Refill(s), Pharmacy: [address] Furosemide 20 MG Oral Tablet 2020-03-23 14:16:00 Yes 20 mg = 1 tab, PO, Daily, # 30 tab, 0 Refill(s), Pharmacy: [address] 24 HR Metoprolol Tartrate 25 MG Extended Release Tablet [Top rol] 2020-03-23 14:16:00 Yes 25 mg = 1 tab, PO, Daily, # 30 tab, 0 Refill(s), Pharmacy: [address] Rosuvastatin calcium 20 MG Oral Tablet [Crestor] 2020-03-23 14:16:00 Yes 20 mg = 1 tab, PO, B edtime, # 30 tab, 0 Refill(s), Pharmacy: [address] tramadol hydrochloride 50 MG Oral Tablet 2020-03-23 14:16:00 Yes 50 mg = 1 tab, PO, Q4H, PRN Pain Score 1-3, X 3 day, # 10 tab, 0 Refill(s), Pharmacy: [address] cholecalciferol 1000 intl units oral tablet 2020-03-15 16:02:00 Yes 1,000 IntlUnit = 1 tab, PO, Daily, 0 Refill(s) [facility] diazepam 5 mg oral tablet 2020-03-15 16:02:00 Yes 10 mg = 2 tab, PO, BID, PRN as needed for anxiety, 0 Refill(s) [facility] Acetaminophen 325 MG Oral Tablet 2020-03-15 16:02:00 Yes 650 mg = 2 tab, PO, Q4H, PRN Pain Score 1-3, 0 Refill(s) [facility] bisacodyl 10 mg rectal suppository 2020-03-15 16:02:00 Yes 10 mg = 1 supp, TX, Bedtime, PRN Constipation, 0 Refill(s) [facility] Calcium Carbonate 500 MG Chewable Tablet 2020-03-15 16:02:00 Yes 500 mg = 1 tab, PO, BID, 0 Refill(s) [facility] Docusate Sodium 100 MG Oral Capsule 2020-03-15 16:02:00 Yes 100 mg = 1 cap, PO, BID, PRN Constipation, 0 Refill(s) Leland Prado enoxaparin 40 mg/0.4 mL subcutaneous solution 2020-03-15 16:02:0 0 No 40 mg = 0.4 mL, SUB-Q, [id number], 0 Refill(s) Leland Prado Furosemide 20 MG Oral Tablet 2020-03-15 16:02:00 No 20 mg = 1 tab, PO, Daily, 0 Refill(s) Leland Prado Ipratropium [place] 0.2 MG/ML Inhalant Solution 2020-03-15 16:02 :00 Yes 0.5 mg = 2.5 mL, NEB, RQID, 0 Refill(s) Leland Prado melatonin 3 mg oral tablet 2020-03-15 [...] Stop date: 04/13/20 14:21:00 CDT, 1.83, m2 [facility] Melatonin 2020-03-13 19:20:00 No 3 mg, Route: PO, Bedtime, Dosing Weight 73.352, kg, PRN Sleep, Start date: 03/13/20 14:20:00 CDT, Duration: 30 day, Stop date: 04/12/20 14:19:00 CDT Ut melissa Prado Potassium Chloride 2020-03-13 19:19:00 No [...] 19:27:00 No Notes: (Aidan e as: Valium) [facility] Docusate Sodium 100 MG Oral Capsule 2020-03-07 19:37:00 No Notes: (Same as: Colace) (Do Not Crush) More Prado Miralax 2020-03-07 19:37:00 No Notes: Dissolve in 8 oz of water or juice. (Same as: Miralax) Leland Delia nn sennosides, DETENTION 8.6 MG Oral Tablet 2020-03-07 19:37:00 No Notes: (Same as: Senokot) [facility] tramadol hydrochloride 50 MG Oral Tablet 2020-03-04 02:23:00 No Notes: Not to exceed 400mg/day. (Same As: Ultram) [facility] Potassium Chloride 2020-03-03 20:20:00 No Notes: (Same as: K-Dur 20) "Do Not Crush" Give with food and full glass of water For patients unable to swallow tablet, dissolve in one half glass of water. Allow about 2 minutes for the tablets to disintegrate. Stir before giving to prepare slurry and administer. Please exclude Patient s with feeding tube less than 14 [place] (Magda, J-tube etc) and pediatric and patients. [facility] potassium chloride 20 mEq oral tablet, extended release (KCL ) 2020-03-03 16:55:00 No 20 mEq, 1 tab, Route: PO, Drug form: ERTAB, Q12H, Dosing Weight 72.545, kg, PRN Abnormal Lab Result, Start date: 03/03/20 11:55:00 CDT, Duration: 30 day, Stop date: 04/02/20 11:54:00 CDT, 0 [facility] Potassium Chloride 2020-03-03 15:23:00 No Notes: (Same as: K-Dur 20) "Do Not Crush" Give with food and full glass of water For patients unable to swallow tablet, dissolve in one half glass of water. Allow about 2 minutes for the tablets to disintegrate. Stir before giving to prepare slurry and administer. Please exclude Patient s with feeding tube less than 14 [place] ([place], J-tube etc) and pediatric and patients. [facility] Cholecalciferol 2020-03-03 14:00:00 No Notes: Same as : Vitamin D3 [facility] Celexa 2020-03-03 14:00:00 No 40 mg, 4 tab, Route: PO, Drug form: TAB, Daily, Dosing Weight 72.545, kg, Start date: 03/03/20 9:00:00 CDT, Duration: 30 day, Stop date: 04/01/20 9:00:00 CDT, 0 [facility] metoprolol extended release 2020-03-03 14:00:00 No Notes: (Same as: Toprol XL) Do Not Crush [facility] Saline Flush 0.9% 2020-03-03 14:00:00 No Notes: (Same as: BD Posiflush) [facility] Acetaminophen 2020-03-03 04:13:00 No Notes: Do not exceed 4 gm/day. (Same as: Tylenol) [facility] Acetaminophen 325 MG / Hydrocodone Bitartrate 5 MG Oral Tabl et 2020-03-03 04:13:00 No Notes: (Sa me as: [place] 325/5) Do not exceed 4gm/day of acetaminophen. [facility] Ondansetron 2020-03-03 04:13:00 No Notes: ( Same as: Zofran) [facility] Docusate 2020-03-03 04:13:00 No Notes: (Same as: Colace) (Do Not Crush) [facility] Bisacodyl 2020-03-03 04:13:00 No Notes: (Same As: Dulcolax, Bisco-Lax) [facility] Melatonin 2020-03-03 04:13:00 No Notes: (Sa me as: Melatonin) [facility] Saline Flush 0.9% 2020-03-03 04:13:00 No Notes: (Same as: BD Posiflush) [facility] Crestor 2020-03-03 02:00:00 No Notes: Same as Crestor [facility] Calcium Carbonate 2020-03-02 22:00:00 No Notes: (Same As: Tums) Calcium Carbonate 500 mg = 200 mg elemental calcium Dose = mg calcium carbonate ( mg elemental calcium) [facility] Diazepam 2020-03-02 22:00:00 No Notes: (Aidan e as: Valium) [facility] Protonix 2020-03-02 21:30:00 No Notes: Tablet should not be chewed or crushed. (Same as: Protonix) [facility] Lovenox 2020-03-02 17:00:00 No Notes: (Same as: Lovenox) [facility] Acetaminophen 325 MG / Hydrocodone Bitartrate 10 MG Or al Tablet [[place] 10/325] 2020-03-02 14:31:00 No Note s: Do not exceed 4gm/day of acetaminophen. (Same as: [place] 325/10) [facility] Anoro Ellipta 62.5 mcg-25 mcg inhalation powder 2020-03-02 05:05 :00 Yes 1 puff, INHALER, Daily, # 1 ea, 3 Refill(s) [facility] 24 HR Metoprolol Tartrate 25 MG Extended Release Tablet [Top rol] 2020-03-01 19:18:00 Yes 25 mg = 1 tab, PO, Daily, 0 R efill(s) [facility] citalopram 10 mg oral tablet 2020-03-01 19:18:00 Yes 40 mg = 4 tab, PO, BID, 0 Refill(s) [facility] pantoprazole 40 mg oral enteric coated tablet 2020-03-01 19:18:0 0 Yes 40 mg = 1 tab, PO, Before Breakfast, 0 Refill(s) [facility] Cholecalciferol 2020-02-28 14:00:00 No Notes: Same as : Vitamin D3 [facility] Enoxaparin 2020-02-28 12:00:00 No Notes: (S blanca as: Lovenox) [facility] Lovenox 2020-02-28 12:00:00 No 40 mg, Route: SUB-Q, Drug form: INJ, [id number], Dosing Weight 72.545, kg, Start date: 02/28/20 7:00:00 CDT, Duration: 14 day, Stop date: 03/12/20 7:00:00 CDT [facility] Calcium Carbonate 2020-02-27 22:00:00 No Notes: 500mg elemental calcium = 1250mg calcium carbonate. Contains 500mg elemental calcium. (Same As: OsCal 500) [facility] dexamethasone (BABATUNDES) 2020-02-27 17:14:00 No Route: IV, Drug form: INJ, ONCE, Stop date: 02/27/20 12:14:[address] [facility] Fentanyl 2020-02-27 16:30:00 No Notes: (Same as: Sublimaze) Preservative free. [facility] Flumazenil 2020-02-27 16:30:00 No Notes: (S blanca as: Romazicon) [facility] Naloxone 2020-02-27 16:30:00 No Notes: Same as Narcan [facility] Ondansetron 2020-02-27 16:30:00 No Notes: (Same as: Zofran) MEDICATION WASTE Product Size: 4 mg Product Wasted: ___ mg [facility] ondansetron (BABATUNDES) 2020-02-27 16:19:00 No Route: IV, Drug form: INJ, ONCE, Stop date: 02/27/20 11:19:[address] [facility] ceFAZolin (BABATUNDES) 2020-02-27 16:09:00 No Route: IV, Drug form: INJ, ONCE, Stop date: 02/27/20 11:09:00 CDT conor Johan ePHEDrine (BABATUNDES) 2020-02-27 15:53:00 No Route: IV, Drug form: INJ, ONCE, Stop date: 02/27/20 10:53:00 CDT [facility] midazolam ([facility]) 2020-02-27 15:43:00 No Route: IV, Drug form: SOLN, ONCE, Stop date: 02/27/20 10:43:00 CDT [facility] lidocaine ([facility]) 2020-02-27 15:43:00 No Route: IV, Drug form: INJ, ONCE, Stop date: 02/27/20 10:43:00 CDT [facility] fentaNYL ([facility]) 2020-02-27 15:43:00 No Route: IV, Drug form: INJ, ONCE, Stop date: 02/27/20 10:43:00 CDT [facility] glycopyrrolate ([facility]) 2020-02-27 15:43:00 No Route: IV, Drug form: INJ, ONCE, Stop date: 02/27/20 10:43:00 CDT [facility] propofol ([facility]) 2020-02-27 15:39:00 No Route: IV, Drug form: INJ, ONCE, Stop date: 02/27/20 10:39:00 CDT [facility] succinylcholine ([facility]) 2020-02-27 15:39:00 No Route: IV, Drug form: INJ, ONCE, Stop date: 02/27/20 10:39:00 CDT [facility] Dilaudid 2020-02-27 15:05:00 No Notes: (Aidan e as: Dilaudid) [facility] Lactated Ringers Injection IV ([facility]) 1000 mL 2020-02-27 14:57:00 No Route: IV, Total Volume: 1,000, Start date: 02/27/20 9:57:00 CDT, Stop date: 02/27/20 10:57:00 CDT [facility] Prevacid 2020-02-27 14:00:00 No 30 mg, Route: PO, QAM, Dosing Weight 72.545, kg, Start date: 02/27/20 9:00:00 CDT, Duration: 30 day, Stop date: 03/27/20 9:00:00 CDT [facility] 24 HR Metoprolol Tartrate 25 MG Extended Release Tablet [Top rol] 2020-02-27 14:00:00 No Notes: (Same as: Toprol XL) D o Not Crush [facility] Vitamin D3 2020-02-27 14:00:00 No Notes: Sa me as Vitamin D3 [facility] Celexa 2020-02-27 14:00:00 No 40 mg, 4 tab, Route: PO, Drug form: TAB, Daily, Dosing Weight 72.545, kg, Start date: 02/27/20 9:00:00 CDT, Duration: 30 day, Stop date: 03/27/20 9:00:00 CDT, [address] [facility] Protonix 2020-02-27 12:30:00 No Notes: Tablet should not be chewed or crushed. (Same as: Protonix) [facility] Morphine 2020-02-27 07:09:00 No Not es: (Same as:MORPhine Sulfate) [facility] Diazepam 2020-02-27 05:48:00 No Notes: (Aidan e as: Valium) [facility] Ciprofloxacin 2020-02-27 03:00:00 No Notes: Do not refrigerate [facility] Crestor 2020-02-27 02:00:00 No Notes: Same as Crestor [facility] Morphine 2020-02-26 23:55:00 No Not es: (Same as:MORPhine Sulfate) [facility] Trazodone 2020-02-26 23:35:00 No Notes: ( me As: Desyrel) [facility] Ancef + sterile water 20 mL 2020-02-26 21:51:00 No Notes: (Same As: Ancef, Kefzol) MEDICATION WASTE Product Size: 1000 mg Product Wasted: ___ mg [facility] Dextrose 50% Syringe (D50W) 2020-02-26 21:01:00 No 12.5 gm, 25 mL, Route: IVP, Drug Form: INJ, Dosing Weight 72.727, kg, PRN, PRN Blood Glucose Results, Start date: 02/26/20 16:01:00 CDT, Duration: 30 day, Stop date: 03/27/20 16:00:00 CDT, 0 [facility] Glucagon 2020-02-26 21:01:00 No 1 [...] crush or chew. (Same As: Ecotrin) Wendy mitchellohfalguni Prado Vitamin C 2016-04-25 14:00:00 No Notes: (Sa me as: Vitamin C) Leland Prado Protonix 2016-04-25 14:00:00 No Notes: Tablet should not be chewed or crushed. (Same as: Protonix) Leland Prado Crestor 2016-04-25 02:00:00 No 20 mg, Route: PO, Drug form: TAB, Bedtime, Dosing Weight 72.727, kg, Start date: 04/24/16 21:00:00 CDT, Duration: 30 day, Stop date: 05/23/16 21:00:[address] [facility] Lipitor 2016-04-25 02:00:00 No Notes: (Same as: Lipitor) Leland Prado ePHEDrine (ANES) 2016-04-24 22:33:00 No Route: IV, Drug form: INJ, ONCE, Stop date: 04/24/16 17:33:00 CDT Wendy Prado ondansetron (ANES) 2016-04-24 22:28:00 No Route: IV, Drug form: INJ, ONCE, Stop date: 04/24/16 17:28:00 CDT [facility] acetaminophen (ANES) (ANES) 2016-04-24 22:27:00 No Route: IV, Drug form: INJ, Start date: 04/24/16 17:27:00 CDT, Stop date: 04/24/16 18:27:00 CDT [facility] midazolam (ANES) 2016-04-24 22:23:00 No Route: IV, Drug form: SOLN, ONCE, Stop date: 04/24/16 17:23:00 [facility] fentaNYL (ANES) 2016-04-24 22:23:00 No Route: IV, Drug form: INJ, ONCE, Stop date: 04/24/16 17:23:00 [facility] ([facility] 2016-04-24 22:23:00 No Route: IV, Drug form: INJ, ONCE, Stop date: 04/24/16 17:23:00 CDT [facility] propofol (ANES) 2016-04-24 22:23:00 No Route: IV, Drug form: INJ, ONCE, Stop date: 04/24/16 17:23:00 CDT [facility] ceFAZolin ([facility]) (ANES) 2016-04-24 22:12:00 No Route: IV, Drug form: INJ, Start date: 04/24/16 17:12:00 CDT, Stop date: 04/24/16 18:12:00 CDT [facility] Acetaminophen 325 MG / Hydrocodone Connor trate 7.5 MG Oral Tablet [[place] 7.5/325] 2016-04-24 22:11:00 No Notes: Same as [place] 325-7.5mg Do not exceed 4gm/day of acetaminophen. Memoria l [facility] Acetaminophen 325 MG / Hydrocodone Connor trate 7.5 MG Oral Tablet [[place] 7.5/325] 2016-04-24 22:10:00 No Notes: Same as [place] 325-7.5mg Do not exceed 4gm/day of acetaminophen. [facility] Diazepam 2016-04-24 22:00:00 No Notes: (Aidan e as: Valium) [facility] LR 1000 mL INJ (ANES) 2016-04-24 21:40:00 [...] = 1 tab, PO, Bedtime, 0 Refill(s) [facility] Vitamin C 2016-04-24 02:32:00 Yes 0 Refill(s ) Leland Maguireann diazepam 10 mg oral tablet 2016-04-24 02:32:00 Yes 10 mg = 1 tab, PO, BID, 0 Refill(s) [facility] Vitamin D3 oral tablet 2016-04-24 02:32:00 Yes 800 IntlUnit = 2 tab, PO, Daily, 0 Refill(s) Leland Prado Ancef 2016-04-24 02:00:00 No Notes: Same as : Madiha [facility] Saline Flush 0.9% 2016-04-24 00:33:00 No Notes: (Same as: BD Posiflush) [facility] Sodium Chloride 0.154 MEQ/ML Injectable Solution [...] 30 day, Stop date: 05/23/16 19:32:00 CDT [facility] Morphine 2016-04-24 00:33:00 No 2 mg, Route: IVP, Q4H, Dosing Weight 72.727, kg, PRN Pain Score 7-10, Start date: 04/23/16 19:33:00 CDT, Duration: 30 day, Stop date: 05/23/16 19:32:00 CDT [facility] Enoxaparin 2016-04-23 23:00:00 No Notes: (S blanca as: Lovenox) [facility] Hydralazine 2016-04-23 22:59:00 No Notes: (Same as: Apresoline) Push over 5 minutes [facility] sodium chloride 0.9% 1000 ml INJ 1,000 mL 2016-04-23 22:59:00 No 1,000 mL, Rate: 90 ml/hr, Infuse over: 11.1 hr, Route: IV, Dosing Weight 72.727 kg, Total Volume: 1,000, Start date: 04/23/16 17:59:00 CDT, Duration: 30 day, Stop date: 05/23/16 17:58:00 CDT [facility] l [facility] Morphine 2016-04-23 22:58:00 No Not es: (Same as:MORPhine Sulfate) [facility] Docusate 2016-04-23 22:58:00 No Notes: (Same as: Colace) (Do Not Crush) [facility] Ondansetron 2016-04-23 22:58:00 No Notes: (Same as: Zofran) MEDICATION WASTE Product Size: 4 mg Product Wasted: ___ mg [facility] Acetaminophen 325 MG / Hydrocodone Bitartrate 5 MG Oral Tabl et 2016-04-23 22:58:00 No Notes: (Sa me as: [place] 325/5) Do not exceed 4gm/day of acetaminophen. [facility] Acetaminophen 2016-04-23 22:58:00 No Notes: Do not exceed 4 gm/day. (Same as: Tylenol) [facility] Morphine 2016-04-23 21:56:00 No 2 mg, Route: IVP, Drug form: INJ, ONCE, Dosing Weight 72.727, kg, Priority: STAT, Start date: 04/23/16 16:56:00 CDT, Stop date: 04/23/16 16:56:00 CDT Me melissa Mendezfran 2016-04-23 20:15:00 No 4 mg, Route: IVP, Drug form: INJ, ONCE, Dosing Weight 72.727, kg, Priority: STAT, Start date: 04/23/16 15:15:00 CDT, Stop date: 04/23/16 15:15:00 CDT Ut melissa Prado Morphine 2016-04-23 20:14:00 No 4 mg, Route: IVP, Drug form: INJ, ONCE, Dosing Weight 72.727, kg, Priority: STAT, Start date: 04/23/16 15:14:00 CDT, Stop date: 04/23/16 15:14:00 CDT Me melissa Prado Vital Signs Vital Name Observation Time Observation Value Comments Source Temperature Oral (F) 2020-03-23 12:48:00 98.4 F [facility] Heart Rate 2020-03-23 12:48:00 [facility] Respitory Rate 2020-03-23 12:48:00 [facility] Systolic (mm Hg) 2020-03-23 12:48:00 Jose rial [facility] Diastolic (mm Hg) 2020-03-23 12:48:00 Mem o[facility] Respitory Rate 2020-03-23 11:47:00 [facility] Temperature Oral (F) 2020-03-23 01:05:00 98.4 F [facility] Heart Rate 2020-03-23 01:05:00 [facility] Respitory Rate 2020-03-23 01:05:00 [facility] Systolic (mm Hg) 2020-03-23 01:05:00 Jose rial [facility] Diastolic (mm Hg) 2020-03-23 01:05:00 Mem o[facility] Systolic (mm Hg) 2020-03-22 20:46:00 Jose rial [facility] Diastolic (mm Hg) 2020-03-22 20:46:00 Mem orial [facility]an Temperature Oral (F) 2020-03-22 20:25:00 98.1 F [facility] Heart Rate 2020-03-22 20:25:00 [facility] Height 2020-03-12 11:22:00 160.2 cm [facility] Weight 2020-03-12 11:22:00 [facility] BMI Calculated 2020-03-12 11:22:00 [facility] Height 2020-03-05 11:24:00 160.02 cm [facility] Weight 2020-03-05 11:24:00 [facility] BMI Calculated 2020-03-05 11:24:00 [facility] Height 2020-03-03 04:18:00 160.02 cm [facility] Weight 2020-03-03 04:18:00 [facility] BMI Calculated 2020-03-03 04:18:00 [facility] Respitory Rate 2020-03-03 01:58:00 [facility] Temperature Oral (F) 2020-03-03 01:15:00 99.0 F [facility] Heart Rate 2020-03-03 01:15:00 [facility] Respitory Rate 2020-03-03 01:15:00 [facility] Systolic (mm Hg) 2020-03-03 01:15:00 Jose rial Johan Diastolic (mm Hg) 2020-03-03 01:15:00 Mem o[facility] Temperature Oral (F) 2020-03-02 16:33:00 97.7 F [facility] Heart Rate 2020-03-02 16:33:00 [facility] Respitory Rate 2020-03-02 16:33:00 [facility] Systolic (mm Hg) 2020-03-02 16:33:00 Jose rial [facility] Diastolic (mm Hg) 2020-03-02 16:33:00 Mem o[facility] Temperature Oral (F) 2020-03-02 12:39:00 98.5 F [facility] Heart Rate 2020-03-02 12:39:00 [facility] Systolic (mm Hg) 2020-03-02 12:39:00 Jose rial [facility] Diastolic (mm Hg) 2020-03-02 12:39:00 Mem [facility] Height 2020-02-26 21:56:00 160.02 cm [facility] Weight 2020-02-26 21:56:00 [facility] BMI Calculated 2020-02-26 21:56:00 [facility] Height 2020-02-26 17:15:00 162.56 cm [facility] BMI Calculated 2020-02-26 17:15:00 [facility] Weight 2020-02-26 17:15:00 [facility] Systolic (mm Hg) 2019-11-24 20:32:00 Jose rial [facility] Diastolic (mm Hg) 2019-11-24 20:32:00 Mem o[facility] Respitory Rate 2019-11-24 20:32:00 [facility] Temperature Oral (F) 2019-11-24 20:32:00 98.9 F [facility] Respitory Rate 2019-11-24 16:40:00 [facility] Respitory Rate 2019-11-24 16:15:00 [facility] Systolic (mm Hg) 2019-11-24 16:15:00 Jose rial [facility] Diastolic (mm Hg) 2019-11-24 16:15:00 Mem orial [facility] Systolic (mm Hg) 2019-11-24 15:18:00 Jose rial [facility] Diastolic (mm Hg) 2019-11-24 15:18:00 Mem orial [facility] Heart Rate 2019-11-24 15:18:00 [facility] Temperature Oral (F) 2019-11-24 15:18:00 98.5 F [facility] Height 2019-11-24 15:18:00 162.56 cm [facility] BMI Calculated 2019-11-24 15:18:00 [facility] Weight 2019-11-24 15:18:00 [facility] Heart Rate 2016-04-26 17:00:00 [facility] Temperature Oral (F) 2016-04-26 17:00:00 98.3 F [facility] Respitory Rate 2016-04-26 17:00:00 [facility] Systolic (mm Hg) 2016-04-26 17:00:00 Jose rial [facility] Diastolic (mm Hg) 2016-04-26 17:00:00 Mem orial [facility] Systolic (mm Hg) 2016-04-26 13:00:00 Jose rial [facility] Diastolic (mm Hg) 2016-04-26 13:00:00 Mem o[facility] Respitory Rate 2016-04-26 13:00:00 [facility] Temperature Oral (F) 2016-04-26 13:00:00 98.4 F [facility] Heart Rate 2016-04-26 13:00:00 [facility] Systolic (mm Hg) 2016-04-26 09:49:00 Jose carlos eduardo Johan Diastolic (mm Hg) 2016-04-26 09:49:00 Mem orial [facility] Temperature Oral (F) 2016-04-26 09:49:00 97.9 F [facility] Heart Rate 2016-04-26 09:49:00 [facility] Respitory Rate 2016-04-26 09:49:00 [facility] Weight 2016-04-23 19:38:00 [facility] Height 2016-04-23 19:38:00 160.02 cm [facility] BMI Calculated 2016-04-23 19:38:00 [facility] Procedures Procedure Date / Time Performed Performing Clinician Sour e Cardiac catheterization [facility] Placement of stent [facility] Encounters Start Date/Time End Date/Time Encounter Type Admission Type [facility] Care Department Encounter ID Source 2020-03-02 22:06:00 Inpatient MHSE MED [id number] [facility] 2020-03-02 22:06:00 2020-03-23 14:40:00 Outpatient Glynn Tirado MHSE MHSE [id number] 2020-02-26 12:14:09 2020-03-02 21:47:00 Outpatient Vibha Orellana MHSE MHSE [id number] 2020-02-26 15:51:00 2020-02-26 12:14:00 Inpatient E MHSE MED [id number] [facility] 2019-11-24 09:16:39 2019-11-24 14:37:00 Outpatient Kanwal Moser MHSE MHSE [id number] 2019-11-24 09:16:00 2019-11-24 09:16:00 Emergency E MHSE MHSE [id number] [facility] 2016-04-23 14:34:00 2016-04-26 15:30:00 Outpatient Alejandro Kumar MHSE MHSE [id number] Results Test Description Test Time Test Comments Results Result Comments Source CHEM PANEL 2020-03-19 09:19:00 92 [facility] 2020-03-19 09:19:00 8 [facility] PANEL 2020-03-19 09:19:00 1.12 [facility]M PANEL 2020-03-19 09:19:00 139 [facility]M PANEL 2020-03-19 09:19:00 3.8 [facility]M PANEL 2020-03-19 09:19:00 97 [facility] CHEM PANEL 2020-03-19 09:19:00 36 [facility] CHEM PANEL 2020-03-19 09:19:00 9.0 [facility]M PANEL 2020-03-19 09:19:00 9.8 [facility] CHEM PANEL 2020-03-19 09:19:00 47 [facility] HEMATOLOGY 2020-03-19 09:19:00 4.8 [facility] HEMATOLOGY 2020-03-19 09:19:00 3.36 [facility] HEMATOLOGY 2020-03-19 09:19:00 10.3 [facility] HEMATOLOGY 2020-03-19 09:19:00 31.2 [facility] HEMATOLOGY 2020-03-19 09:19:00 92.8 [facility] HEMATOLOGY 2020-03-19 09:19:00 Test Item MCH (test code = MCH) 30.7 pg 27.0-31.0 [facility] LlhxjnvFUUGQULPMX6018-55-59 09:19:0033.0[facility] 2020-03-19 09:19:0013.4[facility] QuidhfwIANJFLNIOE6190-17-06 09:19:50878Lllpchaf PhpfefmIEIXXWZYUM2585-29-06 09:19:007.0[facility]annCHEM QJUDS2233-52-95 10:11:0088[facility]annCHE[facility] JQECF1347-94-49 10:11:0013[facility]annCHE[facility] PTCHE9106-93-56 10:11:001.06[facility]annCHE[facility] NLUSU7516-32-66 10:11:00686 [facility] FGXJB2967-50-62 10:11:004.1[facility]annCHEM PANEL 2020-03-15 10:11:0097[facility]annCHE[facility] HGVCS1592-28-36 10:11:0027[facility]annCHE[facility] QHLKK6546-77-94 10:11:008.6[facility]annCHE[facility] YKITV6783-57-37 10:11:0011.1[facility]annCHEM AGPVM5651-39-82 10:11:0050[facility]annCHE[facility] WMFEJ3483-22-92 11:34:0095[facility]annCHE[facility] FGAOL1074-38-75 11:34:0010 [facility]annCHE[facility] ASPZB1571-74-06 11:34:001.03[facility]annCHEM PANEL 2020-03-13 11:34:31668Ibazmwzc HermannCHEM IBDVU9268-35-96 11:34:003.2[facility]annCHEM TRZUN3310-17-55 11:34:28292Sxkswghs HermannCHEM ZDKIF5566-52-09 11:34:0031[facility]annCHEM CTIKS4703-04-26 11:34:008.8[facility]annCHEM BSGKV0076-35-80 11:34:008.2[facility]annCHEM CAFPB8153-04-08 11:34:0052 [facility]annCARDIAC AAPIGQI7007-25-01 11:30:74471Urwtlbia HermannHEMATOLOGY 2020-03-11 10:31:0056.0[facility] XksxwvaNNDRSPOFFT1795-78-06 10:31:0024.7[facility] MkjgkkvGBYOBZGULI7078-26-48 10:31:0012.4[facility] QipeivxCRVEMHVYQG9517-37-26 10:31:006.2[facility] BnknuicJEUUMHNNQD1616-28-09 10:31:000.7[facility] OWWCZUJNFG7184-90-74 10:31:003.0[facility] SsdqtcvUXFLJBFJZX8473-47-04 10:31:001.3 [facility] HkfidovBZHXMPNPWO4333-97-83 10:31:000.7[facility]annHEMATOLOGY 2020-03-11 10:31:000.3[facility] BhkkwchVFJKNBKYNR2740-10-78 10:31:005.4[facility] JslqkstBETPFXLNQE8412-88-77 10:31:003.07[facility] MkotlfpSSAYZOXSFI1699-79-63 10:31:009.7[facility] RqihbztXTDNGPNEHY2913-59-54 10:31:0028.8[facility] TPCWTZUYFU8115-21-70 10:31:0093.7[facility] TxflafeFZWKBNTHMC1728-32-71 10:31:00* Test Item Value Reference Range Interpretation Comments MCH (test code = MCH) 31.6 pg 27.0-31.0 [facility] ScrvcwnSSWCZJILIK3289-29-37 10:31:0033.8[facility]annHEMATOLOGY 2020-03-11 10:31:0013.5[facility] WvgbugpEEWDPEXLSQ3144-00-65 10:31:94470Dwooeuvj VmcozriXJRYPOBMNW0646-43-45 10:31:007.2[facility] WmrotjlHRXZYXEAFR8539-32-58 10:09:007.4[facility] AlojlzsNNAFZCXRLH4822-53-94 10:09:003.23[facility] UKJEXSGBFA5105-73-55 10:09:0010.3[facility] EscwdgkTQMPEONYNH5761-75-66 10:09:00 30.1[facility] AonnudnYUZBGAGZXH0368-37-26 10:09:0093.3[facility]annHEMATOLOGY 2020-03-06 10:09:00* Test Item Value Reference Range Interpretation Comments MCH (test code = MCH) 31.8 pg 27.0-31.0 [facility] ZnpnmtkEWIDZSVCKZ3416-36-70 10:09:0034.1[facility]annHEMATOLOGY 2020-03-06 10:09:0013.7[facility] ThjndyjHCZCEYRGII0957-04-83 10:09:26844Odtxkkwn EtmvguiUPTAXGCXBF0714-74-87 10:09:006.9[facility]annCHEM QEWPK3088-69-11 09:23:005.1[facility]annCHEM XXXXF2904-68-45 09:23:002.1[facility]annCHEM KCVKC0499-67-84 09:23:0024[facility]annCHEM WVDZD3086-14-02 09:23:0057 [facility]annCHEM HULXR9382-77-37 09:23:0063[facility]annCHEM PANEL 2020-03-03 09:23:001.1[facility]annCHEM KHZVQ7379-01-91 09:23:00* Test Item Value Reference Range Interpretation Comments B/C Ratio (test code = B/C Ratio) 17 1 6-25 [facility]annCHE[facility] PXSYD1763-67-17 09:23:003.0[facility]annCHEM PANEL 2020-03-03 09:23:00* Test Item Value Reference Range Interpretation Comments A/G Ratio (test code = A/G Ratio) 0.7 1 0.7-1.6 [facility] SeqxiwnWQAERZLCHY6427-49-40 09:23:0060.3[facility] HermannHEMATOLOGY 2020-03-03 09:23:0021.5[facility] BdzvxnjRYQHZRBLYF1424-80-29 09:23:0011.4[facility] EfckmqzESNFQAQBEQ9973-14-05 09:23:006.4[facility] SavsgduHICIPHOWYW8488-98-32 09:23:000.4[facility] ByykwkwGBIQQNUJFK4970-85-62 09:23:004.8[facility] LEBJQTPYBY3974-95-43 09:23:001.7[facility] UusnxnqBJRPVVKWIY1572-96-69 09:23:000.9 [facility] NhzbspiAVXYYMHMWG0408-52-67 09:23:000.5[facility]annBLOOD BANK ASYESNR9647-54-83 13:26:00Negative (03/02/20 8:26 AM)[facility] JOHISHA3877-51-63 13:08:00Product available 4(03/02/20 8:08 AM)[facility] NMBVKSNKLV4340-05-36 09:42:008.2[facility] QwgaumgMJXJWBAGMN7798-75-65 09:42:00 24.4[facility] GzvajupRPYJDKYQMA2425-70-16 21:01:00Not Detected (03/01/20 4:01 PM) [facility]annCHEM VYYEX7299-80-55 09:01:0082[facility]annCHEM PANEL 2020-03-01 09:01:0016[facility]annCHEM XCWVV7962-73-79 09:01:001.00[facility]annCHEM TBWDL7838-24-04 09:01:57315Cgctpdkp HermannCHEM PEKCC4996-84-93 09:01:003.5[facility]annCHEM DYBTK2196-73-33 09:01:0099[facility]annCHEM FUYKW5828-14-95 09:01:0031[facility]annCHEM ZJFDW3000-91-84 09:01:008.3 [facility]annCHEM TWVNY8844-90-47 09:01:006.5[facility]annCHEM PANEL 2020-03-01 09:01:0054[facility] NbemslvYYSXAGFNDM8366-62-46 09:01:0063.5[facility] YuuwfyyPTDMNEDSKC0028-41-08 09:01:0019.9[facility] UmqhwudKLMQMQXXWO9655-48-30 09:01:0013.2[facility] FqoideoLYYRYYEGVJ9989-18-04 09:01:003.2[facility] TPABCUSAYE4023-80-95 09:01:000.2[facility] AaxxfpmGTDKAHVMEM6007-01-86 09:01:004.9 [facility] YikehzxQOHLYVIBNW5939-49-46 09:01:001.5[facility] HermannHEMATOLOGY 2020-03-01 09:01:001.0[facility] AjblqsoKBJPXOJWFB4029-97-71 09:01:000.2[facility] JopcxuvPEGUXOSXKU9324-01-71 09:01:007.7[facility] AooyoxvEJFJVESXGP9514-72-42 09:01:002.48[facility] InvlnivYPZNEDDNUM2114-07-87 09:01:007.9[facility] QAMSCNLKVO0793-96-06 09:01:0023.0[facility] GbzhehaUQNRFIIFVZ1807-01-35 09:01:00 92.7[facility] JphxmdjRDFTBKJFEB9841-80-14 09:01:00* Test Item Value Reference Range Interpretation Comments MCH (test code = MCH) 31.8 pg 27.0-31.0 [facility] UtsbpuqVYINDACYAP7013-64-23 09:01:0034.3[facility] HermannHEMATOLOGY 2020-03-01 09:01:0014.0[facility] LrxuxitZXZONFXOJS4681-05-52 09:01:67530Yvjtwlde VktxumdOZNZYBASML5625-22-33 09:01:007.1[facility]annCHEM WXXDT0703-81-66 09:04:0099[facility]annCHEM NKDLC4891-19-84 09:04:0018[facility]annCHEM VHUTW1249-13-25 09:04:001.17[facility]annCHEM ICUIQ4221-93-05 09:04:11674 [facility]annCHEM ORILA1876-36-62 09:04:004.2[facility]annCHEM PANEL 2020-02-29 09:04:0098[facility] HermannCHEM LOUAV9342-57-08 09:04:0031[facility]annCHEM SAJPI8090-35-57 09:04:006.2[facility]annCHEM EPQES5048-77-88 09:04:008.8[facility] HermannCHEM VAJFN6395-65-32 09:04:00* Test Item Value Reference Range Interpretation Comments B/C Ratio (test code = B/C Ratio) 15 1 6-25 [facility]annCHEM BTUBT5945-87-12 09:04:005.9[facility]annCHEM PANEL 2020-02-29 09:04:002.6[facility]annCHEM ITQWJ9297-93-19 09:04:003.3[facility]annCHEM OSFQX9842-14-04 09:04:00* Test Item Value Reference Range Interpretation Comments A/G Ratio (test code = A/G Ratio) 0.8 1 0.7-1.6 [facility]annCHEM PQCNS4020-74-73 09:04:0012[facility] HermannCHEM PANEL 2020-02-29 09:04:0034[facility]annCHEM SCTJT1237-78-29 09:04:0065[facility]annCHEM MMFYW9313-06-11 09:04:000.4[facility]annCHEM FJFHO9769-16-46 09:04:0044[facility] EaofnheRYRYDNKYVF2274-89-73 09:04:0012.1[facility] XAWVPAAAJK0846-26-90 09:04:002.39[facility] PmiivyuRCZJQZPVUB3498-65-59 09:04:00 7.5[facility] JddjwskGEBFCUGCBT6165-47-60 09:04:0022.5[facility]annHEMATOLOGY 2020-02-29 09:04:0094.1[facility] ZitkcyyNNYCMWKVSG2077-85-30 09:04:00* Test Item Value Reference Range Interpretation Comments MCH (test code = MCH) 31.4 pg 27.0-31.0 [facility] WvdojlmXEWTCBNQKF9678-77-48 09:04:0033.4[facility] HermannHEMATOLOGY 2020-02-29 09:04:0013.7[facility] JibpboxHUDQNRLJUN3400-73-97 09:04:54383Aigyubdw XeowbroPPKMDPYGQX4241-00-41 09:04:007.2[facility] GznfskoGJADSGGZOX2544-61-39 09:04:0075.6[facility] FoafxaiDKONTDGKPB4414-47-87 09:04:0012.5[facility] OPETBRJFLH7783-05-16 09:04:0011.2[facility] QdimkznIXNIFRPYEZ2861-25-73 09:04:00 0.7[facility] BunsgcbNKHWAKBIKE1190-73-38 09:04:009.1[facility]annHEMATOLOGY 2020-02-29 09:04:001.5[facility] EkukwidKHZABXXCDJ8959-11-36 09:04:001.3[facility] NugvpskYYZUSILQLT8268-61-04 09:04:000.1[facility]annBLOOD BANK RESULTS 2020-02-28 20:02:00Product available 5(02/28/20 3:02 PM)[facility]annCHEM ITCBU4479-89-60 10:40:78534Kghrqsal HermannCHEM HYNQP5547-15-05 10:40:0014 [facility]annCHE[facility] GYXNM2201-58-62 10:40:001.07[facility]annCHEM PANEL 2020-02-28 10:40:79129Qkzcfzvg HermannCHEM TGWFK3373-62-26 10:40:004.2[facility]annCHEM HTTIK9884-28-73 10:40:0097[facility]annCHEM EMDVE5204-43-76 10:40:0029[facility]annCHEM UHEWF4067-59-39 10:40:008.3[facility]annCHEM RYWPH6317-90-31 10:40:005.2[facility]annCHEM TIXHA6936-26-17 10:40:002.2 [facility]annCHEM VTVAU8282-09-90 10:40:009[facility]annCHEM PANEL 2020-02-28 10:40:0020[facility]annCHEM QQQCY4182-77-20 10:40:0059[facility]annCHEM KBBTA2572-20-96 10:40:000.2[facility]annCHEM OIUNM9377-59-79 10:40:009.2[facility]annCHEM BXCPO5449-58-59 10:40:00* Test Item Value Reference Range Interpretation Comments B/C Ratio (test code = B/C Ratio) 13 1 6-25 [facility]annCHE[facility] CTRDD2444-89-16 10:40:003.0[facility]annCHEM PANEL 2020-02-28 10:40:00* Test Item Value Reference Range Interpretation Comments A/G Ratio (test code = A/G Ratio) 0.7 1 0.7-1.6 [facility]CHE[facility] GTXRZ2759-03-50 10:40:0049[facility]annHEMATOLOGY 2020-02-28 10:40:0087.6[facility] TzmhkdwFANYTESKMK7466-02-21 10:40:005.6[facility] GuzkqudIBZWSDYAYH5236-67-64 10:40:006.8[facility] SlxzizrLEQUDDPTTE9025-40-27 10:40:0010.6[facility] MfhrzdvDITIUGCHSR5436-28-76 10:40:000.7[facility] IVIDNFBUHQ1514-41-62 10:40:000.8[facility] IadkhpfWCVLJSTJGR6598-26-36 10:40:00 12.2[facility] BmoudekLXFAYQLUUB5768-70-00 10:40:002.36[facility]annHEMATOLOGY 2020-02-28 10:40:0094.4[facility] ZtzrzueVGVXKDUGOE0174-86-71 10:40:00* Test Item Value Reference Range Interpretation Comments MCH (test code = MCH) 31.7 pg 27.0-31.0 [facility] DjrxgehFNQHIPAWJH2321-93-65 10:40:0033.5[facility]annHEMATOLOGY 2020-02-28 10:40:0013.7[facility] IbfscpqPAIAZPGFYD7866-70-62 10:40:31132Vkxghqzn GbfjqqxIAEOEIZKBF9822-44-48 10:40:007.4[facility]annCHEM GNVHX4757-70-58 10:47:005.8[facility]annCHEM SEDFQ5314-39-71 10:47:002.8[facility]annCHEM SPMEN2808-56-52 10:47:0013[facility]annCHEM XYLOE7755-43-90 10:47:0022 [facility]annCHE[facility] AGBGW2780-87-21 10:47:0083[facility]annCHEM PANEL 2020-02-27 10:47:000.4[facility]annCHEM YXXMM3081-50-63 10:47:00* Test Item Value Reference Range Interpretation Comments B/C Ratio (test code = B/C Ratio) 9 1 6-25 [facility]CHE[facility] VHRNQ0430-12-32 10:47:003.0[facility]annCHEM PANEL 2020-02-27 10:47:00* Test Item Value Reference Range Interpretation Comments A/G Ratio (test code = A/G Ratio) 0.9 1 0.7-1.6 [facility] BdswqbnOJOHBDBIBH1219-97-41 10:47:001.7[facility]annHEMATOLOGY 2020-02-27 10:47:000.2[facility] BttvzhhNLQRIDOIEC5929-65-91 10:47:000.1[facility]annURINE AND TOCRW4155-73-66 20:10:00Yellow *NA*(02/26/20 3:10 PM)[facility] MWZEQ3636-58-36 20:10:00Slight *ABN*(02/26/20 3:10 PM)[facility] JAFOO1932-87-68 20:10:00* Test Item Value Reference Range Interpretation Comments UA Spec Grav (test code = UA Spec Grav) 1.005 1 [facility] EEYWZ6555-08-20 20:10:00* Test Item Value Reference Range Interpretation Comments UA pH (test code = UA pH) 5.0 1 5.0-8.0 [facility] ZNWLA4629-66-81 20:10:00Negative *NA*(02/26/20 3:10 PM) [facility] WKEIC7796-23-66 20:10:00Small *ABN*(02/26/20 3:10 PM) [facility] MECIT4403-76-31 20:10:00Negative (02/26/20 3:10 PM) [facility] PNPYE5551-17-63 20:10:00Large *ABN*(02/26/20 3:10 PM) [facility] GXGIA8512-90-01 20:10:0033[facility] UDVVJ8190-47-53 20:10:002[facility] IIEFB0321-33-44 20:10:002 [facility]BLOOD BANK OLKASQS3761-76-32 19:26:00Negative (02/26/20 2:26 PM) [facility]annCHEM BKZQF8694-88-02 18:12:001.8[facility] HermannCARDIAC ENZYMES 2020-02-26 17:39:0031[facility]annCHEM OZQJZ3780-35-08 17:39:002.1[facility] KbcbvsrMRVMKJHEQW2257-00-92 17:39:00* Test Item Value Reference Range Interpretation Comments PT (test code = PT) 13.2 s 12.0-14.7 [facility] HrfvmkbZNHBVIHTCS1229-82-07 17:39:00* Test Item Value Reference Range Interpretation Comments INR (test code = INR) 1.00 1 0.85-1.17 [facility] YltmfvgODRAXACWTJ1586-81-84 17:39:00* Test Item Value Reference Range Interpretation Comments PTT (test code = PTT) 31.7 s 22.9-35.8 [facility] SbqhveeIINQXYONVM9623-09-02 17:39:000.2[facility] HermannCHEM PANEL 2016-04-26 10:17:007.7[facility]annCHEM TAPOM9690-40-69 10:17:0026[facility]annCHEM ITTQP5327-99-80 10:17:73755Aryymopn HermannCHEM EJPPL4840-86-66 10:17:003.9[facility]annCHEM UGSEM0573-61-04 10:17:0054[facility]annCHEM QCNTJ7298-14-80 10:17:14459Sllvlnhv HermannCHEM XMRFT8203-64-73 10:17:73160 [facility]annCHE[facility] RBGLL1219-29-11 10:17:001.02[facility]annCHEM PANEL 2016-04-26 10:17:0010[facility]annCHEM PEDEG3810-68-94 10:17:0012.9[facility] QkjepkwLICVBCBULD8728-97-90 10:17:007.4[facility] QnfgytdKPLTVJFSWW0789-47-43 10:17:44494Wwcgikov UyiqbkbZMUPHAPCTR3015-37-08 10:17:0015.2[facility] XRIMHQBXQD3357-66-05 10:17:0031.9[facility] IzoyqofVECWNNOKIS0726-33-39 10:17:00 2.99[facility] SchrjpcVPYBORUQQN8171-07-83 10:17:008.5[facility]annHEMATOLOGY 2016-04-26 10:17:0026.8[facility] VavndfcEPGCUXFSUN6005-66-16 10:17:0089.5[facility] IowatcvJMFKATZKVU1363-44-37 10:17:00* Test Item Value Reference Range Interpretation Comments MCH (test code = MCH) 28.6 pg 27.0-31.0 [facility] JwgskxjQNCOHUVGTA8038-49-41 10:17:005.7[facility]annHEMATOLOGY 2016-04-26 10:17:000.2[facility] BqlajqnFCTTYTTYEM8264-71-82 10:17:000.5[facility] JlflylmFRQMRFULQB0091-72-89 10:17:000.9[facility] NclpahqPGGNOTUDWU0482-13-97 10:17:004.1[facility] EzqzqtyDMNCBHJLYY0642-30-02 10:17:000.6[facility] QWLOVQNTZV5596-73-56 10:17:002.9[facility] BmvwrasKDGSYZKYPI1167-80-43 10:17:009.0 [facility] TvjwnqgPUSWECBNSU9535-81-54 10:17:0015.9[facility]annHEMATOLOGY 2016-04-26 10:17:0071.6[facility] JunxqogHJMNHFONGO9454-11-02 11:52:000.4[facility] ZutyeceQUVLIVIHED6840-69-53 11:52:000.2[facility] LdmfajbPSZWPAMXFB5713-90-09 11:52:000.5[facility] KwtulkcRQJUOQHRMY0176-04-11 11:52:000.8[facility] CYATBHQMLC2860-59-31 11:52:005.7[facility] JsgowfvEIKFYNGRWI1498-62-35 11:52:002.3 [facility] VctenenCZUNOJKKIP2130-17-73 11:52:006.3[facility]annHEMATOLOGY 2016-04-25 11:52:0011.0[facility] AgcqnmxCWWLRZAPOI0177-93-02 11:52:0080.0[facility] MkmynunTXVCSCQKPU7159-81-45 11:52:006.8[facility] BjwwjtpJYXDFXURSB3993-65-30 11:52:65874Aiijgktm HwkqiihPIXAYYCTUP6051-67-56 11:52:0015.3[facility] HQIEJZOLJN9222-20-81 11:52:00* Test Item Value Reference Range Interpretation Comments MCH (test code = MCH) 28.7 pg 27.0-31.0 [facility] HsjfsszCFKMUIHXAF8345-50-49 11:52:0088.5[facility] HermannHEMATOLOGY 2016-04-25 11:52:0029.0[facility] CiczpkvKZTYPHHJQQ9858-55-07 11:52:009.4[facility] VparxehBKZVSWBGAS2581-35-50 11:52:003.28[facility] KgzjhqrVQIBLKXABN9429-08-44 11:52:0032.5[facility] EzmnjqzICTDJQZHRC0084-13-28 11:52:007.2[facility] HermannCHEM UHSNQ3001-59-43 12:00:002.1[facility]annCHEM OOGJH5459-51-75 12:00:003.6 [facility] MtdfkziHZDUHFYODJIC4367-56-14 12:00:004.6[facility] HermannELECTROLYTES 2016-04-24 12:00:42538Qnwdgiss CifdspnESACZTZLYXPA7419-18-95 12:00:0097[facility] BqpbdogDUEDYCWAUSSQ2365-11-50 12:00:001.28[facility] YjbrettBOMGGHRCLVPY3899-40-90 12:00:007[facility] UskaxasEQMFVVIEVCIJ4923-98-55 12:00:0041[facility] ZOSAIFXQOUIA3700-94-92 12:00:0098[facility] LsmoluxBEDGFPDTEXNK2760-69-92 12:00:00 13.6[facility] UfretjtWGJIERSZWPGC7510-58-50 12:00:0028[facility] GRNYSXNIUERN1914-12-60 12:00:002.7[facility] NjryrtkZPQANTEVXZAN9081-98-01 12:00:005.9[facility] BvwsrafSSVQNVJXBGXJ2517-64-79 12:00:000.8[facility] ONJDOPNKTISE9192-67-83 12:00:003.2[facility] RbqqywcSRHJSJMBFETD4921-87-24 12:00:005[facility] SqixebjMBGWGDKRBUHJ7002-47-58 12:00:0013[facility] ZTHUSOQDADHJ5365-84-47 12:00:000.4[facility] GmaqukjMJSGQRUJJAQA3306-17-24 12:00:0080[facility] KcxeurvQJFCABEMDZSC6940-11-62 12:00:0016[facility] UVTICBJIRRVO3756-11-76 12:00:008.2[facility] UkkcqhcNNEOIEAKLF1600-80-36 12:00:00 0.4[facility] EdqmifxJVSUDSRRXZ4447-08-15 12:00:000.1[facility]annHEMATOLOGY 2016-04-24 12:00:000.1[facility] LdqdbcxAGZDOHVRVL6626-38-19 12:00:000.9[facility] EwtmxokIWITIBAFCV5657-45-73 12:00:001.7[facility] IctyilcSBZFVBMZYN0806-87-34 12:00:000.9[facility] LbvzjlmZHFQZMLJAR4627-54-74 12:00:005.0[facility] IQJZQJBFRZ2021-44-97 12:00:0013.2[facility] VgxbsmqWHKKCFXGTT5677-71-44 12:00:00 6.2[facility] PqdalegBDRBGTICWW3910-51-09 12:00:0078.0[facility] HermannHEMATOLOGY 2016-04-24 12:00:006.5[facility] FedshasMBZVRSZQMY1037-34-88 12:00:0032.4[facility] NrpnjoiDKTOQSFIRN0294-24-27 12:00:52972Cnbxlqnn ZjpllopRJCWFGICEJ4851-20-82 12:00:0015.1[facility] BnmxgokSVPSPBXMGE4386-39-23 12:00:006.8[facility] DMSMQMSGIB1356-71-19 12:00:0088.3[facility] PudgdmsGTDMWAVOHC2076-84-14 12:00:00 11.0[facility] PygjuxfBNBTAEDEWC2663-41-89 12:00:003.84[facility]annHEMATOLOGY 2016-04-24 12:00:0034.0[facility] XnrpldxGBFWDKZFUY9499-52-17 12:00:00* Test Item Value Reference Range Interpretation Comments MCH (test code = MCH) 28.7 pg 27.0-31.0 [facility] TmahwtoVSLUEIQPVL3639-24-57 12:00:00* Test Item Value Reference Range Interpretation Comments PTT (test code = PTT) 31.0 s 22.9-35.8 [facility] NpnswkmBUXJHGGEVL0572-47-37 12:00:001.11[facility]annHEMATOLOGY 2016-04-24 12:00:00* Test Item Value Reference Range Interpretation Comments PT (test code = PT) 14.6 s 12.0-14.7 [facility] LYKNW4129-94-89 22:56:006.0[facility] HQHJV8638-97-58 22:56:00Negative *NA*(04/23/16 5:56 PM)[facility] PTUIJ2395-77-32 22:56:00Negative (04/23/16 5:56 PM)[facility] YKNHG7147-43-62 22:56:00Moderate *ABN*(04/23/16 5:56 PM)[facility] GOZVY0692-21-27 22:56:001.004[facility] XRPDW3871-80-71 22:56:00 Clear (04/23/16 5:56 PM)[facility] YFTFJ0485-29-62 22:56:001 [facility] FETGM7386-67-59 22:56:001[facility] YWFGW7004-93-19 22:56:00Negative (04/23/16 5:56 PM)[facility]annCHEM PANEL 2016-04-23 20:36:005[facility]annCHEM NLHFB1901-80-74 20:36:0011.5[facility]annCHEM PVTJR0606-29-48 20:36:003.4[facility]annCHEM CAHMK2125-51-46 20:36:000.9[facility]annCHEM QIEPQ8345-75-77 20:36:0044[facility]annCHEM FCIQR7188-77-79 20:36:0086[facility]annCHEM CHEGA0890-42-70 20:36:000.5 [facility]annCHE[facility] XPMYK4072-71-25 20:36:0015[facility]annCHEM PANEL 2016-04-23 20:36:0015[facility]annCHEM EGWEI8929-36-71 20:36:003.1[facility]annCHEM JYHTG9203-59-78 20:36:0093[facility]annCHEM GPSIP0227-85-10 20:36:0028[facility]annCHEM CCBRK4951-48-60 20:36:003.5[facility]annCHEM NIGTO7748-34-67 20:36:47090Mqxwpclz HermannCHEM WBACR9021-62-54 20:36:001.20 [facility] HermannCHEM DQLAD2118-05-47 20:36:006[facility] HermannCHEM PANEL 2016-04-23 20:36:0094[facility] HermannCHEM EQWOB6435-21-23 20:36:008.5[facility]CHE[facility] RILSJ2191-42-59 20:36:[address]5[facility] HospitalCjqfyweHSVKRRAZSM7123-14-20 20:36:00* Test Item Value Reference Range Interpretation Comments PT (test code = PT) 13.8 s 12.0-14.7 [facility]ypQPDHSQWFOF2936-56-58 20:36:001.03[facility] 2016-04-23 20:36:00* Test Item Value Reference Range Interpretation Comments PTT (test code = PTT) 31.8 s 22.9-35.8 [facility]
--- NOTE | 2020-06-18 18:44 | Emergency Department Note ---
History of Present Illnes History of Present Illness Chief Complaint: General Medicine Complaints History of Present Illness This is a 79 year old female PRESENTS VIA EMS FOR LEFT SHOULDER PAIN, PT FELL ABOUT 5 AM WHILE GOING TO THE BATHROOM, FAMILY PUT PT BACK TO BED AFTER FALL BUT SHE KEPT COMPLAINING ABOUT LEFT SHOULDER PAIN, PT RECEIVED FENTANYL 75 MCG BY EMS FEED WEIGHER . 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 Arrival Mode: [facility] Additional Treatment FEED WEIGHER: see ems for report Metrology Engineer Required: No Onset (how long ago): hour(s) (12) Location: LEFT SHOUDLER Quality: PAIN Radiation: Reports non-radiation Severity: severe Onset quality: sudden Duration (how long): hour(s) (12) Timing of current episode: constant Progression: unchanged Chronicity: new Context: Reports trauma/injury (FELL AT 5 AM) Relieving factors: none Exacerbating factors: movement Associated symptoms: Reports denies other symptoms Past Medical/Family History Physician Review I have reviewed the patient's past medical and family history. Any updates have been documented here. Past Medical History Recent Fever: No Clinical Suspicion of Infectio: No New/Unexplained Change in Ment: No Other Medical History: Hyperlipidemia Depression GERD Anxiety Past Surgical History: Hip Replacement Other Surgery: L. CEA, stent in aorta s/p AA. R. HIP Social History Smoking Cessation: Never Smoker Alcohol Use: None Any Illegal Drug Use: No Physically hurt or threatened: No Other Last Tetanus: UTD Any Pre-Existing Lines (PICC,: No Review of Systems Review of Systems Constitutional: Reports no symptoms EENTM: Reports no symptoms Cardiovascular: Reports no symptoms Respiratory: Reports no symptoms Gastrointestinal: Reports no symptoms Genitourinary: Reports no symptoms Musculoskeletal: Reports as per HPI Integumentary: Reports no symptoms Neurological: Reports no symptoms Psychological: Reports no symptoms Endocrine: Reports no symptoms Hematological/Lymphatic: Reports no symptoms Physical Exam Related Data Allergies: Coded Allergies: codeine (Verified Allergy, Unknown, Hypotension, 09/10/16) Triage Vital Signs Vital Signs Date Time Temp Pulse Resp B/P (MAP) Pulse Ox O2 Delivery O2 Flow Rate FiO2 06/18/20 17:35 98.3 76 15 122/50 98 Room Air Vital signs reviewed: Yes Physical Exam CONSTITUTIONAL Constitutional: Present well-developed, Present well-nourished HENT HENT: Present normocephalic, Present atraumatic, Present oropharynx clear/moist, Present nose normal HENT L/R: Present left ext ear normal, Present right ext ear normal EYES Eyes: Reports PERRL, Reports conjunctivae normal NECK Neck: Present ROM normal PULMONARY Pulmonary: Present effort normal, Present breath sounds normal CARDIOVASCULAR Cardiovascular: Present regular rhythm, Present heart sounds normal, Present capillary refill normal, Present normal rate GASTROINTESTINAL Abdominal: Present soft, Present nontender, Present bowel sounds normal GENITOURINARY Genitourinary: Present exam deferred SKIN Skin: Present warm, Present dry MUSCULOSKELETAL PAIN TO LEFT SHOULDER WITH ROM, TENDERNESS TO LEFT SHOULDER AROUND ENTIRE HUMERAL HEAD/NECK, PULSES INTACT LEFT ARM IS ALREADY IN A SLING ON ARRIVAL LEG LEFT SHORTENED,NOT ROTATED ,PAIN WITH ROM LEFT HIP CERVICAL SPINE NONTENDER HOWEVER HAS DISTRACTING INJURY CT BRAIN ,CT CERVICAL SPINE, CXR, LEFT SHOULDER, PELVIS XRAYS ORDERED TO EVAL FOR INTRACRANIAL INJURIES, FRACTURES, DISLOCATION OF LEFT SHOULDER NEUROLOGICAL Neurological: Present alert, Present oriented x 3, Present no gross motor or sensory deficits PSYCHOLOGICAL Psychological: Present mood/affect normal, Present judgement normal Results Laboratory Laboratory Laboratory Tests Test 06/18/20 23:05 White Blood Count 11.28 x10e3/uL (4.8-10.8) Red Blood Count 3.63 x10e6/uL (3.6-5.1) Hemoglobin 11.7 g/dL (12.0-16.0) Hematocrit 36.4 % (34.2-44.1) Mean Corpuscular Volume 100.3 fL (81-99) Mean Corpuscular Hemoglobin 32.2 pg (28-32) Mean Corpuscular Hemoglobin Concent 32.1 g/dL (31-35) Red Cell Distribution Width 17.5 % (11.7-14.4) Platelet Count 293 x10e3/uL (140-360) Neutrophils (%) (Auto) 78.0 % (38.7-80.0) Lymphocytes (%) (Auto) 11.3 % (18.0-39.1) Monocytes (%) (Auto) 8.7 % (4.4-11.3) Eosinophils (%) (Auto) 1.2 % (0.0-6.0) Basophils (%) (Auto) 0.4 % (0.0-1.0) Neutrophils # (Auto) 8.8 (2.1-6.9) Lymphocytes # (Auto) 1.3 (1.0-3.2) Monocytes # (Auto) 1.0 (0.2-0.8) Eosinophils # (Auto) 0.1 (0.0-0.4) Basophils # (Auto) 0.0 (0.0-0.1) Absolute Immature Granulocyte (auto 0.05 x10e3/uL (0-0.1) Prothrombin Time 14.1 seconds (11.9-14.5) Prothromb Time International Ratio 1.04 Activated Partial Thromboplast Time 33.7 seconds (23.8-35.5) Sodium Level 133 mmol/L (136-145) Potassium Level 3.3 mmol/L (3.5-5.1) Chloride Level 99 mmol/L (98-107) Carbon Dioxide Level 20 mmol/L (22-29) Anion Gap 17.3 mmol/L (8-16) Blood Urea Nitrogen 9 mg/dL (7-26) Creatinine 0.91 mg/dL (0.57-1.11) Estimat Glomerular Filtration Rate 60 ML/MIN (60-) BUN/Creatinine Ratio 10 (6-25) Glucose Level 102 mg/dL (74-118) Calcium Level 8.9 mg/dL (8.4-10.2) Total Bilirubin 0.3 mg/dL (0.2-1.2) Aspartate Amino Transf (AST/SGOT) 23 IU/L (5-34) Alanine Aminotransferase (ALT/SGPT) 11 IU/L (0-55) Alkaline Phosphatase 129 IU/L (40-150) Creatine Kinase 31 IU/L (29-168) Creatine Kinase MB 3.20 ng/mL (0-5.0) Troponin I 0.016 ng/mL (0-0.300) Total Protein 6.3 g/dL (6.5-8.1) Albumin 2.9 g/dL (3.5-5.0) Globulin 3.4 g/dL (2.3-3.5) Albumin/Globulin Ratio 0.9 (0.8-2.0) Lab results reviewed: Yes Imaging Imaging results reviewed: Yes Impressions CT C SPINE IMPRESSION: 1. No acute abnormalities. 2. Degenerative changes at C5-C6 and C6-C7 as above. Signed by: Dr. Lisha Pierson M.D. on 06/18/2020 7:[address] BRAIN Impression: 1. No acute intracranial finding. 2. Chronic microvascular ischemic change. Signed by: Dr. Lisha Pierson M.D. on 06/18/2020 7:49 PM Dictated By: LISHA ROBERT MD 48 Transcribed By: GUSTABO on 06/18/201948 X-ray 2 views of the left shoulder. XRAY 2 views of the left humerus. HISTORY: Pain. Fall COMPARISON: None available. FINDINGS: Acute impacted, foreshortened surgical neck fracture of the left humerus with probable extension into the greater tuberosity. Humeral head does not appear to be dislocated. Questionable cortical step off of the coronoid process at the left elbow, suboptimally assessed. IMPRESSION: 1. Acute impacted, foreshortened surgical neck fracture of the left humerus with probable extension into the greater tuberosity. 2. Question coronoid process fracture of the elbow. Consider dedicated left elbow radiographs. Signed by: Clarence Taylor MD on 06/18/2020 7:29 PM Procedure: [id number] DX/PELVIS AP 1-2 VIEWS Exam Date: 06/18/20 Exam Time: 1830 REPORT STATUS: Signed X-ray one view of the pelvis. HISTORY: Pain. COMPARISON: None available. FINDINGS: Bones: Acute appearing fracture lucency extends through the intertrochanteric region. The lesser trochanter is avulsed and displaced of indeterminate chronicity. Intramedullary ORIF of the left hip. 3 screw fixation of the right femoral neck. No hardware fracture is identified on the single view. Surgical clips project over the acetabular regions. Aortoiliac stents. Bones are demineralized. Vascular calcifications. IMPRESSION: 1. Acute left intertrochanteric fracture. 2. Avulsion of the lesser trochanter may be acute or chronic. Comparison with prior imaging recommended if available. Given this lesion is often associated with pathologic fracture, consider nonemergent MRI of the left hip with contrast to rule out underlying lesion. Signed by: Clarence Taylor MD on 06/18/2020 7:20 PM Dictated By: CLARENCE TAYLOR MD 19 Transcribed By: GUSTABO on 06/18/201919 COPY TO: THUY DIEGO MD~ EXAMINATION: CHEST SINGLE (NOT PORTABLE) INDICATION: ^s/p fall COMPARISON: None FINDINGS: The heart is not enlarged. Pulmonary vasculature is within normal limits. No consolidation. No pleural effusion. No pneumothorax. Acute left humerus fracture. Please see separate report. Cholecystectomy clips. IMPRESSION: 1. Acute fracture of the left humerus. Please see dedicated report. 2. No acute intrathoracic radiographic abnormality. Signed by: Clarence Taylor MD on 06/18/2020 7:23 PM X-ray 2 views of the left hip. HISTORY: Pain. COMPARISON: None available. FINDINGS: See impression. IMPRESSION: Acute displaced of impacted periprosthetic intertrochanteric fracture of the left hip with likely acute avulsion of the lesser trochanter. Intramedullary nail fixation appears to be nonfractured. Signed by: Clarence Taylor MD on 06/18/2020 9:12 PM Procedure: [id number] DX/ELBOW LEFT AP & LAT Exam Date: 06/18/20 Exam Time: 2024 REPORT STATUS: Signed X-ray 2 views of the left elbow. HISTORY: Pain. COMPARISON: None available. FINDINGS: Bones: No acute displaced fracture. Osseous alignment is within normal limits. Joints: The joint spaces are well-maintained. Soft tissues: The soft tissues appear unremarkable. IMPRESSION: No acute radiographic abnormality. Signed by: Clarence Taylor MD on 06/18/2020 9:13 PM Dictated By: CLARENCE TAYLOR MD 12 Transcribed By: GUSTABO on 06/18/202112 COPY TO: THUY DIEGO MD~ Procedures 12 Lead ECG Interpretation ECG Interpretation : ECG: ECG 1 Metrology Engineer: Interpreted by ED physician Date: Jun 18, 2020 Time: 21:44 Rhythm: sinus rhythm Rate: normal BPM: 79 QRS axis: normal ST segments normal: Yes T waves flattening: all Other findings: no other findings Q waves: V1 Clinical Impression: abnormal ECG Assessment & Plan Medical Decision Making [facility] PT S/P FALL AT [address] BRAIN , CT C SPINE, CXR, EKG, , LEFT HIP, PELVIS, LEFT SHOULDER, LEFT HUMER US, LEFT ELBOW ORDERED TO EVAL FOR FRACTURES, INTRACRANIAL INJURY, RHABDOMYOLYSIS, PRE OP LABS I SPOKE WITH DR PARKER SCOTT FOR DR QUINONES AND DR HERMOSILLO(ORTHO) Assessment & Plan Final Impression: (1) Hip fracture, left (2) Fracture of neck of left humerus Last Vital Signs Date Time Temp Pulse Resp B/P (MAP) Pulse Ox O2 Delivery O2 Flow Rate FiO2 06/18/20 18:15 76 14 114/56 98 Room Air 06/18/20 17:35 98.3 Home Meds Active Scripts Diazepam (VALIUM) 2 Mg Tablet, 2 MG PO Q6H PRN for MUSCLE SPASMS, #20 0 Refills Prov:ANGEL HOUSTON, DO 06/11/20 Reported Medications Ferrous Sulfate (IRON SUPPLEMENT) 325 Mg Tablet, 28 MG PO 04/23/17 [D3] No Conflict Check, 2000 U PO 04/23/17 [b12] No Conflict Check, 3000 MCG SL 04/23/17 Omeprazole Magnesium (PRILOSEC OTC) 20 Mg Tablet., DAILY 04/23/17 Midodrine Hcl (MIDODRINE HCL) 2.5 Mg Tablet, 10 MG PO TID, TAB 09/10/16 Tramadol Hcl/Acetaminophen (ULTRACET TABLET) 1 Each Tablet, 1 TAB PO Q4HR PRN for PAIN 07/09/16 Tramadol Hcl* (ULTRAM 50MG*) 50 Mg Tab, 50 MG PO Q6H PRN for PAIN, TAB 07/06/16 Aspirin (ASPIR-LOW) 81 Mg Tablet.dr, 81 MG PO DAILY 07/06/16 Cholecalciferol (Vitamin D3) (VITAMIN D-3) 2,000 Unit Capsule, 2000 INTLU PO DAILY 07/06/16 Cyanocobalamin (VITAMIN B-12) 1,000 Mcg Tab, 1000 MCG PO DAILY, TAB 07/06/16 Rosuvastatin Calcium (CRESTOR) 10 Mg Tab, 20 MG PO DAILY THERAPEUTICALLY SUBSTITUTED WITH SIMVASTATIN 40MG 07/06/16 Citalopram Hydrobromide (CITALOPRAM HBR) 20 Mg Tablet, 40 MG PO DAILY, TAB 07/06/16 Diazepam (DIAZEPAM) 5 Mg Tablet, 10 MG PO TID PRN for ANXIETY, #30 TAB 07/06/16 THUY DIEGO MD Jun 18, 2020 18:44
--- NOTE | 2020-06-18 19:23 | Diagnostic Imaging Report ---
X-ray one view of the pelvis. HISTORY: Pain. COMPARISON: None available. FINDINGS: Bones: Acute appearing fracture lucency extends through the intertrochanteric region. The lesser trochanter is avulsed and displaced of indeterminate chronicity. Intramedullary ORIF of the left hip. 3 screw fixation of the right femoral neck. No hardware fracture is identified on the single view. Surgical clips project over the acetabular regions. Aortoiliac stents. Bones are demineralized. Vascular calcifications. IMPRESSION: 1. Acute left intertrochanteric fracture. 2. Avulsion of the lesser trochanter may be acute or chronic. Comparison with prior imaging recommended if available. Given this lesion is often associated with pathologic fracture, consider nonemergent MRI of the left hip with contrast to rule out underlying lesion. Signed by: Cooper Lancaster MD on 06/18/2020 7:20 PM
--- NOTE | 2020-06-18 19:26 | Diagnostic Imaging Report ---
EXAMINATION: CHEST SINGLE (NOT PORTABLE) INDICATION: ^s/p fall COMPARISON: None FINDINGS: The heart is not enlarged. Pulmonary vasculature is within normal limits. No consolidation. No pleural effusion. No pneumothorax. Acute left humerus fracture. Please see separate report. Cholecystectomy clips. IMPRESSION: 1. Acute fracture of the left humerus. Please see dedicated report. 2. No acute intrathoracic radiographic abnormality. Signed by: Cooper Lancaster MD on 06/18/2020 7:23 PM
--- NOTE | 2020-06-18 19:32 | Diagnostic Imaging Report ---
X-ray 2 views of the left shoulder. XRAY 2 views of the left humerus. HISTORY: Pain. Fall COMPARISON: None available. FINDINGS: Acute impacted, foreshortened surgical neck fracture of the left humerus with probable extension into the greater tuberosity. Humeral head does not appear to be dislocated. Questionable cortical step off of the coronoid process at the left elbow, suboptimally assessed. IMPRESSION: 1. Acute impacted, foreshortened surgical neck fracture of the left humerus with probable extension into the greater tuberosity. 2. Question coronoid process fracture of the elbow. Consider dedicated left elbow radiographs. Signed by: Cooper Lancaster MD on 06/18/2020 7:29 PM
--- NOTE | 2020-06-18 19:52 | Diagnostic Imaging Report ---
Examination: CT head without contrast Clinical Indication: Fall with head injury. Technique: Transaxial noncontrast images from the skull base through the vertex were obtained. Sagittal and coronal reformatted images were done. Dose modulation, iterative reconstruction, and/or weight based adjustment of the mA/kV was utilized to reduce the radiation dose to as low as reasonably achievable. Comparison: Images of prior head CT dated 09/10/2016 are not accessible at this time. Findings: Scalp: No abnormalities. Bones: Intact. No fractures. No blastic or lytic lesions. Brain sulci: Appropriate for patient's age. Ventricles: Normal in size and configuration. No hydrocephalus. . Extra-axial space: No abnormalities. Parenchyma: Again seen are subtle patchy areas of low-attenuation within subcortical and periventricular white matter, nonspecific, but could represent microvascular ischemic disease. No masses, hemorrhage, or acute or chronic cortical based vascular insults. Suprasellar region: No abnormalities. Craniocervical junction: The foramen magnum is patent. No Chiari one malformation. Incidental findings: Atherosclerotic calcification of the cavernous and supraclinoid internal carotid and V4 segments of the bilateral vertebral arteries. Impression: 1. No acute intracranial finding. 2. Chronic microvascular ischemic change. Signed by: Dr. Lisha Pierson M.D. on 06/18/2020 7:49 PM
--- NOTE | 2020-06-18 19:58 | Diagnostic Imaging Report ---
Examination: CT CERVICAL SPINE WO HISTORY:Neck pain and injury after fall COMPARISON:None. TECHNIQUE: Multidetector helical axial images were obtained without contrast from the foramen magnum to T1. Coronal and sagittal reformatted images were done. Bone and soft tissue windows were evaluated. Dose modulation, iterative reconstruction, and/or weight based adjustment of the mA/kV was utilized to reduce the radiation dose to as low as reasonably achievable. FINDINGS: Alignment:Normal alignment and lordosis. Vertebrae: Normal height and density. No acute fracture, infection or neoplasm. Disc space heights: Normal height. Caliber of spinal canal: Developmentally normal. Posterior fossa and craniocervical junction: Foramen magnum patent. No Chiari 1 malformation. Soft tissues: Atherosclerotic calcification of the bilateral carotid bifurcations. 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 No canal stenosis. Moderate left foraminal stenosis at C5-C6 due to uncovertebral arthropathy. No right foraminal or canal stenosis. Visualized lung apices: No abnormalities. IMPRESSION: 1. No acute abnormalities. 2. Degenerative changes at C5-C6 and C6-C7 as above. Signed by: Dr. Lisha Pierson M.D. on 06/18/2020 7:55 PM
--- NOTE | 2020-06-18 21:15 | Diagnostic Imaging Report ---
X-ray 2 views of the left hip. HISTORY: Pain. COMPARISON: None available. FINDINGS: See impression. IMPRESSION: Acute displaced of impacted periprosthetic intertrochanteric fracture of the left hip with likely acute avulsion of the lesser trochanter. Intramedullary nail fixation appears to be nonfractured. Signed by: Cooper Lancaster MD on 06/18/2020 9:12 PM
--- NOTE | 2020-06-18 21:16 | Diagnostic Imaging Report ---
X-ray 2 views of the left elbow. HISTORY: Pain. COMPARISON: None available. FINDINGS: Bones: No acute displaced fracture. Osseous alignment is within normal limits. Joints: The joint spaces are well-maintained. Soft tissues: The soft tissues appear unremarkable. IMPRESSION: No acute radiographic abnormality. Signed by: Cooper Lancaster MD on 06/18/2020 9:13 PM
[2020-06-18] MEDS ORDERED: ONDANSETRON HCL INJ 2MG/ML 2ML 2 MG/ML VIAL IV STA (23:07)
[2020-06-18] MEDS ORDERED: HYDROMORPHONE 1MG/1ML INJ IV ONE (23:15)
[2020-06-18 23:19] LABS: BASOPHILS % 0.4 % (0.0-1.0); EOSINOPHILS # (AUTO) 0.1 (0.0-0.4); EOSINOPHILS % 1.2 % (0.0-6.0); HEMATOCRIT 36.4 % (34.2-44.1); HEMOGLOBIN 11.7 g/dL (12.0-16.0); LYMPHOCYTES # (AUTO) 1.3 (1.0-3.2); LYMPHOCYTES % 11.3 % (18.0-39.1); MEAN CORPUSCULAR HEMOGLOBIN 32.2 pg (28-32); MEAN CORPUSCULAR HGB CONC 32.1 g/dL (31-35); MEAN CORPUSCULAR VOLUME 100.3 fL (81-99); MONOCYTES % 8.7 % (4.4-11.3); NEUTROPHILS # (AUTO) 8.8 (2.1-6.9); PLATELET COUNT 293 x10e3/uL (140-360); RED BLOOD COUNT 3.63 x10e6/uL (3.6-5.1); RED CELL DISTRIBUTION WIDTH 17.5 % (11.7-14.4)
[2020-06-18 23:30] LABS: INR 1.04; PROTHROMBIN TIME 14.1 seconds (11.9-14.5)
[2020-06-18 23:31] LABS: PARTIAL THROMBOPLASTIN TIME 33.7 seconds (23.8-35.5)
[2020-06-18 23:40] LABS: ALBUMIN 2.9 g/dL (3.5-5.0); ALBUMIN/GLOBULIN RATIO 0.9 (0.8-2.0); ANION GAP 17.3 mmol/L (8-16); CALCIUM 8.9 mg/dL (8.4-10.2); CREATININE, SERUM 0.91 mg/dL (0.57-1.11); POTASSIUM 3.3 mmol/L (3.5-5.1)
[2020-06-18 23:46] LABS: CREATINE KINASE MB 3.2 ng/mL (0-5.0)
[2020-06-18] MEDS ORDERED: POTASSIUM CHLORIDE 20 MEQ TAB CR PO STA (23:54)
[2020-06-19] VITALS (9 sets, daily range): BP systolic 120–142; BP diastolic 54–62
[2020-06-19] MEDS ORDERED: SODIUM CHLORIDE FLUSH 10 ML SYR INJ PRN
[2020-06-19 00:08] LABS: CLARITY,URINE SL CLOUDY (CLEAR); COLOR,URINE YELLOW (YELLOW); LEUKOCYTE ESTERASE ,URINE NEGATIVE (NEGATIVE); NITRITE,URINE NEGATIVE (NEGATIVE); PROTEIN,URINE DIPSTICK NEGATIVE (NEGATIVE)
[2020-06-19 00:09] LABS: BILIRUBIN,URINE NEGATIVE (NEGATIVE); KETONES,URINE 1+ (NEGATIVE); URINE UROBILINOGEN 0.2 mg/dL (0.2 - 1)
--- OUTSIDE RECORDS SUMMARY | 2020-06-19 00:13 | XMS REPORT | Continuity of Care Document ---
Author Author Leland [employer] Address Unknown Phone Unavailable Care Team Providers Care Client Operations Manager Name Role Phone [employer] Unavailable Un available Problems Problem Status Onset Date Classification Date Reported Comments Source FALL Active 02/26/2020 [facility] CLOSED COMMINUTED INTERTROCHANTERIC FX O Active 02/26/2020 [facility] CLOSED COMMINUTED INTERTROCHANTERIC Active 02/26/2020 [facility] INTERTROCHANTERIC FRACTURE Act katey 02/26/2020 [facility] Unspecified fall, initial encounter 11/24/2019 11/26/2019 [facility] Unspecified injury of head, initial encounter 11/24/2019 11/26/2019 [facility] Laceration without foreign body of scalp , initial encounter 11/24/2019 11/26/2019 [facility] RIGHT HIP FRACTURE Active 04/23/2016 [facility] HIP PAIN Active 04/23/2016 [facility] RIGHT HIP FRACTURE. Active 04/23/2016 [facility] Final: Unspecified fracture of unspecifi ed femur, initial encounter for closed fracture 04/29/2016 [facility] Aortic aneurysm (disorder) Res olved Problem [facility] Coronary arteriosclerosis (disorder) Resolved Problem [facility] Hypertensive disorder, systemic arterial (disorder) Resolved Problem 03/25/2020 [facility] Cerebrovascular accident (disorder) Resolved Problem [facility] Acute urinary tract infection (disorder) Active Problem 03/25/2020 [facility] Anemia following acute postoperative blo od loss (disorder) Active Prob melissa 03/25/2020 [facility] Chronic obstructive lung disease (disorder) Active Problem 03/25/2020 [facility] Closed fracture proximal femur, intertro chanteric, comminuted (disorder) Active Prob melissa 03/25/2020 [facility] Falling injury (finding) Active Problem 03/25/2020 [facility] Finding of functional performance and ac tivity (finding) Active Prob melissa 03/25/2020 [facility] Hip pain (finding) Active Problem 03/25/2020 [facility] Impaired cognition (finding) A ctive Problem [facility] Leukocytosis (disorder) Active Problem 03/25/2020 [facility] Displaced intertrochanteric fracture of right femur, initial encounter for closed fracture 03/25/2020 [facility] UNSP FRACTURE OF UNSP FEMUR, INIT ENCNTR Active [facility] DISPLACED INTERTROCHANTERIC FRACTURE OF Active [facility] DISPLACED INTERTROCHANTERIC FRACTURE OF Active [facility] Medications Medication Details Route Status Patient Instructions Ordering Provider Order Date Source citalopram 10 mg oral tablet 4 0 mg = 4 tab, PO, Daily, # 120 tab, 0 Refill(s), Pharmacy: [facility] [id number] Active 03/23/2020 [facility] Furosemide 20 MG Oral Tablet 2 0 mg = 1 tab, PO, Daily, # 30 tab, 0 Refill(s), Pharmacy: [facility] [facility] [id number] Active 03/23/2020 [facility] 24 HR Metoprolol Tartrate 25 MG Extended Release Tablet [Toprol] 25 mg = 1 tab, PO, Daily, # 30 tab, 0 Re fill(s), Pharmacy: [facility] [facility] [id number] Active 03/23/2020 [facility] Rosuvastatin calcium 20 MG Oral Tablet [Crestor] 20 mg = 1 tab, PO, Bedtime, # 30 tab, 0 Refill(s), Pharmacy: [facility] [facility] [id number] Active 03/23/2020 [facility] tramadol hydrochloride 50 MG Oral Tablet 50 mg = 1 tab, PO, Q4H, PRN Pain Score 1-3, X 3 day, # 10 tab, 0 Refill(s), Pharmacy: [facility] [facility] [id number] Active 03/23/2020 [facility] cholecalciferol 1000 intl units oral tablet 1,000 IntlUnit = 1 tab, PO, Daily, 0 Refill(s) Active 03/15/2020 [facility] diazepam 5 mg oral tablet 10 m g = 2 tab, PO, BID, PRN as needed for anxiety, 0 Refill(s) Active 03/15/2020 [facility] Acetaminophen 325 MG Oral Tablet 650 mg = 2 tab, PO, Q4H, PRN Pain Score 1-3, 0 Refill(s) Active 03/15/2020 [facility] bisacodyl 10 mg rectal suppository 10 mg = 1 supp, OH, Bedtime, PRN Constipation, 0 Refill(s) Active 03/15/2020 [facility] Calcium Carbonate 500 MG Chewable Tablet 500 mg = 1 tab, PO, BID, 0 Refill(s) Active 03/15/2020 [facility] Docusate Sodium 100 MG Oral Capsule 100 mg = 1 cap, PO, BID, PRN Constipation, 0 Refill(s) Active 03/15/2020 [facility] enoxaparin 40 mg/0.4 mL subcutaneous solution 40 mg = 0.4 mL, SUB-Q, [id number], 0 Refill(s) No Longer Active 03/15/2020 [facility] Furosemide 20 MG Oral Tablet 2 0 mg = 1 tab, PO, Daily, 0 Refill(s) No Longer Active 03/15/2020 [facility] Ipratropium [place] 0.2 MG/ML Inhalant Solution 0.5 mg = 2.5 mL, NEB, RQID, 0 Refill(s) Active 03/15/2020 [facility] melatonin 3 mg oral tablet 3 m g = 1 tab, PO, Bedtime, PRN Insomnia, 0 Refill(s) Active 03/15/2020 [facility] tramadol hydrochloride 50 MG Oral Tablet 50 mg = 1 tab, PO, Q4H, PRN Pain Score 1-3, 0 Refill(s) No Longer Active 03/15/2020 [facility] Sodium Chloride 0.9% IV 500 mL 500 mL, Rate: 50 ml/hr, Infuse over: 10 hr, Route: IV, Dosing Weight 73.352 kg, Total Volume: 500, Start date: 03/14/20 14:22:00 CDT, Duration: 30 day, Stop date: 04/13/20 14:21:00 CDT, 1.83, m2 Inactive 03/14/2020 [facility] Melatonin 3 mg, Route: PO, Bed time, Dosing Weight 73.352, kg, PRN Sleep, Start date: 03/13/20 14:20:00 CDT, Duration: 30 day, Stop date: 04/12/20 14:19:00 CDT Inactive 03/13/2020 [facility] Potassium Chloride 40 mEq, Rou te: PO, Drug form: ERTAB, ONCE, Dosing Weight 73.352, kg, Start date: 03/13/20 14:19:00 CDT, Stop date: 03/13/20 14:19:00 CDT Inactive 03/13/2020 [facility] tiotropium 0.018 MG/ACTUAT Inhalant Powder [Spiriva] 18 microgram, 1 cap, Route: INHALATION, Daily, Dosing Weight 73.352, kg, Start date: 03/13/20 9:00:00 CDT, Duration: 30 day, Stop date: 04/11/20 9:00:00 CDT No Longer Active 03/13/2020 [facility] ipratropium 0.02% inhalation solution Notes: SEE RT DOCUMENTATION (Same as:Atrovent) No Longer Active 03/13/2020 [facility] Furosemide 20 MG Oral Tablet N otes: (Same as: Lasix) May cause GI upset. Give with food or milk. No Longer Active 03/12/2020 [facility] Albuterol 0.833 MG/ML / Ipratropium Brom ryan 0.167 MG/ML Inhalant Solution [DuoNeb] Notes: (Same as: Duoneb) No Longer Active 03/11/2020 [facility] Diazepam Notes: (Same as: Ancelmo um) No Longer Active 03/08/2020 [facility] Docusate Sodium 100 MG Oral Capsule Notes: (Same as: Colace) (Do Not Crush) No Longer Active 03/07/2020 [facility] Miralax Notes: Dissolve in 8 o z of water or juice. (Same as: Miralax) No Longer Active 03/07/2020 [facility] sennosides, DETENTION 8.6 MG Oral Tablet Notes: (Same as: Senokot) No Longer Active 03/07/2020 [facility] tramadol hydrochloride 50 MG Oral Tablet Notes: Not to exceed 400mg/day. (Same As: Ultram) No Longer Active 03/04/2020 [facility] Potassium Chloride Notes: ([facility] e as: K-Dur 20) "Do Not Crush" Give with food and full glass of water For patients unable to swallow tablet, dissolve in one half glass of water. Allow about 2 minutes for the tab lets to disintegrate. Stir before giving to prepare slurry and administer. Please exclude Patients with feeding tube less than 14 [place] (Dobhoff, J-tube etc) and pediatric and patients. No Longer Active 03/03/2020 [facility] potassium chloride 20 mEq oral tablet, e xtended release (KCL) 20 mEq, 1 tab, Route: PO, Drug form: ERT AB, Q12H, Dosing Weight 72.545, kg, PRN Abnormal Lab Result, Start date: 03/03/20 11:55:00 CDT, Duration: 30 day, Stop date: 04/02/20 11:54:00 CDT, 0 No Longer Active 03/03/2020 [facility] Potassium Chloride Notes: ([facility] e as: K-Dur 20) "Do Not Crush" Give with food and full glass of water For patients unable to swallow tablet, dissolve in one half glass of water. Allow about 2 minutes for the tab lets to disintegrate. Stir before giving to prepare slurry and administer. Please exclude Patients with feeding tube less than 14 [place] (Dobhoff, J-tube etc) and pediatric and patients. Inactive 03/03/2020 [facility] Cholecalciferol Notes: Same as : Vitamin D3 No Longer Active 03/03/2020 [facility] Celexa 40 mg, 4 tab, Route: PO , Drug form: TAB, Daily, Dosing Weight 72.545, kg, Start date: 03/03/20 9:00:00 CDT, Duration: 30 day, Stop date: 04/01/20 9:00:00 CDT, 0 No Longer Active 03/03/2020 [facility] metoprolol extended release No yesenia: (Same as: Toprol XL) Do Not Crush No Longer Active 03/03/2020 [facility] Saline Flush 0.9% Notes: (Same as: BD Posiflush) No Longer Active 03/03/2020 [facility] Acetaminophen Notes: Do not ex ceed 4 gm/day. (Same as: Tylenol) No Longer Active 03/03/2020 [facility] Acetaminophen 325 MG / Hydrocodone Connor trate 5 MG Oral Tablet Notes: (Same as: Silva 325/5) Do not ex ceed 4gm/day of acetaminophen. No Longer Active 03/03/2020 [facility] Ondansetron Notes: (Same as: Z ofran) No Longer Active 03/03/2020 [facility] Docusate Notes: (Same as: Cola ce) (Do Not Crush) No Longer Active 03/03/2020 [facility] Bisacodyl Notes: (Same As: Dul colax, Bisco-Lax) No Longer Active 03/03/2020 [facility] Melatonin Notes: (Same as: Leigh atonin) No Longer Active 03/03/2020 [facility] Saline Flush 0.9% Notes: (Same as: BD Posiflush) No Longer Active 03/03/2020 [facility] Crestor Notes: Same as Crestor No Longer Active 03/03/2020 [facility] Calcium Carbonate Notes: (Same As: Tumjluis) Calcium Carbonate 500 mg = 200 mg elemental calcium Dose = mg calcium carbonate ( mg elemental calcium) No Longer Active 03/02/2020 [facility] Diazepam Notes: (Same as: Ancelmo um) No Longer Active 03/02/2020 [facility] Protonix Notes: Tablet should not be chewed or crushed. (Same as: Protonix) No Longer Active 03/02/2020 [facility] Lovenox Notes: (Same as: Loven ox) No Longer Active 03/02/2020 [facility] Acetaminophen 325 MG / Hydrocodone Connor trate 10 MG Oral Tablet [Silva 10/325] Notes: Do not exceed 4gm/day of acetamin ophen. (Same as: Silva 325/10) Inactive 03/02/2020 [facility] Anoro Ellipta 62.5 mcg-25 mcg inhalation powder 1 puff, INHALER, Daily, # 1 ea, 3 Refill(s) On Hold 03/02/2020 [facility] 24 HR Metoprolol Tartrate 25 MG Extended Release Tablet [Toprol] 25 mg = 1 tab, PO, Daily, 0 Refill(s) On Hold 03/01/2020 [facility] citalopram 10 mg oral tablet 4 0 mg = 4 tab, PO, BID, 0 Refill(s) On Hold 03/01/2020 [facility] pantoprazole 40 mg oral enteric coated tablet 40 mg = 1 tab, PO, Before Breakfast, 0 Refill(s) On Hold 03/01/2020 [facility] Cholecalciferol Notes: Same as : Vitamin D3 No Longer Active 02/28/2020 [facility] Enoxaparin Notes: (Same as: Lo venox) No Longer Active 02/28/2020 [facility] Lovenox 40 mg, Route: SUB-Q, D rug form: INJ, [id number], Dosing Weight 72.545, kg, Start date: 02/28/20 7:00:00 CDT, Duration: 14 day, Stop date: 03/12/20 7:00:00 CDT No Longer Active 02/28/2020 [facility] Calcium Carbonate Notes: 500mg elemental calcium = 1250mg calcium carbonate. Contains 500mg elemental calcium. (Same As: OsCal 500) No Longer Active 02/27/2020 [facility] dexamethasone (ANES) Route: IV , Drug form: INJ, ONCE, Stop date: 02/27/20 12:14:00 CDT Inactive 02/27/2020 [facility] Fentanyl Notes: (Same as: Subl imaze) Preservative free. No Longer Active 02/27/2020 [facility] Flumazenil Notes: (Same as: Ro mazicon) No Longer Active 02/27/2020 [facility] Naloxone Notes: Same as Narcan No Longer Active 02/27/2020 [facility] Ondansetron Notes: (Same as: Susan singh) MEDICATION WASTE Product Size: 4 mg Product Wasted: ___ mg No Longer Active 02/27/2020 [facility] ondansetron (ANES) Route: IV, Drug form: INJ, ONCE, Stop date: 02/27/20 11:19:00 CDT Inactive 02/27/2020 [facility] ceFAZolin (ANES) Route: IV, Dr ug form: INJ, ONCE, Stop date: 02/27/20 11:09:00 CDT Inactive 02/27/2020 [facility] ePHEDrine (ANES) Route: IV, Dr ug form: INJ, ONCE, Stop date: 02/27/20 10:53:00 CDT Inactive 02/27/2020 [facility] midazolam (ANES) Route: IV, Dr ug form: SOLN, ONCE, Stop date: 02/27/20 10:43:00 CDT Inactive 02/27/2020 [facility] lidocaine (ANES) Route: IV, Dr ug form: INJ, ONCE, Stop date: 02/27/20 10:43:00 CDT Inactive 02/27/2020 [facility] fentaNYL (ANES) Route: IV, Jono g form: INJ, ONCE, Stop date: 02/27/20 10:43:00 CDT Inactive 02/27/2020 [facility] glycopyrrolate (ANES) Route: I V, Drug form: INJ, ONCE, Stop date: 02/27/20 10:43:00 CDT Inactive 02/27/2020 [facility] propofol (ANES) Route: IV, Jono g form: INJ, ONCE, Stop date: 02/27/20 10:39:00 CDT Inactive 02/27/2020 [facility] succinylcholine (ANES) Route: IV, Drug form: INJ, ONCE, Stop date: 02/27/20 10:39:00 CDT Inactive 02/27/2020 [facility] Dilaudid Notes: (Same as: Dila udid) No Longer Active 02/27/2020 [facility] Lactated Ringers Injection IV (ANES) 1000 mL Route: IV, Total Volume: 1,000, Start date: 02/27/20 9:57:00 CDT, Stop date: 02/27/20 10:57:00 CDT Inactive 02/27/2020 [facility] Prevacid 30 mg, Route: PO, QAM , Dosing Weight 72.545, kg, Start date: 02/27/20 9:00:00 CDT, Duration: 30 day, Stop date: 03/27/20 9:00:00 CDT No Longer Active 02/27/2020 [facility] 24 HR Metoprolol Tartrate 25 MG Extended Release Tablet [Toprol] Notes: (Same as: Toprol XL) Do Not Crush No Longer Active 02/27/2020 [facility] Vitamin D3 Notes: Same as [place] min D3 No Longer Active 02/27/2020 [facility] Celexa 40 mg, 4 tab, Route: PO , Drug form: TAB, Daily, Dosing Weight 72.545, kg, Start date: 02/27/20 9:00:00 CDT, Duration: 30 day, Stop date: 03/27/20 9:00:00 CDT, 0 No Longer Active 02/27/2020 [facility] Protonix Notes: Tablet should not be chewed or crushed. (Same as: Protonix) No Longer Active 02/27/2020 [facility] Morphine Notes: (Same as:MORPh ine Sulfate) No Longer Active 02/27/2020 [facility] Diazepam Notes: (Same as: Ancelmo um) No Longer Active 02/27/2020 [facility] Ciprofloxacin Notes: Do not re frigerate No Longer Active 02/27/2020 [facility] Crestor Notes: Same as Crestor No Longer Active 02/27/2020 [facility] Morphine Notes: (Same as:MORPh ine Sulfate) No Longer Active 02/26/2020 [facility] Trazodone Notes: (Same As: Oh yrel) Inactive 02/26/2020 [facility] Ancef + sterile water 20 mL No yesenia: (Same As: Ancef, Kefzol) MEDICATION WASTE Product Size: 1000 mg Product Wasted: ___ mg No Longer Active 02/26/2020 [facility] Dextrose 50% Syringe (D50W) 12 .5 gm, 25 mL, Route: IVP, Drug Form: INJ, Dosing Weight 72.727, kg, PRN, PRN Blood Glucose Results, Start date: 02/26/20 16:01:00 CDT, Duration: 30 day, Stop date: 03/27/20 16:00:00 CDT, 0 No Longer Active 02/26/2020 [facility] Glucagon 1 mg, Route: IM, Drug form: PDR/INJ, PRN, Dosing Weight 72.727, kg, PRN Blood Glucose Results, Start date: 02/26/20 16:01:00 CDT, Duration: 30 day, Stop date: 03/27/20 16:00:00 CDT, 0 No Longer Active 02/26/2020 [facility] Docusate Notes: (Same as: Cola ce) (Do Not Crush) No Longer Active 02/26/2020 [facility] Ondansetron Notes: (Same as: Suasn singh) MEDICATION WASTE Product Size: 4 mg Product Wasted: ___ mg No Longer Active 02/26/2020 [facility] Acetaminophen Notes: Do not ex ceed 4 gm/day. (Same as: Tylenol) No Longer Active 02/26/2020 [facility] Dilaudid Notes: (Same as: Dila udid) Inactive 02/26/2020 [facility] Saline Flush 0.9% Notes: (Same as: BD Posiflush) No Longer Active 02/26/2020 [facility] Acetaminophen 500 MG Oral Tablet 500 mg = 1 tab, PO, Q6H, PRN Pain, not to exceed 4000 mg/day, X 7 day, # 24 tab, 0 Refill(s) Active 11/24/2019 [facility] Acetaminophen 300 MG / Codeine Phosphate 60 MG Oral Tablet [Tylenol with Codeine #4] 1 - 2 tab, PO, Q4H, PRN Pain, X 2 day, # 40 tab, 0 Refill(s), given to patient No Longer Active 04/26/2016 [facility] 0.3 ML Enoxaparin sodium 100 MG/ML Prefi lled Syringe [Lovenox] 30 mg, SUB-Q, Q12H, X 14 day, # 28 inj, 0 Refill(s) Active 04/26/2016 [facility] Cephalexin 500 MG Oral Capsule [Keflex] 500 mg = 1 cap, PO, QID, X 10 day, # 40 cap, 0 Refill(s) Active 04/26/2016 [facility] metoprolol 25 mg oral tablet, extended release 25 mg = 1 tab, PO, Daily, # 30 tab, 0 Refill(s) Active 04/26/2016 [facility] Miralax Notes: Dissolve in 8 o z of water or juice. (Same as: Miralax) Inactive 04/26/2016 [facility] Lovenox Notes: (Same as: Loven ox) No Longer Active 04/25/2016 [facility] Ancef + sodium chloride 0.9% INJ 100 mL Notes: (Same As: Ancef, Kefzol) Inactive 04/25/2016 [facility] metoprolol extended release No yesenia: (Same as: Toprol XL) Do Not Crush No Longer Active 04/25/2016 [facility] Prevacid 30 mg, Route: PO, QAM , Dosing Weight 72.727, kg, Start date: 04/25/16 9:00:00 CDT, Duration: 30 day, Stop date: 05/24/16 9:00:00 CDT No Longer Active 04/25/2016 [facility] Aspirin 81 MG Enteric Coated Tablet Notes: Do not crush or chew. (Same As: Ecotrin) No Longer Active 04/25/2016 [facility] Vitamin C Notes: (Same as: Vit sinha C) No Longer Active 04/25/2016 [facility] Protonix Notes: Tablet should not be chewed or crushed. (Same as: Protonix) No Longer Active 04/25/2016 [facility] Crestor 20 mg, Route: PO, Drug form: TAB, Bedtime, Dosing Weight 72.727, kg, Start date: 04/24/16 21:00:00 CDT, Duration: 30 day, Stop date: 05/23/16 21:00:00 CDT Inactive 04/25/2016 [facility] Lipitor Notes: (Same as: Lipit or) No Longer Active 04/25/2016 [facility] ePHEDrine (ANES) Route: IV, Dr ug form: INJ, ONCE, Stop date: 04/24/16 17:33:00 CDT Inactive 04/24/2016 [facility] ondansetron (ANES) Route: IV, Drug form: INJ, ONCE, Stop date: 04/24/16 17:28:00 CDT Inactive 04/24/2016 [facility] acetaminophen (ANES) (ANES) Ro little traverse: IV, Drug form: INJ, Start date: 04/24/16 17:27:00 CDT, Stop date: 04/24/16 18:27:00 CDT Inactive 04/24/2016 [facility] midazolam (ANES) Route: IV, Dr ug form: SOLN, ONCE, Stop date: 04/24/16 17:23:00 CDT Inactive 04/24/2016 [facility] fentaNYL (ANES) Route: IV, Jono g form: INJ, ONCE, Stop date: 04/24/16 17:23:00 CDT Inactive 04/24/2016 [facility] lidocaine (ANES) Route: IV, Dr ug form: INJ, ONCE, Stop date: 04/24/16 17:23:00 CDT Inactive 04/24/2016 [facility] propofol (ANES) Route: IV, Jono g form: INJ, ONCE, Stop date: 04/24/16 17:23:00 CDT Inactive 04/24/2016 [facility] ceFAZolin (ANES) (ANES) Route: IV, Drug form: INJ, Start date: 04/24/16 17:12:00 CDT, Stop date: 04/24/16 18:12:00 CDT Inactive 04/24/2016 [facility] Acetaminophen 325 MG / Hydrocodone Connor trate 7.5 MG Oral Tablet [Silva 7.5/325] Notes: Same as Silva 325-7.5mg Do not exceed 4gm/day of acetaminophen. No Longer Active 04/24/2016 [facility] Acetaminophen 325 MG / Hydrocodone Connor trate 7.5 MG Oral Tablet [Silva 7.5/325] Notes: Same as Silva 325-7.5mg Do not exceed 4gm/day of acetaminophen. No Longer Active 04/24/2016 [facility] Diazepam Notes: (Same as: Ancelmo um) No Longer Active 04/24/2016 [facility] LR 1000 mL INJ (ANES) Route: I V, Total Volume: 1,000, Start date: 04/24/16 16:40:00 CDT, Stop date: 04/24/16 17:40:00 CDT Inactive 04/24/2016 [facility] Aspirin 81 MG Enteric Coated Tablet 81 mg = 1 tab, PO, Daily, # 90 tab, 3 Refill(s) Active 04/24/2016 [facility] Potassium Chloride 10 MEQ Extended Release Tablet 10 mEq = 1 tab, PO, Daily, 0 Refill(s) Active 04/24/2016 [facility] Prevacid 30 mg, PO, QAM, # 15 cap, 0 Refill(s) Active 04/24/2016 [facility] Vitamin C 1000 mg oral tablet 1,000 mg = 1 tab, PO, Daily, 0 Refill(s) Active 04/24/2016 [facility] Rosuvastatin calcium 20 MG Oral Tablet [Crestor] 20 mg = 1 tab, PO, Bedtime, 0 Refill(s) Active 04/24/2016 [facility] Vitamin C 0 Refill(s) Active 04/24/2016 [facility] diazepam 10 mg oral tablet 10 mg = 1 tab, PO, BID, 0 Refill(s) Active 04/24/2016 [facility] Vitamin D3 oral tablet 800 Int lUnit = 2 tab, PO, Daily, 0 Refill(s) Active 04/24/2016 [facility] Ancef Notes: Same as: Ancef No Longer Active 04/24/2016 [facility] Saline Flush 0.9% Notes: (Same as: BD Posiflush) No Longer Active 04/24/2016 [facility] Sodium Chloride 0.154 MEQ/ML Injectable Solution 1,000 mL, Rate: 40 ml/hr, Infuse over: 25 hr, Route: IV, Dosing Weight 72.727 kg, Total Volume: 1,000, Start date: 04/23/16 19:33:00 CDT, Stop date: 05/23/16 19:32:00 CDT No Longer Active 04/24/2016 [facility] Ondansetron 4 mg, Route: IVP, Q6H, Dosing Weight 72.727, kg, PRN Nausea & Vomiting, Start date: 04/23/16 19:33:00 CDT, Duration: 30 day, Stop date: 05/23/16 19:32:00 CDT Inactive 04/24/2016 [facility] Morphine 2 mg, Route: IVP, Q4H , Dosing Weight 72.727, kg, PRN Pain Score 7-10, Start date: 04/23/16 19:33:00 CDT, Duration: 30 day, Stop date: 05/23/16 19:32:00 CDT Inactive 04/24/2016 [facility] Enoxaparin Notes: (Same as: Lo venox) No Longer Active 04/23/2016 [facility] Hydralazine Notes: (Same as: A presoline) Push over 5 minutes No Longer Active 04/23/2016 [facility] sodium chloride 0.9% 1000 ml INJ 1,000 mL 1,000 mL, Rate: 90 ml/hr, Infuse over: 11.1 hr, Route: IV, Dosing Weight 72.727 kg, Total Volume: 1,000, Start date: 04/23/16 17:59:00 CDT, Duration: 30 day, Stop date: 05/23/16 17:58:00 CDT Inactive 04/23/2016 [facility] Morphine Notes: (Same as:MORPh ine Sulfate) No Longer Active 04/23/2016 [facility] Docusate Notes: (Same as: Cola ce) (Do Not Crush) No Longer Active 04/23/2016 [facility] Ondansetron Notes: (Same as: Susan singh) MEDICATION WASTE Product Size: 4 mg Product Wasted: ___ mg No Longer Active 04/23/2016 [facility] Acetaminophen 325 MG / Hydrocodone Connor trate 5 MG Oral Tablet Notes: (Same as: Silva 325/5) Do not ex ceed 4gm/day of acetaminophen. No Longer Active 04/23/2016 [facility] Acetaminophen Notes: Do not ex ceed 4 gm/day. (Same as: Tylenol) No Longer Active 04/23/2016 [facility] Morphine 2 mg, Route: IVP, Jono g form: INJ, ONCE, Dosing Weight 72.727, kg, Priority: STAT, Start date: 04/23/16 16:56:00 CDT, Stop date: 04/23/16 16:56:00 CDT Inactiv e 04/23/2016 [facility] Zofran 4 mg, Route: IVP, Drug form: INJ, ONCE, Dosing Weight 72.727, kg, Priority: STAT, Start date: 04/23/16 15:15:00 CDT, Stop date: 04/23/16 15:15:00 CDT Inactiv e 04/23/2016 [facility] Morphine 4 mg, Route: IVP, Jono g form: INJ, ONCE, Dosing Weight 72.727, kg, Priority: STAT, Start date: 04/23/16 15:14:00 CDT, Stop date: 04/23/16 15:14:00 CDT Inactiv e 04/23/2016 [facility] Allergies, Adverse Reactions, Alerts Substance Category Reaction Severity Reaction type Status Date Reported Comments Source Codeine Phosphate-Promethazine HCl Assertion Drug aller gy Active [facility] Immunizations No Data Provided for This Section Results Order Name Results Value Reference Range Date Interpretation Comments Source CHEM PANEL Glucose Lvl 92 70 - 99 03/19/2020 [facility] CHEM PANEL BUN 8 7 - 22 03/19/2020 [facility] CHEM PANEL Creatinine Lvl 1.12 0.50 - 1.40 03/19/2020 [facility] CHEM PANEL Sodium Lvl 139 135 - 145 03/19/2020 [facility] CHEM PANEL Potassium Lvl 3.8 3.5 - 5.1 03/19/2020 [facility] CHEM PANEL Chloride Lvl 97 95 - 109 03/19/2020 [facility] CHEM PANEL CO2 36 24 - 32 03/19/2020 [facility] CHEM PANEL Calcium Lvl 9.0 8.5 - 10.5 03/19/2020 [facility] CHEM PANEL AGAP 9.8 10.0 - 20.0 03/19/2020 [facility] CHEM PANEL eGFR 47 03/19/2020 Result Comment: [...] should be multiplied by the estimated BMI. [facility] WBC 4.8 3.7 - 10.4 03/19/2020 [facility] RBC 3.36 4.20 - 5.40 03/19/2020 [facility] HEMATOLOGY Hgb 10.3 12.0 - 16.0 03/19/2020 [facility] Hct 31.2 36.0 - 48.0 03/19/2020 [facility] MCV 92.8 80.0 - 98.0 03/19/2020 [facility] MCH 30.7 27.0 - 31.0 03/19/2020 [facility] MCHC 33.0 32.0 - 36.0 03/19/2020 [facility] RDW 13.4 11.5 - 14.5 03/19/2020 [facility] Platelet 306 133 - 450 03/19/2020 [facility] MPV 7.0 7.4 - 10.4 03/19/2020 [facility] CHEM PANEL Glucose Lvl 88 70 - 99 03/15/2020 [facility] CHEM PANEL BUN 13 7 - 22 03/15/2020 [facility] CHEM PANEL Creatinine Lvl 1.06 0.50 - 1.40 03/15/2020 [facility] CHEM PANEL Sodium Lvl 131 135 - 145 03/15/2020 [facility] CHEM PANEL Potassium Lvl 4.1 3.5 - 5.1 03/15/2020 [facility] CHEM PANEL Chloride Lvl 97 95 - 109 03/15/2020 [facility] CHEM PANEL CO2 27 24 - 32 03/15/2020 [facility] CHEM PANEL Calcium Lvl 8.6 8.5 - 10.5 03/15/2020 [facility] CHEM PANEL AGAP 11.1 10.0 - 20.0 03/15/2020 [facility] CHEM PANEL eGFR 50 03/15/2020 Result Comment: [...] should be multiplied by the estimated BMI. [facility] CHEM PANEL Glucose Lvl 95 70 - 99 03/13/2020 [facility] CHEM PANEL BUN 10 7 - 22 03/13/2020 [facility] CHEM PANEL Creatinine Lvl 1.03 0.50 - 1.40 03/13/2020 [facility] CHEM PANEL Sodium Lvl 137 135 - 145 03/13/2020 [facility] CHEM PANEL Potassium Lvl 3.2 3.5 - 5.1 03/13/2020 [facility] CHEM PANEL Chloride Lvl 101 95 - 109 03/13/2020 [facility] CHEM PANEL CO2 31 24 - 32 03/13/2020 [facility] CHEM PANEL Calcium Lvl 8.8 8.5 - 10.5 03/13/2020 [facility] CHEM PANEL AGAP 8.2 10.0 - 20.0 03/13/2020 [facility] CHEM PANEL eGFR 52 03/13/2020 Result Comment: [...] should be multiplied by the estimated BMI. [facility] CARDIAC ENZYMES BNP 279 <=100 pg/mL 03/11/2020 [facility] HEMATOLOGY Segs 56.0 45.0 - 75.0 03/11/2020 [facility] HEMATOLOGY Lymphocytes 24.7 20.0 - 40.0 03/11/2020 [facility] HEMATOLOGY Monocytes 12.4 2.0 - 12.0 03/11/2020 [facility] HEMATOLOGY Eosinophils 6.2 0.0 - 4.0 03/11/2020 [facility] HEMATOLOGY Basophils 0.7 0.0 - 1.0 03/11/2020 [facility] HEMATOLOGY Neutrophils # 3.0 1.5 - 8.1 03/11/2020 [facility] HEMATOLOGY Lymphocytes # 1.3 1.0 - 5.5 03/11/2020 [facility] HEMATOLOGY Monocytes # 0.7 0.0 - 0.8 03/11/2020 [facility] HEMATOLOGY Eosinophils # 0.3 0.0 - 0.5 03/11/2020 [facility] HEMATOLOGY WBC 5.4 3.7 - 10.4 03/11/2020 [facility] HEMATOLOGY RBC 3.07 4.20 - 5.40 03/11/2020 [facility] HEMATOLOGY Hgb 9.7 12.0 - 16.0 03/11/2020 [facility] HEMATOLOGY Hct 28.8 36.0 - 48.0 03/11/2020 [facility] HEMATOLOGY MCV 93.7 80.0 - 98.0 03/11/2020 [facility] MCH 31.6 27.0 - 31.0 03/11/2020 [facility] MCHC 33.8 32.0 - 36.0 03/11/2020 [facility] HEMATOLOGY RDW 13.5 11.5 - 14.5 03/11/2020 [facility] HEMATOLOGY Platelet 345 133 - 450 03/11/2020 [facility] HEMATOLOGY MPV 7.2 7.4 - 10.4 03/11/2020 [facility] HEMATOLOGY WBC 7.4 3.7 - 10.4 03/06/2020 [facility] HEMATOLOGY RBC 3.23 4.20 - 5.40 03/06/2020 [facility] Hgb 10.3 12.0 - 16.0 03/06/2020 [facility] HEMATOLOGY Hct 30.1 36.0 - 48.0 03/06/2020 [facility] HEMATOLOGY MCV 93.3 80.0 - 98.0 03/06/2020 [facility] MCH 31.8 27.0 - 31.0 03/06/2020 [facility] MCHC 34.1 32.0 - 36.0 03/06/2020 [facility] HEMATOLOGY RDW 13.7 11.5 - 14.5 03/06/2020 [facility] HEMATOLOGY Platelet 279 133 - 450 03/06/2020 [facility] MPV 6.9 7.4 - 10.4 03/06/2020 [facility] CHEM PANEL Total Protein 5.1 6.4 - 8.4 03/03/2020 [facility] CHEM PANEL Albumin Lvl 2.1 3.5 - 5.0 03/03/2020 [facility] CHEM PANEL ALT 24 0 - 65 03/03/2020 [facility] CHEM PANEL AST 57 0 - 37 03/03/2020 [facility] CHEM PANEL Alk Phos 63 39 - 136 03/03/2020 [facility] CHEM PANEL Bili Total 1.1 0.2 - 1.3 03/03/2020 [facility] CHEM PANEL B/C Ratio 17 6 - 25 03/03/2020 [facility] CHEM PANEL Globulin 3.0 2.7 - 4.2 03/03/2020 [facility] CHEM PANEL A/G Ratio 0.7 0.7 - 1.6 03/03/2020 [facility] HEMATOLOGY Segs 60.3 45.0 - 75.0 03/03/2020 [facility] HEMATOLOGY Lymphocytes 21.5 20.0 - 40.0 03/03/2020 [facility] HEMATOLOGY Monocytes 11.4 2.0 - 12.0 03/03/2020 [facility] HEMATOLOGY Eosinophils 6.4 0.0 - 4.0 03/03/2020 [facility] HEMATOLOGY Basophils 0.4 0.0 - 1.0 03/03/2020 [facility] HEMATOLOGY Neutrophils # 4.8 1.5 - 8.1 03/03/2020 [facility] Lymphocytes # 1.7 1.0 - 5.5 03/03/2020 [facility] Monocytes # 0.9 0.0 - 0.8 03/03/2020 [facility] Eosinophils # 0.5 0.0 - 0.5 03/03/2020 [facility] BLOOD [facility] RESULTS ABO/Rh O POS 03/02/2020 [facility] BLOOD [facility] RESULTS Antibody Scrn Negative (03/02/20 8:26 AM) 03/02/2020 [facility] BLOOD [facility] RESULTS RBC product Product available 4 (03/02/20 8:08 AM) 03/02/2020 Result Comment: 03/02/2020 1 0:08 [id number]
KLS notified Seema 03/02/2020 10:08 [facility] HEMATOLOGY Hgb 8.2 12.0 - 16.0 03/02/2020 [facility] HEMATOLOGY Hct 24.4 36.0 - 48.0 03/02/2020 [facility] IMMUNOLOGY Coronavirus (COVID-19) NA A Not Detected (03/01/20 4:01 PM) Not Detected 03/01/2020 [facility] CHEM PANEL Glucose Lvl 82 70 - 99 03/01/2020 [facility] CHEM PANEL BUN 16 7 - 22 03/01/2020 [facility] CHEM PANEL Creatinine Lvl 1.00 0.50 - 1.40 03/01/2020 [facility] CHEM PANEL Sodium Lvl 133 135 - 145 03/01/2020 [facility] CHEM PANEL Potassium Lvl 3.5 3.5 - 5.1 03/01/2020 [facility] CHEM PANEL Chloride Lvl 99 95 - 109 03/01/2020 [facility] CHEM PANEL CO2 31 24 - 32 03/01/2020 [facility] CHEM PANEL Calcium Lvl 8.3 8.5 - 10.5 03/01/2020 [facility] CHEM PANEL AGAP 6.5 10.0 - 20.0 03/01/2020 [facility] CHEM PANEL eGFR 54 03/01/2020 Result Comment: [...] should be multiplied by the estimated BMI. [facility] HEMATOLOGY Segs 63.5 45.0 - 75.0 03/01/2020 [facility] HEMATOLOGY Lymphocytes 19.9 20.0 - 40.0 03/01/2020 [facility] HEMATOLOGY Monocytes 13.2 2.0 - 12.0 03/01/2020 [facility] HEMATOLOGY Eosinophils 3.2 0.0 - 4.0 03/01/2020 [facility] HEMATOLOGY Basophils 0.2 0.0 - 1.0 03/01/2020 [facility] HEMATOLOGY Neutrophils # 4.9 1.5 - 8.1 03/01/2020 [facility] HEMATOLOGY Lymphocytes # 1.5 1.0 - 5.5 03/01/2020 [facility] HEMATOLOGY Monocytes # 1.0 0.0 - 0.8 03/01/2020 [facility] HEMATOLOGY Eosinophils # 0.2 0.0 - 0.5 03/01/2020 [facility] HEMATOLOGY WBC 7.7 3.7 - 10.4 03/01/2020 [facility] HEMATOLOGY RBC 2.48 4.20 - 5.40 03/01/2020 [facility] HEMATOLOGY Hgb 7.9 12.0 - 16.0 03/01/2020 [facility] HEMATOLOGY Hct 23.0 36.0 - 48.0 03/01/2020 [facility] HEMATOLOGY MCV 92.7 80.0 - 98.0 03/01/2020 [facility] HEMATOLOGY MCH 31.8 27.0 - 31.0 03/01/2020 [facility] HEMATOLOGY MCHC 34.3 32.0 - 36.0 03/01/2020 [facility] HEMATOLOGY RDW 14.0 11.5 - 14.5 03/01/2020 [facility] HEMATOLOGY Platelet 202 133 - 450 03/01/2020 [facility] HEMATOLOGY MPV 7.1 7.4 - 10.4 03/01/2020 [...] PANEL AST 34 0 - 37 02/29/2020 [facility] CHEM PANEL Alk Phos 65 39 - 136 02/29/2020 [facility] CHEM PANEL Bili Total 0.4 0.2 - 1.3 02/29/2020 [facility] CHEM PANEL eGFR 44 02/29/2020 Result Comment: [...] should be multiplied by the estimated BMI. [facility] HEMATOLOGY WBC 12.1 3.7 - 10.4 02/29/2020 [facility] RBC 2.39 4.20 - 5.40 02/29/2020 [facility] Hgb 7.5 12.0 - 16.0 02/29/2020 [facility] Hct 22.5 36.0 - 48.0 02/29/2020 [facility] MCV 94.1 80.0 - 98.0 02/29/2020 [facility] MCH 31.4 27.0 - 31.0 02/29/2020 [facility] MCHC 33.4 32.0 - 36.0 02/29/2020 [facility] RDW 13.7 11.5 - 14.5 02/29/2020 [facility] Platelet 229 133 - 450 02/29/2020 [facility] MPV 7.2 7.4 - 10.4 02/29/2020 [facility] Segs 75.6 45.0 - 75.0 02/29/2020 [facility] Lymphocytes 12.5 20.0 - 40.0 02/29/2020 [facility] Monocytes 11.2 2.0 - 12.0 02/29/2020 [facility] Eosinophils 0.7 0.0 - 4.0 02/29/2020 [facility] HEMATOLOGY Neutrophils # 9.1 1.5 - 8.1 02/29/2020 [facility] HEMATOLOGY Lymphocytes # 1.5 1.0 - 5.5 02/29/2020 [facility] HEMATOLOGY Monocytes # 1.3 0.0 - 0.8 02/29/2020 [facility] HEMATOLOGY Eosinophils # 0.1 0.0 - 0.5 02/29/2020 [facility] BLOOD BANK RESULTS RBC product Product available 5 (02/28/20 3:02 PM) 02/28/2020 Result Comment: 02/28/2020 1 5:34 [id number]
spoke to Jenifer at 02/28/2020 15:34 [facility] CHEM PANEL Glucose Lvl 131 70 - 99 02/28/2020 [facility] CHEM PANEL BUN 14 7 - 22 02/28/2020 [facility] CHEM PANEL Creatinine Lvl 1.07 0.50 - 1.40 02/28/2020 [facility] CHEM PANEL Sodium Lvl 131 135 - 145 02/28/2020 [facility] CHEM PANEL Potassium Lvl 4.2 3.5 - 5.1 02/28/2020 [facility] CHEM PANEL Chloride Lvl 97 95 - 109 02/28/2020 [facility] CHEM PANEL CO2 29 24 - 32 02/28/2020 [facility] CHEM PANEL Calcium Lvl 8.3 8.5 - 10.5 02/28/2020 [facility] CHEM PANEL Total Protein 5.2 6.4 - 8.4 02/28/2020 [facility] CHEM PANEL Albumin Lvl 2.2 3.5 - 5.0 02/28/2020 [facility] CHEM PANEL ALT 9 0 - 65 02/28/2020 [facility] CHEM PANEL AST 20 0 - 37 02/28/2020 [facility] CHEM PANEL Alk Phos 59 39 - 136 02/28/2020 [facility] CHEM PANEL Bili Total 0.2 0.2 - 1.3 02/28/2020 [facility] CHEM PANEL AGAP 9.2 10.0 - 20.0 02/28/2020 [facility] CHEM PANEL B/C Ratio 13 6 - 25 02/28/2020 [facility] CHEM PANEL Globulin 3.0 2.7 - 4.2 02/28/2020 [facility] CHEM PANEL A/G Ratio 0.7 0.7 - 1.6 02/28/2020 [facility] CHEM PANEL eGFR 49 02/28/2020 Result Comment: [...] should be multiplied by the estimated BMI. [facility] HEMATOLOGY Segs 87.6 45.0 - 75.0 02/28/2020 [facility] Lymphocytes 5.6 20.0 - 40.0 02/28/2020 [facility] Monocytes 6.8 2.0 - 12.0 02/28/2020 [facility] Neutrophils # 10.6 1.5 - 8.1 02/28/2020 [facility] Lymphocytes # 0.7 1.0 - 5.5 02/28/2020 [facility] Monocytes # 0.8 0.0 - 0.8 02/28/2020 [facility] WBC 12.2 3.7 - 10.4 02/28/2020 [facility] RBC 2.36 4.20 - 5.40 02/28/2020 [facility] MCV 94.4 80.0 - 98.0 02/28/2020 [facility] MCH 31.7 27.0 - 31.0 02/28/2020 [facility] MCHC 33.5 32.0 - 36.0 02/28/2020 [facility] RDW 13.7 11.5 - 14.5 02/28/2020 [facility] Platelet 198 133 - 450 02/28/2020 [facility] MPV 7.4 7.4 - 10.4 02/28/2020 [facility] CHEM PANEL Total Protein 5.8 6.4 - 8.4 02/27/2020 [facility] CHEM PANEL Albumin Lvl 2.8 3.5 - 5.0 02/27/2020 [facility] CHEM PANEL ALT 13 0 - 65 02/27/2020 [facility] CHEM PANEL AST 22 0 - 37 02/27/2020 [facility] CHEM PANEL Alk Phos 83 39 - 136 02/27/2020 [facility] CHEM PANEL Bili Total 0.4 0.2 - 1.3 02/27/2020 [facility] CHEM PANEL B/C Ratio 9 6 - 25 02/27/2020 [facility] CHEM PANEL Globulin 3.0 2.7 - 4.2 02/27/2020 [facility] CHEM PANEL A/G Ratio 0.9 0.7 - 1.6 02/27/2020 [facility] HEMATOLOGY Eosinophils 1.7 0.0 - 4.0 02/27/2020 [facility] HEMATOLOGY Basophils 0.2 0.0 - 1.0 02/27/2020 [facility] HEMATOLOGY Eosinophils # 0.1 0.0 - 0.5 02/27/2020 [facility] URINE AND STOOL UA Color Yellow *NA* (02/26/20 3:10 PM) Yellow 02/26/2020 [facility] URINE AND STOOL UA Turbidity Slight *ABN* (02/26/20 3:10 PM) Clear 02/26/2020 [facility] URINE AND STOOL UA Spec Grav 1.005 <=1.030 02/26/2020 [facility] URINE AND STOOL UA pH 5.0 5.0 - 8.0 02/26/2020 [facility] URINE AND STOOL UA Protein Negative mg/dL Negative mg/dL 02/26/2020 [facility] URINE AND STOOL UA Glucose Negative mg/dL Negative mg/dL 02/26/[address] [facility] [address] URINE AND STOOL UA Ketones Negative mg/dL Negative mg/dL 02/26/2020 [facility] URINE AND STOOL UA Bili Negative *NA* (02/26/20 3:10 PM) Negative 02/26/2020 [facility] URINE AND STOOL UA Blood Small *ABN* (02/26/20 3:10 PM) Negative 02/26/2020 [facility] URINE AND STOOL UA Nitrite Negative (02/26/20 3:10 PM) Negative 02/26/2020 [facility] URINE AND STOOL UA Leuk Est Large *ABN* (02/26/20 3:10 PM) Negative 02/26/2020 [facility] URINE AND STOOL UA Sq Epi Occasional /LPF Few /LPF 02/26/2020 [facility] URINE AND STOOL UA WBC 33 0 - 5 02/26/2020 [facility] URINE AND STOOL UA RBC 2 0 - 2 02/26/2020 [facility] URINE AND STOOL UA Bacteria Few /HPF None Seen /HPF 02/26/2020 [facility] URINE AND STOOL UA Mucus Few /LPF None Seen /LPF 02/26/2020 [facility] URINE AND STOOL UA Hyal Cast 2 0 - 2 02/26/2020 [facility] URINE AND STOOL UA Urobilinogen <=1.0 mg/dL 0.1 - 1.0 02/26/2020 [facility] BLOOD BANK RESULTS ABO/Rh O POS 02/26/2020 [facility] BLOOD BANK RESULTS Antibody Scrn Negative (02/26/20 2:26 PM) 02/26/2020 [facility] CHEM PANEL Lactic Acid Lvl 1.8 0.5 - 2.2 02/26/2020 [facility] CARDIAC ENZYMES Total CK 31 12 - 191 02/26/2020 [facility] CHEM PANEL Lactic Acid Lvl 2.1 0.5 - 2.2 02/26/2020 [facility] HEMATOLOGY PT 13.2 12.0 - 14.7 02/26/2020 [facility] HEMATOLOGY INR 1.00 0.85 - 1.17 02/26/2020 [facility] HEMATOLOGY PTT 31.7 22.9 - 35.8 02/26/2020 [facility] HEMATOLOGY Basophils 0.2 0.0 - 1.0 02/26/2020 [facility] CHEM PANEL Calcium Lvl 7.7 8.5 - 10.5 04/26/2016 [facility] CHEM PANEL CO2 26 24 - 32 04/26/2016 [facility] CHEM PANEL Chloride Lvl 101 95 - 109 04/26/2016 [facility] CHEM PANEL Potassium Lvl 3.9 3.5 - 5.1 04/26/2016 [facility] CHEM PANEL eGFR 54 04/26/2016 Result Comment: [...] should be multiplied by the estimated BMI. [facility] CHEM PANEL Glucose Lvl 105 70 - 99 04/26/2016 [facility] CHEM PANEL Sodium Lvl 136 135 - 145 04/26/2016 [facility] CHEM PANEL Creatinine Lvl 1.02 0.50 - 1.40 04/26/2016 [facility] CHEM PANEL BUN 10 7 - 22 04/26/2016 [facility] CHEM PANEL AGAP 12.9 10.0 - 20.0 04/26/2016 [facility] HEMATOLOGY MPV 7.4 7.4 - 10.4 04/26/2016 [facility] HEMATOLOGY Platelet 145 133 - 450 04/26/2016 [facility] HEMATOLOGY RDW 15.2 11.5 - 14.5 04/26/2016 [facility] MCHC 31.9 32.0 - 36.0 04/26/2016 [facility] RBC 2.99 4.20 - 5.40 04/26/2016 [facility] Hgb 8.5 12.0 - 16.0 04/26/2016 [facility] HEMATOLOGY Hct 26.8 36.0 - 48.0 04/26/2016 [facility] HEMATOLOGY MCV 89.5 80.0 - 98.0 04/26/2016 [facility] MCH 28.6 27.0 - 31.0 04/26/2016 [facility] HEMATOLOGY WBC 5.7 3.7 - 10.4 04/26/2016 [facility] HEMATOLOGY Eosinophils # 0.2 0.0 - 0.5 04/26/2016 [facility] HEMATOLOGY Monocytes # 0.5 0.0 - 0.8 04/26/2016 [facility] HEMATOLOGY Lymphocytes # 0.9 1.0 - 5.5 04/26/2016 [facility] HEMATOLOGY Segs-Bands # 4.1 1.5 - 8.1 04/26/2016 [facility] HEMATOLOGY Basophils 0.6 0.0 - 1.0 04/26/2016 [facility] HEMATOLOGY Eosinophils 2.9 0.0 - 4.0 04/26/2016 [facility] HEMATOLOGY Monocytes 9.0 2.0 - 12.0 04/26/2016 [facility] HEMATOLOGY Lymphocytes 15.9 20.0 - 40.0 04/26/2016 [facility] HEMATOLOGY Segs 71.6 45.0 - 75.0 04/26/2016 [facility] HEMATOLOGY Basophils 0.4 0.0 - 1.0 04/25/2016 [facility] HEMATOLOGY Eosinophils # 0.2 0.0 - 0.5 04/25/2016 [facility] HEMATOLOGY Monocytes # 0.5 0.0 - 0.8 04/25/2016 [facility] HEMATOLOGY Lymphocytes # 0.8 1.0 - 5.5 04/25/2016 [facility] HEMATOLOGY Segs-Bands # 5.7 1.5 - 8.1 04/25/2016 [facility] HEMATOLOGY Eosinophils 2.3 0.0 - 4.0 04/25/2016 [facility] HEMATOLOGY Monocytes 6.3 2.0 - 12.0 04/25/2016 [facility] Lymphocytes 11.0 20.0 - 40.0 04/25/2016 [facility] Segs 80.0 45.0 - 75.0 04/25/2016 [facility] MPV 6.8 7.4 - 10.4 04/25/2016 [facility] Platelet 161 133 - 450 04/25/2016 [facility] RDW 15.3 11.5 - 14.5 04/25/2016 [facility] MCH 28.7 27.0 - 31.0 04/25/2016 [facility] MCV 88.5 80.0 - 98.0 04/25/2016 [facility] Hct 29.0 36.0 - 48.0 04/25/2016 [facility] Hgb 9.4 12.0 - 16.0 04/25/2016 [facility] RBC 3.28 4.20 - 5.40 04/25/2016 [facility] MCHC 32.5 32.0 - 36.0 04/25/2016 [facility] WBC 7.2 3.7 - 10.4 04/25/2016 [facility] CHEM PANEL Magnesium Lvl 2.1 1.8 - 2.4 04/24/2016 [facility] CHEM PANEL Phosphorus 3.6 2.5 - 4.5 04/24/2016 [facility] ELECTROLYTES Potassium Lvl 4.6 3.5 - 5.1 04/24/2016 [facility] ELECTROLYTES Sodium Lvl 135 135 - 145 04/24/2016 [facility] ELECTROLYTES Glucose Lvl 97 70 - 99 04/24/2016 [facility] ELECTROLYTES Creatinine Lvl 1.2 8 0.50 - 1.40 04/24/2016 [facility] ELECTROLYTES BUN 7 7 - 22 04/24/2016 [facility] ELECTROLYTES eGFR 41 04/24/2016 Result Comment: The [...] should be multiplied by the estimated BMI. [facility] ELECTROLYTES Chloride Lvl 98 95 - 109 04/24/2016 [facility] ELECTROLYTES AGAP 13.6 10.0 - 20.0 04/24/2016 [facility] ELECTROLYTES CO2 28 24 - 32 04/24/2016 [facility] ELECTROLYTES Albumin Lvl 2.7 3.5 - 5.0 04/24/2016 [facility] ELECTROLYTES Total Protein 5.9 6.4 - 8.4 04/24/2016 [facility] ELECTROLYTES A/G Ratio 0.8 0.7 - 1.6 04/24/2016 [facility] ELECTROLYTES Globulin 3.2 2.0 - 4.0 04/24/2016 [facility] ELECTROLYTES B/C Ratio 5 6 - 25 04/24/2016 [facility] ELECTROLYTES ALT 13 0 - 65 04/24/2016 [facility] ELECTROLYTES Bili Total 0.4 0.2 - 1.3 04/24/2016 [facility] ELECTROLYTES Alk Phos 80 39 - 136 04/24/2016 [facility] ELECTROLYTES AST 16 0 - 37 04/24/2016 [facility] ELECTROLYTES Calcium Lvl 8.2 8.5 - 10.5 04/24/2016 [facility] HEMATOLOGY Monocytes # 0.4 0.0 - 0.8 04/24/2016 [facility] HEMATOLOGY Eosinophils # 0.1 0.0 - 0.5 04/24/2016 [facility] HEMATOLOGY Basophils # 0.1 0.0 - 0.2 04/24/2016 [facility] HEMATOLOGY Basophils 0.9 0.0 - 1.0 04/24/2016 [facility] HEMATOLOGY Eosinophils 1.7 0.0 - 4.0 04/24/2016 [facility] HEMATOLOGY Lymphocytes # 0.9 1.0 - 5.5 04/24/2016 [facility] HEMATOLOGY Segs-Bands # 5.0 1.5 - 8.1 04/24/2016 [facility] HEMATOLOGY Lymphocytes 13.2 20.0 - 40.0 04/24/2016 [facility] HEMATOLOGY Monocytes 6.2 2.0 - 12.0 04/24/2016 [facility] Segs 78.0 45.0 - 75.0 04/24/2016 [facility] WBC 6.5 3.7 - 10.4 04/24/2016 [facility] MCHC 32.4 32.0 - 36.0 04/24/2016 [facility] Platelet 198 133 - 450 04/24/2016 [facility] RDW 15.1 11.5 - 14.5 04/24/2016 [facility] MPV 6.8 7.4 - 10.4 04/24/2016 [facility] MCV 88.3 80.0 - 98.0 04/24/2016 [facility] Hgb 11.0 12.0 - 16.0 04/24/2016 [facility] RBC 3.84 4.20 - 5.40 04/24/2016 [facility] Hct 34.0 36.0 - 48.0 04/24/2016 [facility] MCH 28.7 27.0 - 31.0 04/24/2016 [facility] HEMATOLOGY PTT 31.0 22.9 - 35.8 04/24/2016 [facility] INR 1.11 0.85 - 1.17 04/24/2016 [facility] PT 14.6 12.0 - 14.7 04/24/2016 [facility] URINE AND STOOL UA Color Ltyellow 04/23/2016 [facility] URINE AND STOOL UA Urobilinogen <=1.0 mg/dL 0.1 - 1.0 04/23/[address] [facility] [address] URINE AND STOOL UA Protein Negative mg/dL Negative mg/dL 04/23/[address] [facility] [address] URINE AND STOOL UA pH 6.0 5.0 - 8.0 04/23/2016 [facility] URINE AND STOOL UA Bili Negative *NA* (04/23/16 5:56 PM) Negative 04/23/2016 [facility] URINE AND STOOL UA Ketones Negative mg/dL Negative mg/dL 04/23/2016 [facility] URINE AND STOOL UA Glucose Negative mg/dL Negative mg/dL 04/23/2016 [facility] URINE AND STOOL UA Nitrite Negative (04/23/16 5:56 PM) Negative 04/23/2016 [facility] URINE AND STOOL UA Blood Moderate *ABN* (04/23/16 5:56 PM) Negative 04/23/2016 [facility] URINE AND STOOL UA Spec Grav 1.004 <=1.030 04/23/2016 [facility] URINE AND STOOL UA Turbidity Clear (04/23/16 5:56 PM) Clear 04/23/2016 [facility] URINE AND STOOL UA RBC 1 0 - 2 04/23/2016 [facility] URINE AND STOOL UA WBC 1 0 - 5 04/23/2016 [facility] URINE AND STOOL UA Sq Epi Occasional /LPF Few /LPF 04/23/2016 [facility] URINE AND STOOL UA Leuk Est Negative (04/23/16 5:56 PM) Negative 04/23/2016 [facility] CHEM PANEL B/C Ratio 5 6 - 25 04/23/2016 [facility] CHEM PANEL AGAP 11.5 10.0 - 20.0 04/23/2016 [facility] CHEM PANEL Globulin 3.4 2.0 - 4.0 04/23/2016 [facility] CHEM PANEL A/G Ratio 0.9 0.7 - 1.6 04/23/2016 [facility] CHEM PANEL eGFR 44 04/23/2016 Result Comment: [...] should be multiplied by the estimated BMI. [facility] CHEM PANEL Alk Phos 86 39 - 136 04/23/2016 [facility] CHEM PANEL Bili Total 0.5 0.2 - 1.3 04/23/2016 [facility] CHEM PANEL AST 15 0 - 37 04/23/2016 [facility] CHEM PANEL ALT 15 0 - 65 04/23/2016 [facility] CHEM PANEL Albumin Lvl 3.1 3.5 - 5.0 04/23/2016 [facility] CHEM PANEL Chloride Lvl 93 95 - 109 04/23/2016 [facility] CHEM PANEL CO2 28 24 - 32 04/23/2016 [facility] CHEM PANEL Potassium Lvl 3.5 3.5 - 5.1 04/23/2016 [facility] CHEM PANEL Sodium Lvl 129 135 - 145 04/23/2016 [facility] CHEM PANEL Creatinine Lvl 1.20 0.50 - 1.40 04/23/2016 [facility] CHEM PANEL BUN 6 7 - 22 04/23/2016 [facility] CHEM PANEL Glucose Lvl 94 70 - 99 04/23/2016 [facility] CHEM PANEL Calcium Lvl 8.5 8.5 - 10.5 04/23/2016 [facility] CHEM PANEL Total Protein 6.5 6.4 - 8.4 04/23/2016 [facility] HEMATOLOGY PT 13.8 12.0 - 14.7 04/23/2016 [facility] HEMATOLOGY INR 1.03 0.85 - 1.17 04/23/2016 [facility] HEMATOLOGY PTT 31.8 22.9 - 35.8 04/23/2016 [facility] Pathology Reports No Data Provided for This [...] 1 hour physician or other qualified health managed care manager time. This radiologist did not supervise this [...] above. Eder Cortez MD On 02/27/2020 16:49:12; [id number] 02/27/2020 [facility] Brain wo contrast CT Radiation Dose CTDIVOL [...] level. Brock Bradley MD On 02/26/2020 14:29:33; [id number] 02/26/2020 [facility] Spine cervical wo contrast CT Radiation Dose [...] C6-C7. Brock Bradley MD On 02/26/2020 14:48:00; [id number] 02/26/2020 [facility] Pelvis AP DX PROCEDURE INFORMA TION: Exam: [...] neck. Eder Cortez MD On 02/26/2020 13:39:25; [id number] 02/26/2020 [facility] Chest 1view DX PROCEDURE INFOR MATION: Exam: [...] chest. Eder Cortez MD On 02/26/2020 13:37:08; [id number] 02/26/2020 [facility] Brain wo contrast CT Radiation Dose CTDIVOL [...] process. Ezequiel Browne MD On 11/24/2019 11:01:23; [id number] 11/24/2019 [facility] Spine cervical wo contrast CT (ER) Radiation [...] Avila MD On 11/24/2019 11:07:10; [id number] 11/24/2019 [facility] Hip 2/3 views uni w pelvis DX [...] finding. Kobe Zapien MD On 11/24/2019 11:11:33; [id number] 11/24/2019 [facility] Chest 1view DX PROCEDURE INFOR MATION: Exam: [...] Paz MD On 11/24/2019 11:06:57; [id number] 11/24/2019 [facility] Hip 2/3 views uni DX Patient N blanca: MANFRED WALKER : 1940; Age: 75 years y/o Female MR: [id number] Study: 5 spot images of the right hip dated 04/24/2016. Clinical Indication: Right Hip Pinning; 1 minute and 17 seconds fluoro time/14.77 mGy/OEC 9900+ 3/OR 3 Comparison: 04/23/2016 The spot views limit evaluation of bony detail. The spot views show placement of 3 screws across a right subcapital femur fracture. Bones are in near anatomic alignment on the views provided. SL: CSODERSKARY- 04/24/2016 [facility] Brain wo contrast CT Study: Br ain [...] aerated. IMPRESSION: No acute intracranial abnormality. SL: [id number] 04/23/2016 [facility] Knee series 3 views DX Study: Knee [...] the ri ght knee. SL: MARCIO- 04/23/2016 [facility] Elbow 2 views DX : ; Age: 75 years y/o Female MR: [id number] Study: Elbow 2 views DX 04/23/2016 3:14 [...] No acute fracture or malalignment seen. SL: [id number] 04/23/2016 [facility] Pelvis AP DX : 1940; A ge: 75 years y/o Female MR: [id number] Study: Pelvis AP DX, Hip 2/3 views [...] of the right mid femoral neck. SL: [id number] 04/23/2016 [facility] Chest 1view DX : 1940; Age: 75 years y/o Female MR: [id number] Study: Chest 1view DX 04/23/2016 3:15 PM [...] IMPRESSION: 1. No acute intrathoracic abnormality. SL: [id number] 04/23/2016 [facility] Hip 2/3 views uni DX : 06/19; Age: 75 years y/o Female MR: [id number] Study: Pelvis AP DX, Hip 2/3 views [...] of the right mid femoral neck. SL: [id number] 04/23/2016 [facility] Consultation Notes No Data Provided for This [...] 03/22/2020 [facility] Diastolic (mm Hg) 53 03/22/2020 [facility] Temperature Oral (F) 98.1 F 03/22/2020 [facility] Heart Rate 62 03/22/2020 [facility] Height 160.2 cm 03/12/2020 [facility] Weight 73.352 03/12/2020 [facility] BMI Calculated 28.58 03/12/2020 [facility] Height 160.02 cm 03/05/2020 [facility] Weight 71.2 03/05/2020 [facility] BMI Calculated 27.81 03/05/2020 [facility] Height 160.02 cm 03/03/2020 [facility] Weight 72.545 03/03/2020 [facility] BMI Calculated 28.33 03/03/2020 [facility] Respitory Rate 16 03/03/2020 [facility] Temperature Oral (F) 99.0 F 03/03/2020 [facility] Heart Rate 70 03/03/2020 [facility] Respitory Rate 18 03/03/2020 [facility] Systolic (mm Hg) 140 03/03/2020 [facility] Diastolic (mm Hg) 50 03/03/2020 [facility] Temperature Oral (F) 97.7 F 03/02/2020 [facility] [...] 66 11/24/2019 [facility] Respitory Rate 15 11/24/2019 [facility] Temperature Oral (F) 98.9 F 11/24/2019 [facility] Respitory Rate 23 11/24/2019 [facility] Respitory Rate 19 11/24/2019 [facility] Systolic (mm Hg) 114 11/24/2019 [facility] Diastolic (mm Hg) 77 11/24/2019 [facility] Systolic (mm Hg) 107 11/24/2019 [facility] Diastolic (mm Hg) 66 11/24/2019 [facility] Heart Rate 59 11/24/2019 [facility] Temperature Oral (F) 98.5 F 11/24/2019 [facility] Height 162.56 cm 11/24/2019 [facility] BMI Calculated 27.87 11/24/2019 [facility] Weight 73.636 11/24/2019 [facility] Heart Rate 67 04/26/2016 [facility] Temperature Oral (F) 98.3 F 04/26/2016 [facility] Respitory Rate 18 04/26/2016 [facility] Systolic (mm Hg) 118 04/26/2016 [facility] Diastolic (mm Hg) 71 04/26/2016 [facility] Systolic (mm Hg) 116 04/26/2016 [facility] Diastolic (mm Hg) 69 04/26/2016 [facility] Respitory Rate 16 04/26/2016 [facility] Temperature Oral (F) 98.4 F 04/26/2016 [facility] Heart Rate 70 04/26/2016 [facility] Systolic (mm Hg) 101 04/26/2016 [facility] Diastolic (mm Hg) 58 04/26/2016 [facility] Temperature Oral (F) 97.9 F 04/26/2016 [facility] Heart Rate 63 04/26/2016 [facility] Respitory Rate 16 04/26/2016 [facility] Weight 72.727 04/23/2016 [facility] Height 160.02 cm 04/23/2016 [facility] BMI Calculated 28.4 04/23/2016 [facility] Encounters Location Location Details Encounter Type Encounter Number Reason For Visit Attending Provider ADM Date DC Date Status Source [facility] Inpatient [id number] Alejandro Kumar 04/23/2016 04/26/[facility] [id number] Michael Moser 11/24/2019 11/24/2019 [facility] [id number] Vibha Murphy 02/26/2020 03/03/2020 [facility] [id number] Justo Dallas Jr 03/03/2020 03/23/2020 [facility] Procedures Procedure Code Date Perfomer Comments Source Cardiac catheterization 289395 [facility] Placement of stent [id number] [facility] Assessment and Plan Assessment and Plan Date [...] grooming and basic mobilization. She presented to [facility] after having a mechanical fall at home with an associated acute traumatic left hip intertrochanteric femur fracture. Dr. Hester performed a left hip ORIF. There were no major intraoperative complications. Postoperatively, she had some anemia and some confusion decline in functional mobility and self-care. She was recommended for acute intensive inpatient rehabilitation and is admitted to [facility] rehabilitation unit on 03/02. REHABILITATION HOSPITAL COURSE: [...] provide that support and have requested a snf center. 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 Family now agreeing to [...] Dimitri Hester orthopedic surgery 3 weeks. 3. group home facility physical th erapy and occupational therapy. [...] hose rinsing . Patient completed dryer with asian studies program chair and combing . -tolerating therapy. -Awaiting [...] rolling walker for ambulation who presents to [facility] with a slip and fall off [...] rolling walker for ambulation who presents to [facility] s/p fall off the toilet. 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 Postop anemia requiring blood products. PLAN: 1. Rehab Plan- PT/OT to see patient arthur canchola in hospital. generator worker, onsite case manager and Medical/Rehab/Pain/Consulting team following. -Functional [...] s 3 times daily as needed for vkfy-ls-siekphze pain (1-3)- unless contraindicated. - Ice/Heat PRN [...] Rehabilitation Nursing, Psychology, Case Management, Pharmacist, and Certified Residential Medication Aide. FUNCTIONAL HISTORY: Modified Independent ADLs, mobility, community [...] performing the following tasks safely: Attendance of zoroastrianism/baptist activities Participation in family activities Participation in recreational activities Unassisted ambulation/mobility Unassisted self-care tasks such as bathing and dressing Medication management credit risk management director Cooking Cleaning REHAB PROGNOSIS: Good ESTIMATED LENGTH OF STAY: 10 days DISPOSITION: Goal is to get this patient home with family support, however availability of support to be investigated at all times. Many suport decisions are made prior to arrival in acute hospital without having full detailed communication with family and friends about functional limitations. Patient may need snf facility placement prior to discharge home but the goal is always to try and get back to home setting. OTHER MD'S INVOLVED IN CARE: 03/23/2020 [facility] Extracted from:Title: Progress Note Author: Vibha Murphy [...] rolling walker for ambulation who presents to [facility] with a slip and fall off [...] to see patient arthur e in hospital. generator worker, onsite case manager and Medical/Rehab/Pain/Consulting team following. -Functional [...] s 3 times daily as needed for ziip-rd-vxmavali pain (1-3)- unless contraindicated. - Ice/Heat PRN [...] ATTACKSsince AND Crystal requested to continue. 03/03/2020 [facility] Plan of Care No Data Provided for This Section Social History Social History Date Source Social History TypeResponse Smoking Status Never smoker; Type: Cigarettes; Exposure to Tobacco Smoke None; Cigarette Smoking Last 365 Days No; Reg Smoking Cessation Counseling No entered on: 03/03/20 03/03/2020 [facility] Family History No Data Provided for This Section Advance Directives No Data Provided for This Section Functional Status No Data Provided for This Section
--- OUTSIDE RECORDS SUMMARY | 2020-06-19 00:14 | XMS REPORT | Continuity of Care Document ---
Author Author [facility] Organization [facility] Address [address] [place] [address] Phone Unavailable Care Team Providers Care Machinist Mate Name Role Phone Claire DIEGO Attphys Unavailable Brock Tirado Jr Attphys Vibha Murphy Attphys Marleny Moser Attphys Eric Kumar Attphys Brock Tirado Jr Admphys Vibha Murphy Admphys Eric Kumar Admphys Problems Condition Name Condition Details Condition Category Status Onset Date Resolution Date Last Treatment Date Treating Clinician Comments Source FALL FALL Active 02/26/2020 [facility] Diagnosis Active 2020-02-26 00:00:00 2020-02-26 14:43:00 Leland Prado CLOSED COMMINUTED INTERTROCHANTERIC FX O CLOSED COMMINUTED INTERTROCHANTERIC FX O Active 02/26/2020 [facility] Diagnosis Active 2020-02-26 00:00:00 2020-03-07 21:51:00 Leland Prado CLOSED COMMINUTED INTERTROCHANTERIC CLOSED COMMINUTED INTERTROCHANTERIC Active 02/26/2020 [facility] Diagnosis Ac tive 2020-02-26 00:00:00 2020-03-02 13:00:00 [facility] INTERTROCHANTERIC FRACTURE INT ERTROCHANTERIC FRACTURE Active 02/26/2020 [facility] Diagnosis Active 2020-02-26 00:00:00 2020-03-30 21:49:00 Leland Prado RIGHT HIP FRACTURE RIGH T HIP FRACTURE Active 04/23/2016 [facility] Diagnosis Active 2016-04-23 00:00:00 2016-04-26 09:59:00 Leland [...] Aor tic aneurysm (disorder) Resolved Problem 03/25/2020 [facility] Problem Resolved 2020-03-25 21:48:42 Leland Prado Coronary arteriosclerosis (disorder) Coronary arteriosclerosis (disorder) Resolved Problem 03/25/2020 [facility] Problem Resolved 2020-03-25 21:48:42 Clare Prado Hypertensive disorder, systemic arterial (disorder) Hypertensive disorder, systemic arterial (disorder) Resolved Problem 03/25/2020 [facility] Problem Resolved 2020-03-25 21:48:42 Leland Prado Cerebrovascular accident (disorder) Cerebrovascular accident (disorder) Resolved Problem 03/25/2020 [facility] Problem Resolved 2020-03-25 21:48:42 Leland Prado Acute urinary tract infection (disorder) Acute urinary tract infection (disorder) Active Problem 03/25/2020 [facility] Problem Active 2020-03-25 21:48:42 Leland Prado Anemia following acute postoperative blood loss (disor alberto) Anemia following acute postoperative blood loss (disorder) Active Problem 03/25/2020 [facility] Problem Active 2020-03-25 21:48:42 Leland Prado Chronic obstructive lung disease (disorder) Chronic obstructive lung disease (disorder) Active Problem 03/25/2020 [facility] Problem Active 2020-03-25 21:48:42 Leland Prado Closed fracture proximal femur, intertrochanteric, com minuted (disorder) Closed fracture proximal femur, intertrochanteric, comminuted (disorder) Active Problem 03/25/2020 [facility] Problem Active 2020-03-25 21:48:42 Leland Prado Falling [...] FRACTURE OF UNSP FEMUR, INIT ENCNTR Active [facility] Diagnosis Active 2016-04-26 09:59:00 Leland Prado DISPLACED INTERTROCHANTERIC FRACTURE OF DISPLACED INTERTROCHANTERIC FRACTURE OF Active [facility] Diagnosis Active 2020-03-30 21:49:00 Leland Prado Unspecified [...] Daily, # 120 tab, 0 Refill(s), Pharmacy: [address] Furosemide 20 MG Oral Tablet 2020-03-23 14:16:00 Yes 20 mg = 1 tab, PO, Daily, # 30 tab, 0 Refill(s), Pharmacy: [address] 24 HR Metoprolol Tartrate 25 MG Extended Release Tablet [Top rol] 2020-03-23 14:16:00 Yes 25 mg = 1 tab, PO, Daily, # 30 tab, 0 Refill(s), Pharmacy: [address] Rosuvastatin calcium 20 MG Oral Tablet [Crestor] 2020-03-23 14:16:00 Yes 20 mg = 1 tab, PO, B edtime, # 30 tab, 0 Refill(s), Pharmacy: [address] tramadol hydrochloride 50 MG Oral Tablet 2020-03-23 14:16:00 Yes 50 mg = 1 tab, PO, Q4H, PRN Pain Score 1-3, X 3 day, # 10 tab, 0 Refill(s), Pharmacy: [address] cholecalciferol 1000 intl units oral tablet 2020-03-15 16:02:00 Yes 1,000 IntlUnit = 1 tab, PO, Daily, 0 Refill(s) [facility] diazepam 5 mg oral tablet 2020-03-15 16:02:00 Yes 10 mg = 2 tab, PO, BID, PRN as needed for anxiety, 0 Refill(s) [facility] Acetaminophen 325 MG Oral Tablet 2020-03-15 16:02:00 Yes 650 mg = 2 tab, PO, Q4H, PRN Pain Score 1-3, 0 Refill(s) [facility] bisacodyl 10 mg rectal suppository 2020-03-15 16:02:00 Yes 10 mg = 1 supp, AK, Bedtime, PRN Constipation, 0 Refill(s) [facility] Calcium Carbonate 500 MG Chewable Tablet 2020-03-15 16:02:00 Yes 500 mg = 1 tab, PO, BID, 0 Refill(s) Ирина al Johan Docusate Sodium 100 MG Oral Capsule 2020-03-15 16:02:00 Yes 100 mg = 1 cap, PO, BID, PRN Constipation, 0 Refill(s) Leland Prado enoxaparin 40 mg/0.4 mL subcutaneous solution 2020-03-15 16:02:0 0 No 40 mg = 0.4 mL, SUB-Q, [id number], 0 Refill(s) Leland Prado Furosemide 20 MG Oral Tablet 2020-03-15 16:02:00 No 20 mg = 1 tab, PO, Daily, 0 Refill(s) Leland Prado Ipratropium Knott 0.2 MG/ML Inhalant Solution 2020-03-15 16:02 :00 [...] Stop date: 04/13/20 14:21:00 CDT, 1.83, m2 [facility] Melatonin 2020-03-13 19:20:00 No 3 mg, Route: PO, Bedtime, Dosing Weight 73.352, kg, PRN Sleep, Start date: 03/13/20 14:20:00 CDT, Duration: 30 day, Stop date: 04/12/20 14:19:00 CDT Il melissa Prado Potassium Chloride 2020-03-13 19:19:00 No [...] Notes: SEE RT DOCUMENTATION (Same as:Atrovent) Leland Johan Furosemide 20 MG Oral Tablet 2020-03-12 20:23:00 No Notes: (Same as: Lasix) May cause GI upset. Give with food or milk. Leland Prado Albuterol 0.833 MG/ML / Ipratropium Brom ryan 0.167 MG/ML Inhalant Solution [DuoNeb] 2020-03-11 21:38:00 No Notes: (S blanca as: Duoneb) Leland Prado Diazepam 2020-03-08 19:27:00 No Notes: (Aidan e as: Valium) Leland Prado Docusate Sodium 100 MG Oral Capsule 2020-03-07 19:37:00 No Notes: (Same as: Colace) (Do Not Crush) More Prado Miralax 2020-03-07 19:37:00 No Notes: Dissolve in 8 oz of water or juice. (Same as: Miralax) Leland Lin nn sennosides, S[facility]IOR [facility] 8.6 MG Oral Tablet 2020-03-07 19:37:00 No Notes: (Same as: Senokot) Leland Prado tramadol hydrochloride 50 MG Oral Tablet 2020-03-04 02:23:00 No Notes: Not to exceed 400mg/day. (Same As: Ultram) Leland Prado Potassium Chloride 2020-03-03 20:20:00 No Notes: (Same as: K-Dur 20) "Do Not Crush" Give with food and full glass of water For patients unable to swallow tablet, dissolve in one half glass of water. Allow about 2 minutes for the tablets to disintegrate. Stir before giving to prepare slurry and administer. Please exclude Patient s with feeding tube less than 14 Omani (Dobhoff, J-tube etc) and pediatric and patients. [facility] potassium chloride 20 mEq oral tablet, extended release (KCL ) 2020-03-03 16:55:00 No 20 mEq, 1 tab, Route: PO, Drug form: ERTAB, Q12H, Dosing Weight 72.545, kg, PRN Abnormal Lab Result, Start date: 03/03/20 11:55:00 CDT, Duration: 30 day, Stop date: 04/02/20 11:54:00 CDT, 0 [facility] Potassium Chloride 2020-03-03 15:23:00 No Notes: (Same as: K-Dur 20) "Do Not Crush" Give with food and full glass of water For patients unable to swallow tablet, dissolve in one half glass of water. Allow about 2 minutes for the tablets to disintegrate. Stir before giving to prepare slurry and administer. Please exclude Patient s with feeding tube less than 14 [place]i (Dobhoff, J-tube etc) and pediatric and patients. [facility] Cholecalciferol 2020-03-03 14:00:00 No Notes: Same as : Vitamin D3 [facility] Celexa 2020-03-03 14:00:00 No 40 mg, 4 tab, Route: PO, Drug form: TAB, Daily, Dosing Weight 72.545, kg, Start date: 03/03/20 9:00:00 CDT, Duration: 30 day, Stop date: 04/01/20 9:00:00 CDT, 0 [facility] metoprolol extended release 2020-03-03 14:00:00 No Notes: (Same as: Toprol XL) Do Not Crush [facility] Saline Flush 0.9% 2020-03-03 14:00:00 No Notes: (Same as: BD Posiflush) [facility] Acetaminophen 2020-03-03 04:13:00 No Notes: Do not exceed 4 gm/day. (Same as: Tylenol) [facility] Acetaminophen 325 MG / Hydrocodone Bitartrate 5 MG Oral Tabl et 2020-03-03 04:13:00 No Notes: (Sa me as: Rembert 325/5) Do not exceed 4gm/day of acetaminophen. [facility] Ondansetron 2020-03-03 04:13:00 No Notes: ( Same as: Zofran) [facility] Docusate 2020-03-03 04:13:00 No Notes: (Same as: Colace) (Do Not Crush) [facility] Bisacodyl 2020-03-03 04:13:00 No Notes: (Same As: Dulcolax, Bisco-Lax) [facility] Melatonin 2020-03-03 04:13:00 No Notes: (Sa me as: Melatonin) [facility] Saline Flush 0.9% 2020-03-03 04:13:00 No Notes: (Same as: BD Posiflush) [facility] Crestor 2020-03-03 02:00:00 No Notes: Same as Crestor [facility] Calcium Carbonate 2020-03-02 22:00:00 No Notes: (Same As: Tums) Calcium Carbonate 500 mg = 200 mg elemental calcium Dose = mg calcium carbonate ( mg elemental calcium) [facility] Diazepam 2020-03-02 22:00:00 No Notes: (Aidan e as: Valium) [facility] Protonix 2020-03-02 21:30:00 No Notes: Tablet should not be chewed or crushed. (Same as: Protonix) [facility] Lovenox 2020-03-02 17:00:00 No Notes: (Same as: Lovenox) [facility] Acetaminophen 325 MG / Hydrocodone Bitartrate 10 MG Or al Tablet [Rembert 10/325] 2020-03-02 14:31:00 No Note s: Do not exceed 4gm/day of acetaminophen. (Same as: Rembert 325/10) [facility] Anoro Ellipta 62.5 mcg-25 mcg inhalation powder 2020-03-02 05:05 :00 Yes 1 puff, INHALER, Daily, # 1 ea, 3 Refill(s) [facility] 24 HR Metoprolol Tartrate 25 MG Extended Release Tablet [Top rol] 2020-03-01 19:18:00 Yes 25 mg = 1 tab, PO, Daily, 0 R efill(s) [facility] citalopram 10 mg oral tablet 2020-03-01 19:18:00 Yes 40 mg = 4 tab, PO, BID, 0 Refill(s) [facility] pantoprazole 40 mg oral enteric coated tablet 2020-03-01 19:18:0 0 Yes 40 mg = 1 tab, PO, Before Breakfast, 0 Refill(s) Leland Prado Cholecalciferol 2020-02-28 14:00:00 No Notes: Same as : Vitamin D3 [facility] Enoxaparin 2020-02-28 12:00:00 No Notes: (S blanca as: Lovenox) [facility] Johan Lovenox 2020-02-28 12:00:00 No 40 mg, Route: SUB-Q, Drug form: INJ, [id number], Dosing Weight 72.545, kg, Start date: 02/28/20 7:00:00 CDT, Duration: 14 day, Stop date: 03/12/20 7:00:00 CDT [facility] Calcium Carbonate 2020-02-27 22:00:00 No Notes: 500mg elemental calcium = 1250mg calcium carbonate. Contains 500mg elemental calcium. (Same As: OsCal 500) [facility] dexamethasone (BABATUNDES) 2020-02-27 17:14:00 No Route: IV, Drug form: INJ, ONCE, Stop date: 02/27/20 12:14:00 CDT [facility] Fentanyl 2020-02-27 16:30:00 No Notes: (Same as: Sublimaze) Preservative free. [facility] [place] Flumazenil 2020-02-27 16:30:00 No Notes: (S blanca as: Romazicon) [facility] [address] Naloxone 2020-02-27 16:30:00 No Notes: Same as Narcan [facility] Ondansetron 2020-02-27 16:30:00 No Notes: (Same as: Jean) MEDICATION WASTE Product Size: 4 mg Product Wasted: ___ mg [facility] ondansetron (BABATUNDES) 2020-02-27 16:19:00 No Route: IV, Drug form: INJ, ONCE, Stop date: 02/27/20 11:19:00 CDT [facility] ceFAZolin (BABATUNDES) 2020-02-27 16:09:00 No Route: IV, Drug form: INJ, ONCE, Stop date: 02/27/20 11:09:00 CDT Wendy Prado ePHEDrine (BABATUNDES) 2020-02-27 15:53:00 No Route: IV, Drug form: INJ, ONCE, Stop date: 02/27/20 10:53:00 CDT [facility] midazolam ([facility]) 2020-02-27 15:43:00 No Route: IV, Drug form: SOLN, ONCE, Stop date: 02/27/20 10:43:00 CDT [facility] lidocaine ([facility]) 2020-02-27 15:43:00 No Route: IV, Drug form: INJ, ONCE, Stop date: 02/27/20 10:43:00 CDT [facility] fentaNYL ([facility]) 2020-02-27 15:43:00 No Route: IV, Drug form: INJ, ONCE, Stop date: 02/27/20 10:43:00 CDT [facility] glycopyrrolate ([facility]) 2020-02-27 15:43:00 No Route: IV, Drug form: INJ, ONCE, Stop date: 02/27/20 10:43:00 CDT [facility] propofol ([facility]) 2020-02-27 15:39:00 No Route: IV, Drug form: INJ, ONCE, Stop date: 02/27/20 10:39:00 CDT [facility] succinylcholine ([facility]) 2020-02-27 15:39:00 No Route: IV, Drug form: INJ, ONCE, Stop date: 02/27/20 10:39:00 CDT [facility] Dilaudid 2020-02-27 15:05:00 No Notes: (Aidan e as: Dilaudid) [facility] Lactated Ringers Injection IV ([facility]) 1000 mL 2020-02-27 14:57:00 No Route: IV, Total Volume: 1,000, Start date: 02/27/20 9:57:00 CDT, Stop date: 02/27/20 10:57:00 CDT [facility] Prevacid 2020-02-27 14:00:00 No 30 mg, Route: PO, QAM, Dosing Weight 72.545, kg, Start date: 02/27/20 9:00:00 CDT, Duration: 30 day, Stop date: 03/27/20 9:00:00 CDT [facility] 24 HR Metoprolol Tartrate 25 MG Extended Release Tablet [Top rol] 2020-02-27 14:00:00 No Notes: (Same as: Toprol XL) D o Not Crush [facility] Vitamin D3 2020-02-27 14:00:00 No Notes: Sa me as Vitamin D3 [facility] Celexa 2020-02-27 14:00:00 No 40 mg, 4 tab, Route: PO, Drug form: TAB, Daily, Dosing Weight 72.545, kg, Start date: 02/27/20 9:00:00 CDT, Duration: 30 day, Stop date: 03/27/20 9:00:00 CDT, 0 [facility] Protonix 2020-02-27 12:30:00 No Notes: Tablet should not be chewed or crushed. (Same as: Protonix) [facility] Morphine 2020-02-27 07:09:00 No Not es: (Same as:MORPhine Sulfate) [facility] Diazepam 2020-02-27 05:48:00 No Notes: (Aidan e as: Valium) [facility] Ciprofloxacin 2020-02-27 03:00:00 No Notes: Do not refrigerate [facility] Crestor 2020-02-27 02:00:00 No Notes: Same as Crestor [facility] Morphine 2020-02-26 23:55:00 No Not es: (Same as:MORPhine Sulfate) [facility] Trazodone 2020-02-26 23:35:00 No Notes: ([facility] As: Desyrel) [facility] Ancef + sterile water 20 mL 2020-02-26 21:51:00 No Notes: (Same As: Ancef, Kefzol) MEDICATION WASTE Product Size: 1000 mg Product Wasted: ___ mg [facility] Dextrose 50% Syringe (D50W) 2020-02-26 21:01:00 No 12.5 gm, 25 mL, Route: IVP, Drug Form: INJ, Dosing Weight 72.727, kg, PRN, PRN Blood Glucose Results, Start date: 02/26/20 16:01:00 CDT, Duration: 30 day, Stop date: 03/27/20 16:00:00 CDT, 0 [facility] Glucagon 2020-02-26 21:01:00 No 1 mg, Route: IM, Drug form: PDR/INJ, PRN, Dosing Weight 72.727, kg, PRN Blood Glucose Results, Start date: 02/26/20 16:01:00 CDT, Duration: 30 day, Stop date: 03/27/20 16:00:00 CDT, 0 Leland Prado Docusate 2020-02-26 21:01:00 No Notes: (Same as: Colace) (Do Not Crush) Leland Johan Ondansetron 2020-02-26 21:01:00 No Notes: (Same as: [...] crush or chew. (Same As: Ecotrin) Wendy Prado Vitamin C 2016-04-25 14:00:00 No Notes: (Sa me as: Vitamin C) Leland Prado Protonix 2016-04-25 14:00:00 No Notes: Tablet should not be chewed or crushed. (Same as: Protonix) Leland Prado Crestor 2016-04-25 02:00:00 No 20 mg, Route: PO, Drug form: TAB, Bedtime, Dosing Weight 72.727, kg, Start date: 04/24/16 21:00:00 CDT, Duration: 30 day, Stop date: 05/23/16 21:00:00 CDT [facility] Johan Lipitor 2016-04-25 02:00:00 No Notes: (Same as: Lipitor) Leland Prado ePHEDrine (ANES) 2016-04-24 22:33:00 No Route: IV, Drug form: INJ, ONCE, Stop date: 04/24/16 17:33:00 CDT Wendy Prado ondansetron (ANES) 2016-04-24 22:28:00 No Route: IV, Drug form: INJ, ONCE, Stop date: 04/24/16 17:28:00 CDT [facility] acetaminophen (ANES) ([facility]) 2016-04-24 22:27:00 No Route: IV, Drug form: INJ, Start date: 04/24/16 17:27:00 CDT, Stop date: 04/24/16 18:27:00 CDT [facility] midazolam ([facility]) 2016-04-24 22:23:00 No Route: IV, Drug form: SOLN, ONCE, Stop date: 04/24/16 17:23:00 [facility] ([facility]) 2016-04-24 22:23:00 No Route: IV, Drug form: INJ, ONCE, Stop date: 04/24/16 17:23:00 CDT [facility] lidocaine ([facility] 2016-04-24 22:23:00 No Route: IV, Drug form: INJ, ONCE, Stop date: 04/24/16 17:23:00 CDT [facility] propofol ([facility]) 2016-04-24 22:23:00 No Route: IV, Drug form: INJ, ONCE, Stop date: 04/24/16 17:23:00 CDT [facility] ceFAZolin ([facility]) ([facility]) 2016-04-24 22:12:00 No Route: IV, Drug form: INJ, Start date: 04/24/16 17:12:00 CDT, Stop date: 04/24/16 18:12:00 CDT [facility] Acetaminophen 325 MG / Hydrocodone Connor trate 7.5 MG Oral Tablet [Rembert 7.5/325] 2016-04-24 22:11:00 No Notes: Same as Rembert 325-7.5mg Do not exceed 4gm/day of acetaminophen. Memoria l Johan Acetaminophen 325 MG / Hydrocodone Connor trate 7.5 MG Oral Tablet [Rembert 7.5/325] 2016-04-24 22:10:00 No Notes: Same as Rembert 325-7.5mg Do not exceed 4gm/day of acetaminophen. Memoria l [place] Diazepam 2016-04-24 22:00:00 No Notes: (Aidan e as: Valium) [facility] LR 1000 mL INJ ([facility]) 2016-04-24 21:40:00 No Route: IV, Total Volume: 1,000, Start date: 04/24/16 16:40:00 CDT, Stop date: 04/24/16 17:40:00 CDT [facility] Johan Aspirin 81 MG Enteric Coated Tablet 2016-04-24 02:32:00 Yes 81 mg = 1 tab, PO, Daily, # 90 tab, 3 Refill(s) [facility] Potassium Chloride 10 MEQ Extended Release Tablet 2016-04-24 02:32:00 Yes 10 mEq = 1 tab, PO, Daily, 0 Refill(s) [facility] Prevacid 2016-04-24 02:32:00 Yes 30 mg, PO, QAM, # 15 cap, 0 Refill(s) [facility] Vitamin C 1000 mg oral tablet 2016-04-24 02:32:00 Yes 1,000 mg = 1 tab, PO, Daily, 0 Refill(s) [facility] mabry Rosuvastatin calcium 20 MG Oral Tablet [Crestor] 2016-04-24 02:32:00 Yes 20 mg = 1 tab, PO, Bedtime, 0 Refill(s) [facility] Vitamin C 2016-04-24 02:32:00 Yes 0 Refill(s ) [facility] diazepam 10 mg oral tablet 2016-04-24 02:32:00 Yes 10 mg = 1 tab, PO, BID, 0 Refill(s) [facility] Vitamin D3 oral tablet 2016-04-24 02:32:00 Yes 800 IntlUnit = 2 tab, PO, Daily, 0 Refill(s) [facility] Ancef 2016-04-24 02:00:00 No Notes: Same as : Madiha [facility] Johan Saline Flush 0.9% 2016-04-24 00:33:00 No Notes: (Same as: BD Posiflush) [facility] Sodium Chloride 0.154 MEQ/ML Injectable Solution 2016-04-24 00:3 3:00 No 1,000 mL, Rate: 40 ml/hr, In fuse over: 25 hr, Route: IV, Dosing Weight 72.727 kg, Total Volume: 1,000, Start date: 04/23/16 19:33:00 CDT, Stop date: 05/23/16 19:32:00 CDT [facility] Ondansetron 2016-04-24 00:33:00 No 4 mg, Route: IVP, Q6H, Dosing Weight 72.727, kg, PRN Nausea & Vomiting, Start date: 04/23/16 19:33:00 CDT, Duration: 30 day, Stop date: 05/23/16 19:32:00 CDT [facility] Morphine 2016-04-24 00:33:00 No 2 mg, Route: IVP, Q4H, Dosing Weight 72.727, kg, PRN Pain Score 7-10, Start date: 04/23/16 19:33:00 CDT, Duration: 30 day, Stop date: 05/23/16 19:32:00 CDT [facility] Enoxaparin 2016-04-23 23:00:00 No Notes: (S blanca as: Lovenox) [facility] Hydralazine 2016-04-23 22:59:00 No Notes: (Same as: Apresoline) Push over 5 minutes [facility] sodium chloride 0.9% 1000 ml INJ 1,000 mL 2016-04-23 22:59:00 No 1,000 mL, Rate: 90 ml/hr, Infuse over: 11.1 hr, Route: IV, Dosing Weight 72.727 kg, Total Volume: 1,000, Start date: 04/23/16 17:59:00 CDT, Duration: 30 day, Stop date: 05/23/16 17:58:00 CDT Memoria claire [place] Morphine 2016-04-23 22:58:00 No Not es: (Same as:MORPhine Sulfate) [facility] Docusate 2016-04-23 22:58:00 No Notes: (Same as: Colace) (Do Not Crush) [facility] Ondansetron 2016-04-23 22:58:00 No Notes: (Same as: Zofran) MEDICATION WASTE Product Size: 4 mg Product Wasted: ___ mg [facility] Acetaminophen 325 MG / Hydrocodone Bitartrate 5 MG Oral Tabl et 2016-04-23 22:58:00 No Notes: (Sa me as: Rembert 325/5) Do not exceed 4gm/day of acetaminophen. [facility] Acetaminophen 2016-04-23 22:58:00 No Notes: Do not exceed 4 gm/day. (Same as: Tylenol) Leland Prado Morphine 2016-04-23 21:56:00 No 2 mg, Route: IVP, Drug form: INJ, ONCE, Dosing Weight 72.727, kg, Priority: STAT, Start date: 04/23/16 16:56:00 CDT, Stop date: 04/23/16 16:56:00 CDT Il melissa Prado Zofran 2016-04-23 20:15:00 No 4 mg, Route: IVP, Drug form: INJ, ONCE, Dosing Weight 72.727, kg, Priority: STAT, Start date: 04/23/16 15:15:00 CDT, Stop date: 04/23/16 15:15:00 CDT Il melissa Prado Morphine 2016-04-23 20:14:00 No 4 mg, Route: IVP, Drug form: INJ, ONCE, Dosing Weight 72.727, kg, Priority: STAT, Start date: 04/23/16 15:14:00 CDT, Stop date: 04/23/16 15:14:00 CDT Il melissa Prado Vital Signs Vital Name Observation Time Observation Value Comments Source Temperature Oral (F) 2020-03-23 12:48:00 98.4 F [facility] [place] Heart Rate 2020-03-23 12:48:00 [facility] [place] Respitory Rate 2020-03-23 12:48:00 [facility] [place] Systolic (mm Hg) 2020-03-23 12:48:00 Jose rial Johan Diastolic (mm Hg) 2020-03-23 12:48:00 Mem orial [place] Respitory Rate 2020-03-23 11:47:00 [facility] [place] Temperature Oral (F) 2020-03-23 01:05:00 98.4 F [facility] [place] Heart Rate 2020-03-23 01:05:00 [facility] [place] Respitory Rate 2020-03-23 01:05:00 [facility] [place] Systolic (mm Hg) 2020-03-23 01:05:00 Jose rial Johan Diastolic (mm Hg) 2020-03-23 01:05:00 Mem orial [place] Systolic (mm Hg) 2020-03-22 20:46:00 Jose rial [place] Diastolic (mm Hg) 2020-03-22 20:46:00 Mem orial [place] Temperature Oral (F) 2020-03-22 20:25:00 98.1 F [facility] Heart Rate 2020-03-22 20:25:00 [facility] Height 2020-03-12 11:22:00 160.2 cm [facility] [place] Weight 2020-03-12 11:22:00 [facility] [place] BMI Calculated 2020-03-12 11:22:00 Memori al [facility]an Height 2020-03-05 11:24:00 160.02 cm [facility] [place] Weight 2020-03-05 11:24:00 [facility] BMI Calculated 2020-03-05 11:24:00 [facility]ori [facility] Height 2020-03-03 04:18:00 160.02 cm [facility] Weight 2020-03-03 04:18:00 [facility] [place] BMI Calculated 2020-03-03 04:18:00 Memori al [facility] Respitory Rate 2020-03-03 01:58:00 Memori al [facility] Temperature Oral (F) 2020-03-03 01:15:00 99.0 F [facility] Heart Rate 2020-03-03 01:15:00 [facility] Respitory Rate 2020-03-03 01:15:00 [facility] Systolic (mm Hg) 2020-03-03 01:15:00 [facility] Diastolic (mm Hg) 2020-03-03 01:15:00 [facility] Temperature Oral (F) 2020-03-02 16:33:00 97.7 F [facility] Heart Rate 2020-03-02 16:33:00 [facility] Respitory Rate 2020-03-02 16:33:00 [facility] Systolic (mm Hg) 2020-03-02 16:33:00 [facility] Diastolic (mm Hg) 2020-03-02 16:33:00 [facility] Temperature Oral (F) 2020-03-02 12:39:00 98.5 F [facility] Heart Rate 2020-03-02 12:39:00 [facility] Systolic (mm Hg) 2020-03-02 12:39:00 [facility] Diastolic (mm Hg) 2020-03-02 12:39:00 [facility] Height 2020-02-26 21:56:00 160.02 cm [facility] Weight 2020-02-26 21:56:00 [facility] BMI Calculated 2020-02-26 21:56:00 [facility] Height 2020-02-26 17:15:00 162.56 cm [facility] BMI Calculated 2020-02-26 17:15:00 [facility] Weight 2020-02-26 17:15:00 [facility] Systolic (mm Hg) 2019-11-24 20:32:00 [facility] Diastolic (mm Hg) 2019-11-24 20:32:00 [facility] Respitory Rate 2019-11-24 20:32:00 [facility] Temperature Oral (F) 2019-11-24 20:32:00 98.9 F [facility] Respitory Rate 2019-11-24 16:40:00 [facility] Respitory Rate 2019-11-24 16:15:00 [facility] Systolic (mm Hg) 2019-11-24 16:15:00 [facility] Diastolic (mm Hg) 2019-11-24 16:15:00 [facility] Systolic (mm Hg) 2019-11-24 15:18:00 [facility] Diastolic (mm Hg) 2019-11-24 15:18:00 [facility] Heart Rate 2019-11-24 15:18:00 [facility] Temperature Oral (F) 2019-11-24 15:18:00 98.5 F [facility] Height 2019-11-24 15:18:00 162.56 cm [facility] BMI Calculated 2019-11-24 15:18:00 [facility] Weight 2019-11-24 15:18:00 [facility] Heart Rate 2016-04-26 17:00:00 [facility] Temperature Oral (F) 2016-04-26 17:00:00 98.3 F [facility] Respitory Rate 2016-04-26 17:00:00 [facility] Systolic (mm Hg) 2016-04-26 17:00:00 [facility] Diastolic (mm Hg) 2016-04-26 17:00:00 [facility] Systolic (mm Hg) 2016-04-26 13:00:00 [facility] Diastolic (mm Hg) 2016-04-26 13:00:00 [facility] Respitory Rate 2016-04-26 13:00:00 [facility] Temperature Oral (F) 2016-04-26 13:00:00 98.4 F [facility] Heart Rate 2016-04-26 13:00:00 [facility] Systolic (mm Hg) 2016-04-26 09:49:00 Jose carlos eduardo [facility] Diastolic (mm Hg) 2016-04-26 09:49:00 [facility] Temperature Oral (F) 2016-04-26 09:49:00 97.9 F [facility] Heart Rate 2016-04-26 09:49:00 [facility] Respitory Rate 2016-04-26 09:49:00 [facility] Weight 2016-04-23 19:38:00 [facility] Height 2016-04-23 19:38:00 160.02 cm [facility] BMI Calculated 2016-04-23 19:38:00 [facility] Procedures Procedure Date / Time Performed Performing Clinician Sourc e Cardiac catheterization [facility] of [facility] En[facility] Start Date/Time End Date/Time En[facility] Ad[facility] ID Source 2020-03-02 22:06:00 Inpatient [facility] MED [id number] [facility] 2020-03-02 22:06:00 2020-03-23 14:40:00 Outpatient Glynn Tirado [facility] [id number] 2020-02-26 12:14:09 2020-03-02 21:47:00 Outpatient Vibha Orellana [facility] [id number] 2020-02-26 15:51:00 2020-02-26 12:14:00 Inpatient E [facility] MED [id number] [facility] 2019-11-24 09:16:39 2019-11-24 14:37:00 Outpatient Kanwal Moser [facility] [id number] 2019-11-24 09:16:00 2019-11-24 09:16:00 Emergency E [facility] [id number] [facility] 2016-04-23 14:34:00 2016-04-26 15:30:00 Outpatient Alejandro Kumar [facility] [id number] Results Test Description Test Time Test Comments Results Result Comments Source ELBOW LEFT AP LAT 2020-06-18 21:11:00 [facility] [address] [address] Patient Name: MANFRED WALKER MR #: [id number] : 1940 Age/Sex: 79/F Req #: [id number] Adm Physician: Ordered by: THUY DIEGO MD Report #: [id number] Location: ER Room/Bed: Procedure: [id number] DX/ELBOW LEFT AP LAT Exam Date: 06/18/20 Exam Time: 2024 REPORT STATUS: Signed X-ray 2 views of the left elbow. HISTORY: Pain. COMPARISON: None available. FINDINGS: Bones: No acute displaced fracture. Osseous alignment is within normal limits. Joints: The joint spaces are well-maintained. Soft tissues: The soft tissues appear unremarkable. IMPRESSION: No acute radiographic abnormality. Signed by: Clarence Taylor MD on 06/18/2020 9:13 PM Dictated By: CLARENCE TAYLOR MD 12 Transcribed By: GUSTABO on 06/18/202112 COPY TO: THUY DIEGO MD HIP LEFT 2-3 VW (+/- PELVIS) 2020-06-18 21:05:00 [facility] [address] [address] Patient Name: MANFRED WALKER MR #: [id number] : 1940 Age/Sex: 79/F Req #: [id number] Adm Physician: Ordered by: THUY DIEGO MD Report #: [id number] Location: ER Room/Bed: Procedure: [id number] DX/HIP LEFT 2-3 VW (+/- PELVIS) Exam Date: Exam Time: REPORT STATUS: Signed X-ray 2 views of the left hip. HISTORY: Pain. COMPARISON: None available. FINDINGS: See impression. IMPRESSION: Acute displaced of impacted periprosthetic intertrochanteric fracture of the left hip with likely acute avulsion of the lesser trochanter. Intramedullary nail fixation appears to be nonfractured. Signed by: Clarence Taylor MD on 06/18/2020 9:12 PM Dictated By: CLARENCE TAYLOR MD 11 Transcribed By: GUSTABO on 06/18/202111 COPY TO: THUY DIEGO MD CT CERVICAL SPINE WO 2020-06-18 19:49:[address] [address] Patient Name: MANFRED WALKER MR #: [id number] : 1940 Age/Sex: 79/F Req #: [id number] Adm Physician: Ordered by: THUY DIEGO MD Report #: [id number] Location: ER Room/Bed: Procedure: [id number] CT/CT CERVICAL SPINE WO Exam Date: 06/18/20 Exam Time: 1844 REPORT STATUS: Signed Examination: CT CERVICAL SPINE WO HISTORY:Neck pain and injury after fall COMPARISON:None. TECHNIQUE: Multidetector helical axial images were obtained without contrast from the foramen magnum to T1. Coronal and sagittal reformatted images were done. Bone and soft tissue windows were evaluated. Dose modulation, iterative reconstruction, and/or weight based adjustment of the mA/kV was utilized to reduce the radiation dose to as low as reasonably achievable. FINDINGS: Alignment:Normal alignment and lordosis. Vertebrae: Normal height and density. No acute fracture, infection or neoplasm. Disc space heights: Normal height. Caliber of spinal canal: Developmentally normal. Posterior fossa and craniocervical junction: Foramen magnum patent. No Chiari 1 malformation. Soft tissues: Atherosclerotic calcification of the bilateral carotid bifurcations. 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 No canal stenosis. Moderate left foraminal stenosis at C5-C6 due to uncovertebral arthropathy. No right foraminal or canal stenosis. Visualized lung apices: No abnormalities. IMPRESSION: 1. No acute abnormalities. 2. Degenerative changes at C5-C6 and C6-C7 as above. Signed by: Dr. Alexandre Pierson M.D. on 06/18/2020 7:55 PM Dictated By: ALEXANDRE ROBERT MD 54 Transcribed By: GUSTABO on 06/18/201954 COPY TO: THUY DIEGO MD CT BRAIN WO 2020-06-18 19:45:00 [address] [address] Patient Name: MANFRED WALKER MR #: [id number] : 1940 Age/Sex: 79/F Req #: [id number] Adm Physician: Ordered by: THUY DIEGO MD Report #: [id number] Location: Room/Bed: Procedure: [id number] CT/CT BRAIN WO Exam Date: 06/18/20 Exam Time: 1845 REPORT STATUS: Signed Examination: CT head without contrast Clinical Indication: Fall with head injury. Technique: Transaxial noncontrast images from the skull base through the vertex were obtained. Sagittal and coronal reformatted images were done. Dose modulation, iterative reconstr uction, and/or weight based adjustment of the mA/kV was utilized to reduce the radiation dose to as low as reasonably achievable. Comparison: Images of prior head CT dated 09/10/2016 are not accessible at this time. Findings: Scalp: No abnormalities. Bones: Intact. No fractures. No blastic or lytic lesions. Brain sulci: Appropriate for patient's age. Ventricles: Normal in size and configuration. No hydrocephalus. . Extra-axial space: No abnormalities. Parenchyma: Again seen are subtle patchy areas of low-attenuation within subcortical and periventricular white matter, nonspecific, but could represent microvascular ischemic disease. No masses, hemorrhage, or acute or chronic cortical based vascular insults. Suprasellar region: No abnormalities. Craniocervical junction: The foramen magnum is patent. No Chiari one malformation. Incidental findings: Atherosclerotic calcification of the cavernous and supraclinoid internal odonnell tid and V4 segments of the bilateral vertebral arteries. Impression: 1. No acute intracranial finding. 2. Chronic microvascular ischemic change. Signed by: Dr. Alexandre Pierson M.D. on 06/18/2020 7:49 PM Dictated By: ALEXANDRE ROBERT MD 48 Transcribed By: GUSTABO on 06/18/201948 COPY TO: THUY DIEGO MD HUMERUS LEFT 2+VIEWS 2020-06-18 19:23:00 [address] [address] Patient Name: MANFRED WALKER MR #: [id number] : 1940 Age/Sex: 79/F Req #: [id number] Adm Physician: Ordered by: THUY DIEGO MD Report #: [id number] Location: ER Room/Bed: Procedure: [id number] DX/HUMERUS LEFT 2+VIEWS Exam Date: 06/18/20 Exam Time: 1829 REPORT STATUS: Signed X-ray 2 views of the left shoulder. XRAY 2 views of the left humerus. HISTORY: Pain. Fall COMPARISON: None available. FINDINGS: Acute impacted, foreshortened surgical neck fracture of the left humerus with probable extension into the greater tuberosity. Humeral head does not appear to be dislocated. Questionable cortical step off of the coronoid process at the left elbow, suboptimally assessed. IMPRESSION: 1. Acute impacted, foreshortened surgical neck fracture of the left humerus with probable extension into the greater tuberosity. 2. Question coronoid process fracture of the elbow. Consider dedicated left elbow radiographs. Signed by: Clarence Taylor MD on 06/18/2020 7:29 PM Dictated By: CLARENCE TAYLOR MD 28 Transcribed By: GUSTABO on 06/18/201928 COPY TO: THUY DIEGO MD SHOULDER LEFT COMPLETE 2020-06-18 19:23:00 [address] [address] Patient Name: MANFRED WALKER MR #: [id number] : 1940 Age/Sex: 79/F Req #: [id number] Adm Physician: Ordered by: THUY DIEGO MD Report #: [id number] Location: ER Room/Bed: Procedure: [id number] DX/SHOULDER LEFT COMPLETE Exam Date: 06/18/20 Exam Time: 1830 REPORT STATUS: Signed X-ray 2 views of the left shoulder. XRAY 2 views of the left humerus. HISTORY: Pain. Fall COMPARISON: None available. FINDINGS: Acute impacted, foreshortened surgical neck fracture of the left humerus with probable extension into the gr eater tuberosity. Humeral head does not appear to be dislocated. Questionable cortical step off of the coronoid process at the left elbow, suboptimally assessed. IMPRESSION: 1. Acute impacted, foreshortened surgical neck fracture of the left humerus with probable extension into the greater tuberosity. 2. Question coronoid process fracture of the elbow. Consider dedicated left elbow radiographs. Signed by: Clarence Taylor MD on 06/18/2020 7:29 PM Dictated By: CLARENCE TAYLOR MD 28 Transcribed By: GUSTABO on 06/18/201928 COPY TO: THUY DIEGO MD [facility] (NOT PORTABLE) 2020-06-18 19:20:00 [address] [address] Patient Name: MANFRED WALKER MR #: [id number] : 1940 Age/Sex: 79/F Req #: [id number] Adm Physician: Ordered by: THUY DIEGO MD Report #: [id number] Location: ER Room/Bed: Procedure: [id number] DX/CHEST SINGLE (NOT PORTABLE) Exam Date: 06/18/20 Exam Time: 1829 REPORT STATUS: Signed EXAMINATION: CHEST SINGLE (NOT PORTABLE) INDICATION: s/p fall COMPARISON: None FINDINGS: The heart is not enlarged. Pulmonary vasculature is within normal limits. No consolidation. No pleural effusion. No pneumothorax. Acute left humerus fracture. Please see separate report. Cholecystectomy clips. IMPRESSION: 1. Acute fracture of the left humerus. Please see dedicated report. 2. No acute intrathoracic radiographic abnormality. Signed by: Clarence Taylor MD on 06/18/2020 7:23 PM Dictated By: CLARENCE TAYLOR MD 22 Transcribed By: GUSTABO on 06/18/201922 COPY TO: THUY DIEGO MD PELVIS AP 1-2 VIEWS 2020-06-18 19:06:00 [address] [address] Patient Name: MANFRED WALKER MR #: [id number] : 1940 Age/Sex: 79/F Req #: [id number] [facility] Physician: Ordered by: THUY DIEGO MD Report #: [id number] Location: ER Room/Bed: Procedure: DX/PELVIS AP 1-2 VIEWS Exam Date: 06/18/20 Exam Time: 1829 REPORT STATUS: Signed X-ray one view of the pelvis. HISTORY: Pain. COMPARISON: None available. FINDINGS: Bones: Acute appearing fracture lucency extends through the intertrochanteric region. The lesser trochanter is avulsed and displaced of indeterminate chronicity. Intramedullary ORIF of the left hip. 3 screw fixation of the right femoral neck. No hardware fracture is identified on the single view. Surgical clips project over the acetabular regions. Aortoiliac stents. Bones are demineralized. Vascular calcifications. IMPRESSION: 1. Acute left intertrochanteric fracture. 2. Avulsion of the lesser trochanter may be acute or chronic. Comparison with prior imaging recommended if available. Given this lesion is often associated with pathologic fracture, consider nonemergent MRI of the left hip with contrast to rule out underlying lesion. Signed by: Clarence Taylor MD on 06/18/2020 7:20 PM Dictated By: CLARENCE TAYLOR MD 19 Transcribed By: GUSTABO on 06/18/201919 COPY TO: THUY DIEGO MD CHEM PANEL 2020-03-19 09:19:00 92 [facility] CHEM PANEL 2020-03-19 09:19:00 8 [facility] CHEM PANEL 2020-03-19 09:19:00 1.12 [facility] CHEM PANEL 2020-03-19 09:19:00 139 [facility] CHEM PANEL 2020-03-19 09:19:00 3.8 [facility] CHEM PANEL 2020-03-19 09:19:00 97 [facility] CHEM PANEL 2020-03-19 09:19:00 36 [facility] CHEM PANEL 2020-03-19 09:19:00 9.0 [facility] CHEM PANEL 2020-03-19 09:19:00 9.8 [facility] CHEM PANEL 2020-03-19 09:19:00 47 [facility] HEMATOLOGY 2020-03-19 09:19:00 4.8 [facility] HEMATOLOGY 2020-03-19 09:19:00 3.36 [facility] HEMATOLOGY 2020-03-19 09:19:00 10.3 [facility] HEMATOLOGY 2020-03-19 09:19:00 31.2 [facility] HEMATOLOGY 2020-03-19 09:19:00 92.8 [facility] HEMATOLOGY 2020-03-19 09:19:00 Test Item MCH (test code = MCH) 30.7 pg 27.0-31.0 [facility] QwcougqAPBVKMBWNO0407-75-94 09:19:0033.0[facility] 2020-03-19 09:19:0013.4[facility] VodyesfTJYNEZNQPP4958-03-22 09:19:88866Ntvmoucl FndafqcXBKVLBGVKO0629-49-32 09:19:007.0[facility]annCHEM UWZHF9154-34-69 10:11:0088[facility]annCHEM OYLGC1640-37-32 10:11:0013[facility]annCHE[facility] OFPPB7642-75-38 10:11:001.06[facility]annCHE[facility] YNKDK0929-78-15 10:11:23517 [facility] WYFZC6763-87-36 10:11:004.1[facility]annCHEM PANEL 2020-03-15 10:11:0097[facility]annCHE[facility] RCTLC8509-71-97 10:11:0027[facility]ann[facility] PKTUQ2015-29-87 10:11:008.6[facility]annCHE[facility] FVWNI9891-32-97 10:11:0011.1[facility]annCHE[facility] WWEQY5093-47-73 10:11:0050[facility]annCHEM KNEVA5899-59-19 11:34:0095[facility]annCHE[facility] RXSVG1817-96-81 11:34:0010 [facility]annCHE[facility] AROBS0804-58-24 11:34:001.03[facility]annCHEM PANEL 2020-03-13 11:34:82744Tjxwbuyr HermannCHEM RDUMP6861-51-95 11:34:003.2[facility]annCHEM XVJOX3862-38-26 11:34:21290Sctwuqbs HermannCHEM LADAX7001-00-34 11:34:0031[facility]annCHEM JRRIC5124-21-70 11:34:008.8[facility]annCHEM KJGST0578-84-16 11:34:008.2[facility]annCHEM PDAHN0086-10-65 11:34:0052 [facility]annCARDIAC DCMIJJQ0505-55-54 11:30:86565Rmlnjcse HermannHEMATOLOGY 2020-03-11 10:31:0056.0[facility] ZswtmqdIQGTNJIMZR7935-24-56 10:31:0024.7[facility] HaakprjLBMZLDTRCY7852-80-72 10:31:0012.4[facility] VmunfjgFJROISVBRI7518-60-40 10:31:006.2[facility] LddzdizDAHXUVADJH2811-07-70 10:31:000.7[facility] CQEKSVTRLY5756-77-89 10:31:003.0[facility] MuaougyFDVKMCLFLY1733-92-77 10:31:001.3 [facility] AkhahioTFALTOALEV5048-16-62 10:31:000.7[facility]annHEMATOLOGY 2020-03-11 10:31:000.3[facility] PebmpqeMLGRYFYMNI9158-64-34 10:31:005.4[facility] WnlaprwDZTFSELXBM9612-01-15 10:31:003.07[facility] XebcrrxADYPOQAWMH8992-89-35 10:31:009.7[facility] RpuxumlDZPYKRLOMK7175-05-53 10:31:0028.8[facility] MZUCSOONEU5696-77-81 10:31:0093.7[facility] BddjgouVKPKFBCOZG8321-79-64 10:31:00* Test Item Value Reference Range Interpretation Comments MCH (test code = MCH) 31.6 pg 27.0-31.0 [facility] WlyfkhzCBOBIOBYNC5507-90-22 10:31:0033.8[facility]annHEMATOLOGY 2020-03-11 10:31:0013.5[facility] XrvxugcFOHNNBJCVZ9198-34-47 10:31:19105Yobmdivk YjocoolOVGLNOSLQK4512-00-17 10:31:007.2[facility] IxvlcebWOXIMUFPJW9091-34-07 10:09:007.4[facility] NkmpnxpLTENUWPCDY3130-41-09 10:09:003.23[facility] SJQLVKUUXJ6593-31-21 10:09:0010.3[facility] AukhbanEWAQTWCLFW0020-71-70 10:09:00 30.1[facility] WywckdfGHSFRKMTTR1150-18-37 10:09:0093.3[facility]annHEMATOLOGY 2020-03-06 10:09:00* Test Item Value Reference Range Interpretation Comments MCH (test code = MCH) 31.8 pg 27.0-31.0 [facility] JcmhhxfTWAQTWRQEM6653-98-64 10:09:0034.1[facility]annHEMATOLOGY 2020-03-06 10:09:0013.7[facility] JqcmgnaRZHYBBEJAH6291-96-63 10:09:18415Mwozxbkc FugapimLUUILWQZIO6882-38-00 10:09:006.9[facility]annCHEM JEYVW1769-71-21 09:23:005.1[facility]annCHE[facility] SGINQ9259-35-87 09:23:002.1[facility]annCHEM MKGIC2082-02-90 09:23:0024[facility]annCHEM PUQFZ3099-64-75 09:23:0057 [facility]CHE[facility] RIVDJ9910-59-64 09:23:0063[facility]annCHEM PANEL 2020-03-03 09:23:001.1[facility]annCHEM YFKBR6352-74-88 09:23:00* Test Item Value Reference Range Interpretation Comments B/C Ratio (test code = B/C Ratio) 17 1 6-25 [facility] HITEE2454-14-62 09:23:003.0[facility]annCHEM PANEL 2020-03-03 09:23:00* Test Item Value Reference Range Interpretation Comments A/G Ratio (test code = A/G Ratio) 0.7 1 0.7-1.6 [facility] GnwymnrSEIVQCCVGQ4709-67-12 09:23:0060.3[facility]annHEMATOLOGY 2020-03-03 09:23:0021.5[facility] VwvfbxeKLGRDTJHQJ3614-15-44 09:23:0011.4[facility] BpeqeaqBUIJXONASP3969-18-99 09:23:006.4[facility] JpcyiziODFZRYLDXM5261-84-81 09:23:000.4[facility] RuqqeotZBVVJTRRDN6869-47-51 09:23:004.8[facility] NULALVIOUS2587-06-27 09:23:001.7[facility] NmzktndDUVKBWQGSY7708-66-55 09:23:000.9 [facility] AewkpdpVPKBQPXUUX2632-15-45 09:23:000.5[facility] BFSQPTL4246-61-06 13:26:00Negative (03/02/20 8:26 AM)[facility] GLGHBYP2781-92-17 13:08:00Product available 4(03/02/20 8:08 AM)[facility] UGEUJVFIEY0244-93-88 09:42:008.2[facility] PwepwokJFQTSEPVFH9248-92-03 09:42:00 24.4[facility] OfykjhdVDQENOAXAU3457-49-26 21:01:00Not Detected (03/01/20 4:01 PM) [facility]annCHE[facility] ENJSQ8878-73-92 09:01:0082[facility]annCHEM PANEL 2020-03-01 09:01:0016[facility]annCHEM QVLSM4528-95-77 09:01:001.00[facility]annCHEM RCTOL2801-48-16 09:01:85745Xwfkzoys HermannCHEM BAIPM9715-46-98 09:01:003.5[facility]annCHEM SLEYN5228-39-06 09:01:0099[facility]annCHEM HIBPJ3387-30-19 09:01:0031[facility]annCHEM RXXIH9300-92-87 09:01:008.3 [facility]annCHE[facility] RVVVO3499-03-13 09:01:006.5[facility]annCHEM PANEL 2020-03-01 09:01:0054[facility] IpgkthtCXBBGXCUJJ3872-15-62 09:01:0063.5[facility] FghaynoOJDXWZJBRA9460-96-78 09:01:0019.9[facility] JjkozbeLDYPXKMBMZ2078-09-50 09:01:0013.2[facility] GnmkgroSWZRWFYCSK8826-56-69 09:01:003.2[facility] HPNDZMEAXZ3561-23-15 09:01:000.2[facility] CsyaivgITELWGDUXV7317-70-19 09:01:004.9 [facility] ScrptfsYFRLMCAHJQ2536-91-25 09:01:001.5[facility]annHEMATOLOGY 2020-03-01 09:01:001.0[facility] ZvoetbtUGYVOTPGYY5265-05-73 09:01:000.2[facility] QlmduljJCGRYMVRNM6309-68-01 09:01:007.7[facility] LrihsjeXOESMPGXPC3911-03-00 09:01:002.48[facility] WxpidkzTPXBNNNOXP2882-76-12 09:01:007.9[facility] GXJKOUSONY8444-61-43 09:01:0023.0[facility] DuadglpKOBPABUEZT5864-82-16 09:01:00 92.7[facility] JgajqkvFOFKRQATOD0834-40-59 09:01:00* Test Item Value Reference Range Interpretation Comments MCH (test code = MCH) 31.8 pg 27.0-31.0 [facility] ZumqzdxJBQRUEKBXV7331-60-56 09:01:0034.3[facility]annHEMATOLOGY 2020-03-01 09:01:0014.0[facility] CotagljKCCBPXNPXB7937-45-55 09:01:84438Bncplbgf EljjrqoXGWBJICATL8921-17-62 09:01:007.1[facility]annCHEM SZQMQ3272-57-48 09:04:0099[facility]annCHEM HTSOR0919-04-19 09:04:0018[facility]annCHEM WDZSS0786-95-12 09:04:001.17[facility]annCHEM ROVXF4018-25-00 09:04:19961 [facility]annCHE[facility] APIIQ3569-56-10 09:04:004.2[facility]annCHEM PANEL 2020-02-29 09:04:0098[facility]annCHEM FRTDS6716-82-30 09:04:0031[facility]annCHEM DRQTS7696-36-95 09:04:006.2[facility]annCHEM QYEXH5385-55-54 09:04:008.8[facility]annCHEM WIJRT5901-56-58 09:04:00* Test Item Value Reference Range Interpretation Comments B/C Ratio (test code = B/C Ratio) 15 1 6-25 [facility]annCHE[facility] WAJVM9418-58-33 09:04:005.9[facility]annCHEM PANEL 2020-02-29 09:04:002.6[facility]annCHEM QIERB4327-93-20 09:04:003.3[facility]annCHEM VCSST2168-14-01 09:04:00* Test Item Value Reference Range Interpretation Comments A/G Ratio (test code = A/G Ratio) 0.8 1 0.7-1.6 [facility]annCHE[facility] TNAHJ1127-88-04 09:04:0012[facility]annCHEM PANEL 2020-02-29 09:04:0034[facility]annCHEM LQWTL2730-35-97 09:04:0065[facility]annCHEM CKKVB2617-78-57 09:04:000.4[facility]annCHEM KCXGH5684-75-54 09:04:0044[facility] GwhgmpwISHFDGMEIS1370-59-38 09:04:0012.1[facility] YUADEJOJKO5626-94-94 09:04:002.39[facility] PsnyvqlCIVMATZQYY0008-95-71 09:04:00 7.5[facility] DdejieyIVGDJOUCDQ3772-94-02 09:04:0022.5[facility]annHEMATOLOGY 2020-02-29 09:04:0094.1[facility] BlmofvaNLDKILQIOG1933-28-59 09:04:00* Test Item Value Reference Range Interpretation Comments MCH (test code = MCH) 31.4 pg 27.0-31.0 [facility] PwoacwlPVMBUTYBFZ3930-19-39 09:04:0033.4[facility]annHEMATOLOGY 2020-02-29 09:04:0013.7[facility] RjlhpvbUAZQBZFJWB5561-37-05 09:04:42807Gfrkmvzh ChjzireXRAYGVXHZC1227-43-96 09:04:007.2[facility] ZrnnlptJBSDVUVNXI7550-43-00 09:04:0075.6[facility] XihjnqcWJPCMSWYQB0522-86-37 09:04:0012.5[facility] ZNYZLZSKSX4243-39-26 09:04:0011.2[facility] RabmaeqACKSZFDYLD0997-54-23 09:04:00 0.7[facility] OyyypogCAXQWVELIC5178-86-86 09:04:009.1[facility]annHEMATOLOGY 2020-02-29 09:04:001.5[facility] BzlsuhfNHBOYMNJPA9189-16-24 09:04:001.3[facility] TnthcfuHFDURZRMZH1896-38-16 09:04:000.1[facility]annBLOOD BANK RESULTS 2020-02-28 20:02:00Product available 5(02/28/20 3:02 PM)[facility]annCHEM AUQWH5431-47-99 10:40:88842Fakhoqhv HermannCHEM SWZXI5454-80-22 10:40:0014 [facility]annCHE[facility] YYVLK5067-64-63 10:40:001.07[facility]annCHEM PANEL 2020-02-28 10:40:46869Tcpndasc HermannCHEM TCXZY3848-61-06 10:40:004.2[facility]annCHEM WXHHM3920-92-75 10:40:0097[facility]annCHEM BFZNK0528-18-81 10:40:0029[facility]annCHEM XTAIF7298-11-69 10:40:008.3[facility]annCHEM MMMIC0953-73-03 10:40:005.2[facility]annCHEM XAPEF4401-03-01 10:40:002.2 [facility]annCHEM MZQRY5268-61-69 10:40:009[facility]annCHEM PANEL 2020-02-28 10:40:0020[facility]annCHEM GATWA7361-05-05 10:40:0059[facility]annCHEM GJOMM9993-72-74 10:40:000.2[facility]annCHEM IELHP8299-83-70 10:40:009.2[facility]annCHEM OZGLA0404-74-60 10:40:00* Test Item Value Reference Range Interpretation Comments B/C Ratio (test code = B/C Ratio) 13 1 6-25 [facility]CHE[facility] PRBAY7676-70-65 10:40:003.0[facility]annCHEM PANEL 2020-02-28 10:40:00* Test Item Value Reference Range Interpretation Comments A/G Ratio (test code = A/G Ratio) 0.7 1 0.7-1.6 [facility]CHE[facility] [id number] 10:40:0049[facility]annHEMATOLOGY 2020-02-28 10:40:0087.6[facility] LjpgkamQSNLAIDSOA5029-75-15 10:40:005.6[facility] YtxplbhAQOHGULXMF0221-36-53 10:40:006.8[facility] SvirzheIUKCEDRQTM6476-25-07 10:40:0010.6[facility] IccxsrxHGUJZMOIYX2687-49-92 10:40:000.7[facility] Johan JKTHJCBVOY6463-22-57 10:40:000.8[facility] ElenijpTXTIGVJARD1168-82-58 10:40:00 12.2[facility] LzpuqmnWCAZQFFKBI0831-96-89 10:40:002.36[facility]annHEMATOLOGY 2020-02-28 10:40:0094.4[facility] BaauwmxGZOQHVAQTG4693-45-57 10:40:00* Test Item Value Reference Range Interpretation Comments MCH (test code = MCH) 31.7 pg 27.0-31.0 [facility] IaktcghCHHHXPMCHH4499-46-09 10:40:0033.5[facility]annHEMATOLOGY 2020-02-28 10:40:0013.7[facility] HjxsmvqSAWBYLRFZP1603-50-07 10:40:04695Detgaius HuqwgkaHDLNPLFBHS9877-02-17 10:40:007.4[facility]annCHEM LUPWU7615-70-23 10:47:005.8[facility]annCHEM CJTUM1499-34-86 10:47:002.8[facility]annCHEM PPICM7193-46-82 10:47:0013[facility]annCHEM QCKZN4124-91-05 10:47:0022 [facility]CHE[facility] CEJRH6201-98-11 10:47:0083[facility]annCHEM PANEL 2020-02-27 10:47:000.4[facility]annCHEM GWJHA9046-71-27 10:47:00* Test Item Value Reference Range Interpretation Comments B/C Ratio (test code = B/C Ratio) 9 1 6-25 [facility] GQSFP8961-48-99 10:47:003.0[facility]annCHEM PANEL 2020-02-27 10:47:00* Test Item Value Reference Range Interpretation Comments A/G Ratio (test code = A/G Ratio) 0.9 1 0.7-1.6 [facility] EuqbjilNDIQMXNECH7646-51-93 10:47:001.7[facility]annHEMATOLOGY 2020-02-27 10:47:000.2[facility] SfltnziFTQGNJVXBJ1166-48-24 10:47:000.1[facility] PBIWS1264-88-52 20:10:00Yellow *NA*(02/26/20 3:10 PM)[facility] RXZXO3730-15-13 20:10:00Slight *ABN*(02/26/20 3:10 PM)[facility] UNZIY5138-94-47 20:10:00* Test Item Value Reference Range Interpretation Comments UA Spec Grav (test code = UA Spec Grav) 1.005 1 [facility] BHPQL8797-25-66 20:10:00* Test Item Value Reference Range Interpretation Comments UA pH (test code = UA pH) 5.0 1 5.0-8.0 [facility] ZXTKF6989-30-98 20:10:00Negative *NA*(02/26/20 3:10 PM) [facility] RRYYT7115-78-06 20:10:00Small *ABN*(02/26/20 3:10 PM) [facility] CPIKC6667-18-59 20:10:00Negative (02/26/20 3:10 PM) [facility] YLSEK1226-19-13 20:10:00Large *ABN*(02/26/20 3:10 PM) [facility] PPZTJ4979-51-85 20:10:0033[facility] CDXWC8079-94-53 20:10:002[facility] WGFDQ8864-77-91 20:10:002 [facility]annBLOOD BANK EYMUQFU7648-74-55 19:26:00Negative (02/26/20 2:26 PM) [facility] NOBJP4253-67-11 18:12:001.8[facility] HermannCARDIAC ENZYMES 2020-02-26 17:39:0031[facility]annCHE[facility] ZKDDU8786-75-65 17:39:002.1[facility] QihzlikXLDQEKONDC2292-49-04 17:39:00* Test Item Value Reference Range Interpretation Comments PT (test code = PT) 13.2 s 12.0-14.7 [facility] IezckxlSOKEGTAALH4968-62-40 17:39:00* Test Item Value Reference Range Interpretation Comments INR (test code = INR) 1.00 1 0.85-1.17 [facility] UcqebqgEELSTGLYMO3442-77-92 17:39:00* Test Item Value Reference Range Interpretation Comments PTT (test code = PTT) 31.7 s 22.9-35.8 [facility] QyjaoirCEZSMDVYXT3865-07-56 17:39:000.2[facility]annCHEM PANEL 2016-04-26 10:17:007.7[facility]annCHEM UJQWV1660-43-20 10:17:0026[facility]annCHE[facility] VRSHI4766-46-64 10:17:56855Oanasulm HermannCHEM ZCMNX0787-51-69 10:17:003.9[facility]annCHE[facility] VKHIU3202-90-12 10:17:0054[facility]annCHE[facility] CYDMC0635-93-02 10:17:12650Ammyrfcv HermannCHEM YPIIA0568-28-22 10:17:58353 [facility]CHE[facility] IISWK8607-51-97 10:17:001.02[facility]annCHEM PANEL 2016-04-26 10:17:0010[facility]annCHE[facility] XOFDL5022-58-27 10:17:0012.9[facility] WtxmorcEALTWSUDMS0485-88-22 10:17:007.4[facility] OdfsmszVBZSDYUDRC4392-10-08 10:17:72788Kvpthwuj TuhinvrCRVAQFSGIP0505-13-45 10:17:0015.2[facility] ODOWLXFTRS2874-27-95 10:17:0031.9[facility] GuzjlvgIXXUUJIZJJ8678-75-58 10:17:00 2.99[facility] KqxhrkiSWWJSVYDDE1830-65-29 10:17:008.5[facility]annHEMATOLOGY 2016-04-26 10:17:0026.8[facility] DvtmjwvZCJQMXQIOZ1113-77-79 10:17:0089.5[facility] UcyzuhpWAEIUHTTBR3999-07-67 10:17:00* Test Item Value Reference Range Interpretation Comments MCH (test code = MCH) 28.6 pg 27.0-31.0 [facility] BtvyjalHWROVFOGYY5879-58-77 10:17:005.7[facility]annHEMATOLOGY 2016-04-26 10:17:000.2[facility] NbqysnmZGFCZLZLFW8665-29-33 10:17:000.5[facility] TcjhbhkFZJXAPSARG7475-70-31 10:17:000.9[facility] ZztxyudOGKXTGXFNY1590-66-37 10:17:004.1[facility] McxgesqJUUYWKIVFX1923-01-32 10:17:000.6[facility] LMGWEXTARZ9831-89-10 10:17:002.9[facility] RqoogiuHQXRMMAVXV2477-28-81 10:17:009.0 [facility] GqjmgkvUWPVDNOVTN4949-50-29 10:17:0015.9[facility]annHEMATOLOGY 2016-04-26 10:17:0071.6[facility] DpcklzyJYSXATDYUG9943-61-36 11:52:000.4[facility] QrbmdccMDTCSSMGQL9346-19-98 11:52:000.2[facility] HijvtoyDIPZDGAFKX8810-84-91 11:52:000.5[facility] RppeuzoBMGFKCAYAU0875-04-43 11:52:000.8[facility] UBWZCYISCG5648-95-73 11:52:005.7[facility] BylvdgcDQKVSNRYGQ7502-23-95 11:52:002.3 [facility] IzyeuuzINRUNOMLVL7698-58-17 11:52:006.3[facility]annHEMATOLOGY 2016-04-25 11:52:0011.0[facility] IzyedhrLGELDBTBAU5987-08-47 11:52:0080.0[facility] WifewlyKJMPNQNCPA3937-62-90 11:52:006.8[facility] YfppruwGUQXGQJIPN8965-57-30 11:52:70265Utqmvfks KljdjoaFFHZPFIOPD3505-36-81 11:52:0015.3[facility] ACTCITLHSP0596-10-93 11:52:00* Test Item Value Reference Range Interpretation Comments MCH (test code = MCH) 28.7 pg 27.0-31.0 [facility] ByewspkBZUBJYXPFD9248-38-38 11:52:0088.5[facility] HermannHEMATOLOGY 2016-04-25 11:52:0029.0[facility] CovointKNOAACGWGP0692-14-29 11:52:009.4[facility] XvmcwdbGOURMFRTQW8112-95-27 11:52:003.28[facility] JxmdmjpYASNBISFBF0706-48-57 11:52:0032.5[facility] YbmvjjrNNRCVJPELQ0477-81-99 11:52:007.2[facility]annCHEM SJRVT9637-24-56 12:00:002.1[facility]annCHEM EVNXA6892-77-69 12:00:003.6 [facility] GkydwbnMDHMGHEWSDMS9411-13-61 12:00:004.6[facility] HermannELECTROLYTES 2016-04-24 12:00:29424Nglnqohj YzmnxycMYELZBAOWWLN4595-28-52 12:00:0097[facility] ZshiqhxJGEMUZXUMBLB8661-00-48 12:00:001.28[facility] ZjnuimqKLWNPZQLDORN7710-61-31 12:00:007[facility] QoszgxjCOMWBYPAMGYX1126-19-17 12:00:0041[facility] ADJTYEBIKDRV2866-98-63 12:00:0098[facility] LsewzfpTJZCSZYNIFCB6703-58-30 12:00:00 13.6[facility] JfluupyKXMLMVFGIQFU2270-61-45 12:00:0028[facility] HCMIPVIDYXJJ9463-54-59 12:00:002.7[facility] LtqqqosPYZXZKLXGGKM5220-07-01 12:00:005.9[facility] KyvggylCMDFJEFNTZSQ3765-15-26 12:00:000.8[facility] GKAIWWOYSRSU9453-90-12 12:00:003.2[facility] OqhventICIAWYSWBUDG8215-32-97 12:00:005[facility] RnzdgojASKZIOCEQXUI9445-49-41 12:00:0013[facility] LSPPNEQVYOVG5668-86-42 12:00:000.4[facility] HvewbidSGTUYEJWTUZS3887-67-34 12:00:0080[facility] DmaigliMNWDSAQTSZFW2884-52-92 12:00:0016[facility] ODCWHKMQUHRT3550-48-53 12:00:008.2[facility] MvacbczSSKWZNGOZS2923-67-77 12:00:00 0.4[facility] UegexohNSPVFLPDZX2309-83-81 12:00:000.1[facility] HermannHEMATOLOGY 2016-04-24 12:00:000.1[facility] BjeyxvdGGUIRPWIMM2439-06-82 12:00:000.9[facility] RhjmmavJOPHBAWNNM3327-68-28 12:00:001.7[facility] ScdounbWZHNVFMHMP7023-46-16 12:00:000.9[facility] CwfmajhPBNODQRQKY4447-87-16 12:00:005.0[facility] BNSEEHTKKQ5155-03-07 12:00:0013.2[facility] UmurrftXDGHOBHDCS6445-82-71 12:00:00 6.2[facility] XtigjacPLBBSRRYEL3397-75-72 12:00:0078.0[facility] HermannHEMATOLOGY 2016-04-24 12:00:006.5[facility] HbliodwISBUUWRHRA5756-77-27 12:00:0032.4[facility] HwaqbdsJFXBBCZTUG0812-13-05 12:00:94839Wtoeyqdy WzrbikdNVQTWMFXVR4647-00-94 12:00:0015.1[facility] PwbimjzLFENCANATQ5745-26-14 12:00:006.8[facility] HBALPVGBIP6985-47-71 12:00:0088.3[facility] TgesvxlMEENLIGHQB0635-56-55 12:00:00 11.0[facility] KxzrrfeGTAMSUZYYD0994-13-51 12:00:003.84[facility]annHEMATOLOGY 2016-04-24 12:00:0034.0[facility] VxryttpLBMDMXZJNI7219-12-68 12:00:00* Test Item Value Reference Range Interpretation Comments MCH (test code = MCH) 28.7 pg 27.0-31.0 [facility] NuonqvqVHJPGUDDBQ1393-06-13 12:00:00* Test Item Value Reference Range Interpretation Comments PTT (test code = PTT) 31.0 s 22.9-35.8 [facility] MkiqrreXGQXGEJXGH0596-26-95 12:00:001.11[facility]annHEMATOLOGY 2016-04-24 12:00:00* Test Item Value Reference Range Interpretation Comments PT (test code = PT) 14.6 s 12.0-14.7 [facility] UVAFY1048-09-99 22:56:006.0[facility] ZFDWJ4376-22-77 22:56:00Negative *NA*(04/23/16 5:56 PM)[facility] SWVKC0918-23-76 22:56:00Negative (04/23/16 5:56 PM)[facility] ZGCEF5384-17-94 22:56:00Moderate *ABN*(04/23/16 5:56 PM)[facility] EAHXB3511-20-30 22:56:001.004[facility] DZWUM1936-96-97 22:56:00 Clear (04/23/16 5:56 PM)[facility] HAUKJ1244-26-35 22:56:001 [facility] FUICB7269-14-18 22:56:001[facility] DJHIE7657-05-93 22:56:00Negative (04/23/16 5:56 PM)[facility]annCHEM PANEL 2016-04-23 20:36:005[facility]annCHEM AKCDW9478-72-00 20:36:0011.5[facility]annCHEM EXLOE7712-24-09 20:36:003.4[facility]annCHEM GBMPM3758-68-54 20:36:000.9[facility]annCHEM CGLVW7313-69-10 20:36:0044[facility]annCHEM XYGDW3096-38-82 20:36:0086[facility]annCHEM JUJAJ5027-61-87 20:36:000.5 [facility]annCHE[facility] QNSCY5638-88-01 20:36:0015[facility]annCHEM PANEL 2016-04-23 20:36:0015[facility]annCHEM AREQC3874-12-74 20:36:003.1[facility]annCHEM VPOVN4096-98-72 20:36:0093[facility]annCHEM AXSHX9210-11-38 20:36:0028[facility]annCHEM ZIMLO4893-68-46 20:36:003.5[facility]annCHEM THXNN9952-66-90 20:36:07377Eiwaqofa HermannCHEM PNDKP9263-78-43 20:36:001.20 [facility]CHE[facility] LXWPA5492-56-73 20:36:006[facility]annCHEM PANEL 2016-04-23 20:36:0094[facility]annCHEM RKWJL7102-23-96 20:36:008.5[facility]annCHEM MVDWV4984-51-33 20:36:006.5[facility] HarljgoXJYYOCEKVO8863-59-49 20:36:00* Test Item Value Reference Range Interpretation Comments PT (test code = PT) 13.8 s 12.0-14.7 [facility]CC[facility]-07 20:36:001.03[facility]annHEMATOLOGY 2016-04-23 20:36:00* Test Item Value Reference Range Interpretation Comments PTT (test code = PTT) 31.8 s 22.9-35.8 [facility]
[2020-06-19 00:17] LABS: BACTERIA,URINE MANY /HPF; EPITHELIAL CELLS,URINE FEW /LPF; MUCUS,URINE FEW (RARE)
--- NOTE | 2020-06-19 01:02 | NUR ---
patient is a new admit that arrived via stretcher. patient is awake and talking. patient has been transferred into the bed. bed is in lowest position and call light is within reach. continues with zuñiga traction to he left lower extremity.
[2020-06-19] MEDS ORDERED: SODIUM CHLORIDE 0.9% 250ML 250 ML ONE (05:15)
[2020-06-19] MEDS: CEFTRIAXONE SOD 1 GM/NS 50 ML 50 ML IV SCH (05:24)
[2020-06-19 06:37] LABS: BASOPHILS % 0.3 % (0.0-1.0); EOSINOPHILS # (AUTO) 0.1 (0.0-0.4); EOSINOPHILS % 1.2 % (0.0-6.0); HEMATOCRIT 33.4 % (34.2-44.1); LYMPHOCYTES # (AUTO) 1.5 (1.0-3.2); LYMPHOCYTES % 16.4 % (18.0-39.1); MEAN CORPUSCULAR HEMOGLOBIN 32.4 pg (28-32); MEAN CORPUSCULAR HGB CONC 32.9 g/dL (31-35); MEAN CORPUSCULAR VOLUME 98.5 fL (81-99); MONOCYTES % 10.9 % (4.4-11.3); NEUTROPHILS # (AUTO) 6.5 (2.1-6.9); NEUTROPHILS % 70.8 % (38.7-80.0); PLATELET COUNT 286 x10e3/uL (140-360); RED BLOOD COUNT 3.39 x10e6/uL (3.6-5.1); RED CELL DISTRIBUTION WIDTH 17.3 % (11.7-14.4)
--- NOTE | 2020-06-19 07:07 | NUR ---
report given to day nurse. patient is resting comfortably in the bed. bed is in lowest position and call light is within reach.
[2020-06-19 07:08] LABS: ALANINE AMINOTRANSFERASE 10 IU/L (0-55); ALBUMIN 2.6 g/dL (3.5-5.0); ALBUMIN/GLOBULIN RATIO 0.8 (0.8-2.0); ALKALINE PHOSPHATASE 114 IU/L (40-150); ANION GAP 14.7 mmol/L (8-16); BLOOD UREA NITROGEN 9 mg/dL (7-26); BUN/CREATININE RATIO 10 (6-25); CALCIUM 8.5 mg/dL (8.4-10.2); CARBON DIOXIDE 22 mmol/L (22-29); CHLORIDE 99 mmol/L (98-107); CREATININE, SERUM 0.89 mg/dL (0.57-1.11); EST GLOMERULAR FILTRATION RATE > 60 ML/MIN (60-); GLUCOSE 96 mg/dL (74-118); POTASSIUM 3.7 mmol/L (3.5-5.1); SODIUM 132 mmol/L (136-145)
[2020-06-19] MEDS: CITALOPRAM HYDROBROMIDE 20 MG TAB PO SCH (09:55)
[2020-06-19] MEDS: MIDODRINE 2.5 MG TAB PO SCH ×3 (09:55→20:34)
[2020-06-19] MEDS: SIMVASTATIN 40 MG TAB PO SCH (09:57)
[2020-06-19] MEDS: DIAZEPAM 5 MG TAB PO PRN ×2 (11:07→18:18)
--- NOTE | 2020-06-19 14:50 | Consultation ---
DATE OF CONSULTATION: 06/19/2020 CHIEF COMPLAINT: Left hip and shoulder pain. HISTORY OF PRESENT ILLNESS: The patient is a medically frail 80-year-old lady (today), who fell off a bedside commode. She was brought into the emergency room complaining of left hip and left shoulder pain. The patient is unable to provide any clear history. I spoke to her daughter on the phone. She sustained a fracture of her left hip that was treated in the end of March at [facility]. Since that time, she has refused to get out of bed. She states that she wants to and will not allow physical therapy into her home. She elects to use a bedside commode even though there is a bathroom a very short distance away. She got up to use the bathroom and fell off the commode yesterday. PAST MEDICAL HISTORY: Please see admission H and P. PHYSICAL EXAMINATION: She is a medically frail 80-year-old woman who has globally diminished muscle tone and definition. She is in 5 pounds of Sparks's traction. She has pain with passive range of motion of her left hip. She has a well-healed incision over the proximal lateral left thigh. Distal neurovascular exam appears grossly normal. She is also in the left arm sling. There is tenderness to palpation around the left shoulder girdle. There is no bruising as yet. Distal neurovascular exam is normal. LABORATORY STUDIES: X-ray show a recent comminuted 4-part intertrochanteric fracture with an intramedullary hip screw. The fracture has medialized and there is some shortening of the femoral neck. There is no catastrophic sign of hardware failure. The distal interlocking screws broken. There is no evidence of cut out of the lag screw in the femoral head. X-rays of the shoulder show a 4-part left proximal humerus fracture. IMPRESSION AND PLAN: Four-part left proximal humerus fracture and subacute left intertrochanteric femur fracture. I spoke to the daughter. The fracture was fixed at [facility] a little over two months ago. The patient has really had very little nutrition and almost no exercise. She has refused to allow therapy to come into her house. She has been bedridden for almost 2-1/2 months. The patient has some emotional issues about her current situation. She has lost her will to live. As there is nothing acute about the left hip, there is certainly no surgical intervention needed. Her left proximal humerus would have the option of being treated with a left shoulder hemiarthroplasty. However, the patient is clearly not a surgical candidate. Treatment is symptomatic. She is tremendously challenged to care for at home. I would suggest consultation and placement into a fpc facility. We do not anticipate any orthopedic intervention, but would be happy to follow along while she is in the hospital. Thank you for the consultation. Andrea Flores MD DR/RASHID /[id number]
--- NOTE | 2020-06-19 19:10 | NUR ---
received report from day nurse. patient is resting comfortably in bed. bed is in lowest position and call light is within reach. will continue to monitor patient.
[2020-06-19] MEDS: HYDROMORPHONE 1MG/1ML INJ IV PRN (20:33)
[2020-06-19] MEDS: ONDANSETRON HCL INJ 2MG/ML 2ML 2 MG/ML VIAL IV PRN (20:34)
[2020-06-20] VITALS (9 sets, daily range): BP systolic 116–131; BP diastolic 54–70
[2020-06-20] MEDS: CEFTRIAXONE SOD 1 GM/NS 50 ML 50 ML IV SCH (04:22)
[2020-06-20] MEDS: DIAZEPAM 5 MG TAB PO PRN (05:12)
[2020-06-20] MEDS ORDERED: ZOLPIDEM TARTRATE 5 MG TAB PO PRN (05:30)
--- NOTE | 2020-06-20 06:39 | NUR ---
patient is resting in the bed. bed is in the lowest position and call light is within reach.
[2020-06-20] MEDS: HYDROMORPHONE 1MG/1ML INJ IV PRN ×3 (06:56→21:43)
[2020-06-20] MEDS: ONDANSETRON HCL INJ 2MG/ML 2ML 2 MG/ML VIAL IV PRN ×2 (06:56→21:44)
[2020-06-20] MEDS: MIDODRINE 2.5 MG TAB PO SCH ×3 (09:26→21:00)
[2020-06-20] MEDS: CITALOPRAM HYDROBROMIDE 20 MG TAB PO SCH (09:26)
[2020-06-20] MEDS: SIMVASTATIN 40 MG TAB PO SCH (09:26)
--- NOTE | 2020-06-20 09:54 | NUR ---
SNF EVAL ORDERED CM SPOKE WITH PT WHO STATES, "I DON'T WANT TO GO TO SNF. I WANT TO GO HOME. I DON'T WANT THERAPY AT HOME. I WANT TO " CM NOTIFIED DR QUINONES OF ABOVE PT REQUEST AWAIT RESPONSE
--- NOTE | 2020-06-20 18:50 | NUR ---
Report given to oncoming nurse of patients status. Resting in bed .AAOX3 to time, person, place. Respirations even and unlabored. [place] traction in place to LLE. Side rails upx2, call light within reach, bed alarm on.
[2020-06-21] VITALS (8 sets, daily range): BP systolic 105–124; BP diastolic 42–58
[2020-06-21] MEDS: DIAZEPAM 5 MG TAB PO PRN (01:27)
[2020-06-21] MEDS: CEFTRIAXONE SOD 1 GM/NS 50 ML 50 ML IV SCH (04:26)
[2020-06-21] MEDS: HYDROMORPHONE 1MG/1ML INJ IV PRN ×2 (06:06→17:03)
[2020-06-21] MEDS: ONDANSETRON HCL INJ 2MG/ML 2ML 2 MG/ML VIAL IV PRN (06:06)
--- NOTE | 2020-06-21 06:47 | NUR ---
patient is resting in the bed. continues with traction to left lower extremity. bed is in lowest position and call light is within reach.
[2020-06-21] MEDS: CITALOPRAM HYDROBROMIDE 20 MG TAB PO SCH (08:24)
[2020-06-21] MEDS: SIMVASTATIN 40 MG TAB PO SCH (08:24)
[2020-06-21] MEDS: MIDODRINE 2.5 MG TAB PO SCH ×3 (08:25→21:18)
[2020-06-21] MEDS ORDERED: BISACODYL 5 MG TAB EC PO SCH (09:30)
--- NOTE | 2020-06-21 12:46 | NUR ---
WOUND CARE CONSULT FOR 80 YO FEMALE HX OF LEFT HIP FRACTURE LAUREN 15 ON MODERATE PUP STATUS AND INTERVENTIONS AND ALTERNATING PRESSURE MATTRESS LABS: WBC-9.16 HGB_74 GLUCOSE-96 HEMA1C- SKIN ASSESSMENT COMPLETE PATIENT PRESENTS WITH SACRAL DTI [id number] PURPLISH IN COLOR RECOMMENDATIONS: NURSING TO CONTINUE TO MAINTAIN MODERATE PUP STATUS AND INTERVENTIONS AND ALTERNATING PRESSURE MATTRESS NURSING TO CONTINUE TO ASSIST PATIENT OUT OF BED FOR MEALS AND MUCH TOLERATED NURSING TO CONTINUE TO ASSIST PATIENT NEEDED WITH MEALS AND NUTRITIONAL SUPPLEMENTS TO ENSURE PROPER REQUIREMENTS FOR HEALING NURSING TO CONTINUE TO OFFLOAD FEET AND HEELS NEEDED WITH PILLOW SUSPENSION WHEN IN BED NURSING TO CLEAN SACRAL DTI WITH NONABRASIVE DIRECTOR OF CONSUMER MARKETING DAILY AND APPLY VENELEX OINTMENT AND ALLEVYN FOAM DRESSING Addendum: 06/21/20 at 1257 by Enmanuel Resendiz RN Amended: Links added.
--- NOTE | 2020-06-21 15:38 | NUR ---
SPOKE WITH PATIENT WHOM SIGNED CHOICE FOR [facility], FAXED CLINICALS COMPLETED COVID FORM PASRR AND RTF, PACKET IN OFFICE PENDING AUTH.
--- NOTE | 2020-06-21 19:10 | NUR ---
Report given to oncoming nurse of patient's status. No s/s of acute distress noted. Bosque traction in place to LLE. Side rails upx2, call light within reach, bed alarm on.
--- NOTE | 2020-06-21 19:25 | NUR ---
bedside shift report received from Day RN. pt is alert and oriented x3. respirations are even and nonlabored pt denes pain. condition stable. call light within reach. pt remains in Sparks's tracktion.cms to left leg wnl. 22 g sl in rt wrist site healthy.
[2020-06-21] MEDS ORDERED: BISACODYL 5 MG TAB EC PO ONE (20:30)
[2020-06-22] VITALS (7 sets, daily range): BP systolic 104–121; BP diastolic 40–54
[2020-06-22] MEDS: HYDROMORPHONE 1MG/1ML INJ IV PRN ×3 (01:58→22:14)
[2020-06-22] MEDS: CEFTRIAXONE SOD 1 GM/NS 50 ML 50 ML IV SCH (04:40)
[2020-06-22 05:17] LABS: BASOPHILS % 0.5 % (0.0-1.0); EOSINOPHILS # (AUTO) 0.5 (0.0-0.4); EOSINOPHILS % 5.9 % (0.0-6.0); HEMATOCRIT 29.9 % (34.2-44.1); LYMPHOCYTES # (AUTO) 1.4 (1.0-3.2); LYMPHOCYTES % 16.6 % (18.0-39.1); MEAN CORPUSCULAR HEMOGLOBIN 34.2 pg (28-32); MEAN CORPUSCULAR HGB CONC 33.4 g/dL (31-35); MEAN CORPUSCULAR VOLUME 102.4 fL (81-99); MONOCYTES % 11.8 % (4.4-11.3); NEUTROPHILS # (AUTO) 5.3 (2.1-6.9); NEUTROPHILS % 64.8 % (38.7-80.0); PLATELET COUNT 270 x10e3/uL (140-360); RED BLOOD COUNT 2.92 x10e6/uL (3.6-5.1); RED CELL DISTRIBUTION WIDTH 16.4 % (11.7-14.4)
[2020-06-22 05:58] LABS: ALBUMIN 2.3 g/dL (3.5-5.0); ALBUMIN/GLOBULIN RATIO 0.7 (0.8-2.0); ANION GAP 14.5 mmol/L (8-16); CALCIUM 8.5 mg/dL (8.4-10.2); CREATININE, SERUM 1.37 mg/dL (0.57-1.11); MAGNESIUM 1.6 MG/DL (1.3-2.1); POTASSIUM 3.5 mmol/L (3.5-5.1)
[2020-06-22] MEDS: SIMVASTATIN 40 MG TAB PO SCH (08:28)
[2020-06-22] MEDS: MIDODRINE 2.5 MG TAB PO SCH ×3 (08:28→21:04)
[2020-06-22] MEDS: CITALOPRAM HYDROBROMIDE 20 MG TAB PO SCH (08:28)
[2020-06-22] MEDS ORDERED: HALOPERIDOL LACTATE 5 MG/ML VIAL IM PRN (11:30)
[2020-06-22] MEDS ORDERED: DIAZEPAM 5 MG TAB PO PRN (11:30)
--- NOTE | 2020-06-22 19:20 | NUR ---
Received bedside shift report from Day RN. Pt is alert and oriented x2. Respirations are even and unlabored. left arm in sling. left leg out of Sparks's traction per PT Orders. Kirby to gravity draining clear yellow urine.CMS to left leg and left shoulder wnl. sl 22g rt hand. call light within reach. Bed locked and in low position.
--- NOTE | 2020-06-22 22:22 | Consultation ---
DATE OF CONSULTATION: 06/22/2020 Psychiatric Consultation REASON FOR CONSULTATION: To evaluate the patient's depression. HISTORY OF PRESENT ILLNESS: The patient is an 80-year-old female, admitted to the hospital for fracture of neck of the left humerus. The patient has history of acute cholelithiasis, hyperkalemia, weakness, fall, cholecystitis. Upon evaluation today, the patient is found to be in the room alone. She is alert, awake, and oriented to situation. She is slow to respond to questions, very hesitant. Multiple times, I needed to repeat the question for her to understand and she may have some hearing issues or it could be cognitive impairment. The patient reports she is depressed because she is in the hospital and her is in a retirement. She reports some passive wish, intermittently having suicidal ideation, but denies any at this time. She denies any homicidal ideation. She denies any hallucination. She denies any feeling hopelessness or helplessness. She denies any problem with sleep or appetite. The patient claims that she , but it is not confirmed, but she does . As per nursing staff, the patient is not eating much. She is sleeping well. She is not combative or agitated. I discussed with case management and they report to me that she is going to be transferred from the hospital to a care home facility and she will be supervised during that time. PAST PSYCHIATRIC HISTORY: The patient denies any past psychiatric history, although she appears to be taking medication for anxiety and depression. She denies prior suicide attempts. She denies alcohol or drug use. FAMILY HISTORY: Denies. SOCIAL HISTORY: The patient claims she lives with her daughter. MENTAL STATUS EXAM: The patient is an elderly female. Her mood is depressed. Affect is blunt. Psychomotor state is passive. Denies suicidal or homicidal ideation. Denies any hallucination. Thought process is slow, but concrete. No delusion elicited. Insight and judgment are limited to fair. Memory appears to be questionable. CURRENT MEDICATIONS: 1. Valium 10 mg, three times a day as needed. 2. Midodrine. 3. Simvastatin. 4. Cefuroxime. 5. Dilaudid p.r.n. 6. Ondansetron. 7. Geodon p.r.n. 8. Ambien p.r.n. 9. Celexa 40 mg p.o. daily. 10. Haldol p.r.n. IM. CURRENT LABS: WBC 8.14, RBC 2.92, hemoglobin 10, hematocrit 29.9. Sodium 131, potassium 3.5, chloride 98, CO2 to 22, BUN 19 and creatinine 1.97. AST 38, ALT 20. ASSESSMENT: 1. Major depressive disorder, recurrent, severe. 2. Rule out dementia. PLAN: 1. To reduce Valium. 2. Reduce Celexa. 3. Add Wellbutrin 75 mg p.o. daily. 4. DC Geodon. 5. Continue Haldol p.r.n. IM. 6. Continue Ambien p.r.n. 7. Monitor for mood. 8. Supportive therapy. 9. Since the patient is going to a supervised setting, she has low risk of harming herself at this time. 10. Discussed with case management. Dictated by Marissa Martin PA-C MD SUKHDEEP OrrV/RASHID /[id number]
[2020-06-23] VITALS (9 sets, daily range): BP systolic 103–119; BP diastolic 42–60
[2020-06-23] MEDS: CEFTRIAXONE SOD 1 GM/NS 50 ML 50 ML IV SCH (04:23)
[2020-06-23] MEDS: MIDODRINE 2.5 MG TAB PO SCH ×3 (08:03→21:12)
[2020-06-23] MEDS: BUPROPION HCL 75 MG TAB PO SCH (08:04)
[2020-06-23] MEDS: SIMVASTATIN 40 MG TAB PO SCH (08:04)
[2020-06-23] MEDS: CITALOPRAM HYDROBROMIDE 20 MG TAB PO SCH (08:05)
[2020-06-23] MEDS: HYDROMORPHONE 1MG/1ML INJ IV PRN ×3 (08:05→22:15)
[2020-06-23] MEDS: ONDANSETRON HCL INJ 2MG/ML 2ML 2 MG/ML VIAL IV PRN ×2 (08:05→19:15)
--- NOTE | 2020-06-23 09:57 | NUR ---
CONTACTED FACILITY, STILL PENDING
--- NOTE | 2020-06-23 10:04 | Progress Note ---
DATE: Psychiatric Progress Note SUBJECTIVE: The patient is evaluated and events noted. Upon evaluation today, the patient is found to be lying on her bed. She is drowsy, but awake. She is oriented to self. She is not currently agitated. She is not answering all questions at this time. She appears to be tolerating her medications very well. MENTAL STATUS EXAMINATION: The patient is currently lying on her bed, drowsy, but confused. She is not participating for a complete mental status examination at this time. DIAGNOSES: 1. Major depressive disorder, recurrent. 2. Rule out dementia. PLAN OF CARE: 1. Continue Celexa. 2. Continue Wellbutrin. 3. Continue p.r.n. IM Haldol. 4. Continue p.r.n. Ambien. 5. Supportive therapy and monitor for agitation. Bella Boston MD SUQ/MODL /[id number]
--- NOTE | 2020-06-23 13:54 | NUR ---
FAXED UPDATES TO BUILDING, SHOULD HAVE ANSWER TODAY
--- NOTE | 2020-06-23 18:54 | NUR ---
WALKING ROUNDS PERFORMED, RECEIVED PT LAYING SEMI FOWLERS IN BED, AAOX3, RR EVEN AND NON-LABORED, ON ROOM AIR. PT REPORTS PAIN TO HIP. (L) ARM IN SLING. LEFT PT LAYING SEMI FOWLERS IN BED, BED IN LOW LOCKED POSITION, SIDE RAILS UPX2, CALL LIGHT AND PHONE WITHIN REACH. Addendum: 06/23/20 at 2016 by Gay Stanton RN RECEIVED IN REPORT MD HERMOSILLO REQUESTED BUCKS TRACTION BE REMOVED.
--- NOTE | 2020-06-23 20:20 | NUR ---
CLARIFIED MIDODRINE ORDER THAT STATES NOT TO GIVE MEDICATION AFTER 1800 AND MEDICATION IS ORDERED TO GIVE AT 2100. OK TO GIVE MEDICATION AND REMOVE ADMINISTRATION NOTE.
--- NOTE | 2020-06-23 21:05 | NUR ---
IV TO (R) WRIST NOTED TO BE LEAKING WHEN FLUSHED. IV DISCONTINUED, CATHETER TIP INTACT. PRESSURE AND DRESSING APPLIED. NEW IV STARTED TO (R) FA 22G. FLUSHES WITHOUT DIFFICULTY OR PAIN AND BLOOD RETURN NOTED.
[2020-06-24] VITALS (9 sets, daily range): BP systolic 78–133; BP diastolic 36–56
[2020-06-24] MEDS: HYDROMORPHONE 1MG/1ML INJ IV PRN ×3 (04:15→18:54)
[2020-06-24] MEDS: CEFTRIAXONE SOD 1 GM/NS 50 ML 50 ML IV SCH (04:15)
[2020-06-24] MEDS: ONDANSETRON HCL INJ 2MG/ML 2ML 2 MG/ML VIAL IV PRN ×3 (04:15→18:55)
[2020-06-24] MEDS: SIMVASTATIN 40 MG TAB PO SCH (08:46)
[2020-06-24] MEDS: MIDODRINE 2.5 MG TAB PO SCH ×3 (08:46→21:03)
[2020-06-24] MEDS: CITALOPRAM HYDROBROMIDE 20 MG TAB PO SCH (08:46)
[2020-06-24] MEDS: BUPROPION HCL 75 MG TAB PO SCH (08:46)
--- NOTE | 2020-06-24 11:58 | NUR ---
Nutrition Screen Note RD Recommendation for Physician: Consider liberalizing diet to a regular diet to promote PO intake Plan of Care: RD following monitoring for tolerance and adequacy Nutrition reason for involvement: LOS Primary Diagnose(s): Hip Fx PMH: cholelithiasis, cholecystitis, Ht:64 in Wt:159.19 lbs BMI:27.3 kg/m2 IBW: [address] Assessment: Initial encounter with patient. Pt denies any difficulty chewing or swallowing nor has any nausea, vomiting or diarrhea. Pt with a decreased PO intake at this time. No significant wt changes. No known food allergies. Current Diet: Cardiac diet Malnutrition Evaluation (06/24/2020) The patient does not meet criteria for a specified degree of malnutrition at this time. Will re-evaluate at follow-up as appropriate. Diet Education Needs Assessment: Diet education not indicated at this time. Diet tolerance: Tolerating diet Nutrition Care Level[facility] Cage RD[facility]
--- NOTE | 2020-06-24 12:35 | NUR ---
pt ambulating with physical therapy, pt starting leaning and not responding to verbal command, pt placed back in bed. once in bed pt opened eyes and responded to nurses questions. no further distress noted, vital signs obtained 107/48, 67, 20, 98% RA, will notify md and continue to monitor
--- NOTE | 2020-06-24 18:45 | NUR ---
WALKING ROUNDS PERFORMED, RECEIVED PT LAYING SEMI FOWLERS IN BED, AAOX3 RR EVEN AND NON-LABORED, ON ROOM AIR. (L) ARM IN SLING. LEFT PT LAYING SEMI FOWLERS IN BED, BED IN LOW LOCKED POSITION, SIDE RAILS UPX2, CALL LIGHT AND PHONE WITHIN REACH.
[2020-06-25] MEDS: ONDANSETRON HCL INJ 2MG/ML 2ML 2 MG/ML VIAL IV PRN ×3 (03:05→17:36)
[2020-06-25] MEDS: HYDROMORPHONE 1MG/1ML INJ IV PRN ×3 (03:05→17:36)
[2020-06-25] MEDS: CEFTRIAXONE SOD 1 GM/NS 50 ML 50 ML IV SCH (04:13)
[2020-06-25 04:43] VITALS: BP 119/54
[2020-06-25 06:00] LABS: BASOPHILS # (AUTO) 0.1 (0.0-0.1); BASOPHILS % 0.7 % (0.0-1.0); EOSINOPHILS # (AUTO) 0.5 (0.0-0.4); EOSINOPHILS % 4.6 % (0.0-6.0); HEMATOCRIT 31.6 % (34.2-44.1); HEMOGLOBIN 10.1 g/dL (12.0-16.0); LYMPHOCYTES # (AUTO) 1.2 (1.0-3.2); LYMPHOCYTES % 11.7 % (18.0-39.1); MEAN CORPUSCULAR HEMOGLOBIN 32.7 pg (28-32); MEAN CORPUSCULAR VOLUME 102.3 fL (81-99); MONOCYTES # (AUTO) 1.3 (0.2-0.8); MONOCYTES % 12.2 % (4.4-11.3); NEUTROPHILS # (AUTO) 7.3 (2.1-6.9); NEUTROPHILS % 70.2 % (38.7-80.0); PLATELET COUNT 329 x10e3/uL (140-360); RED BLOOD COUNT 3.09 x10e6/uL (3.6-5.1); RED CELL DISTRIBUTION WIDTH 16.2 % (11.7-14.4)
[2020-06-25 06:26] LABS: ALBUMIN 2.4 g/dL (3.5-5.0); ALBUMIN/GLOBULIN RATIO 0.7 (0.8-2.0); ANION GAP 14.9 mmol/L (8-16); CREATININE, SERUM 1.11 mg/dL (0.57-1.11); MAGNESIUM 1.7 MG/DL (1.3-2.1); POTASSIUM 3.9 mmol/L (3.5-5.1)
[2020-06-25 08:27] VITALS: BP 103/51
[2020-06-25] MEDS: CITALOPRAM HYDROBROMIDE 20 MG TAB PO SCH (08:31)
[2020-06-25 08:32] VITALS: BP 103/51
[2020-06-25] MEDS: MIDODRINE 2.5 MG TAB PO SCH ×3 (08:32→21:33)
[2020-06-25] MEDS: SIMVASTATIN 40 MG TAB PO SCH (08:32)
[2020-06-25] MEDS: BUPROPION HCL 75 MG TAB PO SCH (08:32)
[2020-06-25 12:00] VITALS: BP 135/52
[2020-06-25 17:46] VITALS: BP 137/52
--- NOTE | 2020-06-25 19:05 | NUR ---
BEDSIDE NURSING REPORT RECEIVED FROM MORNING NURSE. PT ALERT TO NAME, LYING IN BED HOB 45 DEGREES LEFT ARM WITH SLING. NO S/S OF PAIN AT THIS TIME. CALL LIGHT WITHIN REACH. BED LOW AND LOCKED. BED ALARM ON.
[2020-06-25 20:00] VITALS: BP_SYST 127; BP_SYST 168; BP_DIAS 47; BP_DIAS 68
[2020-06-26] VITALS (7 sets, daily range): BP systolic 96–168; BP diastolic 44–94
[2020-06-26] MEDS: HYDROMORPHONE 1MG/1ML INJ IV PRN (00:50)
[2020-06-26] MEDS: CEFTRIAXONE SOD 1 GM/NS 50 ML 50 ML IV SCH ×2 (04:15→04:50)
[2020-06-26] MEDS: ACETAMINOPHEN 325 MG TAB PO PRN ×3 (04:50→23:00)
--- NOTE | 2020-06-26 07:00 | NUR ---
BEDSIDE SHIFT REPORT RECEIVED FROM NETWORK OPERATIONS TECHNICIAN RN. PT DENIES NEEDS AT THIS TIME.
[2020-06-26] MEDS: CITALOPRAM HYDROBROMIDE 20 MG TAB PO SCH (07:59)
[2020-06-26] MEDS: BUPROPION HCL 75 MG TAB PO SCH (08:00)
[2020-06-26] MEDS: SIMVASTATIN 40 MG TAB PO SCH (08:00)
[2020-06-26] MEDS: MIDODRINE 2.5 MG TAB PO SCH ×3 (08:00→22:14)
--- NOTE | 2020-06-26 09:05 | NUR ---
CONTACTED [facility], STILL PENDING.
--- NOTE | 2020-06-26 10:22 | Progress Note ---
DATE: Psychiatric Progress Note SUBJECTIVE: The patient is evaluated and events noted. Upon evaluation today, the patient is found to be lying on her bed, she is alert, awake, oriented to situation. She is feeling better. She is less anxious and not agitated. She denies any suicidal or homicidal ideation at present. She denies any hallucination at present. MENTAL STATUS EXAMINATION: The patient is currently lying on her bed. Alert, awake and oriented to situation. She denies any hallucination and/or any suicidal ideations. She is not agitated. DIAGNOSES: 1. Major depressive disorder, recurrent. 2. Rule out dementia. PLAN OF CARE: 1. Continue Celexa. 2. Continue Wellbutrin. 3. Continue p.r.n. IM Haldol. 4. Continue p.r.n. Ambien. 5. Supportive therapy during her stay. Bella Boston MD SUQ/MODL /[id number]
--- NOTE | 2020-06-26 11:13 | NUR ---
CALLED [facility]ILD[facility] STILL NO UPDATE.
--- NOTE | 2020-06-26 14:07 | NUR ---
CALLED BUILDING, STILL PENDING
--- NOTE | 2020-06-26 19:41 | NUR ---
Received pt in bed easily awaken, no s/sx of acute distress noted. No c/o at this time. Bed low and locked, call light within reach. Bedside report given
[2020-06-27] VITALS (9 sets, daily range): BP systolic 106–126; BP diastolic 39–71
[2020-06-27] MEDS: CEFTRIAXONE SOD 1 GM/NS 50 ML 50 ML IV SCH ×2 (04:15)
[2020-06-27] MEDS: ACETAMINOPHEN 325 MG TAB PO PRN ×2 (05:15→13:49)
--- NOTE | 2020-06-27 07:00 | NUR ---
BEDSIDE SHIFT REPORT RECEIVED FROM BUILDINGS AND GROUNDS SUPERVISOR RN. PT DENIES NEEDS AT THIS TIME.
[2020-06-27] MEDS: CITALOPRAM HYDROBROMIDE 20 MG TAB PO SCH (08:10)
[2020-06-27] MEDS: BUPROPION HCL 75 MG TAB PO SCH (08:10)
[2020-06-27] MEDS: SIMVASTATIN 40 MG TAB PO SCH (08:10)
[2020-06-27] MEDS: MIDODRINE 2.5 MG TAB PO SCH ×2 (08:10→16:04)
--- NOTE | 2020-06-27 13:18 | NUR ---
FACILITY STATES HAVE AUTH BUT WONT GIVE MOT UNTIL FAMILY COMES AND COMPLETES PAPERWORK. CALLED AND LEFT MESSAGE FOR BAL AT [phone] AND [phone]
--- NOTE | 2020-06-27 15:19 | NUR ---
CORRECTION FACILITY DISCHARGE INFORMATION PATIENT HAS BEEN ACCEPTED TO: NAME: ZAHIDA ADDRESS:[id number] [facility] ACCEPTING CUT OFF WORKER: MYESHA RAMOS ACCEPTING MD:JONI ROOM:[id number] NURSE CALL REPORT TO: [phone]
--- NOTE | 2020-06-27 18:25 | NUR ---
REPORT CALLED TO JOZEF AT THE [facility] AT 1730. ATTEMPTS TO CALL DAUGHTER BAL FOR AUTHORIZATION TO TRANSPORT PER CHOICE LETTER. MESSAGES LEFT. SPOKE TO ASSURANCE SENIOR MANAGER INSURANCE ABOUT SITUATION.
--- NOTE | 2020-06-27 19:01 | NUR ---
VILA D/C CATHETER TIP INTACT. TOLERATED PROCEDURE WELL.
--- NOTE | 2020-06-27 19:41 | NUR ---
VILA DC'D. TIP INTACT AND PT TOLERATED. STOCK WORKER NURSE ASSISTED.
--- NOTE | 2020-06-27 20:22 | NUR ---
R FA 22G IV D/C CATHETER TIP INTACT. CDI DRESSING APPLIED. TOLERATED WELL.
--- NOTE | 2020-06-28 06:17 | Discharge Summary ---
DISCHARGE DIAGNOSIS: Left hip fracture, inoperable and left humerus fracture, inoperable and anxiety and depression. DISPOSITION: The patient was transferred to longterm facility for further rehabilitative clear. HISTORY OF PRESENT ILLNESS AND HOSPITAL COURSE: See hospital chart for full details. The patient is a lady, who unfortunately fell and sustained a left hip and left humeral fracture and was seen by Orthopedics, where she was found to be inoperable. Medically, the patient was very stable. She does have a history of anxiety, depression, , for which she was seen by Psychiatry, where she seemed to do well with the psychiatric medication changes and due to her being essentially bedbound, we felt the patient would be best by going to a longterm facility, to see if they can optimize on her health, so she was then sent to take care of her there as well. Please see hospital chart for full details. MD KASSIE Beth/RASHID /[id number]
--- NOTE | 2020-06-28 09:34 | Progress Note ---
DATE: 06/27/2020 Psychiatric Progress Note SUBJECTIVE: The patient evaluated and events noted. The patient is in the room. She is alert, awake, and oriented to situation. She states that she has less depression. Denies any suicidal ideation. She reports poor sleep. She denies any hallucination. She denies any side effects of medication. ASSESSMENT: 1. Major depressive disorder, recurrent. 2. Rule out dementia. PLAN: 1. Continue with Celexa. 2. Continue with Wellbutrin. 3. Continue p.r.n. medication. Dictated by Marissa Martin PA-C Bella Boston MD QTV/MODL /[id number]
== END 2020-06-27 20:25 | DRG 534 ==
LOC: ER 17:32 → ERHOLD 06-19 00:10 → MED/SURG 06-19 00:35
PROVIDERS: ADMIT Internal Medicine; ATTEND Internal Medicine
DX: S72.92XA Unspecified fracture of left femur, initial encounter for closed fracture (principal); S42.302A Unspecified fracture of shaft of humerus, left arm, initial encounter for closed fracture; F33.2 Major depressive disorder, recurrent severe without psychotic features; Z11.59 Encounter for screening for other viral diseases; M25.512 Pain in left shoulder; F03.90 Unspecified dementia, unspecified severity, without behavioral disturbance, psychotic disturbance, mood disturbance, and anxiety; D64.9 Anemia, unspecified; E78.00 Pure hypercholesterolemia, unspecified; W19.XXXA Unspecified fall, initial encounter; I95.1 Orthostatic hypotension; E78.5 Hyperlipidemia, unspecified; E87.6 Hypokalemia; F41.9 Anxiety disorder, unspecified
CPT/HCPCS: 36415; 51700; 70450; 71045; 72125; 72170; 80053; 81001; 82550; 82553; 83735; 84484; 85025; 85610; 85730; 93005; 97139; 99284; J0696; J1170; J2405; J7050; U0002